=== PATIENT | female | born 1975 | race African-American/Black ===

== ENCOUNTER 2018-07-30 14:12 | Inpatient (IN) | payer MEDICAID ==
[~2018-07-30] VITALS: Ht 165.1 cm; Wt 65.3 kg
--- NOTE | 2018-07-30 14:40 | NUR ---
ED Nurse Note: Pt came into the ER w/ complaints of unable to walk x 2 weeks. Pt is denies any pain. A + O x4.
[2018-07-30 14:41] VITALS: BP 148/91
[2018-07-30] MEDS ORDERED: DiphenhydrAMINE 50mg/ml Inj IVP ONE (14:45)
[2018-07-30] MEDS ORDERED: Morphine Sulfate 4mg/ml Inj (IV USE ONLY) IVP ONE (14:45)
--- NOTE | 2018-07-30 14:46 | Emergency Room Report ---
History of Present Illness General Chief Complaint: General Complaint Source: Patient (TophermanoloNicole TANG) Present Illness HPI Patient presents with continued headache essentially debilitating sensation Patient was at [facility] last week was given a pain medication and Imitrex Family reports the patient had very minimal relief at the time with the headache over the past next week Patient was seen by her primary was given a note on the to present to the emergency room given questionable fever and headache and myalgia Patient presents 3 days after the initial note here family reports that they were not happy at [facility] and therefore presented to this facility patient herself denies any chest pain Patient has for fingers contracted complains of exacerbation of rheumatoid as well Also complains of continued headache she feels that her vision gets blurry at times (Nicole Espino DO) Allergies: Coded Allergies: No Known Allergies (Unverified , 07/30/18) Patient History Past Medical History: see triage record Pertinent Family History: none Reviewed Nursing Documentation: PMH: Agreed; PSxH: Agreed (Nicole Espino DO) Nursing Documentation-PMH Past Medical History: No Stated History (Nicole Espino DO) Review of Systems All Other Systems: negative except mentioned in HPI (Nicole Espino DO) Physical Exam Vital Signs Date Time Temp Pulse Resp B/P (MAP) Pulse Ox O2 Delivery O2 Flow Rate FiO2 07/30/18 14:28 98.4 99 23 136/102 99 Sp02 EP Interpretation: reviewed, normal General Appearance: well appearing, no apparent distress Head: normocephalic, atraumatic Eyes: left eye other; bilateral eye PERRL Neck: supple, thyroid normal Respiratory: lungs clear, no retraction, no accessory muscle use Gastrointestinal: non tender, soft Musculoskeletal: other - Contractures of her fingers difficulty bearing weight Neurologic: alert, oriented x3 Skin: normal color, no rash (Nicole Espino DO) Medical Decision Making ER Course I was called by the radiologist regarding a final read of the head CT done last night. He states that he feels that the patient has larger ventricles that would be expected. He is concerned it could be a communicating hydrocephalus. The patient was admitted to Dr. Stevens is currently an inpatient in the hospital. I called Dr. nicolas and informed him of the CT findings. He will follow-up and investigate this further. (Kimberly Nassar DO) Last Vital Signs Date Time Temp Pulse Resp B/P (MAP) Pulse Ox O2 Delivery O2 Flow Rate FiO2 07/30/18 14:28 98.4 99 23 136/102 99 (Nicole Espino DO) Nicole Espino DO Jul 30, 2018 14:46 Kimberly Nassar DO Jul 31, 2018 15:23
[2018-07-30 15:38] LABS: BASOPHILS % (AUTO) 0.7 % (0.0-2.0); EOSINOPHILS % (AUTO) 0.1 % (0.0-3.0); HEMATOCRIT 41.1 % (37.0-47.0); HEMOGLOBIN 13.1 G/DL (12.0-16.0); LYMPHOCYTES % (AUTO) 13.3 % (20.0-45.0); MEAN CORPUSCULAR VOLUME 71 FL (80-99); NEUTROPHILS % (AUTO) 75.9 % (45.0-75.0); PLATELET COUNT 293 K/UL (150-450); RED BLOOD COUNT 5.76 M/UL (4.20-5.40); RED CELL DISTRIBUTION WIDTH 17.7 % (11.6-14.8); WHITE BLOOD COUNT 10.9 K/UL (4.8-10.8)
--- NOTE | 2018-07-30 15:57 | NUR ---
ED Nurse Note: Pt back from CT.
[2018-07-30 16:31] LABS: ANION GAP 15 mmol/L (5-15); BLOOD UREA NITROGEN 12 mg/dL (7-18); CALCIUM 8.2 MG/DL (8.5-10.1); CARBON DIOXIDE 26 MMOL/L (21-32); CHLORIDE 93 MMOL/L (98-107); CREATININE 0.6 MG/DL (0.55-1.30); POTASSIUM 3.1 MMOL/L (3.5-5.1); SODIUM 133 MMOL/L (136-145)
[2018-07-30 16:40] VITALS: BP 138/91
[2018-07-30 16:44] LABS: ALANINE AMINOTRANSFERASE 9 U/L (12-78); ALBUMIN 2.9 G/DL (3.4-5.0); ALBUMIN/GLOBULIN RATIO 0.7 (1.0-2.7); ALKALINE PHOSPHATASE 60 U/L (46-116); ASPARTATE AMINO TRANSFERASE 15 U/L (15-37); BILIRUBIN,TOTAL 0.4 MG/DL (0.2-1.0); CKMB < 0.5 NG/ML (0.0-3.6); CREATINE KINASE 79 U/L (26-308)
[2018-07-30 16:49] LABS: APPEARANCE,URINE CLEAR; BILIRUBIN, URINE NEGATIVE (NEGATIVE); GLUCOSE, URINE (UA) NEGATIVE (NEGATIVE); KETONES,URINE 4+ (NEGATIVE); LEUKOCYTE ESTERASE ,URINE 1+ (NEGATIVE); NITRITE,URINE NEGATIVE (NEGATIVE); PH,URINE 6.5 (4.5-8.0); PROTEIN,URINE 3+ (NEGATIVE); UROBILINOGEN,URINE 4 MG/DL (0.0-1.0)
[2018-07-30 16:51] LABS: COLOR,URINE YELLOW
[2018-07-30] MEDS ORDERED: CLEAR EYES COMP15 ML OP (18:17)
[2018-07-30] MEDS ORDERED: HUMIRA20 MG/0.4 SUBQ (18:17)
[2018-07-30] MEDS ORDERED: VITAMIN E200 UNI4 PO (18:17)
[2018-07-30] MEDS ORDERED: IBUPROFEN600 MG ORAL (18:17)
[2018-07-30] MEDS ORDERED: Marijuana (18:17)
[2018-07-30] MEDS ORDERED: PREDNISONE2.5 MG ORAL (18:17)
[2018-07-30] MEDS ORDERED: Black Seed Oil (18:17)
[2018-07-30] MEDS ORDERED: TYLENOL EXTRA500 MG ORAL (18:17)
[2018-07-30 18:56] VITALS: BP 146/90
--- NOTE | 2018-07-30 19:06 | NUR ---
HAND-OFF: Report given to MARY Peres.
--- NOTE | 2018-07-30 20:29 | NUR ---
ED Nurse Note: ATTEMPTED TO GIVE TELEPHONE REPORT, PER CRN CALL BACK IN 10 MINUTES
[2018-07-30 20:31] VITALS: BP 158/80
--- NOTE | 2018-07-30 20:39 | NUR ---
ED Nurse Note: TELEPHONE REPORT GIVEN TO MARY MURCIA
--- NOTE | 2018-07-30 20:40 | NUR ---
NURSE NOTES: Received telephone report from MARY Peres. Awaiting patient arrival to unit.
--- NOTE | 2018-07-30 20:44 | NUR ---
ED Nurse Note: PT HAS BEEN TRASNFERRED TO [facility] WITH EZEQUIEL CABRERA. PT IS AOX4, SKIN INTACT, PT 100% ROOM AIR., PT IS IN SO SIGNS OF DISTRESS. ALL BELONGINGS SENT WITH PT.
--- NOTE | 2018-07-30 20:50 | NUR ---
NURSE NOTES: Received patient from ER via tech. Belongings checked. Patient A&Ox4, on room air. No signs of labored breathing. IV intact, patent, and saline locked. Bed in lowest position with call light in reach. Will continue to monitor.
[2018-07-30 21:00] VITALS: BP 148/94
[2018-07-30] MEDS ORDERED: Milk of Magnesia 30ml Ud ORAL PRN (21:00)
[2018-07-30] MEDS: Solu-MEDROL 40mg Inj IVP SCH (22:20)
--- NOTE | 2018-07-30 22:45 | History and Physical Report ---
DATE OF ADMISSION: 07/30/2018 HISTORY OF PRESENT ILLNESS: The patient is a 43-year-old female. She has past medical history of severe rheumatoid arthritis and mostly getting generalized weakness, came to the emergency room for intractable pain on both knee and unable to move and progressively getting worse. PAST MEDICAL HISTORY: Rheumatoid arthritis. MEDICATIONS: She is taking Humira as well as prednisone. PHYSICAL EXAMINATION: GENERAL: This is female, currently in the bed, generalized weakness. VITAL SIGNS: Blood pressure is 100/40, pulse 60, respirations 18, and temperature no fever. SKIN: Very shiny and red, dehydrated. HEENT: NAD. CHEST: Bilaterally clear. CARDIOVASCULAR: Regular rhythm. ABDOMEN: Soft. EXTREMITIES: Swelling on both ring fingers as well as ankle and knee. GENITOURINARY: Deferred. LABORATORY EXAMINATIONS: Not available. ASSESSMENT: 1. Severe arthritis. 2. Possible flare up. 3. Arthritis. PLAN: 1. We will admit on medical floor. 2. Start IV steroids. 3. Consider Rheumatology consult. 4. Continue [place] for severe pain. 5. PT and OT. Andrew Stevens M.D. DR: Dmitri JOB#: [id number] CC:
[2018-07-31] VITALS: BP 122/87
[2018-07-31] MEDS: HYDROcodone/Acetamin 5/325 tab ORAL PRN ×2 (01:08→23:18)
[2018-07-31 04:00] VITALS: BP 112/74
--- NOTE | 2018-07-31 07:14 | NUR ---
NURSE NOTES: HAND-OFF: Report given to MARY Joy.
[2018-07-31 08:00] VITALS: BP 122/80
[2018-07-31 08:04] LABS: ANION GAP 10 mmol/L (5-15); BLOOD UREA NITROGEN 9 mg/dL (7-18); CALCIUM 9.1 MG/DL (8.5-10.1); CARBON DIOXIDE 26 MMOL/L (21-32); CHLORIDE 90 MMOL/L (98-107); CREATININE 0.6 MG/DL (0.55-1.30); SODIUM 126 MMOL/L (136-145)
--- NOTE | 2018-07-31 08:13 | NUR ---
NURSE NOTES: Patient is alert and oriented X4. Patient is resting in bed. No reports of discomfort at the moment. Side rails are up X2, bed is locked, and in lowest position. Will continue to monitor.
[2018-07-31] MEDS: Solu-MEDROL 40mg Inj IVP SCH (08:40)
[2018-07-31] MEDS ORDERED: Pantoprazole Inj IVP SCH (09:00)
--- NOTE | 2018-07-31 09:18 | NUR ---
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
--- NOTE | 2018-07-31 10:22 | Diagnostic Imaging Report ---
Indication: Headache Technique: Contiguous 5 mm thick transaxial imaging of the head obtained in a Siemens Sensation [address] scanner. Soft tissue and bone windows generated. Automatic Exposure Control was utilized. Total Dose length Product (DLP): 1400.[address] Dose Index Volume (CTDIvol): 70.38 mGy Comparison: none Findings: There is some prominence of the ventricles which appear disproportionately large relative to the size of the sulci and basal cisterns, which are much smaller. Would consider the possibility of communicating hydrocephalus. Further clinical evaluation by a neurologist may be indicated. There is no mass effect or edema, midline shift. There is no evidence of acute intracranial hemorrhage or abnormal extra-axial collections. The osseous structures appear unremarkable. Paranasal sinuses are clear as visualized. IMPRESSION: Question of mild ventricular dilatation. Consider communicating hydrocephalus. Discrepancy with the preliminary reading by statrad is noted. The final results were discussed via telephone with the emergency room physician Dr. Kimberly Nassar. The CT scanner at [facility] is accredited by the [employer] and the scans are performed using dose optimization techniques as appropriate to a performed exam including Automatic Exposure control.
[2018-07-31 12:00] VITALS: BP 135/96
--- NOTE | 2018-07-31 14:32 | Consultation ---
Consult Note Consult Note asked to eval for Renal consultation regarding hypoNatremia Patient presents with continued headache essentially debilitating sensation Patient was at [facility] last week was given a pain medication and Imitrex Family reports the patient had very minimal relief at the time with the headache over the past next week Patient was seen by her primary was given a note on the to present to the emergency room given questionable fever and headache and myalgia Patient presents 3 days after the initial note here family reports that they were not happy at [facility] and therefore presented to this facility patient herself denies any chest pain Patient has for fingers contracted complains of exacerbation of rheumatoid as well Also complains of continued headache she feels that her vision gets blurry at times No Known Allergies (Unverified , 07/30/18) interviewed, responsive alert and oriented examined, VSS moves all exterimities, answers questions properly no wheez slight tachy abd soft data reviewed on prednisone and Acthie for last 2 years for RA . Assessment/Plan Renal immpression: Hyponatremia ? Depletional Other dx; Periodic Vomiting RA UTI plan: Saline IV fluid IV Protonix monitor serum Na U Na U Osm per orders, per consultants further comments regarding low Na ,when test results available Lio Ramsey MD Jul 31, 2018 14:32
[2018-07-31] MEDS: Artificial Tears 1.4% Op Soln BOTH EYES PRN (15:18)
[2018-07-31 16:00] VITALS: BP 132/84
[2018-07-31] MEDS: Docusate 100mg cap ORAL SCH (17:31)
[2018-07-31 19:03] LABS: APPEARANCE,URINE SLIGHTLY CLOUDY; BILIRUBIN, URINE NEGATIVE (NEGATIVE); COLOR,URINE ORANGE; GLUCOSE, URINE (UA) NEGATIVE (NEGATIVE); KETONES,URINE 4+ (NEGATIVE); LEUKOCYTE ESTERASE ,URINE 1+ (NEGATIVE); NITRITE,URINE NEGATIVE (NEGATIVE); PH,URINE 6.5 (4.5-8.0); PROTEIN,URINE 4+ (NEGATIVE); UROBILINOGEN,URINE 4 MG/DL (0.0-1.0)
--- NOTE | 2018-07-31 19:23 | NUR ---
HAND-OFF: Report given to MARY Salcido.
--- NOTE | 2018-07-31 19:25 | NUR ---
NURSE NOTES: Received patient awake in bed, able to verbalize needs, no c/o pain and nausea at this time. IV asymptomatic, dressing reinforced, IVF running at 75ml/hr. 2 side rails up, bed on lowest position, call light and belongings within reach,
[2018-07-31 20:00] VITALS: BP 135/85
[2018-07-31] MEDS: Pantoprazole Inj IVP SCH (20:17)
[2018-08-01 00:10] VITALS: BP 139/97
[2018-08-01 04:00] VITALS: BP 153/75
--- NOTE | 2018-08-01 07:14 | NUR ---
HAND-OFF: Report given to MARY Joy.
[2018-08-01 07:28] LABS: BASOPHILS % (AUTO) 0.8 % (0.0-2.0); EOSINOPHILS % (AUTO) 0.2 % (0.0-3.0); HEMATOCRIT 39.3 % (37.0-47.0); HEMOGLOBIN 12.4 G/DL (12.0-16.0); LYMPHOCYTES % (AUTO) 11.5 % (20.0-45.0); MEAN CORPUSCULAR VOLUME 72 FL (80-99); MONOCYTES % (AUTO) 6.9 % (1.0-10.0); NEUTROPHILS % (AUTO) 80.7 % (45.0-75.0); PLATELET COUNT 230 K/UL (150-450); RED BLOOD COUNT 5.49 M/UL (4.20-5.40); RED CELL DISTRIBUTION WIDTH 17.5 % (11.6-14.8); WHITE BLOOD COUNT 10.1 K/UL (4.8-10.8)
--- NOTE | 2018-08-01 07:43 | NUR ---
NURSE NOTES: Patient is asleep. IVF is infusing at 75 ml/hr. Side rails are up X2, bed is locked, in lowest position, and call light is within reach. Will continue to monitor.
[2018-08-01 08:00] VITALS: BP 130/98
[2018-08-01 08:05] LABS: ALANINE AMINOTRANSFERASE 6 U/L (12-78); ALBUMIN/GLOBULIN RATIO 0.6 (1.0-2.7); ALKALINE PHOSPHATASE 61 U/L (46-116); ANION GAP 10 mmol/L (5-15); ASPARTATE AMINO TRANSFERASE 19 U/L (15-37); BILIRUBIN,TOTAL 0.5 MG/DL (0.2-1.0); BLOOD UREA NITROGEN 13 mg/dL (7-18); CALCIUM 8.7 MG/DL (8.5-10.1); CARBON DIOXIDE 24 MMOL/L (21-32); CHLORIDE 92 MMOL/L (98-107); CHOLESTEROL 137 MG/DL (< 200); CREATINE KINASE 77 U/L (26-308); CREATININE 0.6 MG/DL (0.55-1.30); GAMMA GLUTAMYL TRANSPEPTIDASE 19 U/L (5-85); HDL CHOLESTEROL 33 MG/DL (40-60); PHOSPHORUS 2.8 MG/DL (2.5-4.9); POTASSIUM 4.3 MMOL/L (3.5-5.1); SODIUM 126 MMOL/L (136-145); TRIGLYCERIDES 125 MG/DL (30-150)
[2018-08-01] MEDS: Pantoprazole Inj IVP SCH (08:43)
[2018-08-01] MEDS: Docusate 100mg cap ORAL SCH ×3 (08:43→18:09)
[2018-08-01] MEDS: Solu-MEDROL 40mg Inj IVP SCH (08:43)
[2018-08-01] MEDS: HYDROcodone/Acetamin 5/325 tab ORAL PRN ×2 (08:48→20:33)
[2018-08-01] MEDS ORDERED: NaCl 3% 500ml 250 ML IV ONE (10:00)
[2018-08-01 12:00] VITALS: BP 124/82
--- NOTE | 2018-08-01 13:11 | Nephrology Progress Note ---
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 Vomiting RA UTI Plan 3% saline Protonix monitor serum Na U Na U Osm steroid change to po waiting urine culture- meanwhile Rocephin per orders Subjective ROS Limited/Unobtainable: No Constitutional: Reports: malaise HEENT: Reports: other - less HERNANDEZ Neurologic/Psychiatric: Reports: other - non focal Objective Objective Last 24 Hour Vital Signs Date Time Temp Pulse Resp B/P (MAP) Pulse Ox O2 Delivery O2 Flow Rate FiO2 08/01/18 12:00 97.2 72 18 124/82 (96) 99 08/01/18 10:43 99.3 08/01/18 08:15 Room Air 08/01/18 08:00 100.5 102 16 130/98 (109) 98 08/01/18 04:00 97.4 75 16 153/75 (101) 98 08/01/18 00:10 98.8 89 16 139/97 (111) 96 07/31/18 23:12 Room Air 07/31/18 20:00 97.5 73 16 135/85 (102) 96 07/31/18 16:00 97.5 75 18 132/84 (100) 96 Intake and Output 07/31/18 08/01/18 19:00 07:00 Intake Total 390 ml 1175 ml Balance 390 ml 1175 ml Intake Oral 240 ml 350 ml IV Total 150 ml 825 ml # Voids 2 3 Laboratory Tests 07/31/18 18:30: Urine Color [place], Urine Appearance Slightly cloudy, Urine pH 6.5, Urine Specific [place] 1.020, Urine Protein 4+H, Urine Glucose (UA) Negative, Urine Ketones 4+H, Urine Blood 5+H, Urine Nitrite Negative, Urine Bilirubin Negative, Urine Urobilinogen 4H, Urine Leukocyte Esterase 1+H, Urine RBC TntcH, Urine WBC 5-10H, Urine Squamous Epithelial Cells ModerateH, Urine Bacteria ModerateH, Urine Osmolality 754H 08/01/18 06:40: White Blood Count 10.1, Red Blood Count 5.49H, Hemoglobin 12.4, Hematocrit 39.3 , Mean Corpuscular Volume 72L, Mean Corpuscular Hemoglobin 22.7L, Mean Corpuscular Hemoglobin Concent 31.6L, Red Cell Distribution Width 17.5H, Platelet Count 230, Mean Platelet Volume 6.2L, Neutrophils (%) (Auto) 80.7H, Lymphocytes (%) (Auto) 11.5L, Monocytes (%) (Auto) 6.9, Eosinophils (%) (Auto) 0.2, Basophils (%) (Auto) 0.8, Sodium Level 126L, Potassium Level 4.3, Chloride Level 92L, Carbon Dioxide Level 24, Anion Gap 10, Blood Urea Nitrogen 13, Creatinine 0.6, Estimat Glomerular Filtration Rate > 60, Glucose Level 90, Osmolality 272L, Uric Acid 2.3L, Calcium Level 8.7, Phosphorus Level 2.8, Magnesium Level 1.8, Total Bilirubin 0.5, Gamma Glutamyl Transpeptidase 19, Aspartate Amino Transf (AST/SGOT) 19, Alanine Aminotransferase (ALT/SGPT) 6L, Alkaline Phosphatase 61, Total Creatine Kinase 77, C-Reactive Protein, Quantitative 3.4H, Pro-B-Type Natriuretic Peptide 184H, Total Protein 7.7, Albumin 3.0L, Globulin 4.7, Albumin/Globulin Ratio 0.6L, Triglycerides Level 125 , Cholesterol Level 137, LDL Cholesterol 79, HDL Cholesterol 33L, Cholesterol/ HDL Ratio 4.2, Vitamin B12 Level > 2000H, Folate 9.6, Thyroid Stimulating Hormone (TSH) < 0.010L Height (Feet): 5 Height (Inches): 5.00 Weight (Pounds): 140 General Appearance: no apparent distress Cardiovascular: normal rate Respiratory/Chest: other - no wheez Abdomen: soft Neurologic: other - no focal Lio Ramsey MD Aug 01, 2018 13:11
--- NOTE | 2018-08-01 13:51 | Progress Note ---
DATE: 07/31/2018 SUBJECTIVE: This is a young female currently with severe rheumatoid arthritis and flare-up. The patient this morning feels little better. Pain is also resolving. OBJECTIVE: VITAL SIGNS: Blood pressure 112/74, pulse 60s. No fever. CHEST: Bilaterally clear. CARDIOVASCULAR: Regular rhythm. ABDOMEN: Soft. Positive bowel sounds. Nontender. Midline surgical scar. EXTREMITIES: No CCE. NEUROLOGICAL: The patient has no focal deficit. GENITOURINARY: Deferred. LABORATORY DATA: White count 11,000; hemoglobin 13. Chemistry panel, BUN 9, creatinine 0.6, glucose 149, sodium . Albumin is 2.5. ASSESSMENT: 1. Hypokalemia, resolved. 2. Severe rheumatoid arthritis. 3. Anemia. 4. Severe malnutrition. PLAN: We will currently continue IV steroid. Continue hydrocodone for pain. Continue milk of magnesia and PPIs. Andrew Stevens M.D. DR: Lesvia JOB#: [id number] CC:
--- NOTE | 2018-08-01 14:52 | NUR ---
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 DEHYDRATION VS: BP 153/75, P 102, T 100.5, RR 16, SpO2 96 RBC 5.49, Na 126, IS:NS IV 250ml IV PROTONIX 40 mg IVP SOLU-MEDROL 40mg IVP NORCO 5/325 1TAB MED/SURG STATUS
--- NOTE | 2018-08-01 14:55 | NUR ---
NURSE NOTES: Patient found sitting on floor. Patient reports she does not remember how she got on floor. Patient says "I think I blacked out." Patient is alert to name and place, patient states that she cannot remember why she is in hospital. Patient states that she did not hit her head. Dr. Stevens called, voicemail left, awaiting call back.
[2018-08-01] MEDS ORDERED: cefTRIAXone 1 GM in D5W 55 ML IVPB SCH (15:00)
--- NOTE | 2018-08-01 15:03 | NUR ---
NURSE NOTES: S/P finding patient sitting on floor, Vital signs were taken and were stable. Patient did not report any pain. No s/s of trauma or bruising on patient noted. Pupils checked and were brisk and reactive to light. Will continue to monitor.
[2018-08-01 16:00] VITALS: BP 129/88
--- NOTE | 2018-08-01 17:15 | NUR ---
NURSE NOTES: Dr. Stevens rounded on patient. No new orders received r/t to finding patient on floor. Will continue to monitor.
--- NOTE | 2018-08-01 19:14 | Cardiology Report ---
APPROVED REPORT EKG Measurement Heart [id number] Sinus tachycardia Otherwise normal ECG
--- NOTE | 2018-08-01 19:17 | NUR ---
NURSE NOTES: Patient reports her cell phone, ID, ANNIKA card, and cold saw operator are missing from room. Per belongings list, phone is listed. Nursing supervisor mold yard notified. Will continue to monitor for belongings.
--- NOTE | 2018-08-01 19:20 | NUR ---
HAND-OFF: Report given to MARY Salcido.
--- NOTE | 2018-08-01 19:28 | NUR ---
NURSE NOTES: Received patient awake in bed, missing cellphone and outpatient psychiatrist endorsed by AM nurse, pt able to verbalize needs, c/o of neck pain 5/10. Assisted with voiding, urine sample sent down to lab. Mother and girlfriend at the bedside. Safety and fall precautions applied.
[2018-08-01 20:00] VITALS: BP 146/72
--- NOTE | 2018-08-01 22:45 | Progress Note ---
DATE: 08/01/2018 SUBJECTIVE: This is elderly female, currently was found on the floor. She looks otherwise comfortable, is not complaining any pain. PHYSICAL EXAMINATION: VITAL SIGNS: Blood pressure 124/82, pulse 72, no fever. CHEST: Bilaterally clear. CARDIOVASCULAR: Regular rhythm. ABDOMEN: Soft. EXTREMITIES: Mild tenderness, both joint synovitis. LABORATORY AND DIAGNOSTIC DATA: White counts are 10,000, hemoglobin 12. Sodium 126, potassium 4.3, BUN 13, creatinine 0.6, glucose 272. ASSESSMENT AND PLAN: 1. Severe arthritis. 2. UTI. PLAN: 1. The patient is on antibiotics. 2. Cultures were negative. 3. We will currently continue current treatment. 4. PT and OT. 5. Discharge plan tomorrow. Andrew Stevens M.D. DR: Dmitri JOB#: [id number] CC:
[2018-08-02] VITALS: BP 131/86
[2018-08-02] MEDS: HYDROcodone/Acetamin 5/325 tab ORAL PRN ×2 (00:53→10:14)
[2018-08-02 04:00] VITALS: BP 137/87
--- NOTE | 2018-08-02 07:24 | NUR ---
HAND-OFF: Report given to MARY Joy.
--- NOTE | 2018-08-02 07:36 | NUR ---
NURSE NOTES: Patient is resting in bed. Side rails are up x2, non-skid socks are on patient. Bed is locked, bed alarm is on, and in lowest position. Call light is within reach. Will continue to monitor.
[2018-08-02 08:00] VITALS: BP 153/95
[2018-08-02] MEDS: Docusate 100mg cap ORAL SCH ×3 (08:18→18:34)
[2018-08-02] MEDS: cefTRIAXone 1 GM in D5W 55 ML IVPB SCH (08:18)
[2018-08-02 11:17] LABS: ANION GAP 9 mmol/L (5-15); BLOOD UREA NITROGEN 9 mg/dL (7-18); CALCIUM 8.8 MG/DL (8.5-10.1); CARBON DIOXIDE 27 MMOL/L (21-32); CHLORIDE 90 MMOL/L (98-107); CREATININE 0.7 MG/DL (0.55-1.30); POTASSIUM 3.5 MMOL/L (3.5-5.1); SODIUM 126 MMOL/L (136-145)
[2018-08-02 11:26] LABS: ALANINE AMINOTRANSFERASE 10 U/L (12-78); ALBUMIN 3.2 G/DL (3.4-5.0); ALBUMIN/GLOBULIN RATIO 0.7 (1.0-2.7); ALKALINE PHOSPHATASE 67 U/L (46-116); ASPARTATE AMINO TRANSFERASE 12 U/L (15-37); BILIRUBIN,TOTAL 0.4 MG/DL (0.2-1.0); PHOSPHORUS 2.3 MG/DL (2.5-4.9)
[2018-08-02 12:00] VITALS: BP 132/80
--- NOTE | 2018-08-02 15:06 | NUR ---
P.T NOTE: P.T EVALUATION COMPLETED AND TREATMENT INITIATED. PLEASE REFER TO P.T EVALUATION FOR CURRENT FUNCTIONAL STATUS. PATIENT IS ALERT , ORIENTED X 4. PATIENT REPORTS C/O SEVERE MIGRAINE HEADACHE RADIATING TO NECK ENTIRE LOWER BACK AGGRAVATED BY MOVEMENT. PATIENT WOULD MOAN ANG GROAN WHEN CHANGING BODY POSITION IN BED. PAIN RATED FROM 8-10/10. PATIENT PREMEDICATED. PATIENT REQUIRED EXTENDED AMOUNT OF TIME AND MIN A X 1 FOR BED MOBILITY AND TRANSFERS. PATIENT TO ABLE STAND AMBULATE USING THE FWW X4 FEET HOWEVER NEEDED MIN A X 1 AND TO MAINTAIN AMBULATORY BALANCE. SKILLED P.T SERVICE IS WARRANTED TO IMPROVE STRENGTH AND ACTIVITY TOLERANCE TO IMPROVE HER FUNCTIONAL MOBILITY INDEPENDENCE AND SAFETY. THANK YOU FOR THIS REFERRAL.
[2018-08-02] MEDS: Artificial Tears 1.4% Op Soln BOTH EYES PRN (15:52)
[2018-08-02 16:00] VITALS: BP 112/55
--- NOTE | 2018-08-02 16:03 | Nephrology Progress Note ---
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 Vomiting RA UTI Plan 3% saline and lasix Protonix monitor serum Na U Na U Osm steroid change to po waiting urine culture- meanwhile Rocephin per orders Subjective ROS Limited/Unobtainable: No Constitutional: Reports: malaise, weakness Objective Objective Last 24 Hour Vital Signs Date Time Temp Pulse Resp B/P (MAP) Pulse Ox O2 Delivery O2 Flow Rate FiO2 08/02/18 12:38 98.2 08/02/18 12:00 100.2 82 16 132/80 (97) 97 08/02/18 08:00 98.1 97 16 153/95 (114) 99 08/02/18 08:00 Room Air 08/02/18 04:00 98.0 82 18 137/87 (104) 99 08/02/18 00:00 97.9 85 20 131/86 (101) 99 08/01/18 21:36 Room Air 08/01/18 20:00 98.1 78 20 146/72 (96) 99 Intake and Output 08/01/18 08/02/18 19:00 07:00 Intake Total 100 ml 250 ml Balance 100 ml 250 ml Intake Oral 100 ml 250 ml # Voids 2 2 Laboratory Tests 08/01/18 19:20: Urine Random Sodium 107 08/02/18 06:00: Urine Random Sodium 150H 08/02/18 10:40: Sodium Level 126L, Potassium Level 3.5, Chloride Level 90L, Carbon Dioxide Level 27, Anion Gap 9, Blood Urea Nitrogen 9, Creatinine 0.7, Estimat Glomerular Filtration Rate > 60, Glucose Level 125H, Uric Acid 1.9L, Calcium Level 8.8, Phosphorus Level 2.3L, Magnesium Level 1.9, Total Bilirubin 0.4, Aspartate Amino Transf (AST/SGOT) 12L, Alanine Aminotransferase (ALT/SGPT) 10L, Alkaline Phosphatase 67, Total Protein 8.1, Albumin 3.2L, Globulin 4.9, Albumin/ Globulin Ratio 0.7L Height (Feet): 5 Height (Inches): 5.00 Weight (Pounds): 139 General Appearance: no apparent distress Cardiovascular: normal rate Respiratory/Chest: lungs clear Abdomen: soft Neurologic: other - moves all ext Objective no change Lio Ramsey MD Aug 02, 2018 16:03
--- NOTE | 2018-08-02 16:11 | NUR ---
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 DEHYDRATION VS: BP 153/95, P 97, T 100.2, RR 16, SpO2 97 Na 126, UR RANDOM SODIUM 150 IS:LASIX 10mg IV POTASSIUM PHOS./NS 285ml IV NS IV 500ml IV PREDNISONE 20mg CEFTRIAXONE 55ml IVPB PROTONIX 40 mg IVP NORCO 5/325 1 TAB MED/SURG STATUS
[2018-08-02] MEDS ORDERED: NaCl 3% 500ml 500 ML IV ONE (17:00)
--- NOTE | 2018-08-02 17:29 | NUR ---
NURSE NOTES: Dr. Stevens made round on patient. New order received for discharge tomorrow 08/03/18.
[2018-08-02] MEDS ORDERED: Potassium Phosphate 30 MM in NS 275 ML IV SCH (18:00)
--- NOTE | 2018-08-02 19:28 | NUR ---
Received patient awake in bed, able to verbalize needs, c/o of 5/10 neck pain at this time, no s/s of acute distress. IV sites asymptomatic, dressings dry and intact, reinforced. Safety and fall precautions applied. Girlfriend at the bedside.
--- NOTE | 2018-08-02 19:30 | NUR ---
HAND-OFF: Report given to MARY Salcido.
[2018-08-02 20:00] VITALS: BP 129/86
--- NOTE | 2018-08-02 22:45 | Progress Note ---
DATE: 08/02/2018 SUBJECTIVE: This is a 43-year-old female, currently in the bed, comfortable, has received physical therapy. She is doing better. PHYSICAL EXAMINATION: VITAL SIGNS: Blood pressure is 132/80, T-max was 100.2. CHEST: Bilaterally clear. CARDIOVASCULAR: Regular rhythm. ABDOMEN: Soft. EXTREMITIES: CCE. NEUROLOGIC: Generalized weakness. ASSESSMENT: 1. Rheumatoid arthritis. 2. Fever. PLAN: 1. We will monitor laboratories. 2. Continue current treatment. 3. PT and OT. 4. Discharge plan . Andrew Stevens M.D. DR: Dmitri JOB#: [id number] CC:
[2018-08-03] VITALS (7 sets, daily range): BP systolic 127–165; BP diastolic 82–89
[2018-08-03] MEDS: HYDROcodone/Acetamin 5/325 tab ORAL PRN ×3 (00:30→21:58)
--- NOTE | 2018-08-03 07:30 | NUR ---
NURSE NOTES: Received pt from MARY THOMPSON. Pt is alert and orient x4. pt is in RA. No SOB or acute respiratory distress noted. pt has intact iv access LFA 24G is running well. pt has discharge order. all needs attended, bed is locked and is in the lowest position. call light within easy reach. will continue to monitor.
[2018-08-03] MEDS: Docusate 100mg cap ORAL SCH ×3 (08:31→17:13)
[2018-08-03] MEDS: cefTRIAXone 1 GM in D5W 55 ML IVPB SCH (08:31)
[2018-08-03 10:43] LABS: HEMATOCRIT 39.4 % (37.0-47.0); HEMOGLOBIN 12.8 G/DL (12.0-16.0); MEAN CORPUSCULAR VOLUME 71 FL (80-99); PLATELET COUNT 279 K/UL (150-450); RED BLOOD COUNT 5.59 M/UL (4.20-5.40); RED CELL DISTRIBUTION WIDTH 18.3 % (11.6-14.8); WHITE BLOOD COUNT 7.3 K/UL (4.8-10.8)
[2018-08-03 10:47] LABS: ANION GAP 12 mmol/L (5-15); BLOOD UREA NITROGEN 9 mg/dL (7-18); CALCIUM 8.5 MG/DL (8.5-10.1); CARBON DIOXIDE 27 MMOL/L (21-32); CHLORIDE 99 MMOL/L (98-107); CREATININE 0.8 MG/DL (0.55-1.30); POTASSIUM 3.3 MMOL/L (3.5-5.1); SODIUM 138 MMOL/L (136-145)
[2018-08-03 10:54] LABS: ALANINE AMINOTRANSFERASE 12 U/L (12-78); ALBUMIN 3.2 G/DL (3.4-5.0); ALBUMIN/GLOBULIN RATIO 0.7 (1.0-2.7); ALKALINE PHOSPHATASE 65 U/L (46-116); ASPARTATE AMINO TRANSFERASE 8 U/L (15-37); BILIRUBIN,TOTAL 0.4 MG/DL (0.2-1.0)
--- NOTE | 2018-08-03 11:16 | Nephrology Progress Note ---
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 DC planning on PO ABx levaquin / or Bactrim... Subjective ROS Limited/Unobtainable: No Constitutional: Reports: malaise, weakness Objective Objective Last 24 Hour Vital Signs Date Time Temp Pulse Resp B/P (MAP) Pulse Ox O2 Delivery O2 Flow Rate FiO2 08/03/18 09:00 Room Air 08/03/18 08:00 99.5 100 19 127/88 (101) 98 08/03/18 04:00 98.1 95 18 165/89 (114) 98 08/03/18 00:00 97.4 95 18 155/89 (111) 98 08/02/18 21:00 Room Air 08/02/18 20:00 98.9 83 18 129/86 (100) 98 08/02/18 16:00 97.9 72 18 112/55 (74) 97 08/02/18 12:38 98.2 08/02/18 12:00 100.2 82 16 132/80 (97) 97 Intake and Output 08/02/18 08/03/18 18:59 06:59 Intake Total 480 ml Balance 480 ml Intake Oral 150 ml IV Total 330 ml # Voids 2 3 Current Medications Medications (Trade) Dose Ordered Sig/Hilaria Route PRN Reason Start Time Stop Time Status Last Admin Dose Admin Acetaminophen (Tylenol) 650 mg Q4H PRN ORAL Mild Pain/Temp > 100.5 07/30/18 21:00 08/29/18 20:59 08/02/18 20:19 Acetaminophen/ Hydrocodone Bitart ([place] 5/325) 1 tab Q4H PRN ORAL Severe Pain (Pain Scale 7-10) 07/30/18 21:00 08/06/18 20:59 08/03/18 05:45 Artificial Tears (Akwa-Tears) 2 drop BIDPRN PRN BOTH EYES Dry Eyes 07/31/18 10:45 08/30/18 10:44 08/02/18 15:52 Ceftriaxone Sodium 1 gm/ Dextrose 55 ml @ 110 mls/hr DAILY IVPB 08/02/18 09:00 08/09/18 08:59 08/03/18 08:31 Docusate Sodium (Colace) 100 mg THREE TIMES A DAY ORAL 07/31/18 18:00 08/30/18 17:59 08/03/18 08:31 Furosemide (Lasix) 10 mg EVERY 6 HOURS IV 08/02/18 18:00 09/01/18 17:59 08/03/18 05:45 Ondansetron HCl (Zofran) 4 mg Q6H PRN IV Nausea & Vomiting 07/31/18 14:45 08/30/18 14:44 Pantoprazole (Protonix) 40 mg EVERY 12 HOURS ORAL 08/01/18 21:00 08/31/18 20:59 08/03/18 08:31 Prednisone (predniSONE) 20 mg DAILY ORAL 08/02/18 09:00 09/01/18 08:59 08/03/18 08:31 Laboratory Tests 08/03/18 10:25: White Blood Count 7.3, Red Blood Count 5.59H, Hemoglobin 12.8, Hematocrit 39.4, Mean Corpuscular Volume 71L, Mean Corpuscular Hemoglobin 22.9L, Mean Corpuscular Hemoglobin Concent 32.5, Red Cell Distribution Width 18.3H, Platelet Count 279, Mean Platelet Volume 6.1L, Neutrophils (%) (Auto) , Lymphocytes (%) (Auto) , Monocytes (%) (Auto) , Eosinophils (%) (Auto) , Basophils (%) (Auto) , Neutrophils % (Manual) [Pending], Lymphocytes % (Manual) [Pending], Platelet Estimate [Pending], Platelet Morphology [Pending], Sodium Level 138#, Potassium Level 3.3L, Chloride Level 99, Carbon Dioxide Level 27, Anion Gap 12, Blood Urea Nitrogen 9, Creatinine 0.8, Estimat Glomerular Filtration Rate > 60, Glucose Level 134H, Osmolality 289L, Uric Acid 2.3L, Calcium Level 8.5, Total Bilirubin 0.4, Aspartate Amino Transf (AST/SGOT) 8L, Alanine Aminotransferase (ALT/SGPT) 12, Alkaline Phosphatase 65, Total Protein 7.9, Albumin 3.2L, Globulin 4.7, Albumin/Globulin Ratio 0.7L Height (Feet): 5 Height (Inches): 5.00 Weight (Pounds): 139 General Appearance: no apparent distress Cardiovascular: normal rate Respiratory/Chest: decreased breath sounds Abdomen: soft Objective no change Lio Ramsey MD Aug 03, 2018 11:16
--- NOTE | 2018-08-03 12:23 | NUR ---
MINE MOTOR OPERATOR NOTES SPOKE WITH PT AND PT'S DOMESTIC PARTNER PRAMOD MADE AWARE OF DCP AT THIS TIME. PT'S MOTHER WILL PORTRAIT CONSULTANT PT AND TRANSPORT HER HOME, PT'S SON WILL BE AVAILABLE TO ASSIST PT WHEN SHE GETS HOME UNTIL PRAMOD RETURNS HOME FROM WORK. PER PRAMOD THE PT HAS A DIFFERENT INSURANCE HOWEVER SHE IS UNABLE TO REMEMBER THE NUMBER UNTIL SHE READS HER EMAIL. ENCOURAGED PT TO MAKE AN APPOINTMENT WITH HER PRIMARY DOCTOR FOR FOLLOW UP. PT VERBALIZED UNDERSTANDING.
--- NOTE | 2018-08-03 12:49 | NUR ---
NURSE NOTES: Dr benavides is aware about V/S, ordered to hold discharge, consult with Dr paz, blood culture x1. noted and carried out. will continue to monitor.
[2018-08-03] MEDS: D5NS 1,000 ML IV SCH (15:14)
--- NOTE | 2018-08-03 15:34 | NUR ---
RADIOLOGY DEPT., CHEST X-RAY DONE.-P.DYE
--- NOTE | 2018-08-03 15:52 | Diagnostic Imaging Report ---
Indication: Cough Comparison: 07/30/2018 A single view chest radiograph was obtained. Findings: Cardiomediastinal appearance is within normal limits for age. The lungs are clear. Pulmonary vascularity is appropriate. The diaphragmatic contour is smooth and costophrenic angles are sharp. No pleural effusions are identified. The bones are unremarkable. Impression: No acute findings
--- NOTE | 2018-08-03 17:18 | NUR ---
NURSE NOTES: Dr CERVANTES is aware regarding consult. will continue to monitor. Addendum: 08/03/18 at 1720 by Francisco Randle RN Dr olivia at 1300.
[2018-08-03] MEDS ORDERED: Piperacillin/Tazobactam 3.375 GM in D5W 110 ML IVPB SCH (18:30)
[2018-08-03] MEDS: Piperacillin/Tazobactam 3.375 GM in D5W 110 ML IVPB SCH (18:53)
--- NOTE | 2018-08-03 18:53 | NUR ---
NURSE NOTES: ZOYCIN is running in 4 hrs. will continue to monitor.
--- NOTE | 2018-08-03 19:54 | NUR ---
HAND-OFF: Report given to RN DODIE.
--- NOTE | 2018-08-03 20:00 | NUR ---
NURSE NOTES: Pt is in bed, awake and alert. No acute distress noted. Pt's family by bedside. Pt reports pain all over body, pain medication will be given as ordered PRN. D5NS running at 50ml/hr. Bed low in position,side rails up and call light within reach. Pt is instructed to call before getting out of bed.
--- NOTE | 2018-08-03 21:10 | Infectious Diseases Prog Note ---
Assessment/Plan Problems: (1) fever, tachy cardia Assessment & Plan: rule out sepsis or source of infection VS RA flare, will send blood culture and urine culture, repeat CXR to rule out new infiltrates, start vancomycin and zosyn empiricllay, order RF level (2) Rheumatoid arthritis flare Assessment & Plan: possible with fever, will order RF to confirm , already on small dose of steroids (3) UTI (urinary tract infection) Assessment & Plan: due to proteus mirabilis , already on zosyn now to cover for sepsis too, stop ceftriaxone, repeat urine culture (4) SIADH (syndrome of inappropriate ADH production) Assessment & Plan: continue fluids restriction , renal is following Subjective Allergies: Coded Allergies: No Known Allergies (Unverified , 07/30/18) Objective Vital Signs Last 24 Hour Vital Signs Date Time Temp Pulse Resp B/P (MAP) Pulse Ox O2 Delivery O2 Flow Rate FiO2 08/03/18 16:00 99.0 82 20 136/88 (104) 96 08/03/18 14:00 98.8 99 20 152/82 (105) 97 08/03/18 13:11 98.9 08/03/18 12:00 101.8 130 20 160/88 (112) 97 08/03/18 09:00 Room Air 08/03/18 08:00 99.5 100 19 127/88 (101) 98 08/03/18 04:00 98.1 95 18 165/89 (114) 98 08/03/18 00:00 97.4 95 18 155/89 (111) 98 Height (Feet): 5 Height (Inches): 5.00 Weight (Pounds): 139 Laboratory Tests Test 08/03/18 10:25 White Blood Count 7.3 K/UL (4.8-10.8) Red Blood Count 5.59 M/UL (4.20-5.40) H Hemoglobin 12.8 G/DL (12.0-16.0) Hematocrit 39.4 % (37.0-47.0) Mean Corpuscular Volume 71 FL (80-99) L Mean Corpuscular Hemoglobin 22.9 PG (27.0-31.0) L Mean Corpuscular Hemoglobin Concent 32.5 G/DL (32.0-36.0) Red Cell Distribution Width 18.3 % (11.6-14.8) H Platelet Count 279 K/UL (150-450) Mean Platelet Volume 6.1 FL (6.5-10.1) L Neutrophils (%) (Auto) % (45.0-75.0) Lymphocytes (%) (Auto) % (20.0-45.0) Monocytes (%) (Auto) % (1.0-10.0) Eosinophils (%) (Auto) % (0.0-3.0) Basophils (%) (Auto) % (0.0-2.0) Differential Total Cells Counted 100 Neutrophils % (Manual) 84 % (45-75) H Lymphocytes % (Manual) 9 % (20-45) L Monocytes % (Manual) 7 % (1-10) Eosinophils % (Manual) 0 % (0-3) Basophils % (Manual) 0 % (0-2) Band Neutrophils 0 % (0-8) Platelet Estimate Adequate Platelet Morphology Normal Anisocytosis 1+ Microcytosis 1+ Sodium Level 138 MMOL/L (136-145) # Potassium Level 3.3 MMOL/L (3.5-5.1) L Chloride Level 99 MMOL/L (98-107) Carbon Dioxide Level 27 MMOL/L (21-32) Anion Gap 12 mmol/L (5-15) Blood Urea Nitrogen 9 mg/dL (7-18) Creatinine 0.8 MG/DL (0.55-1.30) Estimat Glomerular Filtration Rate > 60 mL/min (>60) Glucose Level 134 MG/DL (74-106) H Osmolality 289 mOsm/kg (297-317) L Uric Acid 2.3 MG/DL (2.6-7.2) L Calcium Level 8.5 MG/DL (8.5-10.1) Total Bilirubin 0.4 MG/DL (0.2-1.0) Aspartate Amino Transf (AST/SGOT) 8 U/L (15-37) L Alanine Aminotransferase (ALT/SGPT) 12 U/L (12-78) Alkaline Phosphatase 65 U/L (46-116) C-Reactive Protein, Quantitative 6.9 mg/dL (0.00-0.90) H Total Protein 7.9 G/DL (6.4-8.2) Albumin 3.2 G/DL (3.4-5.0) L Globulin 4.7 g/dL Albumin/Globulin Ratio 0.7 (1.0-2.7) L Rheumatoid Factor Screen Pending Current Medications Medications (Trade) Dose Ordered Sig/Hilaria Route PRN Reason Start Time Stop Time Status Last Admin Dose Admin Acetaminophen (Tylenol) 650 mg Q4H PRN ORAL Mild Pain/Temp > 100.5 07/30/18 21:00 08/29/18 20:59 08/03/18 12:41 Acetaminophen/ Hydrocodone Bitart ([place] 5/325) 1 tab Q4H PRN ORAL Severe Pain (Pain Scale 7-10) 07/30/18 21:00 08/06/18 20:59 08/03/18 05:45 Artificial Tears (Akwa-Tears) 2 drop BIDPRN PRN BOTH EYES Dry Eyes 07/31/18 10:45 08/30/18 10:44 08/02/18 15:52 Dextrose/Sodium Chloride 1,000 ml @ 50 mls/hr Q20H IV 08/03/18 15:00 09/02/18 14:59 08/03/18 15:14 Docusate Sodium (Colace) 100 mg THREE TIMES A DAY ORAL 07/31/18 18:00 08/30/18 17:59 08/03/18 17:13 Lisinopril (Zestril) 5 mg Q4H PRN ORAL bp over 155 syst 08/03/18 14:57 09/02/18 14:56 Ondansetron HCl (Zofran) 4 mg Q6H PRN IV Nausea & Vomiting 07/31/18 14:45 08/30/18 14:44 Pantoprazole (Protonix) 40 mg EVERY 12 HOURS ORAL 08/01/18 21:00 08/31/18 20:59 08/03/18 08:31 Piperacillin Sod/ Tazobactam Sod 3.375 gm/Dextrose 110 ml @ 220 mls/hr Q6H IVPB 08/03/18 18:30 08/10/18 18:29 08/03/18 18:53 Prednisone (predniSONE) 20 mg DAILY ORAL 08/02/18 09:00 09/01/18 08:59 08/03/18 08:31 Vancomycin HCl (Vanco rx to dose) 1 ea DAILY PRN MISC Per rx protocol 08/03/18 17:30 09/02/18 17:29 Vancomycin HCl 750 mg/Sodium Chloride 275 ml @ 183.333 mls/hr Q12H IVPB 08/03/18 20:00 08/08/18 19:59 Kiel Aguillon M.D. Aug 03, 2018 21:10
[2018-08-03] MEDS: Vancomycin 750mg/NS 275ml IVPB SCH ×2 (21:57)
--- NOTE | 2018-08-03 22:45 | Progress Note ---
SUBJECTIVE: The patient is a 43-year-old female who came to the Emergency Room for generalized weakness, synovitis, rheumatoid arthritis. The patient was placed on IV steroids. The patient was generalized weakness and the fever this morning, 101. The patient is still in generalized weakness, also poor appetite, mostly in bed. OBJECTIVE: VITAL SIGNS: Stable. CHEST: Bilaterally clear. CARDIOVASCULAR: Regular rhythm. ABDOMEN: Soft. EXTREMITIES: Mild tenderness on both knees. ASSESSMENT: 1. Synovitis. 2. Fever. 3. Generalized weakness. PLAN: We will check her blood cultures. We will hold the discharge. We will cut back on the steroids. Continue PT and OT. Andrew Stevens M.D. DR: TIARRA JOB#: [id number] CC:
[2018-08-04] VITALS: BP 138/91
[2018-08-04] MEDS: Piperacillin/Tazobactam 3.375 GM in D5W 110 ML IVPB SCH ×4 (00:32→18:11)
[2018-08-04] MEDS: HYDROcodone/Acetamin 5/325 tab ORAL PRN ×2 (02:19→06:37)
[2018-08-04 04:00] VITALS: BP 144/86
--- NOTE | 2018-08-04 04:36 | NUR ---
NURSE NOTES: Pt is in bed, asleep. Pt is given specimen container to collect urine for lab.
--- NOTE | 2018-08-04 07:10 | NUR ---
HAND-OFF: Report given to Anel Vick RN.
[2018-08-04 07:11] LABS: ALANINE AMINOTRANSFERASE 10 U/L (12-78); ALBUMIN 2.8 G/DL (3.4-5.0); ALBUMIN/GLOBULIN RATIO 0.6 (1.0-2.7); ALKALINE PHOSPHATASE 59 U/L (46-116); ANION GAP 11 mmol/L (5-15); ASPARTATE AMINO TRANSFERASE 12 U/L (15-37); BILIRUBIN,TOTAL 0.4 MG/DL (0.2-1.0); BLOOD UREA NITROGEN 11 mg/dL (7-18); CALCIUM 8.6 MG/DL (8.5-10.1); CARBON DIOXIDE 26 MMOL/L (21-32); CHLORIDE 93 MMOL/L (98-107); CREATININE 0.6 MG/DL (0.55-1.30); POTASSIUM 3.4 MMOL/L (3.5-5.1); SODIUM 129 MMOL/L (136-145)
[2018-08-04 07:12] LABS: APPEARANCE,URINE CLOUDY; BILIRUBIN, URINE NEGATIVE (NEGATIVE); GLUCOSE, URINE (UA) NEGATIVE (NEGATIVE); KETONES,URINE 2+ (NEGATIVE); LEUKOCYTE ESTERASE ,URINE 2+ (NEGATIVE); NITRITE,URINE NEGATIVE (NEGATIVE); PH,URINE 7 (4.5-8.0); PROTEIN,URINE 3+ (NEGATIVE); UROBILINOGEN,URINE 1 MG/DL (0.0-1.0)
[2018-08-04 07:18] LABS: COLOR,URINE RED
--- NOTE | 2018-08-04 07:55 | NUR ---
NURSE NOTES: Report received from Lei RN. Patient received in stable condition, sleeping in bed. Breathing observed to be unlabored on room air. No signs of distress or pain noted. IV fluids running at 50cc/hr. Bedpan by beside. Bed locked in low position, call light and personal belongings placed within reach. Will continue to monitor.
[2018-08-04 08:00] VITALS: BP 156/85
[2018-08-04] MEDS: Docusate 100mg cap ORAL SCH ×3 (09:21→18:00)
[2018-08-04] MEDS: Vancomycin 750mg/NS 275ml IVPB SCH ×4 (09:21→21:05)
[2018-08-04] MEDS: D5NS 1,000 ML IV SCH (10:29)
[2018-08-04] MEDS ORDERED: Potassium Phosphate 30 MM in NS 275 ML IV ONE (11:00)
[2018-08-04 12:00] VITALS: BP 149/98
--- NOTE | 2018-08-04 14:57 | Infectious Diseases Prog Note ---
Assessment/Plan Problems: (1) Headache Assessment & Plan: with neck stiffness , rule out meningitis VS SAH , will order head and neck CT stat , and LP stat , continue vancomycin and zosyn empirically since responded well to them (2) fever, tachy cardia Assessment & Plan: rule out sepsis or source of infection VS RA flare, repeated blood culture and urine culture is pending , repeated CXR no new infiltrates, continue vancomycin and zosyn empirically, RF level is high , concerning for RA flare (3) Rheumatoid arthritis flare Assessment & Plan: possible with fever, and high RF , already on small dose of steroids , recommend rheumatology eval (4) UTI (urinary tract infection) Assessment & Plan: due to proteus mirabilis , already on zosyn now to cover for sepsis too, repeated urine culture is pending (5) SIADH (syndrome of inappropriate ADH production) Assessment & Plan: continue fluids restriction , renal is following Subjective Constitutional: Reports: fever, fatigue, anorexia HEENT: Reports: visual change Respiratory: Reports: dry cough Neurologic: Reports: headache, weakness Psychiatric: Reports: no symptoms Skin: Reports: no symptoms Endocrine: Reports: no symptoms Hematologic: Reports: no symptoms Musculoskeletal: Reports: pain, stiffness Allergies: Coded Allergies: No Known Allergies (Unverified , 07/30/18) Objective Vital Signs Last 24 Hour Vital Signs Date Time Temp Pulse Resp B/P (MAP) Pulse Ox O2 Delivery O2 Flow Rate FiO2 08/04/18 12:00 98.8 86 20 149/98 (115) 98 08/04/18 09:00 Room Air 08/04/18 08:00 98.8 93 20 156/85 (108) 98 08/04/18 04:00 98.6 86 18 144/86 (105) 98 08/04/18 00:00 97.8 81 18 138/91 (107) 98 08/03/18 21:00 Room Air 08/03/18 20:00 97.2 82 20 158/86 (110) 97 95 08/03/18 16:00 99.0 82 20 136/88 (104) 96 Height (Feet): 5 Height (Inches): 5.00 Weight (Pounds): 139 General Appearance: WD/WN, cachetic, other - NECK PAIN HEENT: normocephalic, atraumatic, anicteric, mucous membranes moist, PERRL, pharynx normal, no JVD, other - STIFF NECK Respiratory/Chest: chest wall non-tender, lungs clear, no respiratory distress , no accessory muscle use, decreased breath sounds Cardiovascular: normal peripheral pulses, normal rate, regular rhythm, no gallop/murmur, no JVD Abdomen: normal bowel sounds, soft, non tender, no organomegaly, non distended , no mass, no scars Genitourinary: normal external genitalia Extremities: no cyanosis, no clubbing Skin: no rash, no lesions, no ulcers Neurologic/Psychiatric: 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, no motor/sensory deficits, alert, oriented x 3, responsive Lymphatic: no neck adenopathy, no groin adenopathy Musculoskeletal: normal muscle bulk, no effusion Laboratory Tests Test 08/04/18 04:45 08/04/18 06:15 Sodium Level 129 MMOL/L (136-145) L Potassium Level 3.4 MMOL/L (3.5-5.1) L Chloride Level 93 MMOL/L (98-107) L Carbon Dioxide Level 26 MMOL/L (21-32) Anion Gap 11 mmol/L (5-15) Blood Urea Nitrogen 11 mg/dL (7-18) Creatinine 0.6 MG/DL (0.55-1.30) Estimat Glomerular Filtration Rate > 60 mL/min (>60) Glucose Level 133 MG/DL (74-106) H Uric Acid 1.0 MG/DL (2.6-7.2) L Calcium Level 8.6 MG/DL (8.5-10.1) Phosphorus Level 2.0 MG/DL (2.5-4.9) L Magnesium Level 1.9 MG/DL (1.8-2.4) Total Bilirubin 0.4 MG/DL (0.2-1.0) Aspartate Amino Transf (AST/SGOT) 12 U/L (15-37) L Alanine Aminotransferase (ALT/SGPT) 10 U/L (12-78) L Alkaline Phosphatase 59 U/L (46-116) Pro-B-Type Natriuretic Peptide 54 pg/mL (0-125) Total Protein 7.2 G/DL (6.4-8.2) Albumin 2.8 G/DL (3.4-5.0) L Globulin 4.4 g/dL Albumin/Globulin Ratio 0.6 (1.0-2.7) L Urine Color Red Urine Appearance Cloudy Urine pH 7 (4.5-8.0) Urine Specific [place] 1.005 (1.005-1.035) Urine Protein 3+ (NEGATIVE) H Urine Glucose (UA) Negative (NEGATIVE) Urine Ketones 2+ (NEGATIVE) H Urine Blood 5+ (NEGATIVE) H Urine Nitrite Negative (NEGATIVE) Urine Bilirubin Negative (NEGATIVE) Urine Urobilinogen 1 MG/DL (0.0-1.0) H Urine Leukocyte Esterase 2+ (NEGATIVE) H Urine RBC Tntc /HPF (0 - 2) H Urine WBC 2-4 /HPF (0 - 2) Urine Squamous Epithelial Cells Few /LPF (NONE/OCC) Urine Bacteria Few /HPF (NONE) Current Medications Medications (Trade) Dose Ordered Sig/Hilaria Route PRN Reason Start Time Stop Time Status Last Admin Dose Admin Acetaminophen (Tylenol) 650 mg Q4H PRN ORAL Mild Pain/Temp > 100.5 07/30/18 21:00 08/29/18 20:59 08/04/18 10:31 Acetaminophen/ Hydrocodone Bitart ([place] 5/325) 1 tab Q4H PRN ORAL Severe Pain (Pain Scale 7-10) 07/30/18 21:00 08/06/18 20:59 08/04/18 06:37 Artificial Tears (Akwa-Tears) 2 drop BIDPRN PRN BOTH EYES Dry Eyes 07/31/18 10:45 08/30/18 10:44 08/02/18 15:52 Dextrose/Sodium Chloride 1,000 ml @ 50 mls/hr Q20H IV 08/03/18 15:00 09/02/18 14:59 08/03/18 15:14 Docusate Sodium (Colace) 100 mg THREE TIMES A DAY ORAL 07/31/18 18:00 08/30/18 17:59 08/04/18 13:03 Lisinopril (Zestril) 5 mg Q4H PRN ORAL bp over 155 syst 08/03/18 14:57 09/02/18 14:56 Ondansetron HCl (Zofran) 4 mg Q6H PRN IV Nausea & Vomiting 07/31/18 14:45 08/30/18 14:44 Pantoprazole (Protonix) 40 mg EVERY 12 HOURS ORAL 08/01/18 21:00 08/31/18 20:59 08/04/18 09:21 Piperacillin Sod/ Tazobactam Sod 3.375 gm/Dextrose 110 ml @ 220 mls/hr Q6H IVPB 08/03/18 18:30 08/10/18 18:29 08/04/18 13:03 Potassium Phosphate 30 mm/ Sodium Chloride 285 ml @ 47.5 mls/hr ONCE ONCE IV 08/04/18 11:00 08/04/18 16:59 08/04/18 10:30 Prednisone (predniSONE) 20 mg DAILY ORAL 08/02/18 09:00 09/01/18 08:59 08/04/18 09:21 Vancomycin HCl (Vanco rx to dose) 1 ea DAILY PRN MISC Per rx protocol 08/03/18 17:30 09/02/18 17:29 Vancomycin HCl 750 mg/Sodium Chloride 275 ml @ 183.333 mls/hr Q12H IVPB 08/03/18 20:00 08/08/18 19:59 08/04/18 09:21 Kiel Aguillon M.D. Aug 04, 2018 14:57
--- NOTE | 2018-08-04 15:03 | NUR ---
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 DEHYDRATION VS: BP 156/85, P 81,T 97.8, RR 18, SpO2 98 Na 129, K 3.4, URIC ACID 1.0 IS:POTASSIUM PHOSPHATE 285ml IV VANCOMYCIN 275ml IVPB PIPERACILLIN 110ml IVPB PREDNISONE 20mg PROTONIX 40mg MED/SURG STATUS
[2018-08-04 16:00] VITALS: BP 159/99
--- NOTE | 2018-08-04 16:37 | Diagnostic Imaging Report ---
Indication: Neck pain. Stiffness. Technique: Continuous helical imaging of the neck was obtained transaxially from the skull base to the upper thoracic spine. 2-D coronal and sagittal reformatted images were obtained. Total Dose length Product (DLP): 1694.[address] Dose Index Volume (CTDIvol): 70.38,16.41 mGy Comparison: None Findings: The study is limited by the nonadministration of IV contrast. There is a a smooth reversal cervical lordosis present which may be due to muscle spasm. The parapharyngeal fat appears symmetric. The pharyngeal mucosa appears grossly symmetric and normal. The epiglottis and aryepiglottic folds do not appear thickened. There is no retropharyngeal or prevertebral soft tissue swelling or fluid collections. There is no adenopathy. IMPRESSION: Negative noncontrast CT of the neck. Reversal cervical lordosis which may be due to muscle spasm. The CT scanner at [facility] is accredited by the [employer] and the scans are performed using dose optimization techniques as appropriate to a performed exam including Automatic Exposure control.
--- NOTE | 2018-08-04 16:37 | Diagnostic Imaging Report ---
Indication: Headache Technique: Contiguous 5 mm thick transaxial imaging of the head obtained in a Siemens Sensation [address] scanner. Soft tissue and bone windows generated. Automatic Exposure Control was utilized. Total Dose length Product (DLP): 1694.[address] Dose Index Volume (CTDIvol): 70.38,16.41 mGy Comparison: 07/30/2018 Findings: The lateral, third and fourth ventricles are dilated disproportionate to CSF spaces elsewhere within the brain including the cerebral sulci and basal cisterns which are relatively much smaller. The findings are unchanged from the last examination and are suspicious for communicating hydrocephalus. There is no acute hemorrhage, mass effect or edema. Please correlate clinically. Paranasal sinuses are clear. The calvarium and other osseous structures are unremarkable. 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 No change from the prior exam. No acute hemorrhage, mass effect or edema. The CT scanner at [facility] is accredited by the [employer] and the scans are performed using dose optimization techniques as appropriate to a performed exam including Automatic Exposure control.
[2018-08-04] MEDS ORDERED: HYDROcodone/Acetamin 5/325 tab ORAL PRN (17:00)
--- NOTE | 2018-08-04 17:04 | Nephrology Progress Note ---
Assessment/Plan Problem List: (1) Dehydration (2) SIADH (syndrome of inappropriate ADH production) (3) UTI (urinary tract infection) Assessment: proteus (4) Rheumatoid aortitis Assessment Hyponatremia likely SiADH Vomiting RA UTI Plan 3% saline and lasix as needed lower Hydrocodone dose Protonix monitor serum Na U Na U Osm steroid change to po waiting urine culture- meanwhile Rocephin Per ID Subjective ROS Limited/Unobtainable: No Constitutional: Reports: malaise, weakness Objective Objective Last 24 Hour Vital Signs Date Time Temp Pulse Resp B/P (MAP) Pulse Ox O2 Delivery O2 Flow Rate FiO2 08/04/18 12:00 98.8 86 20 149/98 (115) 98 08/04/18 09:00 Room Air 08/04/18 08:00 98.8 93 20 156/85 (108) 98 08/04/18 04:00 98.6 86 18 144/86 (105) 98 08/04/18 00:00 97.8 81 18 138/91 (107) 98 08/03/18 21:00 Room Air 08/03/18 20:00 97.2 82 20 158/86 (110) 97 95 Intake and Output 08/03/18 08/04/18 18:59 06:59 Intake Total 295 ml 1255.000 ml Balance 295 ml 1255.000 ml IV Total 295 ml 1255.000 ml # Voids 3 1 Laboratory Tests 08/04/18 04:45: Sodium Level 129L, Potassium Level 3.4L, Chloride Level 93L, Carbon Dioxide Level 26, Anion Gap 11, Blood Urea Nitrogen 11, Creatinine 0.6, Estimat Glomerular Filtration Rate > 60, Glucose Level 133H, Uric Acid 1.0L, Calcium Level 8.6, Phosphorus Level 2.0L, Magnesium Level 1.9, Total Bilirubin 0.4, Aspartate Amino Transf (AST/SGOT) 12L, Alanine Aminotransferase (ALT/SGPT) 10L, Alkaline Phosphatase 59, Pro-B-Type Natriuretic Peptide 54, Total Protein 7.2, Albumin 2.8L, Globulin 4.4, Albumin/Globulin Ratio 0.6L 08/04/18 06:15: Urine Color Red, Urine Appearance Cloudy, Urine pH 7, Urine Specific [place] 1.005, Urine Protein 3+H, Urine Glucose (UA) Negative, Urine Ketones 2+H, Urine Blood 5+H, Urine Nitrite Negative, Urine Bilirubin Negative, Urine Urobilinogen 1H, Urine Leukocyte Esterase 2+H, Urine RBC TntcH, Urine WBC 2-4, Urine Squamous Epithelial Cells Few, Urine Bacteria Few Height (Feet): 5 Height (Inches): 5.00 Weight (Pounds): 139 General Appearance: no apparent distress, lethargic Cardiovascular: normal rate Respiratory/Chest: lungs clear Abdomen: soft Objective no change Lio Ramsey MD Aug 04, 2018 17:04
[2018-08-04] MEDS: Lisinopril 2.5mg tab ORAL PRN (18:37)
--- NOTE | 2018-08-04 19:07 | NUR ---
HAND-OFF: Report given to Larisa HERNANDEZ.
--- NOTE | 2018-08-04 19:34 | NUR ---
NURSE NOTES: Received patient sleeping in bed, arousable to name. No s/s distress noted, no complaints of pain at this time. IVs in place. Bed locked in low position, call light within reach, bed alarm on. Will continue to monitor.
[2018-08-04 20:13] VITALS: BP 145/83
[2018-08-04] MEDS ORDERED: NS 275ml ONE (20:38)
[2018-08-04] MEDS ORDERED: D5NS 1000ml IV ONE (20:38)
[2018-08-04] MEDS ORDERED: Tubing IV Secondary IV ONE (20:38)
--- NOTE | 2018-08-04 21:45 | Consultation ---
DATE OF CONSULTATION: 08/04/2018 INFECTIOUS DISEASES CONSULTATION CONSULTING PHYSICIAN: Kiel Aguillon M.D. REQUESTING PHYSICIAN: Andrew Stevens M.D. REASON FOR CONSULTATION: Sepsis, fever, tachycardia, urinary tract infection not responding to ceftriaxone. Recommendation for antibiotics treatment. HISTORY OF PRESENT ILLNESS: The patient is a 43-year-old, female with past medical history of rheumatoid arthritis, who has been followed at [facility] for her rheumatoid arthritis with Humira injections twice monthly which she has been on it for almost a year or so presented to [facility] emergency room with severe continuous headache and debilitating sensation. The patient was seen recently at [facility] last week, was given pain medicine and Imitrex which gave her minimal relief at that time but her headache continued to be worse so she was seen by her primary care physician on the 07/27/2018 and she was asked to come to the emergency room since she developed fever and headache and myalgia. The patient presented three days to the emergency room with her family to be evaluated since they were not happy at [facility]. She was complaining of exacerbation of her rheumatoid arthritis as well as continued headache that her vision was getting blurry at that time. The patient had temperature of 98.4 with a pulse of 99 and blood pressure of 136/102. The patient was found to have mild leukocytosis in the ER with low sodium level. Her images of the brain on 07/30/2018 showed mild ventricular dilatation, possible communicating hydrocephalus. The patient was admitted to the hospital and she was started on low-dose steroid by her admitting physician. Blood culture and urine culture were obtained. Later on her, blood culture remained negative but her urine culture grew Proteus mirabilis, which was drawn on the 07/31/2018. The patient was started on ceftriaxone treatment but she spiked fever on 08/03/2018 with T-max of 101.8 and she was tachycardic so Infectious Diseases consultation was requested actually for antibiotics treatment and further management. The patient complained of headache at that time but no blurry vision. She had neck pain. No nausea or vomiting. No diarrhea. No cough or phlegm. No abdominal pain. No urinary symptoms. REVIEW OF SYSTEMS: A 14-point of system reviewed were all negative apart from the one I mentioned above in my History and Physical. PAST MEDICAL HISTORY: Significant for rheumatoid arthritis, possible migraine headache. PAST SURGICAL HISTORY: Not on record. FAMILY HISTORY: Not contributory. SOCIAL HISTORY: The patient lives with family. No recent drugs, tobacco, or alcohol. ALLERGIES: No known drug allergy. MEDICATIONS: The patient was on ceftriaxone 1 g IV q.24 h. She was also on hydrocodone and prednisone. LABORATORY AND DIAGNOSTIC DATA: White count of 7.3, hemoglobin of 12.8, hematocrit of 39.4, platelet count of 279. BUN of 9 and creatinine of 0.6. Sodium of 126. Urinalysis on the 07/31/2018 showed +1 leukocyte esterase, red blood cells too numerous to count, wbc's 5 to 10, and moderate amount of urine bacteria. Microbiology, blood culture x2 on 07/30/2018 negative to date. Urine culture on 07/31/2018 grew Proteus mirabilis. Imaging, head CT scan showed a question of mild ventricular dilatation, consider communicating hydrocephalus. PHYSICAL EXAMINATION: VITAL SIGNS: Temperature 101.8, pulse 130, respirations 20, blood pressure 160/88, O2 saturation 97% on room air. GENERAL: Middle-aged female, lying in bed, lethargic, awake and alert, responsive, not in acute distress. HEENT: Normocephalic and atraumatic. Pupils are reactive to light equally and rounded. Pale sclerae. Moist oral mucosa. No exudate or thrush. NECK: Stiff with decreased range of motion. No local tenderness. No lymphadenopathy. CARDIOVASCULAR: Tachycardic. S1, S2 normal. No murmur or gallop. LUNGS: Clear bilaterally. No wheezing or rhonchi. Diminished breathing sounds at the bases. ABDOMEN: Soft, nontender, nondistended. Normal bowel sounds. No hepatosplenomegaly or ascites. EXTREMITIES: No edema or cyanosis. SKIN: No rash. No hives. GENITOURINARY: Normal genitalia. No Bianchi. ASSESSMENT AND RECOMMENDATION: 1. Fever and tachycardia, rule out sepsis or source of infection versus rheumatoid arthritis flare. We will send blood culture and urine culture. Repeat chest x-ray to rule out new infiltration. We will start vancomycin and Zosyn empiric coverage for now and order rheumatoid factor level. 2. Possible rheumatoid arthritis flare with fever. We will order a rheumatoid factor to confirm. The patient already on steroid by the primary. Recommend Rheumatology evaluation. . 3. Urinary tract infection due to Proteus mirabilis, already on Zosyn now to cover for sepsis too. We will stop ceftriaxone. Repeat urine culture. 4. SIADH with hyponatremia. Continue fluid restriction as per renal service. Thank you for the consult. ID will continue to follow. Please feel free to call with any question. Kiel Aguillon M.D. DR: Zaida JOB#: [id number] CC: KARINA
[2018-08-05] MEDS: Piperacillin/Tazobactam 3.375 GM in D5W 110 ML IVPB SCH ×4 (00:39→19:29)
[2018-08-05 00:56] VITALS: BP 128/76
--- NOTE | 2018-08-05 01:00 | Progress Note ---
DATE: 08/04/2018 SUBJECTIVE: A 43-year-old female, came to the emergency room for generalized weakness, muscle stiffness, and pain on both wrists and fingers. OBJECTIVE: VITAL SIGNS: Blood pressure 159/99, pulse 60, respirations 20, and temperature 97.5. SKIN: Good skin turgor. The patient had had fever yesterday, day before yesterday 102. HEENT: NAD. CHEST: Bilateral clear. CARDIOVASCULAR: Regular rhythm. ABDOMEN: Soft. EXTREMITIES: CCE. NEUROLOGIC: Generalized weakness. LABORATORY DATA: White count 7.3, hemoglobin 13. Chemistry panel, sodium 129, potassium 3.4, BUN 11, creatinine 0.6. Urine has 1+ urobilinogen, 2+ leukocyte esterase, TNTC bacteria. Immunology, the patient has rheumatoid factor 24. Her cultures, no growth. Urine culture is positive for Proteus on . ASSESSMENT AND PLAN: 1. UTI. 2. Rheumatoid arthritis. 3. Dehydration. 4. Generalized weakness. We will order PT and OT. Continue antibiotics. Discussed with Dr. Aguillon. PT and OT. Tai Sagastume JOB#: [id number] CC:
[2018-08-05] MEDS: D5NS 1,000 ML IV SCH (03:48)
[2018-08-05 04:14] VITALS: BP 144/88
--- NOTE | 2018-08-05 06:32 | NUR ---
NURSE NOTES: PATIENT REQUESTED NOT TO HAVE NORCO MEDICATION BECAUSE "IT MAKES HER FEEL WEIRD" AND PATIENT WANTED TO HAVE TYLENOL MEDICATION INSTEAD FOR PAIN. WILL ENDORSE TO NEXT SHIFT.
--- NOTE | 2018-08-05 07:24 | NUR ---
HAND-OFF: Report given to SHIRA PEREIRA RN. Addendum: 08/05/18 at 8624 by CANDI MUÑOZ RN RN ENDORSED TO AM NURSE TO FOLLOW UP WITH MD REGARDING PATIENT NOT WANTING NORCO.
--- NOTE | 2018-08-05 07:30 | NUR ---
NURSE NOTES: Received pt from MARY Peres, pt was sleeping comfortably, no acute distress. call light w/in reach.
[2018-08-05 07:32] LABS: HEMATOCRIT 35.2 % (37.0-47.0); HEMOGLOBIN 11.3 G/DL (12.0-16.0); MEAN CORPUSCULAR VOLUME 71 FL (80-99); PLATELET COUNT 262 K/UL (150-450); RED BLOOD COUNT 4.97 M/UL (4.20-5.40); RED CELL DISTRIBUTION WIDTH 17.9 % (11.6-14.8); WHITE BLOOD COUNT 10.7 K/UL (4.8-10.8)
[2018-08-05 07:52] LABS: ALANINE AMINOTRANSFERASE 11 U/L (12-78); ALBUMIN 2.7 G/DL (3.4-5.0); ALBUMIN/GLOBULIN RATIO 0.6 (1.0-2.7); ALKALINE PHOSPHATASE 64 U/L (46-116); ANION GAP 8 mmol/L (5-15); ASPARTATE AMINO TRANSFERASE 9 U/L (15-37); BILIRUBIN,TOTAL 0.5 MG/DL (0.2-1.0); BLOOD UREA NITROGEN 7 mg/dL (7-18); CALCIUM 8.3 MG/DL (8.5-10.1); CARBON DIOXIDE 26 MMOL/L (21-32); CHLORIDE 89 MMOL/L (98-107); CREATININE 0.6 MG/DL (0.55-1.30); PHOSPHORUS 2.4 MG/DL (2.5-4.9); POTASSIUM 3.2 MMOL/L (3.5-5.1); SODIUM 123 MMOL/L (136-145)
[2018-08-05 08:00] VITALS: BP 177/104
[2018-08-05] MEDS: Docusate 100mg cap ORAL SCH ×3 (08:24→17:16)
[2018-08-05] MEDS: Lisinopril 2.5mg tab ORAL PRN (08:26)
[2018-08-05] MEDS ORDERED: Vancomycin 1.25mg/D5W 275ml IVPB ONE ×2 (09:00)
[2018-08-05] MEDS ORDERED: Potassium Phosphate 20 MM in NS 275 ML IV ONE (09:30)
[2018-08-05] MEDS ORDERED: NaCl 3% 500ml 500 ML IV ONE (09:30)
[2018-08-05] MEDS ORDERED: traMADol 50mg tab ORAL PRN (10:15)
--- NOTE | 2018-08-05 11:58 | NUR ---
CASE MANAGEMENT: REVIEW SI: UTI . DEHYDRATION . SIADH w/ HYPONATREMIA T 97.3 HR 71 RR 19 BP 177/104 SAT 97% ROOM AIR NA 123 OSMOLALITY 258 URIC ACID 0.2 AST 9 ALT 11 SI: LASIX IV Q8HR VANCO IV Q8HR NS IVF 30ML/HR X1 K PHOS IVF X1 K-DUR 40mEq PO BID ZOSYN IV Q6HR PREDNISONE PO QD PT / OT EVAL MED/SURG STATUS DCP: PATIENT IS FROM HOME
--- NOTE | 2018-08-05 12:47 | NUR ---
HAND-OFF: Report given to MARY Vivas, endorsed to no pain med with [facility]. pt's family requested.
[2018-08-05 12:50] VITALS: BP 158/89
--- NOTE | 2018-08-05 12:52 | Nephrology Progress Note ---
Assessment/Plan Problem List: (1) Dehydration (2) SIADH (syndrome of inappropriate ADH production) (3) UTI (urinary tract infection) Assessment: proteus (4) Rheumatoid aortitis Assessment Hyponatremia likely SiADH Vomiting RA UTI Plan 3% saline and lasix as needed Protonix monitor serum Na U Na U Osm steroid change to po waiting urine culture- meanwhile Rocephin Per ID advise Subjective ROS Limited/Unobtainable: No Constitutional: Reports: malaise, weakness Objective Objective Last 24 Hour Vital Signs Date Time Temp Pulse Resp B/P (MAP) Pulse Ox O2 Delivery O2 Flow Rate FiO2 08/05/18 08:26 177/104 08/05/18 08:00 98.9 83 19 177/104 (128) 99 08/05/18 07:37 Room Air 08/05/18 05:08 97.1 08/05/18 04:14 97.1 75 19 144/88 (106) 97 08/05/18 00:56 97.3 71 19 128/76 (93) 99 08/04/18 22:46 Room Air 08/04/18 20:58 97 08/04/18 20:13 97.0 84 19 145/83 (103) 08/04/18 18:37 159/99 08/04/18 16:00 97.5 60 20 159/99 (119) 98 Intake and Output 08/04/18 08/05/18 18:59 06:59 Intake Total 240 ml 885.000 ml Balance 240 ml 885.000 ml Intake Oral 240 ml 240 ml IV Total 645.000 ml # Voids 2 2 Laboratory Tests 08/05/18 07:00: White Blood Count 10.7, Red Blood Count 4.97, Hemoglobin 11.3L, Hematocrit 35.2L , Mean Corpuscular Volume 71L, Mean Corpuscular Hemoglobin 22.7L, Mean Corpuscular Hemoglobin Concent 32.0, Red Cell Distribution Width 17.9H, Platelet Count 262, Mean Platelet Volume 5.2L, Neutrophils (%) (Auto) , Lymphocytes (%) (Auto) , Monocytes (%) (Auto) , Eosinophils (%) (Auto) , Basophils (%) (Auto) , Differential Total Cells Counted 100, Neutrophils % ( Manual) 82H, Lymphocytes % (Manual) 10L, Monocytes % (Manual) 7, Eosinophils % ( Manual) 1, Basophils % (Manual) 0, Band Neutrophils 0, Platelet Estimate Adequate, Platelet Morphology Normal, Hypochromasia 1+, Anisocytosis 1+, Microcytosis 2+, Sodium Level 123L, Potassium Level 3.2L, Chloride Level 89L, Carbon Dioxide Level 26, Anion Gap 8, Blood Urea Nitrogen 7, Creatinine 0.6, Estimat Glomerular Filtration Rate > 60, Glucose Level 171H, Osmolality 258L, Uric Acid 0.2L, Calcium Level 8.3L, Phosphorus Level 2.4L, Magnesium Level 1.7L , Total Bilirubin 0.5, Aspartate Amino Transf (AST/SGOT) 9L, Alanine Aminotransferase (ALT/SGPT) 11L, Alkaline Phosphatase 64, C-Reactive Protein, Quantitative 7.7H, Total Protein 7.2, Albumin 2.7L, Globulin 4.5, Albumin/ Globulin Ratio 0.6L, Human Chorionic Gonadotropin, Qual Negative, Vancomycin Level Trough 4.0L Height (Feet): 5 Height (Inches): 5.00 Weight (Pounds): 139 General Appearance: no apparent distress, lethargic Cardiovascular: normal rate Respiratory/Chest: lungs clear Abdomen: soft Neurologic: other - no neck stiffness or HERNANDEZ- verbal Objective no change Lio Ramsey MD Aug 05, 2018 12:52
--- NOTE | 2018-08-05 15:03 | Infectious Diseases Prog Note ---
Assessment/Plan Problems: (1) Headache Assessment & Plan: with neck stiffness , rule out meningitis VS RA flare , no evidence of SAH on head CT scan , and LP was not done even though I ordered it stat , continue vancomycin and zosyn empirically since responded well to them , pending LP. hold off Humira pending LP (2) fever, tachy cardia Assessment & Plan: rule out sepsis or source of infection VS RA flare, repeated blood culture and urine culture is negative so far , repeated CXR no new infiltrates, continue vancomycin and zosyn empirically, RF level is high , concerning for RA flare (3) Rheumatoid arthritis flare Assessment & Plan: possible with fever, and high RF , already on small dose of steroids , recommend rheumatology eval (4) UTI (urinary tract infection) Assessment & Plan: due to proteus mirabilis , already on zosyn now to cover for sepsis too, repeated urine culture is pending (5) SIADH (syndrome of inappropriate ADH production) Assessment & Plan: continue fluids restriction , renal is following Subjective Constitutional: Reports: fatigue, anorexia HEENT: Reports: no symptoms Respiratory: Reports: no symptoms Breasts: Reports: no symptoms Cardiovascular: Reports: no symptoms Gastrointestinal/Abdominal: Reports: no symptoms Genitourinary: Reports: no symptoms Neurologic: Reports: weakness Psychiatric: Reports: no symptoms Skin: Reports: no symptoms Endocrine: Reports: no symptoms Musculoskeletal: Reports: pain, stiffness Allergies: Coded Allergies: No Known Allergies (Unverified , 07/30/18) Subjective she feels better over all , mother at bedside , no headache or fever . no blurry vision Objective Vital Signs Last 24 Hour Vital Signs Date Time Temp Pulse Resp B/P (MAP) Pulse Ox O2 Delivery O2 Flow Rate FiO2 08/05/18 13:37 71 159/98 08/05/18 12:50 98.0 82 19 158/89 (112) 99 08/05/18 08:26 177/104 08/05/18 08:00 98.9 83 19 177/104 (128) 99 08/05/18 07:37 Room Air 08/05/18 05:08 97.1 08/05/18 04:14 97.1 75 19 144/88 (106) 97 08/05/18 00:56 97.3 71 19 128/76 (93) 99 08/04/18 22:46 Room Air 08/04/18 20:58 97 08/04/18 20:13 97.0 84 19 145/83 (103) 08/04/18 18:37 159/99 08/04/18 16:00 97.5 60 20 159/99 (119) 98 Height (Feet): 5 Height (Inches): 5.00 Weight (Pounds): 139 General Appearance: WD/WN, no acute distress HEENT: normocephalic, atraumatic, anicteric, mucous membranes moist, PERRL, EOMI, pharynx normal, no JVD, other - neck stiffness Respiratory/Chest: chest wall non-tender, lungs clear, normal breath sounds, no respiratory distress, no accessory muscle use Cardiovascular: normal peripheral pulses, normal rate, regular rhythm, no gallop/murmur, no JVD Abdomen: normal bowel sounds, soft, non tender, no organomegaly, non distended , no mass, no scars Extremities: no cyanosis, no clubbing Skin: no rash, no lesions, no ulcers Neurologic/Psychiatric: it recruiter II-XII grossly normal, no motor/sensory deficits, alert, oriented x 3, responsive Microbiology Date/Time Source Procedure Growth Status 08/03/18 14:30 Blood Blood Culture - Preliminary NO GROWTH AFTER 24 HOURS Resulted 08/03/18 14:15 Blood Blood Culture - Preliminary NO GROWTH AFTER 24 HOURS Resulted 08/04/18 06:15 Urine,Clean Catch Urine Culture - Preliminary NO GROWTH AFTER 24 HOURS Resulted Laboratory Tests Test 08/05/18 07:00 White Blood Count 10.7 K/UL (4.8-10.8) Red Blood Count 4.97 M/UL (4.20-5.40) Hemoglobin 11.3 G/DL (12.0-16.0) L Hematocrit 35.2 % (37.0-47.0) L Mean Corpuscular Volume 71 FL (80-99) L Mean Corpuscular Hemoglobin 22.7 PG (27.0-31.0) L Mean Corpuscular Hemoglobin Concent 32.0 G/DL (32.0-36.0) Red Cell Distribution Width 17.9 % (11.6-14.8) H Platelet Count 262 K/UL (150-450) Mean Platelet Volume 5.2 FL (6.5-10.1) L Neutrophils (%) (Auto) % (45.0-75.0) Lymphocytes (%) (Auto) % (20.0-45.0) Monocytes (%) (Auto) % (1.0-10.0) Eosinophils (%) (Auto) % (0.0-3.0) Basophils (%) (Auto) % (0.0-2.0) Differential Total Cells Counted 100 Neutrophils % (Manual) 82 % (45-75) H Lymphocytes % (Manual) 10 % (20-45) L Monocytes % (Manual) 7 % (1-10) Eosinophils % (Manual) 1 % (0-3) Basophils % (Manual) 0 % (0-2) Band Neutrophils 0 % (0-8) Platelet Estimate Adequate Platelet Morphology Normal Hypochromasia 1+ Anisocytosis 1+ Microcytosis 2+ Sodium Level 123 MMOL/L (136-145) L Potassium Level 3.2 MMOL/L (3.5-5.1) L Chloride Level 89 MMOL/L (98-107) L Carbon Dioxide Level 26 MMOL/L (21-32) Anion Gap 8 mmol/L (5-15) Blood Urea Nitrogen 7 mg/dL (7-18) Creatinine 0.6 MG/DL (0.55-1.30) Estimat Glomerular Filtration Rate > 60 mL/min (>60) Glucose Level 171 MG/DL (74-106) H Osmolality 258 mOsm/kg (297-317) L Uric Acid 0.2 MG/DL (2.6-7.2) L Calcium Level 8.3 MG/DL (8.5-10.1) L Phosphorus Level 2.4 MG/DL (2.5-4.9) L Magnesium Level 1.7 MG/DL (1.8-2.4) L Total Bilirubin 0.5 MG/DL (0.2-1.0) Aspartate Amino Transf (AST/SGOT) 9 U/L (15-37) L Alanine Aminotransferase (ALT/SGPT) 11 U/L (12-78) L Alkaline Phosphatase 64 U/L (46-116) C-Reactive Protein, Quantitative 7.7 mg/dL (0.00-0.90) H Total Protein 7.2 G/DL (6.4-8.2) Albumin 2.7 G/DL (3.4-5.0) L Globulin 4.5 g/dL Albumin/Globulin Ratio 0.6 (1.0-2.7) L Human Chorionic Gonadotropin, Qual Negative (NEGATIVE) Vancomycin Level Trough 4.0 ug/mL (5.0-12.0) L Current Medications Medications (Trade) Dose Ordered Sig/Hilaria Route PRN Reason Start Time Stop Time Status Last Admin Dose Admin Acetaminophen (Tylenol) 650 mg Q4H PRN ORAL Mild Pain/Temp > 100.5 07/30/18 21:00 08/29/18 20:59 08/05/18 04:38 Amlodipine Besylate (Norvasc) 5 mg DAILY ORAL 08/06/18 09:00 09/05/18 08:59 Amlodipine Besylate (Norvasc) 5 mg ONCE ORAL 08/05/18 14:00 08/05/18 15:00 08/05/18 13:37 Artificial Tears (Akwa-Tears) 2 drop BIDPRN PRN BOTH EYES Dry Eyes 07/31/18 10:45 08/30/18 10:44 08/02/18 15:52 Docusate Sodium (Colace) 100 mg THREE TIMES A DAY ORAL 07/31/18 18:00 08/30/18 17:59 08/05/18 13:33 Furosemide (Lasix) 20 mg EVERY 8 HOURS IV 08/05/18 14:00 09/04/18 13:59 08/05/18 13:33 Lisinopril (Zestril) 5 mg Q4H PRN ORAL bp over 155 syst 08/03/18 14:57 09/02/18 14:56 08/05/18 08:26 Ondansetron HCl (Zofran) 4 mg Q6H PRN IV Nausea & Vomiting 07/31/18 14:45 08/30/18 14:44 Pantoprazole (Protonix) 40 mg EVERY 12 HOURS ORAL 08/01/18 21:00 08/31/18 20:59 08/05/18 08:24 Piperacillin Sod/ Tazobactam Sod 3.375 gm/Dextrose 110 ml @ 220 mls/hr Q6H IVPB 08/03/18 18:30 08/10/18 18:29 08/05/18 13:16 Potassium Phosphate 20 mm/ Sodium Chloride 281.6667 ml @ 46.944 m... ONCE ONCE IV 08/05/18 09:30 08/05/18 15:29 08/05/18 10:55 Potassium Chloride (K-Dur) 40 meq TWICE A DAY ORAL 08/05/18 09:00 09/04/18 08:59 08/05/18 09:20 Prednisone (predniSONE) 20 mg DAILY ORAL 08/02/18 09:00 09/01/18 08:59 08/05/18 08:27 Sodium Chloride 500 ml @ 30 mls/hr ONCE ONCE IV 08/05/18 09:30 08/06/18 02:09 08/05/18 10:41 Tramadol HCl (Ultram) 50 mg Q4H PRN ORAL Moderate pain(4-6) 08/05/18 10:15 08/12/18 10:14 08/05/18 10:41 Vancomycin HCl (Vanco rx to dose) 1 ea DAILY PRN MISC Per rx protocol 08/03/18 17:30 09/02/18 17:29 Vancomycin HCl 1 gm/Dextrose 275 ml @ 183.708 mls/hr Q8H IVPB 08/05/18 17:00 08/10/18 16:59 Kiel Aguillon M.D. Aug 05, 2018 15:03
[2018-08-05 16:00] VITALS: BP 150/92
[2018-08-05] MEDS: Vancomycin 1gm/D5W 275ml IVPB SCH ×2 (17:15)
--- NOTE | 2018-08-05 19:38 | NUR ---
HAND-OFF: Report given to MARY Ramirez RN.
[2018-08-05 20:00] VITALS: BP 182/122
--- NOTE | 2018-08-05 20:00 | NUR ---
NURSE NOTES: Received patient awake,alert,verbal,resting in bed,girlfriend at bedside. Vital signs: T-99.3 F,HR-125,BP-182/122,RR-20. Beto Ramsey and Dr Stevens informed,awaiting orders.
[2018-08-05] MEDS: Metoprolol 25mg tab ORAL SCH (20:18)
--- NOTE | 2018-08-05 20:30 | NUR ---
NURSE NOTES: Dr Ramsey ordered Clonidine 0.1 mg po q 4 hr prn for SBP >160 and suggested to transfer patient to [facility]. Dr Stevens ordered additional. Both 25 mg metoprolol q 12 hr. Both Clonidine and metoprolol given and Dr Stevens agreed to transfer patient to [facility].Awaiting room availability.
--- NOTE | 2018-08-05 23:15 | NUR ---
HAND-OFF: Report given to MARY Aleman of SDU as ordered..
--- NOTE | 2018-08-05 23:20 | NUR ---
NURSE NOTES: Received patient from MARY SALAZAR from . BP: 160/109 and HR: 144. Will continue plan of care and monitor BP and HR. Family members are at bedside.
--- NOTE | 2018-08-05 23:54 | NUR ---
NURSE NOTES: Attempted to contact Dr. Stevens regarding patient's heart rate sustaining of 140-150. His answering service was unable to reach him at the moment, they will continue to page him and advised me that will give me a call back.
[2018-08-06] VITALS (35 sets, daily range): BP systolic 58–160; BP diastolic 40–117
[2018-08-06] MEDS: Piperacillin/Tazobactam 3.375 GM in D5W 110 ML IVPB SCH ×3 (00:06→18:35)
[2018-08-06] MEDS: Vancomycin 1gm/D5W 275ml IVPB SCH ×4 (00:35→10:26)
--- NOTE | 2018-08-06 01:30 | NUR ---
NURSE NOTES: Third attempt was made to reach Dr. Stevens regarding patient's heart rate. Charge nurse Donn and Data Processing Control Clerk Marisabel Richards was notified. An additional message line was given to contact MD. A fourth attempt was made, awaiting call back/further instructions.
--- NOTE | 2018-08-06 02:12 | NUR ---
NURSE NOTES: BP: 151/110 HR:122
--- NOTE | 2018-08-06 04:00 | NUR ---
NURSE NOTES: BP: 146/104 HR:92
[2018-08-06 06:00] LABS: BASOPHILS % (AUTO) 0.3 % (0.0-2.0); HEMATOCRIT 39.2 % (37.0-47.0); HEMOGLOBIN 12.5 G/DL (12.0-16.0); LYMPHOCYTES % (AUTO) 7.5 % (20.0-45.0); MEAN CORPUSCULAR VOLUME 71 FL (80-99); NEUTROPHILS % (AUTO) 80.1 % (45.0-75.0); PLATELET COUNT 319 K/UL (150-450); RED BLOOD COUNT 5.56 M/UL (4.20-5.40); RED CELL DISTRIBUTION WIDTH 17.8 % (11.6-14.8); WHITE BLOOD COUNT 10.9 K/UL (4.8-10.8)
--- NOTE | 2018-08-06 06:20 | NUR ---
NURSE NOTES: BP: 166/118 HR:152. Clonidine was given. Dr. Stevens advised for Dr. Bhatti to be contacted. Left message for Dr. Bhatti regarding patient's condition throughout the night. Endorsed to AM nurse.
[2018-08-06 06:49] LABS: ALANINE AMINOTRANSFERASE 8 U/L (12-78); ALBUMIN/GLOBULIN RATIO 0.6 (1.0-2.7); ALKALINE PHOSPHATASE 71 U/L (46-116); ANION GAP 12 mmol/L (5-15); ASPARTATE AMINO TRANSFERASE 15 U/L (15-37); BILIRUBIN,TOTAL 0.5 MG/DL (0.2-1.0); BLOOD UREA NITROGEN 8 mg/dL (7-18); CARBON DIOXIDE 24 MMOL/L (21-32); CHLORIDE 93 MMOL/L (98-107); CREATININE 0.9 MG/DL (0.55-1.30); PHOSPHORUS 2.6 MG/DL (2.5-4.9); SODIUM 129 MMOL/L (136-145)
--- NOTE | 2018-08-06 07:16 | NUR ---
HAND-OFF: Report given to Kristyn Rehman RN.
--- NOTE | 2018-08-06 07:17 | NUR ---
NURSE NOTES: Report received from MARY Aleman. Pt is awake and resting in bed. Oriented to name. Lethargic. Able to respond to pain verbally and physically. Unable to follow commands. Sinus tachy on cardiac care nurse with HR 100's. On RA. Voids. No skin issues. IV to right FA G24 and left hand G24 patent and asymptomatic. Bed in lowest position. Side rails x up 3. Call light within reach. Will resume plan of care.
[2018-08-06] MEDS: Docusate 100mg cap ORAL SCH ×3 (08:43→18:36)
[2018-08-06] MEDS: Metoprolol 25mg tab ORAL SCH ×2 (08:44→09:00)
--- NOTE | 2018-08-06 08:57 | NUR ---
PT Note Patient has been transferred to [facility] due to increased BP and tachycardia. Will need a new order to resume physical therapy.
--- NOTE | 2018-08-06 09:00 | NUR ---
NURSE NOTES: Medication held since pt is too lethargic and is at high risk for aspiration. Will notify doctor and continue to monitor.
[2018-08-06] MEDS ORDERED: Acetaminophen 650 MG SUPP RECTAL PRN ×2 (10:14→13:38)
--- NOTE | 2018-08-06 10:19 | NUR ---
NURSE NOTES: Pt is not responding to pain or waking up. Eyes appears to be crossed when pt looks up and front. BP 127/92, HR 94, Temp 100.3. Administered Tylenol suppository. O2 sat 100% on RA. Pt started waking up but still too lethargic. Spoke with girlfriend regarding baseline and condition change. Left a message for Dr Stevens regarding status change.
--- NOTE | 2018-08-06 10:48 | NUR ---
NURSE NOTES: Dr Ramsey here to see the patient. Updated him with pt's current condition. Order for Bianchi and NGT received, noted, and carried out.
[2018-08-06] MEDS ORDERED: NaCl 3% 500ml 500 ML IV ONE (11:00)
--- NOTE | 2018-08-06 11:07 | NUR ---
NURSE NOTES: Dr Stevens called back. Order for ABG, CT brain, and neurologist consult received, noted, and carried out. Called Dr Velarde for new consult. Will continue to monitor pt.
[2018-08-06] MEDS ORDERED: Isovue-370 150ml vial INJ PRN (11:15)
--- NOTE | 2018-08-06 12:33 | NUR ---
NURSE NOTES: Inserted Bianchi 12Fr and Right nare NGT. STAT KUB ordered to check NGT placement. Notified Dr Stevens regarding ABG result. Awaiting call back for new orders.
--- NOTE | 2018-08-06 12:35 | NUR ---
NURSE NOTES: Dr Stevens called back. New new orders for ABG result. Breathing shallow and fast 30's. Pt is still lethargic. Other VSS stable. Afebrile.
--- NOTE | 2018-08-06 12:54 | NUR ---
NURSE NOTES: HR 29 with Second degree HB noted. No Pulse. Code Blue was called at 1249. Code continued according to ACLS guide line under ER doctor. Pt was intubated at [address] Tena. BS during code 224. Code ended at 1254. Post code BP128/61, HR 168. Notified joint supervisor. Pt transferred to ICU. Report given to MARY Elliott.
--- NOTE | 2018-08-06 13:00 | NUR ---
NURSE NOTES: Responded to code blue and received report on pt from Alka HERNANDEZ, after intubation and transfer of pt to ICU via hospital bed. ETT 7.5 at 23cm lipline, FIO2 50%, with O2Sat 100%, TV500, Peep 5.0, RT at bedside. leaf binner displays ST with HR 110's-120s. NG tube in place in right nare. Bianchi catheter in place 12F, draining 5ml clear/yellow urine. Neuro assessment reveals no response to pain, pupil diameter 6mm bilaterally, nonreactive to light, tongue protruding to right side of the mouth. Lung sounds are clear. Hypoactive bowel sounds present in all four quadrants, abdomen flat and soft to touch. Skin is intact, piercing in place above right eyebrow and below lower lip, and anklet on right ankle, no edema present. Peripheral IV access present on left hand #22G and right FA #24G, both saline locks, patent/intact. Bed is locked and in lowest position with three side rails up. Will continue to monitor pt, and contact primary Dr Stevens for update/orders and follow plan of care per MD orders and protocol.
--- NOTE | 2018-08-06 13:25 | Nephrology Progress Note ---
Assessment/Plan Problem List: (1) Dehydration (2) SIADH (syndrome of inappropriate ADH production) (3) UTI (urinary tract infection) Assessment: proteus (4) Rheumatoid aortitis (5) Acute encephalopathy Assessment Hyponatremia likely SiADH Vomiting RA UTI Plan 3% saline and lasix as needed Protonix IV change steroids to IV monitor serum Na Per ID on Vanco and Zosyn NGT Bianchi Neuro consult pending Subjective ROS Limited/Unobtainable: Yes Constitutional: Reports: weakness, other - non verbal Objective Objective Last 24 Hour Vital Signs Date Time Temp Pulse Resp B/P (MAP) Pulse Ox O2 Delivery O2 Flow Rate FiO2 08/06/18 12:30 Room Air 08/06/18 12:00 98.1 90 39 106/79 (88) 99 08/06/18 10:49 98.1 08/06/18 10:15 100.3 92 20 130/94 (106) 100 08/06/18 08:00 Room Air 08/06/18 08:00 98.5 107 30 127/92 (104) 99 08/06/18 07:48 123 08/06/18 06:18 166/118 08/06/18 04:00 98.1 107 20 154/105 (121) 98 08/06/18 04:00 Room Air 08/06/18 03:34 100 08/06/18 00:49 160/109 08/06/18 00:00 Room Air 08/06/18 00:00 97.7 144 20 160/109 (126) 100 08/05/18 23:36 143 08/05/18 20:40 Room Air 08/05/18 20:18 125 182/122 08/05/18 20:17 182/122 08/05/18 20:00 99.3 125 20 182/122 (142) 98 08/05/18 16:00 98.5 105 21 150/92 (111) 99 08/05/18 13:37 71 159/98 08/05/18 13:30 Room Air Intake and Output 08/05/18 08/06/18 19:00 07:00 Intake Total 443.334 ml 725.000 ml Balance 443.334 ml 725.000 ml IV Total 443.334 ml 725.000 ml # Voids 4 Laboratory Tests 08/06/18 03:45: White Blood Count 10.9H, Red Blood Count 5.56H, Hemoglobin 12.5, Hematocrit 39.2 , Mean Corpuscular Volume 71L, Mean Corpuscular Hemoglobin 22.5L, Mean Corpuscular Hemoglobin Concent 31.9L, Red Cell Distribution Width 17.8H, Platelet Count 319, Mean Platelet Volume 5.3L, Neutrophils (%) (Auto) 80.1H, Lymphocytes (%) (Auto) 7.5L, Monocytes (%) (Auto) 12.0H, Eosinophils (%) (Auto) 0.0, Basophils (%) (Auto) 0.3, Sodium Level 129L, Potassium Level 4.0, Chloride Level 93L, Carbon Dioxide Level 24, Anion Gap 12, Blood Urea Nitrogen 8, Creatinine 0.9, Estimat Glomerular Filtration Rate > 60, Glucose Level 122H, Osmolality 266L, Uric Acid 0.7L, Calcium Level 9.0, Phosphorus Level 2.6, Magnesium Level 1.9, Total Bilirubin 0.5, Aspartate Amino Transf (AST/SGOT) 15, Alanine Aminotransferase (ALT/SGPT) 8L, Alkaline Phosphatase 71, C-Reactive Protein, Quantitative 6.4H, Pro-B-Type Natriuretic Peptide 278H, Total Protein 8.1, Albumin 3.0L, Globulin 5.1, Albumin/Globulin Ratio 0.6L 08/06/18 12:00: Arterial Blood pH 7.568*H, Arterial Blood Partial Pressure CO2 23.2*L, Arterial Blood Partial Pressure O2 106.8H, Arterial Blood HCO3 20.7L, Arterial Blood Oxygen Saturation 98.2, Arterial Blood Base Excess 0.2, Clemente Test Positive Height (Feet): 5 Height (Inches): 5.00 Weight (Pounds): 139 General Appearance: lethargic Cardiovascular: normal rate Respiratory/Chest: decreased breath sounds Abdomen: soft Neurologic: other - less responsive, non verbal , responds to pain Objective no change Lio Ramsey MD Aug 06, 2018 13:25
--- NOTE | 2018-08-06 13:30 | NUR ---
NURSE NOTES: Dr Douglas at bedside, central line placed, left subclavian TLC. STAT chest xray and KUB done at bedside, confirmed placement of central line, NG tube and ET tube.
--- NOTE | 2018-08-06 13:30 | Emergency Room Report ---
History of Present Illness General Chief Complaint: General Complaint Source: Patient Present Illness Allergies: Coded Allergies: No Known Allergies (Unverified , 07/30/18) Nursing Documentation-[facility] Past Medical History: No Stated History Hx Cardiac Problems: No Hx Cancer: No Hx Gastrointestinal Problems: No Hx Neurological Problems: No Physical Exam Vital Signs Date Time Temp Pulse Resp B/P (MAP) Pulse Ox O2 Delivery O2 Flow Rate FiO2 08/02/18 08:00 Room Air 08/02/18 08:00 98.1 97 16 153/95 (114) 99 Procedures CPR/Code Blue CPR/Code Blue Narrative I was called to the floor for a CODE BLUE Upon arrival CPR was in progress On a rapid evaluation patient appears to have palpable pulses CPR was held and patient does have palpable pulses with a blood pressure of 120 systolic Patient had been provided one dose of epinephrine prior to my arrival Nursing staff reports of the patient had gone into a bradycardic rhythm and essentially PEA with loss of any pulses and therefore CPR had been initiated Patient does not have a gag reflex and was being bag valve masked with 100% oxygenation at this time patient does require airway intubation and this was performed without any medication Please refer to the note for full specifics further review reveals appropriate pupillary reaction breath sounds equal after intubation Patient continues with heart rate in the 150s and 160s with palpable pulses and is transferred to ICU Intubation Intubation : Consent: Emergent Intubation Method: orotracheal Tube Size (cm): 7.5 Breath Sounds after Intubation: equal Post Intubation Xray: Yes Attempts: One Patient Tolerated: Well Complications: None Medical Decision Making Diagnostic Impression: Primary Impression: Weakness Additional Impressions: Dehydration Hypokalemia Chest X-Ray Diagnostic Results Chest X-Ray Diagnostic Results : Chest X-Ray Ordered: Yes # of Views/Limited/Complete: 1 View Indication: Other - intubation EP Interpretation: Yes Interpretation: no consolidation, no effusion, no pneumothorax, other - ET tube appropriately placed Impression: Other - et tube appropriate Electronically Signed by: Nicole Espino DO Last Vital Signs Date Time Temp Pulse Resp B/P (MAP) Pulse Ox O2 Delivery O2 Flow Rate FiO2 08/06/18 12:50 47 08/06/18 12:30 Room Air 08/06/18 12:00 98.1 39 106/79 (88) 99 Status: improved Disposition: ADMITTED INPATIENT Condition: Critical Referrals: NOT CHOSEN IPA/MD,REFERRING (PCP) Patient Instructions: Dehydration, Adult, [id number], Weakness, [id number] , Hypoglycemia, [id number] Nicole Espino DO Aug 06, 2018 13:30
[2018-08-06] MEDS ORDERED: Levophed 4mg/4mL Inj IV ONE (13:36)
[2018-08-06] MEDS ORDERED: NaCl 3% 500ml 500 ML IV SCH (13:37)
[2018-08-06] MEDS ORDERED: Artificial Tears 1.4% Op Soln BOTH EYES PRN (13:39)
[2018-08-06] MEDS ORDERED: traMADol 50mg tab ORAL PRN (13:40)
--- NOTE | 2018-08-06 13:40 | NUR ---
NURSE NOTES: Patient became extremely hypotensive with SBPs ranging from 30s to 50s. It became emergent to override Levophed for the patient in order to overt the Code Blue. Patient was immediately started on 30 mcgs by primary RN. Patient responded and was stabilized.
[2018-08-06] MEDS ORDERED: Hydrocortisone 100mg Inj IV SCH (14:00)
--- NOTE | 2018-08-06 14:00 | NUR ---
NURSE NOTES: Vent setting orders received and confirmed with Dr Stevens. Per Dr Stevens, okay to continue same vent settings started after intubation. Order received for Levophed, processed and started IV Drip. Spoke with Dr Bhatti over the phone, order received for STAT 2D echo and troponin, repeat troponin tomorrow morning. Order processed, and followed.
--- NOTE | 2018-08-06 14:33 | Operative Note - PDOC ---
Operative Note Operative Note Date of Operation/Procedure: Aug 06, 2018 Pre-op Diagnosis: critical care, hypotensive, tachycardic, septic shock Procedure: left subclavian central venous catheter insertion Post-op Diagnosis: same as pre-op Surgeon: patito Anesthesia: local Specimen: none Complications: none Condition: unstable Estimated Blood Loss: minimal Drains: none Implant(s) used?: No Indications for Procedure 43F who just coded requiring ACLS and resuscitation was intubated by ED physician and required central venous access for immediate pressors, fluids, meds. emergency procedure performed at bedside in ICU. Medically necessary Description of Procedure placed in Trendelenburg position. left subclavian vein site to be used after assessed all other sites. pre procedure time out taken. left chest wall prepped and draped in standard surgical fashion. local 1% lido with epi infiltrated. left subclvian vein cannulated on first attempt. good venous flow noted. guidewire passed over needle. needle removed. skin incision made and dilator used. triple lumen catheter placed over guidewire without complication. guidewire discarded. all ports flushed and aspirated without difficulty. line sutured in place and dressings applied. okay to use line. cxr reviewed and line in good place. ET tube to be withdrawn 3-4 cm. Wellington Douglas Aug 06, 2018 14:33
[2018-08-06] MEDS ORDERED: Tubing IV Secondary IV ONE (15:26)
[2018-08-06 15:27] LABS: HEMATOCRIT 37.8 % (37.0-47.0); MEAN CORPUSCULAR VOLUME 71 FL (80-99); PLATELET COUNT 319 K/UL (150-450); RED CELL DISTRIBUTION WIDTH 17.6 % (11.6-14.8); WHITE BLOOD COUNT 15.1 K/UL (4.8-10.8)
[2018-08-06 15:28] LABS: BASOPHILS % (AUTO) 0.5 % (0.0-2.0); LYMPHOCYTES % (AUTO) 4.5 % (20.0-45.0); MONOCYTES % (AUTO) 6.9 % (1.0-10.0); NEUTROPHILS % (AUTO) 88.2 % (45.0-75.0)
[2018-08-06 15:38] LABS: ANION GAP 15 mmol/L (5-15); BLOOD UREA NITROGEN 18 mg/dL (7-18); CALCIUM 8.8 MG/DL (8.5-10.1); CARBON DIOXIDE 22 MMOL/L (21-32); CHLORIDE 91 MMOL/L (98-107); CREATININE 1.6 MG/DL (0.55-1.30); POTASSIUM 3.9 MMOL/L (3.5-5.1); SODIUM 128 MMOL/L (136-145)
[2018-08-06 15:42] LABS: AMMONIA 17 umol/L (11-32)
[2018-08-06 15:53] LABS: ALANINE AMINOTRANSFERASE 182 U/L (12-78); ALBUMIN 3.1 G/DL (3.4-5.0); ALBUMIN/GLOBULIN RATIO 0.7 (1.0-2.7); ALKALINE PHOSPHATASE 78 U/L (46-116); ASPARTATE AMINO TRANSFERASE 214 U/L (15-37); BILIRUBIN,TOTAL 0.5 MG/DL (0.2-1.0)
--- NOTE | 2018-08-06 16:00 | NUR ---
NURSE NOTES: Pt is laying in bed in supine position, hypotensive, on Levophed Drip to maintain optimal blood pressure via Left subclavian TLC and Sod. Bicarb 3% infusing at 30mL/hour via left hand #22G peripheral IV line. ETT 7.5 at 23cm lipline, FIO2 40% with O2Sat 100%, TV500, Peep 5.0, RT at bedside. equipment monitor phototypesetting displays ST with HR 110's-120. NG tube in place in right nare, NPO. Bianchi catheter in place 12F, draining very minimal clear/yellow urine. Neuro assessment reveals no response to pain, pupil diameter 6-7mm bilaterally, nonreactive to light, tongue protruding to right side of the mouth. Lung sounds are clear. Hypoactive bowel sounds present in all four quadrants, abdomen flat and soft to touch. Bed is locked and in lowest position with three side rails up. Will continue to monitor pt and follow plan of care per MD orders and protocol.
--- NOTE | 2018-08-06 16:30 | Progress Note ---
DATE: 08/06/2018 SUBJECTIVE: This is a young female who initially came for severe rheumatoid arthritis and pain. The patient has been tachycardic since last night and hypertensive. Cardiology consult was obtained. The patient was transferred to . The patient has still generalized weakness, having a neck pain, but fever is subsided. She is slightly better today. I gave metoprolol. OBJECTIVE: CHEST: Bilaterally clear. CARDIOVASCULAR: Regular rhythm. ABDOMEN: Soft. Positive bowel sounds. EXTREMITIES: Mild tenderness. GENITOURINARY: Deferred. LABORATORY DATA: Not available. ASSESSMENT: 1. Hypertension. 2. Tachycardia. 3. Severe rheumatoid arthritis. The patient has ID consult, Nephrology consult. Her potassium was low, was replaced. The patient is critically sick. Andrew Stevens M.D. DR: BRIANA JOB#: [id number] CC:
--- NOTE | 2018-08-06 16:42 | NUR ---
CASE MANAGEMENT: REVIEW 08/06/2018 SI: HYPOKALEMIA. WEAKNESS. DEHYDRATION. T 97.3 HR 118 RR 14 B/P 125/64 SATS 96% ON MECH VENT WBC 15.1 NA 128 CL 91 CR 1.6 GLU 278 LACTIC ACI 7.7 AST 214 ALT 182 TROPONIN 0.013 SI: SOLU CORTEF IV Q8H LASIX IV Q8H PROTONIX IV Q12H K DUR PO BID NORVASC PO BID PREDNISONE PO QD LOPRESSOR PO Q12H NOREPINEPHRINE PER PARAMETERS ZOSYN IV Q6H ICU STATUS DCP: PATIENT IS FROM HOME PLAN OF CARE: CODE REY 08/06 @ 2447 TRANSFERRED TO ICU
[2018-08-06] MEDS ORDERED: Vancomycin 1 GM in D5W 275 ML IVPB SCH (17:00)
--- NOTE | 2018-08-06 17:41 | NUR ---
NURSE NOTES: Spoke with Dr Roxy MD made aware of Total urine output since 1300 to be 100mL. Pt was given Lasix 20mg IV at 1420. Bladder scan displays 25mL. No new orders at this time.
--- NOTE | 2018-08-06 18:00 | NUR ---
NURSE NOTES: Dr Ramsey saw pt at bedside. MD aware of CT scan result, and IV Decadron ordered. MD contacted Dr Velarde over the phone, and order for EEG was placed.
[2018-08-06] MEDS ORDERED: Dexamethasone 4mg/ml vial IVP SCH ×2 (18:30→18:35)
--- NOTE | 2018-08-06 18:38 | NUR ---
NURSE NOTES: Called and left msg for Ron, pharmacy technician per diem regarding STAT EEG for tonight. Awaiting call back. Orders placed by Dr Ramsey.
--- NOTE | 2018-08-06 19:30 | NUR ---
HAND-OFF: Report given to Nicole HERNANDEZ. Endorsed plan of care.
--- NOTE | 2018-08-06 19:30 | NUR ---
NURSE NOTES:Received pt unresponsive , not even to a deep pain stimuli, pupils dilated 5mm non reactive , no gag reflex, orally intubated on ac mode ST on the monitor, BP labile , on Levophed drip at 10 mcg/min, NS 3% at 30ml/hr. ALL Ivf been infusing through pts Left SVC central line. Site with drsg dry and intact. significant other at bedside- updated with pts condition- as well as hospital protocol and set up- verbalized understanding. All mds are aware with pts condition per RN Byron Tomas. Holey to gravity with minimal amt of yellowish urine output. Will continue to monitor.
--- NOTE | 2018-08-06 19:32 | NUR ---
RESPIRATORY NOTE: RECEIVED PT ON CURRENT VENT SETTINGS: AC 16 600 +5 40%. PT EDWINA CURRENT VENT SETTINGS WELL. ETT 7.5 AT 23LL SECURE W/ ANCHOR FAST. VENT PLUGGED INTO RED OUTLET. ALARMS ARE ON, AUDIBLE AND FUNCTIONING. WILL CONTINUE MONITORING PT. Addendum: 08/06/18 at 2228 by JAZ HARRISON RT RECEIVED PT ON CURRENT VENT SETTINGS: AC 14 500 +5 40%. PT EDWINA CURRENT VENT SETTINGS WELL. ETT 7.5 AT 23LL SECURE W/ ANCHOR FAST. VENT PLUGGED INTO RED OUTLET. ALARMS ARE ON, AUDIBLE AND FUNCTIONING. NO RESP DISTRESS NOTED. WILL CONTINUE MONITORING PT.
--- NOTE | 2018-08-06 19:51 | Infectious Diseases Prog Note ---
Assessment/Plan Problems: (1) Headache Assessment & Plan: with neck stiffness , rule out meningitis VS RA flare , no evidence of SAH on head CT scan , await LP , continue zosyn empirically since responded well , stop vancomycin since supra therapeutic and monitor level . hold off Humira pending LP (2) fever, tachy cardia Assessment & Plan: rule out sepsis or source of infection VS RA flare, repeated blood culture and urine culture is negative so far , repeated CXR no new infiltrates, continue zosyn empirically, RF level is high , concerning for RA flare . will repeat blood culture today again (3) Rheumatoid arthritis flare Assessment & Plan: possible with fever, and high RF , already on small dose of steroids , recommend rheumatology eval (4) UTI (urinary tract infection) Assessment & Plan: due to proteus mirabilis , already on zosyn now to cover for sepsis too, repeated urine culture is pending (5) SIADH (syndrome of inappropriate ADH production) Assessment & Plan: continue fluids restriction , renal is following (6) Heart block AV second degree Assessment & Plan: rule out conduction blocking agents side effects VS ACS, recommend to avoid blocking agents , and cardiology consult (7) Cardiac arrest Assessment & Plan: was intubated and started on mechanical ventilation and pressors and transferred to ICU Subjective ROS Limited/Unobtainable: Yes Allergies: Coded Allergies: No Known Allergies (Unverified , 07/30/18) Subjective she was bradycardic and hypotensive, with heart block, S/P CODE BLUE and intubated and transferred to ICU for close monitoring . Objective Vital Signs Last 24 Hour Vital Signs Date Time Temp Pulse Resp B/P (MAP) Pulse Ox O2 Delivery O2 Flow Rate FiO2 08/06/18 19:32 111 14 40 08/06/18 17:18 144 14 40 08/06/18 17:00 117 14 132/100 (111) 100 08/06/18 16:45 117 14 127/97 (107) 100 08/06/18 16:30 97.3 118 14 125/94 (104) 96 08/06/18 16:00 126 08/06/18 16:00 137/99 08/06/18 16:00 Mechanical Ventilator 08/06/18 14:52 144 14 50 08/06/18 14:13 50 08/06/18 14:00 50 08/06/18 13:00 123 14 100 08/06/18 13:00 107 08/06/18 12:50 47 08/06/18 12:30 Room Air 08/06/18 12:00 98.1 90 39 106/79 (88) 99 08/06/18 11:46 117 08/06/18 10:49 98.1 08/06/18 10:15 100.3 92 20 130/94 (106) 100 08/06/18 08:00 Room Air 08/06/18 08:00 98.5 107 30 127/92 (104) 99 08/06/18 07:48 123 08/06/18 06:18 166/118 08/06/18 04:00 98.1 107 20 154/105 (121) 98 08/06/18 04:00 Room Air 08/06/18 03:34 100 08/06/18 00:49 160/109 08/06/18 00:00 Room Air 08/06/18 00:00 97.7 144 20 160/109 (126) 100 08/05/18 23:36 143 08/05/18 20:40 Room Air 08/05/18 20:18 125 182/122 08/05/18 20:17 182/122 08/05/18 20:00 99.3 125 20 182/122 (142) 98 Height (Feet): 5 Height (Inches): 5.00 Weight (Pounds): 139 General Appearance: WD/WN, no acute distress HEENT: normocephalic, atraumatic, anicteric, mucous membranes moist, pharynx normal, no JVD Respiratory/Chest: chest wall non-tender, no respiratory distress, no accessory muscle use, decreased breath sounds Cardiovascular: normal peripheral pulses, regular rhythm, no gallop/murmur, no JVD, tachycardia Abdomen: no organomegaly, no mass, no scars, hypoactive bowel sounds, distended Genitourinary: normal external genitalia Extremities: no cyanosis, no clubbing Skin: no rash, no lesions, no ulcers Neurologic/Psychiatric: unresponsiveness, other - intubated on mechanical ventilation Lymphatic: no neck adenopathy, no groin adenopathy Musculoskeletal: normal muscle bulk, no effusion Microbiology Date/Time Source Procedure Growth Status 08/04/18 06:15 Urine,Clean Catch Urine Culture - Final NO GROWTH AFTER 48 HOURS Complete Laboratory Tests Test 08/06/18 03:45 08/06/18 12:00 08/06/18 13:50 08/06/18 14:30 White Blood Count 10.9 K/UL (4.8-10.8) H 15.1 K/UL (4.8-10.8) H Red Blood Count 5.56 M/UL (4.20-5.40) H 5.30 M/UL (4.20-5.40) Hemoglobin 12.5 G/DL (12.0-16.0) 12.0 G/DL (12.0-16.0) Hematocrit 39.2 % (37.0-47.0) 37.8 % (37.0-47.0) Mean Corpuscular Volume 71 FL (80-99) L 71 FL (80-99) L Mean Corpuscular Hemoglobin 22.5 PG (27.0-31.0) L 22.6 PG (27.0-31.0) L Mean Corpuscular Hemoglobin Concent 31.9 G/DL (32.0-36.0) L 31.6 G/DL (32.0-36.0) L Red Cell Distribution Width 17.8 % (11.6-14.8) H 17.6 % (11.6-14.8) H Platelet Count 319 K/UL (150-450) 319 K/UL (150-450) Mean Platelet Volume 5.3 FL (6.5-10.1) L 5.2 FL (6.5-10.1) L Neutrophils (%) (Auto) 80.1 % (45.0-75.0) H 88.2 % (45.0-75.0) H Lymphocytes (%) (Auto) 7.5 % (20.0-45.0) L 4.5 % (20.0-45.0) L Monocytes (%) (Auto) 12.0 % (1.0-10.0) H 6.9 % (1.0-10.0) Eosinophils (%) (Auto) 0.0 % (0.0-3.0) 0.0 % (0.0-3.0) Basophils (%) (Auto) 0.3 % (0.0-2.0) 0.5 % (0.0-2.0) Sodium Level 129 MMOL/L (136-145) L 128 MMOL/L (136-145) L Potassium Level 4.0 MMOL/L (3.5-5.1) 3.9 MMOL/L (3.5-5.1) Chloride Level 93 MMOL/L (98-107) L 91 MMOL/L (98-107) L Carbon Dioxide Level 24 MMOL/L (21-32) 22 MMOL/L (21-32) Anion Gap 12 mmol/L (5-15) 15 mmol/L (5-15) Blood Urea Nitrogen 8 mg/dL (7-18) 18 mg/dL (7-18) Creatinine 0.9 MG/DL (0.55-1.30) 1.6 MG/DL (0.55-1.30) #H Estimat Glomerular Filtration Rate > 60 mL/min (>60) 42.7 mL/min (>60) Glucose Level 122 MG/DL (74-106) H 278 MG/DL (74-106) #H Osmolality 266 mOsm/kg (297-317) L Uric Acid 0.7 MG/DL (2.6-7.2) L Calcium Level 9.0 MG/DL (8.5-10.1) 8.8 MG/DL (8.5-10.1) Phosphorus Level 2.6 MG/DL (2.5-4.9) Magnesium Level 1.9 MG/DL (1.8-2.4) Total Bilirubin 0.5 MG/DL (0.2-1.0) 0.5 MG/DL (0.2-1.0) Aspartate Amino Transf (AST/SGOT) 15 U/L (15-37) 214 U/L (15-37) H Alanine Aminotransferase (ALT/SGPT) 8 U/L (12-78) L 182 U/L (12-78) H Alkaline Phosphatase 71 U/L (46-116) 78 U/L (46-116) C-Reactive Protein, Quantitative 6.4 mg/dL (0.00-0.90) H Pro-B-Type Natriuretic Peptide 278 pg/mL (0-125) H Total Protein 8.1 G/DL (6.4-8.2) 7.4 G/DL (6.4-8.2) Albumin 3.0 G/DL (3.4-5.0) L 3.1 G/DL (3.4-5.0) L Globulin 5.1 g/dL 4.3 g/dL Albumin/Globulin Ratio 0.6 (1.0-2.7) L 0.7 (1.0-2.7) L Arterial Blood pH 7.568 (7.350-7.450) 7.386 (7.350-7.450) Arterial Blood Partial Pressure CO2 23.2 mmHg (35.0-45.0) *L 30.9 mmHg (35.0-45.0) L Arterial Blood Partial Pressure O2 106.8 mmHg (75.0-100.0) H 494.5 mmHg (75.0-100.0) H Arterial Blood HCO3 20.7 mmol/L (22.0-26.0) L 18.1 mmol/L (22.0-26.0) L Arterial Blood Oxygen Saturation 98.2 % (95-100) 99.6 % (95-100) Arterial Blood Base Excess 0.2 (-2-2) -5.8 (-2-2) L Clemente Test Positive Positive Erythrocyte Sedimentation Rate 67 MM/HR (0-20) H Lactic Acid Level 7.70 mmol/L (0.4-2.0) H Ammonia 17 umol/L (11-32) Troponin I 0.013 ng/mL (0.000-0.056) Vancomycin Level Trough 41.6 ug/mL (5.0-12.0) H Test 08/06/18 18:45 Arterial Blood pH 7.586 (7.350-7.450) Arterial Blood Partial Pressure CO2 22.4 mmHg (35.0-45.0) *L Arterial Blood Partial Pressure O2 176.2 mmHg (75.0-100.0) H Arterial Blood HCO3 20.8 mmol/L (22.0-26.0) L Arterial Blood Oxygen Saturation 99.2 % (95-100) Arterial Blood Base Excess 0.7 (-2-2) Clemente Test Positive Current Medications Medications (Trade) Dose Ordered Sig/Hilaria Route PRN Reason Start Time Stop Time Status Last Admin Dose Admin Acetaminophen (Tylenol) 650 mg Q6H PRN RECTAL Mild Pain/Temp > 100.5 08/06/18 13:38 09/05/18 13:37 Artificial Tears (Akwa-Tears) 2 drop BIDPRN PRN BOTH EYES Dry Eyes 08/06/18 13:39 09/05/18 13:38 Dexamethasone Sodium Phosphate (Decadron 4mg/ml vial) 10 mg ONCE IVP 08/06/18 18:35 08/06/18 20:00 08/06/18 18:38 Docusate Sodium (Colace) 100 mg THREE TIMES A DAY ORAL 08/06/18 18:00 08/30/18 17:59 08/06/18 18:36 Iopamidol (Isovue-370 150ml) 150 ml NOW PRN INJ Radiology Procedure 08/07/18 11:15 08/08/18 23:59 Norepinephrine Bitartrate 4 mg/ Dextrose 250 ml @ 0 mls/hr Q24H IV 08/06/18 16:00 09/05/18 15:59 08/06/18 16:00 Ondansetron HCl (Zofran) 4 mg Q6H PRN IV Nausea & Vomiting 08/06/18 14:45 08/30/18 14:44 Pantoprazole (Protonix) 40 mg EVERY 12 HOURS IVP 08/06/18 21:00 09/05/18 20:59 Piperacillin Sod/ Tazobactam Sod 3.375 gm/Dextrose 110 ml @ 220 mls/hr Q6H IVPB 08/06/18 18:30 08/10/18 18:29 08/06/18 18:35 Kiel Aguillon M.D. Aug 06, 2018 19:51
[2018-08-06] MEDS ORDERED: Pantoprazole Inj IVP SCH (20:30)
--- NOTE | 2018-08-06 20:30 | NUR ---
NURSE NOTES:Dr Stevens was here and spoke to the family with pts critical condition.
[2018-08-06] MEDS ORDERED: Metoprolol 25mg tab ORAL SCH (21:00)
--- NOTE | 2018-08-06 21:00 | NUR ---
NURSE NOTES:DR Stevens was aware with pts no gag reflex , unresponsiveness to pain stimuli, and dilated non reactive pupil. Also md was aware with CT scan of the brain result. post cardiac arrest. meds order was given.
[2018-08-06] MEDS: Pantoprazole Inj IVP SCH (21:20)
[2018-08-06] MEDS: Solu-MEDROL 125mg Inj IVP SCH (22:27)
[2018-08-06] MEDS: Norepinephrine Bitartrate 8 MG in D5W 500ml 492 ML IV SCH (22:28)
--- NOTE | 2018-08-06 23:00 | NUR ---
NURSE NOTES:traffic technician came and did pts EEG.
[2018-08-07] VITALS (44 sets, daily range): BP systolic 88–155; BP diastolic 66–114
[2018-08-07] MEDS ORDERED: Dexamethasone 4mg/ml vial IVP SCH
[2018-08-07] MEDS: Piperacillin/Tazobactam 3.375 GM in D5W 110 ML IVPB SCH ×3 (00:38→18:35)
--- NOTE | 2018-08-07 01:00 | NUR ---
NURSE NOTES:suctioned tk beige secretions minimal in amt. Turned to sides for comfort.
--- NOTE | 2018-08-07 03:00 | NUR ---
NURSE NOTES:Bp 143/110, slowly taper Levophed drip to 9mcg/min.
--- NOTE | 2018-08-07 05:00 | NUR ---
NURSE NOTES:Levophed drip at 3 mcg/min at this time. sbp>100
[2018-08-07] MEDS: Solu-MEDROL 125mg Inj IVP SCH (05:50)
[2018-08-07] MEDS ORDERED: Dextrose 10% 1,000 ML IV ONE (06:13)
--- NOTE | 2018-08-07 06:15 | Progress Note ---
DATE: 08/06/2018 ADDENDUM This is a young female who has had cardiac arrest about 1 p.m. this evening. The patient was resuscitated and was transferred to intensive care unit. The patient is currently on maximum Levophed drip and she is intubated. The patient has no reflexes. Her CT scan of brain is showing hydrocephalus. Discussed with the family in the room, with the mother, as well as the friend. The patient's prognosis looks very guarded. The patient is also discussed with Dr. Ramsey as well as Dr. Kelly for Pulmonary consult and Neurology consult was called. Dr. Velarde also added Solu-Medrol for 80 mg IV every 8 hours, Protonix 40 mg IV daily, IV fluid, and continue ventilator and continue bronchodilator treatments. The patient's family understood that the patient has a terminal prognosis. Andrew Stevens M.D. DR: ESTIVEN JOB#: [id number] CC:
--- NOTE | 2018-08-07 06:15 | Progress Note ---
DATE OF ADMISSION: 07/30/2018 I am here in intensive care unit visiting the patient since 1825 hours. The patient who was seen by me earlier on renal consult followup, stopped breathing, was coded, became hypotensive and asystole. After 8 minutes of code, the patient is now in room G ICU here at [facility]. She is intubated and on ventilator, also on pressors. Blood pressure currently is 118/56. On 10 mcg of Levophed, the patient is fully assisted by ventilator. The pupils are dilated and fixed, and not responsive to pain. The patient is in comatose state. Heart is regular rate of 112 and pulse oximetry is 100%. LABORATORY DATA: The laboratory results, which were done after the code, white blood cells of 15.1, hemoglobin is 12, sodium 128, creatinine 1.6, AST 214, ALT 182, and lactic acid 7.7. The vancomycin level was done, which is 41.6. IMPRESSION: Post Code Blue. The patient is in comatose state with dilated pupils. A CT scan, which was done, shows no acute intracranial hemorrhage or mass effect, however, diffuse cerebral edema with effacement of CSF containing spaces and decreased lomeli-white differentiation raises concern of hypoxic brain injury. PLAN: At this point, the patient will continue on IV fluid, IV Protonix, 1 dose of Decadron 10 mg IV will be given. Also, neuro consult again was called and re-emphasized. We will also order an EEG in 72 hours and I have put a call to the primary physician to call an supervisor whipped topping from board. From renal standpoint of view, the patient appears to have been stable and since this morning, had normal renal parameters and sodium of 129. At this point, we will hold vancomycin since the level is 41, and while we observe the patient in next 72 hours from neuro standpoint of view, we would also monitor the renal parameters and also we will get the input from consultants. Lio Ramsey M.D. DR: NIKOLAI JOB#: [id number] CC: KARINA
[2018-08-07 06:47] LABS: HEMATOCRIT 36.1 % (37.0-47.0); HEMOGLOBIN 11.9 G/DL (12.0-16.0); MEAN CORPUSCULAR VOLUME 69 FL (80-99); PLATELET COUNT 252 K/UL (150-450); RED CELL DISTRIBUTION WIDTH 17.8 % (11.6-14.8); WHITE BLOOD COUNT 11.3 K/UL (4.8-10.8)
--- NOTE | 2018-08-07 07:00 | NUR ---
NURSE NOTES:neuro unchanged. levophed drip down to 2 mcg/min
--- NOTE | 2018-08-07 07:20 | NUR ---
NURSE NOTES: Received pt from MARY Rivera. Patient is in a comatose, unresponsive to deep pain, voice, pupils are dilated 5mm and non-reactive, no gag reflex. Orally intubated with ETT 7.5/23cm at lip line. AC 14/TV 500/Fio2 40%/PEEP+5, SPo2 100%, RR 14. Left subclavian TLC running Levophed@2mcg/kg/hr. Right NGT clamped, NPO. NSR, HR 86 on playground monitor. BP 106/85. T 95.4, bear hugger applied. FC draining minimal clear yellow urine. Notified Dr. Ramsey regarding potassium=3.3, see order history. Bed locked, alarmed and in lowest position. Will continue plan of care.
[2018-08-07 07:31] LABS: ALANINE AMINOTRANSFERASE 110 U/L (12-78); ALBUMIN 2.5 G/DL (3.4-5.0); ALBUMIN/GLOBULIN RATIO 0.5 (1.0-2.7); ALKALINE PHOSPHATASE 70 U/L (46-116); ANION GAP 16 mmol/L (5-15); ASPARTATE AMINO TRANSFERASE 72 U/L (15-37); BILIRUBIN,TOTAL 0.6 MG/DL (0.2-1.0); BLOOD UREA NITROGEN 30 mg/dL (7-18); CALCIUM 8.5 MG/DL (8.5-10.1); CARBON DIOXIDE 18 MMOL/L (21-32); CHLORIDE 99 MMOL/L (98-107); CREATINE KINASE 65 U/L (26-308); CREATININE 2.9 MG/DL (0.55-1.30); GAMMA GLUTAMYL TRANSPEPTIDASE 43 U/L (5-85); PHOSPHORUS 2.2 MG/DL (2.5-4.9); POTASSIUM 3.3 MMOL/L (3.5-5.1); SODIUM 133 MMOL/L (136-145)
--- NOTE | 2018-08-07 07:35 | NUR ---
HAND-OFF: Report given to Claire HERNANDEZ.
[2018-08-07] MEDS: Nitroglycerin Patch 0.4mg TDERMAL SCH (08:00)
[2018-08-07] MEDS: Pantoprazole Inj IVP SCH ×2 (08:26→21:25)
[2018-08-07] MEDS: Docusate 100mg cap ORAL SCH ×3 (08:26→18:34)
--- NOTE | 2018-08-07 08:30 | NUR ---
NURSE NOTES: Dr benavides, Dr. Ramsey, Dr. Velarde making rounds at bedside.
--- NOTE | 2018-08-07 08:53 | NUR ---
NURSE NOTES: Received orders to d/c Solumedrol, d/c CT head w/contrast and Spinal tap per Dr. Stevens. Held Nitro patch due to low BP.
[2018-08-07] MEDS ORDERED: Potassium Phosphate 20 MM in NS 275 ML IV ONE (09:00)
--- NOTE | 2018-08-07 09:17 | Consultation ---
Consult Note Consult Note NEUROLOGY CONSULTATION: Full note dictated #[id number] 43 y/o, BF of ?H who does have a PH of RA. Was hospitalized at [facility] on 07/30/18 for 1 week H/o headache and stiff neck. She was hyponatremic and had a UTI when she came in. On 08/06/18 at around noon she had a 5 minute PEA cardiac arrest. CPR was started immediately and then she was intubated and moved to the ICU. ON EXAM: Unresponsive. Only responds to DP in LE with withdrawal. IMPRESSION: Cardiac arrest with severe anoxic/ischemic encephalopathy. REC: Support cardio-respiratory function for 72 hours. Repeat EEG in 72 hours. Agree with LP. Ag Velarde M.D., M.S.P.H. Ag Velarde MD Aug 07, 2018 09:16
--- NOTE | 2018-08-07 09:26 | Nephrology Progress Note ---
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) Assessment comatose Plan monitor renal parameters hold Vanco - monitor level adjust Zosyn dose per consultants poor prognosis Subjective ROS Limited/Unobtainable: Yes Objective Objective Last 24 Hour Vital Signs Date Time Temp Pulse Resp B/P (MAP) Pulse Ox O2 Delivery O2 Flow Rate FiO2 08/07/18 08:00 Mechanical Ventilator 08/07/18 08:00 106/91 08/07/18 08:00 95.3 86 14 106/91 (96) 100 08/07/18 06:41 87 14 40 08/07/18 06:00 120/90 08/07/18 06:00 96 18 108/90 (96) 100 08/07/18 05:30 96 18 136/101 (113) 100 08/07/18 05:02 104 18 40 08/07/18 05:00 97 18 131/105 (114) 100 08/07/18 05:00 150/112 08/07/18 04:30 105 18 145/88 (107) 100 08/07/18 04:00 Mechanical Ventilator 08/07/18 04:00 98.0 105 18 149/110 (123) 100 08/07/18 04:00 149/110 08/07/18 03:30 106 18 143/110 (121) 100 08/07/18 03:08 108 18 40 08/07/18 03:00 108 18 151/112 (125) 100 08/07/18 03:00 141/38 08/07/18 03:00 140/88 08/07/18 02:30 108 18 150/114 (126) 100 08/07/18 02:00 108 18 154/114 (127) 100 08/07/18 02:00 154/114 08/07/18 01:30 108 18 144/111 (122) 100 08/07/18 01:00 116 19 40 08/07/18 01:00 108 08/07/18 01:00 116 19 154/85 (108) 100 08/07/18 01:00 163/85 08/07/18 00:38 79/64 08/07/18 00:30 115 19 155/114 (128) 100 08/07/18 00:00 98.4 115 19 151/112 (125) 100 08/07/18 00:00 114 08/07/18 00:00 Mechanical Ventilator 08/06/18 23:30 115 19 159/117 (131) 100 08/06/18 23:05 114 17 40 08/06/18 23:00 157/115 08/06/18 23:00 116 19 154/106 (122) 100 08/06/18 22:30 116 19 154/106 (122) 100 08/06/18 22:28 90/50 08/06/18 22:00 115 18 150/110 (123) 100 08/06/18 22:00 150/110 08/06/18 21:30 Mechanical Ventilator 08/06/18 21:30 115 14 139/106 (117) 100 08/06/18 21:00 58/40 08/06/18 21:00 Mechanical Ventilator 08/06/18 21:00 116 14 58/40 (46) 100 08/06/18 20:43 115 15 40 08/06/18 20:30 115 14 156/108 (124) 100 08/06/18 20:00 98.6 112 14 79/64 (69) 100 08/06/18 20:00 Mechanical Ventilator 08/06/18 20:00 72/64 08/06/18 20:00 112 14 130/96 (107) 100 08/06/18 19:32 111 14 40 08/06/18 19:30 112 14 130/96 (107) 100 08/06/18 18:45 112 14 118/91 (100) 100 08/06/18 18:30 112 14 118/92 (101) 100 08/06/18 18:15 113 14 140/100 (113) 100 08/06/18 18:00 141/103 08/06/18 18:00 116 14 141/103 (116) 100 08/06/18 17:45 116 14 134/102 (113) 100 08/06/18 17:30 116 14 134/101 (112) 100 08/06/18 17:18 144 14 40 08/06/18 17:15 116 14 130/100 (110) 100 08/06/18 17:00 132/100 08/06/18 17:00 117 14 132/100 (111) 100 08/06/18 16:45 117 14 127/97 (107) 100 08/06/18 16:30 97.3 118 14 125/94 (104) 96 08/06/18 16:00 123 14 137/99 (112) 99 08/06/18 16:00 126 08/06/18 16:00 137/99 08/06/18 16:00 Mechanical Ventilator 08/06/18 15:45 129 14 132/102 (112) 99 08/06/18 15:45 137/99 08/06/18 15:30 130/98 08/06/18 15:30 127 14 130/98 (109) 99 08/06/18 15:15 130 14 128/97 (107) 99 08/06/18 15:15 128/97 08/06/18 15:00 130 14 134/99 (111) 99 08/06/18 15:00 134/99 08/06/18 14:52 144 14 50 08/06/18 14:45 139 14 130/96 (107) 99 08/06/18 14:45 130/96 08/06/18 14:30 144 14 127/96 (106) 99 08/06/18 14:30 127/96 08/06/18 14:15 144 14 117/87 (97) 99 08/06/18 14:15 117/87 08/06/18 14:13 50 08/06/18 14:00 141 14 139/112 (121) 99 08/06/18 14:00 139/112 08/06/18 14:00 50 08/06/18 14:00 Mechanical Ventilator 08/06/18 13:45 114 14 64/41 (49) 99 08/06/18 13:30 114 14 64/41 (49) 99 08/06/18 13:00 123 14 100 08/06/18 13:00 107 08/06/18 12:50 47 08/06/18 12:30 Room Air 08/06/18 12:00 98.1 90 39 106/79 (88) 99 08/06/18 11:46 117 08/06/18 10:49 98.1 08/06/18 10:15 100.3 92 20 130/94 (106) 100 Intake and Output 08/06/18 08/07/18 19:00 07:00 Intake Total 744.015 ml 698.75 ml Output Total 550 ml 390 ml Balance 194.015 ml 308.75 ml IV Total 744.015 ml 698.75 ml Output Urine Total 550 ml 390 ml Laboratory Tests 08/06/18 12:00: Arterial Blood pH 7.568*H, Arterial Blood Partial Pressure CO2 23.2*L, Arterial Blood Partial Pressure O2 106.8H, Arterial Blood HCO3 20.7L, Arterial Blood Oxygen Saturation 98.2, Arterial Blood Base Excess 0.2, Clemente Test Positive 08/06/18 13:50: Arterial Blood pH 7.386, Arterial Blood Partial Pressure CO2 30.9L, Arterial Blood Partial Pressure O2 494.5H, Arterial Blood HCO3 18.1L, Arterial Blood Oxygen Saturation 99.6, Arterial Blood Base Excess -5.8L, Clemente Test Positive 08/06/18 14:30: White Blood Count 15.1H, Red Blood Count 5.30, Hemoglobin 12.0, Hematocrit 37.8 , Mean Corpuscular Volume 71L, Mean Corpuscular Hemoglobin 22.6L, Mean Corpuscular Hemoglobin Concent 31.6L, Red Cell Distribution Width 17.6H, Platelet Count 319, Mean Platelet Volume 5.2L, Neutrophils (%) (Auto) 88.2H, Lymphocytes (%) (Auto) 4.5L, Monocytes (%) (Auto) 6.9, Eosinophils (%) (Auto) 0.0, Basophils (%) (Auto) 0.5, Erythrocyte Sedimentation Rate 67H, Sodium Level 128L, Potassium Level 3.9, Chloride Level 91L, Carbon Dioxide Level 22, Anion Gap 15, Blood Urea Nitrogen 18, Creatinine 1.6#H, Estimat Glomerular Filtration Rate 42.7, Glucose Level 278#H, Lactic Acid Level 7.70H, Calcium Level 8.8, Total Bilirubin 0.5, Aspartate Amino Transf (AST/SGOT) 214H, Alanine Aminotransferase (ALT/SGPT) 182H, Alkaline Phosphatase 78, Ammonia 17, Troponin I 0.013, C-Reactive Protein, Quantitative 5.7H, Total Protein 7.4, Albumin 3.1L , Globulin 4.3, Albumin/Globulin Ratio 0.7L, Vancomycin Level Trough 41.6H 08/06/18 18:45: Arterial Blood pH 7.586*H, Arterial Blood Partial Pressure CO2 22.4*L, Arterial Blood Partial Pressure O2 176.2H, Arterial Blood HCO3 20.8L, Arterial Blood Oxygen Saturation 99.2, Arterial Blood Base Excess 0.7, Clemente Test Positive 08/07/18 00:20: Lactic Acid Level 1.30 08/07/18 06:00: Lactic Acid Level 1.80, White Blood Count 11.3H, Red Blood Count 5.20, Hemoglobin 11.9L, Hematocrit 36.1L, Mean Corpuscular Volume 69L, Mean Corpuscular Hemoglobin 22.8L, Mean Corpuscular Hemoglobin Concent 32.9, Red Cell Distribution Width 17.8H, Platelet Count 252, Mean Platelet Volume 5.3L, Neutrophils (%) (Auto) , Lymphocytes (%) (Auto) , Monocytes (%) (Auto) , Eosinophils (%) (Auto) , Basophils (%) (Auto) , Sodium Level 133L, Potassium Level 3.3L, Chloride Level 99, Carbon Dioxide Level 18L, Anion Gap 16H, Blood Urea Nitrogen 30H, Creatinine 2.9#H, Estimat Glomerular Filtration Rate 21.5, Glucose Level 271H, Osmolality 290L, Uric Acid 4.3, Calcium Level 8.5, Phosphorus Level 2.2L, Magnesium Level 1.9, Total Bilirubin 0.6, Gamma Glutamyl Transpeptidase 43, Aspartate Amino Transf (AST/SGOT) 72H, Alanine Aminotransferase (ALT/SGPT) 110H, Alkaline Phosphatase 70, Total Creatine Kinase 65, Troponin I 0.083H, C-Reactive Protein, Quantitative 7.1H, Pro-B-Type Natriuretic Peptide 1053H, Total Protein 7.1, Albumin 2.5L, Globulin 4.6, Albumin/Globulin Ratio 0.5L, Random Vancomycin Level 25.3 Height (Feet): 5 Height (Inches): 5.00 Weight (Pounds): 139 General Appearance: no apparent distress EENT: other - vented - fully assisted Cardiovascular: tachycardia Respiratory/Chest: decreased breath sounds Abdomen: distended - mild Neurologic: other - comatose- pupils fixed dilated Objective no change Lio Ramsey MD Aug 07, 2018 09:26
--- NOTE | 2018-08-07 10:12 | NUR ---
NURSE NOTES: Turned and repositioned. Kept dry and clean. continue levophed @ 2mcg/kg/hr to keep SBP >100
--- NOTE | 2018-08-07 10:37 | Diagnostic Imaging Report ---
Indications: Altered level of consciousness Technique: Spiral acquisitions obtained through the brain. Angled axial and coronal 5 x 5 mm slices were reconstructed. Total dose length product 1284.6 mGycm. CTDI vol(s) 70.38 mGy. Dose reduction achieved using automated exposure control Comparison: 08/04/2018 Findings: There is loss of the lomeli-white differentiation. There is complete obliteration of the cerebral sulci and interim marked attenuation of the ventricles. There is obliteration of the basilar cisterns. Apparent high attenuation in the region of the basilar cisterns is noted. This could represent subarachnoid blood but more likely represents accentuation of the normal structures compared to the low-attenuation cerebral parenchyma on the previous bladder. No evidence of parenchymal or intraventricular hemorrhage. Impression: Evidence of severe and diffuse cerebral edema, possible impending for actual uncal herniation Increased extra-axial attenuation at the level of basilar cisterns. Most likely accentuation of the adjacent structures due to the low-attenuation cerebral parenchyma, although the possibility of a small amount of subarachnoid blood not completely excludable This agrees with the preliminary interpretation provided overnight by [facility] teleradiology service. The CT scanner at [facility] is accredited by the [employer] and the scans are performed using protocols designed to limit radiation exposure to as low as reasonably achievable to attain images of sufficient resolution adequate for diagnostic evaluation.
--- NOTE | 2018-08-07 10:40 | Diagnostic Imaging Report ---
Indication: Post central line placement, post intubation Technique: One view of the chest Comparison: 08/03/2018 Findings: Interim placement of left subclavian central venous catheter, tip projected at the level of the mid superior vena cava. No gross pneumothorax. Interim endotracheal intubation, endotracheal tube tip approximately 3 cm above the mayur. Interim nasogastric intubation, nasogastric tube tip projected at the level of the gastric fundus, proximal sidehole at or just beyond the gastroesophageal junction. Lungs and pleural spaces remain clear Impression: Satisfactory left-sided central venous catheter placement, no radiographically evident complication Satisfactory endotracheal and nasogastric intubation No acute pulmonary process This agrees with the preliminary interpretation provided overnight by [facility] service.
[2018-08-07] MEDS ORDERED: Isovue-370 150ml vial INJ PRN (11:15)
--- NOTE | 2018-08-07 11:24 | NUR ---
Social Service Note BETITO spoke with patient's girlfriend Susie Vogel [phone] to obtain history. Patient and Susie have been together for 3 years. Susie doesn't have POA. Susie provided patient's mother's contact information Orquidea [phone]. Patient is s/p code blue. 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 Patient would go to MD appointments for Rheumatoid Arthritis but had no other known medical conditions. BETITO explained that the medical team will conduct a series of test over the next few days to determine plan of care. Patient will remain full code at this time. MD to discuss findings with family. SW will monitor and continue to provide support.
--- NOTE | 2018-08-07 12:03 | NUR ---
NURSE NOTES: No change in condition. continue levophed at 2mcg/kg/hr to keep SBP>100. TLC dressing change done.
--- NOTE | 2018-08-07 12:14 | NUR ---
RD ASSESSMENT & RECOMMENDATIONS SEE CARE ACTIVITY FOR COMPLETE ASSESSMENT DAILY ESTIMATED NEEDS: Needs based on Critical Care, 63kg 22-28 kcals/kg 4468-6338 total kcals 1.2-2 g protein/kg 76-126 g total protein 25-30 mL/kg 1531-6341 total fluid mLs NUTRITION DIAGNOSIS: * Swallowing difficulty R/T respiratory status as evidenced by s/p code blue, orally intubated, NPO at this time. * Altered nutrition related lab values R/T SIADH, clinical condition as evidenced by low Na (133), low osmolality (290) elev creat (2.9 trend up), low K (3.3), low phos (2.2), elev BGs (271 278). CURRENT DIET:REGULAR ENTERAL NUTRITION RECOMMENDATIONS: Glucerna 1.5 @ 40ml/hr x 24 hrs to provide 960ml, 1440kcal, 79g prot , 729ml free water * WITHOUT HEMODYNAMIC STABILITY : rec trophic feeds of Glucerna 1.5 @ 10ml/hr x 24 hrs * WITH HEMODYNAMIC STABILITY : Initiate Glucerna 1.5 @ 10ml/hr x 6 hrs : Advance 10ml q 4-6 hrs as tolerated to goal rate * HOB over 30 degrees/ water flush per MD ADDITIONAL RECOMMENDATIONS: * CALIBRATED bedscale wt for accurate CBW * Monitor hemodynamic stability * W/ TF initiation, monitor lytes daily, replete as needed -> at high risk for refeeding syndrome -> refused meals (LOS #8 today) prior to code blue, now NPO * Rec accucheck w/ SSI w/ TF initiation- BGs in the 200's
--- NOTE | 2018-08-07 12:41 | Cardiology Report ---
APPROVED REPORT EKG Measurement Heart [id number] Sinus tachycardia Right atrial enlargement Borderline ECG
--- NOTE | 2018-08-07 13:11 | Consultation ---
Consult Note Assessment/Plan dict s/p arrest resp failure anoxic encephalopathy RA possible sepsis Je Kelly MD Aug 07, 2018 13:11
--- NOTE | 2018-08-07 14:30 | NUR ---
NURSE NOTES: Minimal urine output noted, notified Dr. Stevens. no new orders.
--- NOTE | 2018-08-07 14:34 | Cardiology Report ---
APPROVED REPORT EXAM: Two-dimensional and M-mode echocardiogram with Doppler and color Doppler. INDICATION Ejection fraction/ Post code M-Mode DIMENSIONS IVSd1.4 (0.7-1.1cm)Left Atrium (MM)2.5 (1.6-4.0cm) LVDd3.0 (3.5-5.6cm)Aortic Root3.5 (2.0-3.7cm) PWd1.1 (0.7-1.1cm)Aortic Cusp Exc.2.0 (1.5-2.0cm) LVDs2.0 (2.5-4.0cm) PWs1.6 cm Technically difficult study due to pateint on ventilator. Study quality precludes accurate assessment of regional wall motion. Normal left ventricular chamber size, systolic function and wall motion. Left ventricular ejection fraction estimated to be 50-55 %. Mild left ventricular hypertrophy. Anterior Echo-free space, may be due to pericardial fat or effusion. All other cardiac chamber sizes are within normal limits. Normal appearing aortic, mitral, pulmonic and tricuspid valves. Mild mitral annulus and aortic root calcification. IVC is normal in size with physiological collapse. A color flow and spectral Doppler study was performed and revealed: No aortic insufficiency. No mitral regurgitation. Mitral diastolic velocities suggest mild left ventricular diastolic dysfunction (Grade I). Mild tricuspid regurgitation. Tricuspid systolic velocities suggests peak right ventricular systolic pressure of 23 mmHg. Trace pulmonic regurgitation present.
--- NOTE | 2018-08-07 14:46 | Cardiology Report ---
APPROVED REPORT EXAM: Two-dimensional and M-mode echocardiogram with Doppler and color Doppler. INDICATION Hypertension M-Mode DIMENSIONS IVSd1.4 (0.7-1.1cm)Left Atrium (MM)2.5 (1.6-4.0cm) LVDd3.5 (3.5-5.6cm)Aortic Root3.6 (2.0-3.7cm) PWd1.5 (0.7-1.1cm)Aortic Cusp Exc.2.0 (1.5-2.0cm) LVDs2.1 (2.5-4.0cm) PWs1.8 cm Normal left ventricular chamber size, systolic function and wall motion. Left ventricular ejection fraction estimated to be 55 %. Mild left ventricular hypertrophy. Anterior Echo-free space, may be due to pericardial fat or effusion. All other cardiac chamber sizes are within normal limits. Normal appearing aortic, mitral, pulmonic and tricuspid valves. Mild mitral annulus and aortic root calcification. IVC is normal in size with physiological collapse. A color flow and spectral Doppler study was performed and revealed: No aortic insufficiency. No mitral regurgitation. Mitral diastolic velocities suggest mild left ventricular diastolic dysfunction (Grade I). Mild tricuspid regurgitation. Tricuspid systolic velocities suggests peak right ventricular systolic pressure of 19 mmHg. Trace pulmonic regurgitation present.
--- NOTE | 2018-08-07 15:43 | NUR ---
Social Service Note SW met with patient's mother and various family members to address treatment plan of care. Family aware of on going tests over 72 hours to determine level of acute injury. Family supports Full Code at this time. SW addressed code status, criteria for brain , coma and aggressive treatment. Mother is Orquidea Morin [phone]. Will monitor and available to arrange a family meeting as required.
--- NOTE | 2018-08-07 15:45 | Electroencephalogram ---
ELECTROENCEPHALOGRAM REPORT READING PHYSICIAN: Ag Velarde M.D. DATE OF TRACIN08/06/2018 HISTORY: This EEG was performed on a 43-year-old lady with a history of rheumatoid arthritis, who was hospitalized for headaches, stiff neck, and a feeling of being ill. While in the hospital, she had a cardiopulmonary arrest and following that has been comatose. The purpose of this EEG was to evaluate the patient for the degree and type of cerebral dysfunction. TECHNICAL NOTE: This EEG was performed on a [employer] with electrodes placed on the scalp according to the International 10-20 system. A special double distance electrocerebral inactivity montage was used. The EEG was technically satisfactory and was performed while the patient was unresponsive. OBSERVATIONS: In the reportedly unresponsive state, no signs of electrical cerebral activity were seen at gains as high as 2 microvolts/mm using double distance electrodes. No reaction to external stimulation was noted. IMPRESSION: This is a severely abnormal EEG characterized by the lack of electrical cerebral activity throughout the tracing. COMMENT: The study is consistent with a severe encephalopathy with lack of electrical cerebral activity seen during this EEG. Ag Velarde M.D., M.S.P.H. DR: HARRISON JOB#: [id number] MTDD
--- NOTE | 2018-08-07 15:57 | Cardiac Electrophysiology PN ---
Subjective Subjective [id number] Objective Last 24 Hour Vital Signs Date Time Temp Pulse Resp B/P (MAP) Pulse Ox O2 Delivery O2 Flow Rate FiO2 08/07/18 14:32 94 14 40 08/07/18 12:44 92 16 40 08/07/18 12:00 90 14 107/79 (88) 100 08/07/18 12:00 90 08/07/18 12:00 Mechanical Ventilator 08/07/18 11:00 89 14 99/80 (86) 100 08/07/18 10:36 88 16 40 08/07/18 10:00 86 14 108/90 (96) 100 08/07/18 09:30 86 14 110/90 (97) 100 08/07/18 09:04 94 16 40 08/07/18 09:00 86 14 117/86 (96) 100 08/07/18 08:30 86 14 112/88 (96) 100 08/07/18 08:00 Mechanical Ventilator 08/07/18 08:00 106/91 08/07/18 08:00 86 08/07/18 08:00 95.3 86 14 106/91 (96) 100 08/07/18 07:30 86 14 111/90 (97) 100 08/07/18 07:00 86 14 101/88 (92) 100 08/07/18 06:41 87 14 40 08/07/18 06:00 120/90 08/07/18 06:00 96 18 108/90 (96) 100 08/07/18 05:30 96 18 136/101 (113) 100 08/07/18 05:02 104 18 40 08/07/18 05:00 97 18 131/105 (114) 100 08/07/18 05:00 150/112 08/07/18 04:30 105 18 145/88 (107) 100 08/07/18 04:00 Mechanical Ventilator 08/07/18 04:00 98.0 105 18 149/110 (123) 100 08/07/18 04:00 149/110 08/07/18 03:30 106 18 143/110 (121) 100 08/07/18 03:08 108 18 40 08/07/18 03:00 108 18 151/112 (125) 100 08/07/18 03:00 141/38 08/07/18 03:00 140/88 08/07/18 02:30 108 18 150/114 (126) 100 08/07/18 02:00 108 18 154/114 (127) 100 08/07/18 02:00 154/114 08/07/18 01:30 108 18 144/111 (122) 100 08/07/18 01:00 116 19 40 08/07/18 01:00 108 08/07/18 01:00 116 19 154/85 (108) 100 08/07/18 01:00 163/85 08/07/18 00:38 79/64 08/07/18 00:30 115 19 155/114 (128) 100 08/07/18 00:00 98.4 115 19 151/112 (125) 100 08/07/18 00:00 114 08/07/18 00:00 Mechanical Ventilator 08/06/18 23:30 115 19 159/117 (131) 100 08/06/18 23:05 114 17 40 08/06/18 23:00 157/115 08/06/18 23:00 116 19 154/106 (122) 100 08/06/18 22:30 116 19 154/106 (122) 100 08/06/18 22:28 90/50 08/06/18 22:00 115 18 150/110 (123) 100 08/06/18 22:00 150/110 08/06/18 21:30 Mechanical Ventilator 08/06/18 21:30 115 14 139/106 (117) 100 08/06/18 21:00 58/40 08/06/18 21:00 Mechanical Ventilator 08/06/18 21:00 116 14 58/40 (46) 100 08/06/18 20:43 115 15 40 08/06/18 20:30 115 14 156/108 (124) 100 08/06/18 20:00 98.6 112 14 79/64 (69) 100 08/06/18 20:00 Mechanical Ventilator 08/06/18 20:00 72/64 08/06/18 20:00 112 14 130/96 (107) 100 08/06/18 19:32 111 14 40 08/06/18 19:30 112 14 130/96 (107) 100 08/06/18 18:45 112 14 118/91 (100) 100 08/06/18 18:30 112 14 118/92 (101) 100 08/06/18 18:15 113 14 140/100 (113) 100 08/06/18 18:00 141/103 08/06/18 18:00 116 14 141/103 (116) 100 08/06/18 17:45 116 14 134/102 (113) 100 08/06/18 17:30 116 14 134/101 (112) 100 08/06/18 17:18 144 14 40 08/06/18 17:15 116 14 130/100 (110) 100 08/06/18 17:00 132/100 08/06/18 17:00 117 14 132/100 (111) 100 08/06/18 16:45 117 14 127/97 (107) 100 08/06/18 16:30 97.3 118 14 125/94 (104) 96 08/06/18 16:00 123 14 137/99 (112) 99 08/06/18 16:00 126 08/06/18 16:00 137/99 08/06/18 16:00 Mechanical Ventilator Intake and Output 08/06/18 08/07/18 19:00 07:00 Intake Total 744.015 ml 698.75 ml Output Total 550 ml 390 ml Balance 194.015 ml 308.75 ml IV Total 744.015 ml 698.75 ml Output Urine Total 550 ml 390 ml Laboratory Tests Test 08/06/18 18:45 08/07/18 00:20 08/07/18 06:00 Arterial Blood pH 7.586 (7.350-7.450) Arterial Blood Partial Pressure CO2 22.4 mmHg (35.0-45.0) *L Arterial Blood Partial Pressure O2 176.2 mmHg (75.0-100.0) H Arterial Blood HCO3 20.8 mmol/L (22.0-26.0) L Arterial Blood Oxygen Saturation 99.2 % (95-100) Arterial Blood Base Excess 0.7 (-2-2) Clemente Test Positive Lactic Acid Level 1.30 mmol/L (0.4-2.0) 1.80 mmol/L (0.4-2.0) White Blood Count 11.3 K/UL (4.8-10.8) H Red Blood Count 5.20 M/UL (4.20-5.40) Hemoglobin 11.9 G/DL (12.0-16.0) L Hematocrit 36.1 % (37.0-47.0) L Mean Corpuscular Volume 69 FL (80-99) L Mean Corpuscular Hemoglobin 22.8 PG (27.0-31.0) L Mean Corpuscular Hemoglobin Concent 32.9 G/DL (32.0-36.0) Red Cell Distribution Width 17.8 % (11.6-14.8) H Platelet Count 252 K/UL (150-450) Mean Platelet Volume 5.3 FL (6.5-10.1) L Neutrophils (%) (Auto) % (45.0-75.0) Lymphocytes (%) (Auto) % (20.0-45.0) Monocytes (%) (Auto) % (1.0-10.0) Eosinophils (%) (Auto) % (0.0-3.0) Basophils (%) (Auto) % (0.0-2.0) Sodium Level 133 MMOL/L (136-145) L Potassium Level 3.3 MMOL/L (3.5-5.1) L Chloride Level 99 MMOL/L (98-107) Carbon Dioxide Level 18 MMOL/L (21-32) L Anion Gap 16 mmol/L (5-15) H Blood Urea Nitrogen 30 mg/dL (7-18) H Creatinine 2.9 MG/DL (0.55-1.30) #H Estimat Glomerular Filtration Rate 21.5 mL/min (>60) Glucose Level 271 MG/DL (74-106) H Osmolality 290 mOsm/kg (297-317) L Uric Acid 4.3 MG/DL (2.6-7.2) Calcium Level 8.5 MG/DL (8.5-10.1) Phosphorus Level 2.2 MG/DL (2.5-4.9) L Magnesium Level 1.9 MG/DL (1.8-2.4) Total Bilirubin 0.6 MG/DL (0.2-1.0) Gamma Glutamyl Transpeptidase 43 U/L (5-85) Aspartate Amino Transf (AST/SGOT) 72 U/L (15-37) H Alanine Aminotransferase (ALT/SGPT) 110 U/L (12-78) H Alkaline Phosphatase 70 U/L (46-116) Total Creatine Kinase 65 U/L (26-308) Troponin I 0.083 ng/mL (0.000-0.056) C-Reactive Protein, Quantitative 7.1 mg/dL (0.00-0.90) H Pro-B-Type Natriuretic Peptide 1053 pg/mL (0-125) H Total Protein 7.1 G/DL (6.4-8.2) Albumin 2.5 G/DL (3.4-5.0) L Globulin 4.6 g/dL Albumin/Globulin Ratio 0.5 (1.0-2.7) L Random Vancomycin Level 25.3 ug/mL Shaji Bhatti MD Aug 07, 2018 15:57
--- NOTE | 2018-08-07 16:30 | Consultation ---
DATE OF CONSULTATION: 08/07/2018 NEUROLOGY CONSULTATION CONSULTING PHYSICIAN: Ag Velarde M.D. REFERRING PHYSICIANS: Lio Ramsey M.D. & Emilio Stevens M.D. HISTORY: Ms. Shruti Del Valle is a 43-year-old, black lady, of unknown handedness, who does have a past history of rheumatoid arthritis. She was hospitalized at [facility] on 07/30/2018 for a one-week history of headache and stiff neck. When she came into the emergency room, she was significantly hyponatremic, had a urinary tract infection and was started on fluids, electrolytes, and antibiotics. On 08/06/2018, at around noon time, she had a 5-minute pulseless electrical activity cardiac arrest. CPR was started immediately and a pulse and blood pressure was obtained within five minutes. She was intubated, artificially ventilated and moved to the ICU. She has been unresponsive ever since. This consultation was requested to evaluate the patient from a neurological point of view. At this point in time, the patient is unresponsive and no further history could be obtained. PAST MEDICAL HISTORY: Significant for rheumatoid arthritis and a one-week history of headache and stiff neck prior to hospitalization. FAMILY HISTORY: Unavailable. PERSONAL HISTORY: Unavailable in the chart. MEDICATIONS: Present medications include Zosyn, potassium phosphate, nitroglycerin, Protonix, norepinephrine, DSS, Zofran p.r.n., Artificial Tears p.r.n., and Tylenol p.r.n. PHYSICAL EXAMINATION: GENERAL: She is a well-developed, well-nourished, black lady, lying in an ICU bed connected to a ventilator via an orotracheal tube. VITAL SIGNS: Pulse 86/minute, blood pressure 106/91 mmHg, respirations 14/minute all controlled, and temperature 95.3 degrees Fahrenheit. HEAD: Normocephalic and atraumatic. EENT: Examination benign. NECK: No neck rigidity was observed. NEUROLOGIC EXAMINATION: MENTAL STATUS EXAMINATION: She was unresponsive even to deep painful stimuli. Further mental status testing was impossible. SPEECH: Could not be tested. LANGUAGE: Could not be tested. CRANIAL NERVES EXAMINATION: II: She did not blink to threat. III, IV & : The external ocular movements were absent on oculocephalic maneuvers. The pupils were 6 mm in diameter and nonreactive to light. V & VII: The corneal reflexes were absent bilaterally. VIII: She did not respond to sounds and had no nystagmus. IX & X: The gag reflex was absent on manipulating the endotracheal tube. XI: The sternocleidomastoids and trapezii did not function. XII: Could not be tested. MOTOR SYSTEM: The tone was minimally decreased in all four extremities. Examination of muscle mass revealed no focal wasting. Examination of power was impossible to perform because even on applying deep painful stimuli no movements were seen in the upper extremities and reflex minimal withdrawal was seen in both lower extremities. SENSORY EXAMINATION: She responded to deep pain only in both lower extremities with reflex withdrawal. REFLEXES: 1+ and bilaterally symmetrical at the biceps, triceps, and brachioradialis, 0 at both knees, and ankles. The plantar responses were mute bilaterally. COORDINATION, STANCE & GAIT: Could not be tested. DIAGNOSTIC IMPRESSION: 1. Ms. Shruti Del Valle is a 43-year-old, black lady, of unknown handedness, who does have a past history of rheumatoid arthritis, who was hospitalized for a one-week history of headache and stiff neck associated with hyponatremia and a urinary tract infection. She was treated with antibiotics and on 08/06/2018, she had a pulseless electrical activity, cardiopulmonary arrest. She was started on CPR immediately and within five minutes a pulse and blood pressure could be obtained. She was then intubated, artificially ventilated, and moved to the ICU. She has been unresponsive ever since. 2. On neurological examination, at this time, she has significant global cerebral dysfunction with a lack of cortical and brainstem function. 3. An EEG performed on 08/06/2018 revealed the lack of electrical cerebral activity at gains as high as 2 microvolts per mm. 4. A CT scan of the brain performed on 08/06/2018 revealed nonspecific diffuse cerebral edema with effacement of CSF containing spaces and decreased lomeli-white differentiation. 5. Her latest laboratory data revealed a WBC count elevated at 11,300, an anemia with a hemoglobin of 11.9 G. an arterial blood gas with a pH of 7.58, pCO2 of 22, and pO2 of 176. A chemistry panel with a sodium of 133, BUN at 30, and creatinine at 2.9. A troponin elevated to 0.083, BNP elevated at 1053, and a low albumin at 2.5. Her last urinalysis performed on 08/04/2018 revealed 2+ leukocyte esterase, too numerous to count red blood cells, and 2-4 white blood cells per high-power field. 6. The patient's history, neurological examination, CT scan findings and EEG are most compatible with cardiopulmonary arrest associated with pulseless electrical activity that lasted for approximately five minutes followed by the patient being in a severe unresponsive state. These findings are consistent with a significant and severe anoxic/ ischemic encephalopathy. RECOMMENDATIONS: 1. Agree with management thus far. 2. Agree with supporting the patient's cardiorespiratory function for the next 72 hours. 3. A repeat EEG should be performed in 72 hours. 4. Agree with performing a lumbar puncture to rule out an infectious process. 5. The patient will be observed closely and depending on how she fares over the next two days, further recommendations will be given. Thank you for entrusting me with the care of Ms. Del Valle. I shall follow her with you. Ag Velarde M.D., M.S.P.H. DR: HARRISON JOB#: [id number] KARINA
--- NOTE | 2018-08-07 16:49 | NUR ---
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 WEAKNESS. DEHYDRATION VS: BP 99/80, P 94, T 95.3, RR 14, SpO2 100 on VENT AC 14, TV 500, PEEP 5.0, FiO2 40 WBC 11.3, Hgb 11.9, Hct 36.1, 133, K 3.3, BUN 30, CR 2.9, TROPONIN I 0.[address] Impression: Evidence of severe and diffuse cerebral edema, possible impending for actual uncal herniation Increased extra-axial attenuation at the level of basilar cisterns. Most likely accentuation of the adjacent structures due to the low-attenuation cerebral parenchyma, although the possibility of a small amount of subarachnoid blood not completely excludable. IS:POTASSIUM PHOSPHATE IV SOLU-MEDROL 80mg IVP PROTONIX 40mg IVP PIPERACILLIN 110ml IVPB ICU STATUS
--- NOTE | 2018-08-07 16:53 | NUR ---
NURSE NOTES: Patient kept dry and clean. Turned and repositioned.
--- NOTE | 2018-08-07 16:54 | Infectious Diseases Prog Note ---
Assessment/Plan Problems: (1) Headache Assessment & Plan: with neck stiffness , possible meningitis VS RA flare , continue zosyn empirically since responded well , off vancomycin since supra therapeutic, monitor level . (2) fever, tachy cardia Assessment & Plan: rule out sepsis or source of infection VS RA flare, repeated blood culture and urine culture is negative so far , repeated CXR no new infiltrates, continue zosyn empirically, RF level is high , concerning for RA flare . await repeated blood culture on 08/06 (3) Rheumatoid arthritis flare Assessment & Plan: possible with fever, and high RF , already on small dose of steroids , recommend rheumatology eval (4) UTI (urinary tract infection) Assessment & Plan: due to proteus mirabilis , already on zosyn now to cover for sepsis too, repeated urine culture is pending (5) SIADH (syndrome of inappropriate ADH production) Assessment & Plan: continue fluids restriction , renal is following (6) Cardiac arrest Assessment & Plan: due to PEA , was intubated and started on mechanical ventilation and pressors and transferred to ICU. cardiology is following (7) Anoxic encephalopathy Assessment & Plan: with diffuse brain edema and poor activities on EEG , poor prognosis overall , neurology is following . D/W family at bedside Subjective ROS Limited/Unobtainable: Yes Allergies: Coded Allergies: No Known Allergies (Unverified , 07/30/18) Subjective she was still intubated on mechanical ventilation , in ICU, with dilated and fixed pupils , unresponsive , S/P CODE BLUE due to PEA. no fever or chills, no secretions from ET tube Objective Vital Signs Last 24 Hour Vital Signs Date Time Temp Pulse Resp B/P (MAP) Pulse Ox O2 Delivery O2 Flow Rate FiO2 08/07/18 14:32 94 14 40 08/07/18 12:44 92 16 40 08/07/18 12:00 90 14 107/79 (88) 100 08/07/18 12:00 90 08/07/18 12:00 Mechanical Ventilator 08/07/18 11:00 89 14 99/80 (86) 100 08/07/18 10:36 88 16 40 08/07/18 10:00 86 14 108/90 (96) 100 08/07/18 09:30 86 14 110/90 (97) 100 08/07/18 09:04 94 16 40 08/07/18 09:00 86 14 117/86 (96) 100 08/07/18 08:30 86 14 112/88 (96) 100 08/07/18 08:00 Mechanical Ventilator 08/07/18 08:00 106/91 08/07/18 08:00 86 08/07/18 08:00 95.3 86 14 106/91 (96) 100 08/07/18 07:30 86 14 111/90 (97) 100 08/07/18 07:00 86 14 101/88 (92) 100 08/07/18 06:41 87 14 40 08/07/18 06:00 120/90 08/07/18 06:00 96 18 108/90 (96) 100 08/07/18 05:30 96 18 136/101 (113) 100 08/07/18 05:02 104 18 40 08/07/18 05:00 97 18 131/105 (114) 100 08/07/18 05:00 150/112 08/07/18 04:30 105 18 145/88 (107) 100 08/07/18 04:00 Mechanical Ventilator 08/07/18 04:00 98.0 105 18 149/110 (123) 100 08/07/18 04:00 149/110 08/07/18 03:30 106 18 143/110 (121) 100 08/07/18 03:08 108 18 40 08/07/18 03:00 108 18 151/112 (125) 100 08/07/18 03:00 141/38 08/07/18 03:00 140/88 08/07/18 02:30 108 18 150/114 (126) 100 08/07/18 02:00 108 18 154/114 (127) 100 08/07/18 02:00 154/114 08/07/18 01:30 108 18 144/111 (122) 100 08/07/18 01:00 116 19 40 08/07/18 01:00 108 08/07/18 01:00 116 19 154/85 (108) 100 08/07/18 01:00 163/85 08/07/18 00:38 79/64 08/07/18 00:30 115 19 155/114 (128) 100 08/07/18 00:00 98.4 115 19 151/112 (125) 100 08/07/18 00:00 114 08/07/18 00:00 Mechanical Ventilator 08/06/18 23:30 115 19 159/117 (131) 100 08/06/18 23:05 114 17 40 08/06/18 23:00 157/115 08/06/18 23:00 116 19 154/106 (122) 100 08/06/18 22:30 116 19 154/106 (122) 100 08/06/18 22:28 90/50 08/06/18 22:00 115 18 150/110 (123) 100 08/06/18 22:00 150/110 08/06/18 21:30 Mechanical Ventilator 08/06/18 21:30 115 14 139/106 (117) 100 08/06/18 21:00 58/40 08/06/18 21:00 Mechanical Ventilator 08/06/18 21:00 116 14 58/40 (46) 100 08/06/18 20:43 115 15 40 08/06/18 20:30 115 14 156/108 (124) 100 08/06/18 20:00 98.6 112 14 79/64 (69) 100 08/06/18 20:00 Mechanical Ventilator 08/06/18 20:00 72/64 08/06/18 20:00 112 14 130/96 (107) 100 08/06/18 19:32 111 14 40 08/06/18 19:30 112 14 130/96 (107) 100 08/06/18 18:45 112 14 118/91 (100) 100 08/06/18 18:30 112 14 118/92 (101) 100 08/06/18 18:15 113 14 140/100 (113) 100 08/06/18 18:00 141/103 08/06/18 18:00 116 14 141/103 (116) 100 08/06/18 17:45 116 14 134/102 (113) 100 08/06/18 17:30 116 14 134/101 (112) 100 08/06/18 17:18 144 14 40 08/06/18 17:15 116 14 130/100 (110) 100 08/06/18 17:00 132/100 08/06/18 17:00 117 14 132/100 (111) 100 Height (Feet): 5 Height (Inches): 5.00 Weight (Pounds): 139 General Appearance: WD/WN, no acute distress, other - intubated on mechanical ventilation HEENT: normocephalic, atraumatic, anicteric, mucous membranes moist, no JVD, other - pupils dilated and fixed Respiratory/Chest: chest wall non-tender, lungs clear, no respiratory distress , no accessory muscle use, decreased breath sounds Cardiovascular: normal peripheral pulses, normal rate, regular rhythm, no gallop/murmur, no JVD Abdomen: normal bowel sounds, soft, non tender, no organomegaly, non distended , no mass, no scars Extremities: no cyanosis, no clubbing Skin: no rash, no lesions, no ulcers Neurologic/Psychiatric: motor weakness, unresponsiveness Lymphatic: no neck adenopathy, no groin adenopathy Musculoskeletal: normal muscle bulk, no effusion Laboratory Tests Test 08/06/18 18:45 08/07/18 00:20 08/07/18 06:00 Arterial Blood pH 7.586 (7.350-7.450) Arterial Blood Partial Pressure CO2 22.4 mmHg (35.0-45.0) *L Arterial Blood Partial Pressure O2 176.2 mmHg (75.0-100.0) H Arterial Blood HCO3 20.8 mmol/L (22.0-26.0) L Arterial Blood Oxygen Saturation 99.2 % (95-100) Arterial Blood Base Excess 0.7 (-2-2) Clemente Test Positive Lactic Acid Level 1.30 mmol/L (0.4-2.0) 1.80 mmol/L (0.4-2.0) White Blood Count 11.3 K/UL (4.8-10.8) H Red Blood Count 5.20 M/UL (4.20-5.40) Hemoglobin 11.9 G/DL (12.0-16.0) L Hematocrit 36.1 % (37.0-47.0) L Mean Corpuscular Volume 69 FL (80-99) L Mean Corpuscular Hemoglobin 22.8 PG (27.0-31.0) L Mean Corpuscular Hemoglobin Concent 32.9 G/DL (32.0-36.0) Red Cell Distribution Width 17.8 % (11.6-14.8) H Platelet Count 252 K/UL (150-450) Mean Platelet Volume 5.3 FL (6.5-10.1) L Neutrophils (%) (Auto) % (45.0-75.0) Lymphocytes (%) (Auto) % (20.0-45.0) Monocytes (%) (Auto) % (1.0-10.0) Eosinophils (%) (Auto) % (0.0-3.0) Basophils (%) (Auto) % (0.0-2.0) Sodium Level 133 MMOL/L (136-145) L Potassium Level 3.3 MMOL/L (3.5-5.1) L Chloride Level 99 MMOL/L (98-107) Carbon Dioxide Level 18 MMOL/L (21-32) L Anion Gap 16 mmol/L (5-15) H Blood Urea Nitrogen 30 mg/dL (7-18) H Creatinine 2.9 MG/DL (0.55-1.30) #H Estimat Glomerular Filtration Rate 21.5 mL/min (>60) Glucose Level 271 MG/DL (74-106) H Osmolality 290 mOsm/kg (297-317) L Uric Acid 4.3 MG/DL (2.6-7.2) Calcium Level 8.5 MG/DL (8.5-10.1) Phosphorus Level 2.2 MG/DL (2.5-4.9) L Magnesium Level 1.9 MG/DL (1.8-2.4) Total Bilirubin 0.6 MG/DL (0.2-1.0) Gamma Glutamyl Transpeptidase 43 U/L (5-85) Aspartate Amino Transf (AST/SGOT) 72 U/L (15-37) H Alanine Aminotransferase (ALT/SGPT) 110 U/L (12-78) H Alkaline Phosphatase 70 U/L (46-116) Total Creatine Kinase 65 U/L (26-308) Troponin I 0.083 ng/mL (0.000-0.056) C-Reactive Protein, Quantitative 7.1 mg/dL (0.00-0.90) H Pro-B-Type Natriuretic Peptide 1053 pg/mL (0-125) H Total Protein 7.1 G/DL (6.4-8.2) Albumin 2.5 G/DL (3.4-5.0) L Globulin 4.6 g/dL Albumin/Globulin Ratio 0.5 (1.0-2.7) L Random Vancomycin Level 25.3 ug/mL Current Medications Medications (Trade) Dose Ordered Sig/Hilaria Route PRN Reason Start Time Stop Time Status Last Admin Dose Admin Acetaminophen (Tylenol) 650 mg Q6H PRN RECTAL Mild Pain/Temp > 100.5 08/06/18 13:38 09/05/18 13:37 Artificial Tears (Akwa-Tears) 2 drop BIDPRN PRN BOTH EYES Dry Eyes 08/06/18 13:39 09/05/18 13:38 Docusate Sodium (Colace) 100 mg THREE TIMES A DAY ORAL 08/06/18 18:00 08/30/18 17:59 08/07/18 13:00 Iopamidol (Isovue-370 150ml) 150 ml NOW PRN INJ Radiology Procedure 08/07/18 11:15 08/08/18 23:59 Nitroglycerin (Ntg) 1 patch Q24H TDERMAL 08/07/18 08:00 09/06/18 07:59 Norepinephrine Bitartrate 8 mg/ Dextrose 500 ml @ 0 mls/hr Q24H IV 08/06/18 21:00 09/05/18 20:59 08/06/18 22:28 Ondansetron HCl (Zofran) 4 mg Q6H PRN IV Nausea & Vomiting 08/06/18 14:45 08/30/18 14:44 Pantoprazole (Protonix) 40 mg EVERY 12 HOURS IVP 08/06/18 21:00 09/05/18 20:59 08/07/18 08:26 Piperacillin Sod/ Tazobactam Sod 3.375 gm/Dextrose 110 ml @ 220 mls/hr Q12H IVPB 08/07/18 18:30 08/10/18 18:29 Kile Aguillon M.D. Aug 07, 2018 16:54
--- NOTE | 2018-08-07 16:55 | NUR ---
@1000 [facility] REP, IN TO ASSESSED, WILL FOLLOW DNN#[id number]
--- NOTE | 2018-08-07 19:00 | Progress Note ---
DATE: 08/07/2018 SUBJECTIVE: This is young 43-year-old female, currently in the ICU, on ventilator, Levophed drip about 2 mcg. Her blood pressure is stable, but the patient looks like in deep coma and no signs of anything. Pupils looks like they are fixed. The patient is also hypothermic this morning, warm blankets are placed. Discussed with charge nurse and pressure is holding and she is on ventilator. She looks critically sick. OBJECTIVE: CURRENT VITAL SIGNS: Blood pressure 106/91, pulse 86, respirations 14, and temperature 95.3. HEENT: Pupil is fixed. CHEST: Bilateral decreased breath sounds. CARDIOVASCULAR: Regular rhythm, tachycardia. ABDOMEN: Soft. Positive bowel sounds. EXTREMITIES: CCE. NEUROLOGICAL: Nonverbal, bedbound, and probably looks in deep coma. LABORATORY DATA: White counts are 11,000, hemoglobin 12, hematocrit 36, platelets are 252,000. Chemistry panel, sodium 133, potassium 3.3, BUN 30, creatinine 2.9, glucose is 271, and magnesium is 1.9. Troponin 0.083. C-reactive protein . ASSESSMENT: 1. Possible septic shock. 2. Rheumatoid arthritis. 3. Acute cardiopulmonary arrest. 4. Hypokalemia. 5. Acute renal failure. The patient is currently on IV fluid, IV Levophed drip, intravenous antibiotics. ID and Nephrology is on case. The patient has terminal prognosis. Neurology consult was also obtained and Rheumatology has been called, but has been not seen. PLAN: We will currently discuss with the family. The patient is still Full Code. We will continue Zosyn and we will discontinue prednisone and Solu-Medrol. Cardiology, Pulmonary, Nephrology, and Neurology are on case and also called personal banking advisor. We will call them again second time. The patient's prognosis is guarded. Andrew Stevens M.D. DR: TIARRA JOB#: [id number] CC:
--- NOTE | 2018-08-07 19:17 | NUR ---
RESPIRATORY NOTE: Received pt on AC 14, 500VT, 40%, PEEP +5. Pt intubated w/ ETT 7.5 @ 23cm lipline, secured by anchorfast. Pt obtunded/comatose. B/S calista. clear/diminished, sxn minimal amounts of thin, clear-white secretions. Family present at bedside. Vent plugged into red outlet, ambubag at bedside. Pt in no apparent distress at this time. Will continue to monitor pt.
--- NOTE | 2018-08-07 19:29 | NUR ---
HAND-OFF: Report given to MARY Rivera.
--- NOTE | 2018-08-07 19:30 | NUR ---
NURSE NOTES:Received pt non responsive to any pain stimuli, pupils 5mm fix and dilated no gag reflex all mds were aware,orally intubated on Ac mode , NSR on the monitor,afebrile bp labile, on Levophed drip at 2mcg/min when received, infusing through pts left SVC, site with drsg dry and intact. Bianchi to gravity with very scant amt of yellowish urine. Dr Ramsey was aware. lg family at bedside- updated with pts condition. Explained ICU protocols and set up- Verbalized understanding- Will continue to monitor.
--- NOTE | 2018-08-07 20:15 | Consultation ---
DATE OF CONSULTATION: 08/07/2018 PULMONARY CONSULTATION HISTORY OF PRESENT ILLNESS: The patient was initially admitted because of severe headache, which was unremitting. She had been treated recently in another hospital. She developed a fever in the hospital and was seen by Infectious Disease. Antibiotics were started. She was thought to have a urinary tract infection, although the urine showed only 2 to 4 white cells. There were few red cells. The patient developed a cardiac arrest last night and was intubated and placed in intensive care. I was called to see her in consultation for ventilator management. PAST MEDICAL HISTORY: The patient has a history of rheumatoid arthritis and has been on immunosuppressive medications. She had a cardiac arrest on 08/06/2018 around noon and was resuscitated. Little additional history is available. There was concern about possible communicating hydrocephalus based on the results of CT scanning. Migraine is also considered. She is hyponatremic since admission. MEDICATIONS: Reviewed. ALLERGIES: None. PHYSICAL EXAMINATION: GENERAL: The patient is unresponsive on the ventilator in intensive care. HEENT: The pupils are fixed. The head is normocephalic with no signs of trauma. CHEST: Clear. CARDIAC: Rhythm is regular. ABDOMEN: Soft and nontender. Liver and spleen are not enlarged. EXTREMITIES: No clubbing, cyanosis, or edema. LABORATORY AND DIAGNOSTIC DATA: Laboratory studies and imaging are reviewed. IMPRESSION: 1. Status post cardiac arrest on 08/06/2018. 2. Severe anoxic encephalopathy, unresponsive. 3. Respiratory failure, on ventilator support. 4. Severe rheumatoid arthritis. 5. Possible sepsis. PLAN: The patient has been seen by multiple consultants and I agree with the current course of treatment. The prognosis is poor. Thank you for asking me to see her in consultation. I will follow her with you in hospital. Je Kelly M.D. DR: MYRON JOB#: [id number] CC:
--- NOTE | 2018-08-07 20:57 | NUR ---
NURSE NOTES:Pt was NPO - Called Dr Stevens for feeding orders per family request.
[2018-08-07] MEDS: Norepinephrine Bitartrate 8 MG in D5W 500ml 492 ML IV SCH (21:26)
--- NOTE | 2018-08-07 22:30 | Consultation ---
DATE OF CONSULTATION: 08/07/2018 CARDIOLOGY CONSULTATION CONSULTING PHYSICIAN: hSaji Bhatti M.D. REASON FOR CONSULTATION: Bradycardia as well as atrial fibrillation and electromechanical dissociation. HISTORY OF PRESENT ILLNESS: The patient is a 43-year-old lady who was hospitalized at [facility] on July 30, 2018 for one week of headache and stiff neck. The patient was hyponatremic and had a urinary tract infection. On August 06, 2018 at around noon, the patient initially had sinus tachycardia and then developed bradycardia due to Mobitz type 1 AV block and subsequently 2:1 AV block at 12:49. The patient subsequently had a PA arrest. CPR was initiated immediately and was intubated and was moved to the intensive care unit. At the time of my evaluation, the patient is unresponsive on the ventilator and is on Levophed. The patient was evaluated by Neurology and was found to have severe anoxic encephalopathy. REVIEW OF SYSTEMS: Cannot be obtained. PAST MEDICAL HISTORY: Rheumatoid arthritis on prednisone and Humira over the last two years. PHYSICAL EXAMINATION: VITAL SIGNS: Blood pressure of 107/79 on Levophed, pulse is 94, respirations 14. HEENT: Head and neck shows, orally intubated with no JVD. LUNGS: Coarse rhonchi. She has a central line to the left subclavian. ABDOMEN: Soft. EXTREMITIES: No pitting edema. LABORATORY AND DIAGNOSTIC DATA: Her telemetry strips showed sinus tachycardia at around 11:47 and then 2:1 AV block as well as Mobitz type 1 AV block at 12:48 and then also episodes of atrial fibrillation with rapid ventricular response at 12:54 on August 06, 2018. White count 11.2, hemoglobin 11.9, hematocrit 36.1, and platelet count is 252. Sodium 132, potassium is 3.3, BUN of 30, creatinine 2.9, and glucose of 271. Troponin is 0.083 and 0.103. ASSESSMENT AND PLAN: 1. Status post pulseless electrical activity and cardiopulmonary arrest. The patient had episodes of Wenckebach and then 2:1 block prior to the event makes me think that the patient probably had respiratory arrest first prior to her cardiac event. Her troponin is only marginally elevated, likely due to CPR. We will completely rule out myocardial infarction protocol. Her echocardiogram showed ejection fraction of 50% to 55% on August 06, 2018. . 2. Atrial fibrillation with rapid ventricular response. This was transient after her CPR. Currently in sinus rhythm. The patient off any beta-kyle at this point. 3. Hypotension. The patient is still on Levophed as well as broad-spectrum IV antibiotics. Etiology remains unclear. 4. Altered mental status. Her initial head CT on July 31, 2018 shows hydrocephalus and repeat head CT today showed evidence of severe and diffuse cerebral edema, possibly impending for acute alcohol . Further evaluation by Dr. Velarde. 5. Respiratory failure, on ventilator per Dr. Kelly. 6. Renal failure. Further evaluation by Dr. Ramsey. 7. Likely aspiration pneumonia, on IV antibiotics. Thank you very much, Dr. Stevens, for allowing me to participate in the care of this critical ill lady. Please do not hesitate to contact me for any questions regarding my evaluation. Sincerely, Shaji Bhatti M.D. DR: Marcial JOB#: [id number] CC:
--- NOTE | 2018-08-07 23:00 | NUR ---
NURSE NOTES:Levophed drip up to 5mcg/min at this time due to low bp on the 80s. Neuro unchanged.
[2018-08-08] VITALS (35 sets, daily range): BP systolic 91–145; BP diastolic 63–91
--- NOTE | 2018-08-08 01:00 | NUR ---
NURSE NOTES:Bp still labile 02 sat 100% tolerated 30% fi02
--- NOTE | 2018-08-08 03:00 | NUR ---
NURSE NOTES: bp 94/68 ST 113/min. on Levophed drip at 5mcg/min. Neuro unchanged.
--- NOTE | 2018-08-08 05:00 | NUR ---
NURSE NOTES:Complete bath with bed changed done.
--- NOTE | 2018-08-08 06:00 | NUR ---
NURSE NOTES:Bp still labile `86/69 ST 112/min. Still on levophed drip at 5mcg/min. Neuro unchanged.
[2018-08-08] MEDS: Piperacillin/Tazobactam 3.375 GM in D5W 110 ML IVPB SCH ×2 (06:19→17:58)
--- NOTE | 2018-08-08 07:23 | NUR ---
HAND-OFF: Report given to Jesusita HERNANDEZ. bedside rounds done..
--- NOTE | 2018-08-08 07:33 | NUR ---
NURSE NOTES: Received report from Nicole. pt non responsive to stimuli, pupils 5mm, nonreactive, dilated. dry cornea. ETT 7.5cm. vent settings AC 14, TV 500, PEEP 5, [id number]%. bilateral lungs diminished. NSR on the monitor, afebrile. abdomen large, soft. hypoactive bowel sounds. no bm, NGT RT nares, running Nepro @30ml/hr. no residual. Bianchi draining pale urine to gravity. Levophed drip at 5mcg/min via LT SVC. s dressing dry and intact. family at bedside- updated with pts condition. Will continue to monitor.
--- NOTE | 2018-08-08 07:54 | NUR ---
RESPIRATORY NOTE:Received pt on AC 14, 500VT, 40%, PEEP +5. Pt intubated w/ ETT 7.5 @ 23cm lipline, secured by anchorfast. Vent plugged into red outlet, ambubag at bedside. Pt in no apparent distress at this time. Will continue to monitor p
[2018-08-08] MEDS: Nitroglycerin Patch 0.4mg TDERMAL SCH (07:58)
[2018-08-08 08:30] LABS: ALANINE AMINOTRANSFERASE 81 U/L (12-78); ALBUMIN 2.4 G/DL (3.4-5.0); ALBUMIN/GLOBULIN RATIO 0.5 (1.0-2.7); ALKALINE PHOSPHATASE 71 U/L (46-116); ANION GAP 22 mmol/L (5-15); ASPARTATE AMINO TRANSFERASE 42 U/L (15-37); BILIRUBIN,TOTAL 0.4 MG/DL (0.2-1.0); BLOOD UREA NITROGEN 41 mg/dL (7-18); CALCIUM 8.7 MG/DL (8.5-10.1); CARBON DIOXIDE 15 MMOL/L (21-32); CHLORIDE 101 MMOL/L (98-107); CREATININE 4.7 MG/DL (0.55-1.30); PHOSPHORUS 6.5 MG/DL (2.5-4.9); POTASSIUM 3.7 MMOL/L (3.5-5.1); SODIUM 138 MMOL/L (136-145)
--- NOTE | 2018-08-08 08:37 | Cardiac Electrophysiology PN ---
Assessment/Plan Assessment/Plan 1. Status post pulseless electrical activity and cardiopulmonary arrest. The patient had episodes of Wenckebach and then 2:1 block prior to the event makes me think that the patient probably had respiratory arrest first prior to her cardiac event. Her troponin is only marginally elevated, likely due to CPR. FU troponins were negative. Her echocardiogram showed ejection fraction of 50% to 55% on August 06, 2018. 2. Atrial fibrillation with rapid ventricular response. This was transient after her CPR. Currently in sinus rhythm. The patient off any beta-kyle at this point. 3. Hypotension. The patient is still on Levophed as well as broad-spectrum IV antibiotics. Etiology remains unclear. 4. Altered mental status. Her initial head CT on July 31, 2018 shows hydrocephalus and repeat head CT showed evidence of severe and diffuse cerebral edema. Further evaluation by Dr. Velarde. 5. Respiratory failure, on ventilator per Dr. Kelly. 6. Renal failure. Further evaluation by Dr. Ramsey. 7. Likely aspiration pneumonia, on IV antibiotics. EULALIO RN Subjective Subjective In ICU on Levophed 5mc/min.Unresponsive on the Vent.In SR Objective Last 24 Hour Vital Signs Date Time Temp Pulse Resp B/P (MAP) Pulse Ox O2 Delivery O2 Flow Rate FiO2 08/08/18 07:58 91/69 08/08/18 07:00 95/58 08/08/18 07:00 105 14 102/74 (83) 100 08/08/18 06:55 105 16 30 08/08/18 06:30 106 14 97/74 (82) 100 08/08/18 06:00 107 14 91/70 (77) 100 08/08/18 06:00 86/69 08/08/18 05:30 112 14 91/70 (77) 100 08/08/18 05:00 113 14 94/68 (77) 100 08/08/18 05:00 94/68 08/08/18 04:59 113 14 30 08/08/18 04:30 114 14 100/73 (82) 100 08/08/18 04:00 98 08/08/18 04:00 99.1 113 14 96/68 (77) 100 08/08/18 04:00 Mechanical Ventilator 08/08/18 04:00 102/70 08/08/18 04:00 30 08/08/18 03:30 112 14 100/63 (75) 100 08/08/18 03:12 113 14 30 08/08/18 03:00 98/63 08/08/18 03:00 113 14 98/63 (75) 100 08/08/18 02:30 112 14 100/78 (85) 100 08/08/18 02:00 112 14 110/84 (93) 100 08/08/18 01:30 111 14 106/73 (84) 100 08/08/18 01:08 106 14 30 08/08/18 01:00 110 14 108/82 (91) 100 08/08/18 01:00 108/82 08/08/18 00:30 107 14 109/75 (86) 100 08/08/18 00:00 Mechanical Ventilator 08/08/18 00:00 115/89 08/08/18 00:00 30 08/08/18 00:00 98.0 100 14 100/66 (77) 100 08/07/18 23:30 100 14 100/66 (77) 100 08/07/18 23:08 101 14 30 08/07/18 23:00 101 14 88/66 (73) 100 08/07/18 23:00 88/66 08/07/18 22:30 101 14 101/73 (82) 100 08/07/18 22:00 100 14 91/76 (81) 100 08/07/18 22:00 91/76 08/07/18 21:30 100 14 104/77 (86) 100 08/07/18 21:26 111/79 08/07/18 21:16 99 14 40 08/07/18 21:00 99 14 111/79 (90) 100 08/07/18 20:30 99 14 111/89 (96) 100 08/07/18 20:00 99 08/07/18 20:00 30 08/07/18 20:00 Mechanical Ventilator 08/07/18 20:00 97.9 99 14 88/74 (79) 100 08/07/18 19:15 96 16 40 08/07/18 18:30 97 14 99/74 (82) 100 08/07/18 18:00 96 14 97/75 (82) 100 08/07/18 17:30 96 14 102/85 (91) 100 08/07/18 17:00 97.4 95 14 112/98 (103) 100 08/07/18 16:31 90 16 40 08/07/18 16:30 94 14 106/83 (91) 100 08/07/18 16:00 40 08/07/18 16:00 95 08/07/18 16:00 Mechanical Ventilator 08/07/18 16:00 94 14 96/81 (86) 100 08/07/18 15:30 94 14 88/71 (77) 100 08/07/18 15:00 95 14 110/85 (93) 100 08/07/18 14:32 94 14 40 08/07/18 14:30 95 14 105/88 (94) 100 08/07/18 14:00 94 14 111/88 (96) 100 08/07/18 13:30 94 14 101/70 (80) 100 08/07/18 13:00 93 14 101/84 (90) 100 08/07/18 12:44 92 16 40 08/07/18 12:30 97.1 90 14 100/80 (87) 100 08/07/18 12:00 90 14 107/79 (88) 100 08/07/18 12:00 90 08/07/18 12:00 Mechanical Ventilator 08/07/18 12:00 40 08/07/18 11:30 89 14 102/76 (85) 100 08/07/18 11:00 89 14 99/80 (86) 100 08/07/18 10:36 88 16 40 08/07/18 10:00 86 14 108/90 (96) 100 08/07/18 09:30 86 14 110/90 (97) 100 08/07/18 09:04 94 16 40 08/07/18 09:00 86 14 117/86 (96) 100 Intake and Output 08/07/18 08/08/18 19:00 07:00 Intake Total 82.5 ml 605.00 ml Output Total 60 ml 114 ml Balance 22.5 ml 491.00 ml Free Water 20 ml IV Total 82.5 ml 400.00 ml Tube Feeding 185 ml Output Urine Total 60 ml 114 ml Laboratory Tests Test 08/07/18 18:55 08/08/18 03:00 Troponin I 0.050 ng/mL (0.000-0.056) 0.037 ng/mL (0.000-0.056) Sodium Level Pending Potassium Level Pending Chloride Level Pending Carbon Dioxide Level Pending Blood Urea Nitrogen Pending Creatinine Pending Estimat Glomerular Filtration Rate Pending Glucose Level Pending Uric Acid Pending Calcium Level Pending Phosphorus Level Pending Magnesium Level Pending Total Bilirubin Pending Aspartate Amino Transf (AST/SGOT) Pending Alanine Aminotransferase (ALT/SGPT) Pending Alkaline Phosphatase Pending Total Protein Pending Albumin Pending Globulin Pending Microbiology Date/Time Source Procedure Growth Status 08/07/18 00:25 Blood Blood Culture - Preliminary NO GROWTH AFTER 24 HOURS Resulted 08/07/18 00:20 Blood Blood Culture - Preliminary NO GROWTH AFTER 24 HOURS Resulted Objective HEENT: Orally intubated with no JVD. LUNGS: Coarse rhonchi. She has a central line to the left subclavian. ABDOMEN: Soft. EXTREMITIES: No pitting edema. Shaji Bhatti MD Aug 08, 2018 08:37
--- NOTE | 2018-08-08 08:40 | NUR ---
NURSE NOTES: MD ORTEGA HERE TO SEE PT. RECEIVED ORDER TO INPUT EKG STAT, TROPONIN, LEVOPHED PRN FOR HYPOTENSION. PT RESTING IN BED. NONVERBAL. VSS Addendum: 08/08/18 at 1227 by Jesusita Carrion RN wrong pt.
--- NOTE | 2018-08-08 08:42 | NUR ---
NURSE NOTES: MD ORTEGA HERE TO SEE PT. NO NEW ORDERS AT THIS TIME
--- NOTE | 2018-08-08 09:24 | Nephrology Progress Note ---
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 comatose Plan fluid challenge Protonix Per ID and Neuro advise repeat EEG in am Subjective ROS Limited/Unobtainable: Yes Objective Objective Last 24 Hour Vital Signs Date Time Temp Pulse Resp B/P (MAP) Pulse Ox O2 Delivery O2 Flow Rate FiO2 08/08/18 07:58 91/69 08/08/18 07:00 95/58 08/08/18 07:00 105 14 102/74 (83) 100 08/08/18 06:55 105 16 30 08/08/18 06:30 106 14 97/74 (82) 100 08/08/18 06:00 107 14 91/70 (77) 100 08/08/18 06:00 86/69 08/08/18 05:30 112 14 91/70 (77) 100 08/08/18 05:00 113 14 94/68 (77) 100 08/08/18 05:00 94/68 08/08/18 04:59 113 14 30 08/08/18 04:30 114 14 100/73 (82) 100 08/08/18 04:00 98 08/08/18 04:00 99.1 113 14 96/68 (77) 100 08/08/18 04:00 Mechanical Ventilator 08/08/18 04:00 102/70 08/08/18 04:00 30 08/08/18 03:30 112 14 100/63 (75) 100 08/08/18 03:12 113 14 30 08/08/18 03:00 98/63 08/08/18 03:00 113 14 98/63 (75) 100 08/08/18 02:30 112 14 100/78 (85) 100 08/08/18 02:00 112 14 110/84 (93) 100 08/08/18 01:30 111 14 106/73 (84) 100 08/08/18 01:08 106 14 30 08/08/18 01:00 110 14 108/82 (91) 100 08/08/18 01:00 108/82 08/08/18 00:30 107 14 109/75 (86) 100 08/08/18 00:00 Mechanical Ventilator 08/08/18 00:00 115/89 08/08/18 00:00 30 08/08/18 00:00 98.0 100 14 100/66 (77) 100 08/07/18 23:30 100 14 100/66 (77) 100 08/07/18 23:08 101 14 30 08/07/18 23:00 101 14 88/66 (73) 100 08/07/18 23:00 88/66 08/07/18 22:30 101 14 101/73 (82) 100 08/07/18 22:00 100 14 91/76 (81) 100 08/07/18 22:00 91/76 08/07/18 21:30 100 14 104/77 (86) 100 08/07/18 21:26 111/79 08/07/18 21:16 99 14 40 08/07/18 21:00 99 14 111/79 (90) 100 08/07/18 20:30 99 14 111/89 (96) 100 08/07/18 20:00 99 08/07/18 20:00 30 08/07/18 20:00 Mechanical Ventilator 08/07/18 20:00 97.9 99 14 88/74 (79) 100 08/07/18 19:15 96 16 40 08/07/18 18:30 97 14 99/74 (82) 100 08/07/18 18:00 96 14 97/75 (82) 100 08/07/18 17:30 96 14 102/85 (91) 100 08/07/18 17:00 97.4 95 14 112/98 (103) 100 08/07/18 16:31 90 16 40 08/07/18 16:30 94 14 106/83 (91) 100 08/07/18 16:00 40 08/07/18 16:00 95 08/07/18 16:00 Mechanical Ventilator 08/07/18 16:00 94 14 96/81 (86) 100 08/07/18 15:30 94 14 88/71 (77) 100 08/07/18 15:00 95 14 110/85 (93) 100 08/07/18 14:32 94 14 40 08/07/18 14:30 95 14 105/88 (94) 100 08/07/18 14:00 94 14 111/88 (96) 100 08/07/18 13:30 94 14 101/70 (80) 100 08/07/18 13:00 93 14 101/84 (90) 100 08/07/18 12:44 92 16 40 08/07/18 12:30 97.1 90 14 100/80 (87) 100 08/07/18 12:00 90 14 107/79 (88) 100 08/07/18 12:00 90 08/07/18 12:00 Mechanical Ventilator 08/07/18 12:00 40 08/07/18 11:30 89 14 102/76 (85) 100 08/07/18 11:00 89 14 99/80 (86) 100 08/07/18 10:36 88 16 40 08/07/18 10:00 86 14 108/90 (96) 100 08/07/18 09:30 86 14 110/90 (97) 100 Intake and Output 08/07/18 08/08/18 19:00 07:00 Intake Total 82.5 ml 605.00 ml Output Total 60 ml 114 ml Balance 22.5 ml 491.00 ml Free Water 20 ml IV Total 82.5 ml 400.00 ml Tube Feeding 185 ml Output Urine Total 60 ml 114 ml Laboratory Tests 08/07/18 18:55: Troponin I 0.050 08/08/18 03:00: Troponin I 0.037, Sodium Level 138, Potassium Level 3.7, Chloride Level 101, Carbon Dioxide Level 15L, Anion Gap 22H, Blood Urea Nitrogen 41H, Creatinine 4.7 #H, Estimat Glomerular Filtration Rate 12.4, Glucose Level 187H, Uric Acid 5.5, Calcium Level 8.7, Phosphorus Level 6.5H, Magnesium Level 1.9, Total Bilirubin 0.4, Aspartate Amino Transf (AST/SGOT) 42H, Alanine Aminotransferase (ALT/SGPT) 81H, Alkaline Phosphatase 71, Total Protein 6.9, Albumin 2.4L, Globulin 4.5, Albumin/Globulin Ratio 0.5L Height (Feet): 5 Height (Inches): 5.00 Weight (Pounds): 139 General Appearance: no apparent distress Cardiovascular: tachycardia Respiratory/Chest: decreased breath sounds Abdomen: soft Neurologic: other - comatose Objective no change Lio Ramsey MD Aug 08, 2018 09:24
[2018-08-08] MEDS: Pantoprazole Inj IVP SCH ×2 (09:40→21:16)
[2018-08-08] MEDS: Docusate 100mg cap ORAL SCH ×3 (09:40→17:58)
--- NOTE | 2018-08-08 10:20 | NUR ---
NURSE NOTES: son Ki here to see mother,. requesting to be updated on all medical history. C.N aware, was informed that grandmother is decision maker, will need to discuss concerns with her for some legal agreement.
--- NOTE | 2018-08-08 11:04 | NUR ---
[employer] SI:CARDIORESPIRATORY ARREST . ANOXIC ENCEPHALOPATHY . ACUTE RENAL FAILURE VS: BP 95/58, P 105, T 99.1, RR 14 on VENT AC 14, TV 500, PEEP 5.0, FiO2 30 IS:SODIUM BICARBONATE 1050ml IV ALBUMIN HUMAN 500ml IV NS 500ml IV PIPERACILLIN 110ml IVPB PROTONIX 40mg IVP ICU STATUS
--- NOTE | 2018-08-08 11:15 | NUR ---
NURSE NOTES: MD DAY, HERE TO SEE PT. NO CHANGE FROM YESTERDAY. WILL PLACE OWN ORDERS.
--- NOTE | 2018-08-08 11:21 | Pulmonology Progress Note ---
Assessment/Plan Assessment/Plan 1. Status post cardiac arrest, shock 2. Severe anoxic encephalopathy, unresponsive. 3. Respiratory failure, on ventilator support. 4. Severe rheumatoid arthritis. 5. Possible sepsis. 6. Acute renal failure continue vent support abx per ID renal adjusting fluids remains unresponsive but does assist vent repeat EEG per neuro Subjective ROS Limited/Unobtainable: Yes Allergies: Coded Allergies: No Known Allergies (Unverified , 07/30/18) Objective Last 24 Hour Vital Signs Date Time Temp Pulse Resp B/P (MAP) Pulse Ox O2 Delivery O2 Flow Rate FiO2 08/08/18 10:44 105 16 30 08/08/18 09:35 101 16 30 08/08/18 08:00 Mechanical Ventilator 08/08/18 08:00 105 08/08/18 07:58 91/69 08/08/18 07:00 95/58 08/08/18 07:00 105 14 102/74 (83) 100 08/08/18 06:55 105 16 30 08/08/18 06:30 106 14 97/74 (82) 100 08/08/18 06:00 107 14 91/70 (77) 100 08/08/18 06:00 86/69 08/08/18 05:30 112 14 91/70 (77) 100 08/08/18 05:00 113 14 94/68 (77) 100 08/08/18 05:00 94/68 08/08/18 04:59 113 14 30 08/08/18 04:30 114 14 100/73 (82) 100 08/08/18 04:00 98 08/08/18 04:00 99.1 113 14 96/68 (77) 100 08/08/18 04:00 Mechanical Ventilator 08/08/18 04:00 102/70 08/08/18 04:00 30 08/08/18 03:30 112 14 100/63 (75) 100 08/08/18 03:12 113 14 30 08/08/18 03:00 98/63 08/08/18 03:00 113 14 98/63 (75) 100 08/08/18 02:30 112 14 100/78 (85) 100 08/08/18 02:00 112 14 110/84 (93) 100 08/08/18 01:30 111 14 106/73 (84) 100 08/08/18 01:08 106 14 30 08/08/18 01:00 110 14 108/82 (91) 100 08/08/18 01:00 108/82 08/08/18 00:30 107 14 109/75 (86) 100 08/08/18 00:00 Mechanical Ventilator 08/08/18 00:00 115/89 08/08/18 00:00 30 08/08/18 00:00 98.0 100 14 100/66 (77) 100 08/07/18 23:30 100 14 100/66 (77) 100 08/07/18 23:08 101 14 30 08/07/18 23:00 101 14 88/66 (73) 100 08/07/18 23:00 88/66 08/07/18 22:30 101 14 101/73 (82) 100 08/07/18 22:00 100 14 91/76 (81) 100 08/07/18 22:00 91/76 08/07/18 21:30 100 14 104/77 (86) 100 08/07/18 21:26 111/79 08/07/18 21:16 99 14 40 08/07/18 21:00 99 14 111/79 (90) 100 08/07/18 20:30 99 14 111/89 (96) 100 08/07/18 20:00 99 08/07/18 20:00 30 08/07/18 20:00 Mechanical Ventilator 08/07/18 20:00 97.9 99 14 88/74 (79) 100 08/07/18 19:15 96 16 40 08/07/18 18:30 97 14 99/74 (82) 100 08/07/18 18:00 96 14 97/75 (82) 100 08/07/18 17:30 96 14 102/85 (91) 100 08/07/18 17:00 97.4 95 14 112/98 (103) 100 08/07/18 16:31 90 16 40 08/07/18 16:30 94 14 106/83 (91) 100 08/07/18 16:00 40 08/07/18 16:00 95 08/07/18 16:00 Mechanical Ventilator 08/07/18 16:00 94 14 96/81 (86) 100 08/07/18 15:30 94 14 88/71 (77) 100 08/07/18 15:00 95 14 110/85 (93) 100 08/07/18 14:32 94 14 40 08/07/18 14:30 95 14 105/88 (94) 100 08/07/18 14:00 94 14 111/88 (96) 100 08/07/18 13:30 94 14 101/70 (80) 100 08/07/18 13:00 93 14 101/84 (90) 100 08/07/18 12:44 92 16 40 08/07/18 12:30 97.1 90 14 100/80 (87) 100 08/07/18 12:00 90 14 107/79 (88) 100 08/07/18 12:00 90 08/07/18 12:00 Mechanical Ventilator 08/07/18 12:00 40 08/07/18 11:30 89 14 102/76 (85) 100 Intake and Output 08/07/18 08/08/18 19:00 07:00 Intake Total 82.5 ml 605.00 ml Output Total 60 ml 114 ml Balance 22.5 ml 491.00 ml Free Water 20 ml IV Total 82.5 ml 400.00 ml Tube Feeding 185 ml Output Urine Total 60 ml 114 ml Objective unresponsive General Appearance: WD/WN HEENT: atraumatic Respiratory/Chest: lungs clear Cardiovascular: normal rate Abdomen: soft, non tender Microbiology Date/Time Source Procedure Growth Status 08/07/18 00:25 Blood Blood Culture - Preliminary NO GROWTH AFTER 24 HOURS Resulted 08/07/18 00:20 Blood Blood Culture - Preliminary NO GROWTH AFTER 24 HOURS Resulted Laboratory Tests 08/07/18 18:55: Troponin I 0.050 08/08/18 03:00: Troponin I 0.037, Sodium Level 138, Potassium Level 3.7, Chloride Level 101, Carbon Dioxide Level 15L, Anion Gap 22H, Blood Urea Nitrogen 41H, Creatinine 4.7 #H, Estimat Glomerular Filtration Rate 12.4, Glucose Level 187H, Uric Acid 5.5, Calcium Level 8.7, Phosphorus Level 6.5H, Magnesium Level 1.9, Total Bilirubin 0.4, Aspartate Amino Transf (AST/SGOT) 42H, Alanine Aminotransferase (ALT/SGPT) 81H, Alkaline Phosphatase 71, Total Protein 6.9, Albumin 2.4L, Globulin 4.5, Albumin/Globulin Ratio 0.5L 08/08/18 09:55: Arterial Blood pH 7.473H, Arterial Blood Partial Pressure CO2 22.0*L, Arterial Blood Partial Pressure O2 141.9H, Arterial Blood HCO3 15.8*L, Arterial Blood Oxygen Saturation 98.6, Arterial Blood Base Excess -6.1L, Clemente Test Positive Current Medications Medications (Trade) Dose Ordered Sig/Hilaria Route PRN Reason Start Time Stop Time Status Last Admin Dose Admin Acetaminophen (Tylenol) 650 mg Q6H PRN RECTAL Mild Pain/Temp > 100.5 08/06/18 13:38 09/05/18 13:37 Artificial Tears (Akwa-Tears) 2 drop BIDPRN PRN BOTH EYES Dry Eyes 08/06/18 13:39 09/05/18 13:38 Docusate Sodium (Colace) 100 mg THREE TIMES A DAY ORAL 08/06/18 18:00 08/30/18 17:59 08/08/18 09:40 Iopamidol (Isovue-370 150ml) 150 ml NOW PRN INJ Radiology Procedure 08/07/18 11:15 08/08/18 23:59 Nitroglycerin (Ntg) 1 patch Q24H TDERMAL 08/07/18 08:00 09/06/18 07:59 Norepinephrine Bitartrate 8 mg/ Dextrose 500 ml @ 0 mls/hr Q24H IV 08/06/18 21:00 09/05/18 20:59 08/07/18 21:26 Ondansetron HCl (Zofran) 4 mg Q6H PRN IV Nausea & Vomiting 08/06/18 14:45 08/30/18 14:44 Pantoprazole (Protonix) 40 mg EVERY 12 HOURS IVP 08/06/18 21:00 09/05/18 20:59 08/08/18 09:40 Piperacillin Sod/ Tazobactam Sod 3.375 gm/Dextrose 110 ml @ 220 mls/hr Q12H IVPB 08/07/18 18:30 08/10/18 18:29 08/08/18 06:19 Sodium Bicarbonate 50 ml/ Sodium Chloride 1,050 ml @ 75 mls/hr Q14H IV 08/08/18 11:00 09/07/18 10:59 Je Kelly MD Aug 08, 2018 11:21
--- NOTE | 2018-08-08 11:50 | NUR ---
NURSE NOTES: one legacy here to evaluate pt. rep beth, updated on pt status.
[2018-08-08] MEDS: Sodium Bicarbonate 50 ML in 1/2 NS 1000ml 1,000 ML IV SCH (11:57)
--- NOTE | 2018-08-08 12:30 | Consultation ---
DATE OF CONSULTATION: 08/07/2018 NOTE: POOR AUDIO HISTORY OF PRESENT ILLNESS: I was asked to assess this 43-year-old patient because of connective tissue disease. The patient was in apparent good health and in stable condition until 2 weeks prior to the present admission. She developed sudden onset of severe headache associated with nausea and vomiting for which she has been seen at [facility] emergency room. Workup include laboratory tests and CT scan of the brain did not identify any specific pathology and the patient was discharged on mg b.i.d. Her response to the medication was relatively good. However, the patient did not resolve. She continued to have daily headache with intermittent nausea and vomiting for which she went for the second time to the ER at [facility], and again, she was referred to . She has been seen by the primary care physician who suspected that the patient and septicemia. She is ordered to change the ER and came to [facility] and was admitted. Since her admission, she was treated with antibiotics. She was on piperacillin and tazobactam 3.375 g IV piggyback q.12 h. without any clinical exam. During her stay she had a CT scan of the brain in the emergency room. Several days after her admission, she developed acute respiratory distress and had to be intubated and placed in the ICU and CT scan done following her respiratory arrest. The patient has diffuse cerebral edema, associated with communicating hydrocephalus. She has been unresponsive with dilated pupils at . PAST MEDICAL HISTORY: She has developed rheumatoid arthritis approximately 10 years ago. Information regarding the patient's condition She has been treated for rheumatoid arthritis for many years Humira 40 mg subcutaneous every 14 days. about the management of rheumatoid arthritis in the previous years. In any event, the patient nonresponsive. FAMILY HISTORY: Both parents are alive. Her father lives in is in good health. She has 2 brothers and 3 sisters, all in good health and none have connective tissue disease. She has 4 children. None of them have connective tissue disease. SOCIAL HISTORY: She is single. She was born in [place]. 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 HABITS: The patient does not smoke. Discontinued smoking the use of alcohol. REVIEW OF SYSTEMS: The patient did not reveal any information regarding her state of health. PHYSICAL EXAMINATION: VITAL SIGNS: Blood pressure is 111/79, pulse is 99, respirations of 14, and temperature 97.9. HEENT: Eyes were normal. Pupils were round, equal, and reactive to light. Sclerae were white. Conjunctivae were pink. Extraocular movements are normal. Temporal arteries were palpable bilaterally. There was no bilateral temporal wasting. Visual vera to confrontation were normal. A neglect sign could not be visualized. ENT, mucous membranes were not dehydrated. Auditory canals were clear and tympanic membranes could not be visualized. Nasal cavity was not congested. Nasal septum was intact. Soft palate, pharynx, and uvula could not be visualized. Tongue was moist, midline, and normally papillated. NECK: Supple. There was no goiter. No mass. No lymphadenopathy. There was no JVD. No bruits. Carotid upstroke was 2+. LUNGS: Clear. HEART: PMI was in the fourth left intercostal space in midclavicular line. There was normal S1 and normal S2. There was no murmur. No arrhythmia. No S3. No S4. No pericardial rub. ABDOMEN: Soft, flat, and nontender without organomegaly. There were no masses palpable. Normal bowel sounds without bruits. There was no guarding. No rebound tenderness. No ascites. No hernia. No CVA tenderness. Liver span was 8 cm, mostly nontender. EXTREMITIES: No cyanosis, no clubbing, and no edema. Extremities were warm. NEUROLOGICAL: Reflexes in biceps, triceps, and brachioradialis were difficult to elicit were difficult to elicit. Plantar were in flexion. Cranial nerves II through XII were symmetric and equal. Cerebellar function, there was no tremor. No nystagmus. No extrapyramidal rigidity. Sensory exam to pinprick, cotton touch, and position were grossly normal. Motor strength was 5/5 against resistance in upper extremity and lower extremity in proximal and distal muscles. LABORATORY AND DIAGNOSTIC DATA: Hemoglobin 11.9, hematocrit 36.1 with MCV of 69, WBC of 11.3, and platelets 252. Antibody was not detected. Lactic acid was 1.8. BUN and creatinine today 30 and 2.9 respectively. Her sodium is 133, potassium 3.3 . has been palpated shoulder, elbow PIP and DIP, hips, knees, ankles, and foot . It has been difficult and it does not appear that there was will be done temporal arteries bilaterally . Thank you, Dr. Stevens, for asking me to participate in the care of this patient. Rajendra Ayers M.D. DR: HUMBLE JOB#: [id number] CC:
--- NOTE | 2018-08-08 15:51 | NUR ---
NURSE NOTES: FAMILY VISITING AT BEDSIDE. PT IN NO ACUTE DISTRESS. WILL CONTINUE TO MONITOR PT.
--- NOTE | 2018-08-08 16:49 | NUR ---
NURSE NOTES: duplex of lower extremities negative for DVT, complete.
--- NOTE | 2018-08-08 17:35 | Neurology Progress Note ---
Interim History Interim History Interim History Ms Del Valle continues to be comatose. She cannot be aroused even on deep pain. She however is triggering the ventilator and breathing at a rate of upto 20/minute with the machine set at 14. As per her nurse there has been no improvement in her mental state. Review of Systems Neuro Review of Systems Unable to obtain. Objective Physical Exam Last Vital Signs Date Time Temp Pulse Resp B/P (MAP) Pulse Ox O2 Delivery O2 Flow Rate FiO2 08/08/18 17:04 89 16 30 08/08/18 16:00 Mechanical Ventilator 08/08/18 15:00 145/91 (109) 100 08/08/18 12:00 99.0 Laboratory Tests Test 08/07/18 18:55 08/08/18 03:00 08/08/18 09:55 Troponin I 0.050 ng/mL (0.000-0.056) 0.037 ng/mL (0.000-0.056) Sodium Level 138 MMOL/L (136-145) Potassium Level 3.7 MMOL/L (3.5-5.1) Chloride Level 101 MMOL/L (98-107) Carbon Dioxide Level 15 MMOL/L (21-32) L Anion Gap 22 mmol/L (5-15) H Blood Urea Nitrogen 41 mg/dL (7-18) H Creatinine 4.7 MG/DL (0.55-1.30) #H Estimat Glomerular Filtration Rate 12.4 mL/min (>60) Glucose Level 187 MG/DL (74-106) H Uric Acid 5.5 MG/DL (2.6-7.2) Calcium Level 8.7 MG/DL (8.5-10.1) Phosphorus Level 6.5 MG/DL (2.5-4.9) H Magnesium Level 1.9 MG/DL (1.8-2.4) Total Bilirubin 0.4 MG/DL (0.2-1.0) Aspartate Amino Transf (AST/SGOT) 42 U/L (15-37) H Alanine Aminotransferase (ALT/SGPT) 81 U/L (12-78) H Alkaline Phosphatase 71 U/L (46-116) Total Protein 6.9 G/DL (6.4-8.2) Albumin 2.4 G/DL (3.4-5.0) L Globulin 4.5 g/dL Albumin/Globulin Ratio 0.5 (1.0-2.7) L Arterial Blood pH 7.473 (7.350-7.450) Arterial Blood Partial Pressure CO2 22.0 mmHg (35.0-45.0) *L Arterial Blood Partial Pressure O2 141.9 mmHg (75.0-100.0) H Arterial Blood HCO3 15.8 mmol/L (22.0-26.0) *L Arterial Blood Oxygen Saturation 98.6 % (95-100) Arterial Blood Base Excess -6.1 (-2-2) L Clemente Test Positive Neurologic Exam Objective PHYSICAL EXAMINATION: GENERAL: She is a well-developed, well-nourished, black lady, lying in an ICU bed connected to a ventilator via an orotracheal tube. HEAD: Normocephalic and atraumatic. EENT: Examination benign. NECK: No neck rigidity was observed. NEUROLOGIC EXAMINATION: MENTAL STATUS EXAMINATION: She was unresponsive even to deep painful stimuli. Further mental status testing was impossible. SPEECH: Could not be tested. LANGUAGE: Could not be tested. CRANIAL NERVES EXAMINATION: II: She did not blink to threat. III, IV & : The external ocular movements were absent on oculocephalic maneuvers. The pupils were 6 mm in diameter and nonreactive to light. V & VII: The corneal reflexes were absent bilaterally. VIII: She did not respond to sounds and had no nystagmus. IX & X: The gag reflex was absent on manipulating the endotracheal tube. XI: The sternocleidomastoids and trapezii did not function. XII: Could not be tested. MOTOR SYSTEM: The tone was flaccid in all four extremities. Examination of muscle mass revealed no focal wasting. Examination of power was impossible to perform because even on applying deep painful stimuli no movements were seen in the upper extremities and reflex minimal withdrawal was seen in both lower extremities. SENSORY EXAMINATION: She responded to deep pain only in both lower extremities with reflex withdrawal. REFLEXES: 1+ and bilaterally symmetrical at the biceps, triceps, and brachioradialis, 0 at both knees, and ankles. The plantar responses were mute bilaterally. COORDINATION, STANCE & GAIT: Could not be tested. Impression/Recommendations Diagnostic Impression 1. Ms. Shruti Del Valle is a 43-year-old, black lady, of unknown handedness, who does have a past history of rheumatoid arthritis, who was hospitalized for a one -week history of headache and stiff neck associated with hyponatremia and a urinary tract infection. She was treated with antibiotics and on 08/06/2018, she had a pulseless electrical activity, cardiopulmonary arrest. She was started on CPR immediately and within five minutes a pulse and blood pressure could be obtained. She was then intubated, artificially ventilated, and moved to the ICU. She has been unresponsive ever since. 2. She continues to be comatose. She cannot be aroused even on deep pain. She however is triggering the ventilator and breathing at a rate of upto 20/minute with the machine set at 14. As per her nurse there has been no improvement in her mental state. 3. On neurological examination, at this time, she has significant global cerebral dysfunction with a lack of cortical and the only brainstem function being triggering the ventilator. 4. An EEG performed on 08/06/2018 revealed the lack of electrical cerebral activity at gains as high as 2 microvolts per mm. 5. A CT scan of the brain performed on 08/06/2018 revealed nonspecific diffuse cerebral edema with effacement of CSF containing spaces and decreased lomeli- white differentiation. 6. Her laboratory data on my initial evaluation revealed a WBC count elevated at 11,300, an anemia with a hemoglobin of 11.9 G. an arterial blood gas with a pH of 7.58, pCO2 of 22, and pO2 of 176. A chemistry panel with a sodium of 133 , BUN at 30, and creatinine at 2.9. A troponin elevated to 0.083, BNP elevated at 1053, and a low albumin at 2.5. Her last urinalysis performed on 08/04/2018 revealed 2+ leukocyte esterase, too numerous to count red blood cells, and 2-4 white blood cells per high-power field. 8. The patient's history, neurological examination, CT scan findings and EEG are most compatible with cardiopulmonary arrest associated with pulseless electrical activity that lasted for approximately five minutes followed by the patient being in an unresponsive state. These findings are consistent with a significant and severe anoxic/ischemic encephalopathy. Recommendations 1. Continue present management. 2. Continue to support the patient's cardiorespiratory function. 3. A repeat EEG should be performed tomorrow after 12 noon. 4. Await lumbar puncture to rule out an infectious process. 5. Observe closely. Ag Velarde M.D., M.S.P.H. Ag Velarde MD Aug 08, 2018 17:35
--- NOTE | 2018-08-08 18:00 | NUR ---
NURSE NOTES: Complete bath with bed changed done.
--- NOTE | 2018-08-08 18:26 | Cardiology Report ---
APPROVED REPORT EKG Measurement Heart [id number] Sinus tachycardia with premature atrial complexes with aberrant conduction Left anterior fascicular block Abnormal ECG
--- NOTE | 2018-08-08 19:14 | NUR ---
HAND-OFF: Report given to Nicole. pt in no acute distress.
--- NOTE | 2018-08-08 19:21 | NUR ---
RESPIRATORY NOTE: Received pt on AC 14, 500VT, 30%, PEEP +5. Pt intubated w/ ETT 7.5 @ 23cm lipline, secured by anchorfast. Pt comatose/obtunded, no response to stimuli. B/S calista. clear/diminished, nonproductive cough, sxn none or scant, thin, celar-white secretions. Vent plugged into red outlet, ambubag at bedside. Pt in no apparent distress at this time. Will continue to monitor pt.
--- NOTE | 2018-08-08 19:30 | NUR ---
NURSE NOTES:Received pt in comatose condition, ,non responsive to pain stimuli, pupils 5mm fix and dilated, Mds been aware, one legacy came on the day time and evaluated pt. Pt, on SR -St low 100s on the monitor, bp labile, on Levophed drip at 1mcg/min, and 1/2 ns + 1 amp Nahco3 at 75ml/hr infusing to Left SVC. site with current drsg dry and intact. Ngt on hold at this time due to high residuals, dc to gravity with moderate amt. of yellowish urine, monitor I and O, monitor lytes- will continue to monitor.
[2018-08-08] MEDS: Norepinephrine Bitartrate 8 MG in D5W 500ml 492 ML IV SCH (21:17)
--- NOTE | 2018-08-08 22:33 | Infectious Diseases Prog Note ---
Assessment/Plan Problems: (1) Headache Assessment & Plan: with neck stiffness , meningitis VS RA flare , continue zosyn empirically since responded well and no longer febrile , off vancomycin since supra therapeutic, monitor level . (2) fever, tachy cardia Assessment & Plan: rule out sepsis or source of infection VS RA flare, repeated blood culture and urine culture is negative so far , repeated CXR no new infiltrates, continue zosyn empirically, RF level is high , concerning for RA flare . await repeated blood culture on 08/06 (3) Rheumatoid arthritis flare Assessment & Plan: possible with fever, and high RF , received steroids , recommend rheumatology eval (4) UTI (urinary tract infection) Assessment & Plan: due to proteus mirabilis , already on zosyn now to cover for sepsis too, repeated urine culture is pending (5) SIADH (syndrome of inappropriate ADH production) Assessment & Plan: continue fluids restriction , renal is following (6) Cardiac arrest Assessment & Plan: due to PEA , was intubated and started on mechanical ventilation and pressors and transferred to ICU. cardiology is following (7) Anoxic encephalopathy Assessment & Plan: with diffuse brain edema and poor activities on EEG , poor prognosis overall , neurology is following . D/W family at bedside Subjective ROS Limited/Unobtainable: Yes Allergies: Coded Allergies: No Known Allergies (Unverified , 07/30/18) Subjective she was still intubated on mechanical ventilation , in ICU, with dilated and fixed pupils , unresponsive , S/P CODE BLUE due to PEA. no fever or chills, no secretions from ET tube , hypotensive on pressors Objective Vital Signs Last 24 Hour Vital Signs Date Time Temp Pulse Resp B/P (MAP) Pulse Ox O2 Delivery O2 Flow Rate FiO2 08/08/18 21:17 97/69 08/08/18 21:05 80 16 30 08/08/18 19:19 84 14 30 08/08/18 18:00 87 15 102/73 (83) 100 08/08/18 18:00 102/73 08/08/18 17:58 97/69 08/08/18 17:04 89 16 30 08/08/18 17:00 127/85 08/08/18 17:00 88 17 127/85 (99) 100 08/08/18 16:30 154/100 08/08/18 16:00 30 08/08/18 16:00 94 08/08/18 16:00 98/68 08/08/18 16:00 90 18 98/68 (78) 100 08/08/18 16:00 Mechanical Ventilator 08/08/18 15:30 104/79 08/08/18 15:00 97 19 145/91 (109) 100 08/08/18 15:00 134/97 08/08/18 14:55 93 18 30 08/08/18 14:00 120/87 08/08/18 14:00 97 19 120/87 (98) 100 08/08/18 13:30 125/78 08/08/18 13:00 125/89 08/08/18 13:00 98 19 125/89 (101) 100 08/08/18 12:33 99 18 30 08/08/18 12:30 122/91 08/08/18 12:00 Mechanical Ventilator 08/08/18 12:00 30 08/08/18 12:00 118/83 08/08/18 12:00 99.0 100 118/83 (95) 08/08/18 12:00 100 08/08/18 11:57 124/74 08/08/18 11:00 103 141/84 (103) 08/08/18 11:00 141/84 08/08/18 10:44 105 16 30 08/08/18 10:30 128/91 08/08/18 10:00 102 106/79 (88) 08/08/18 10:00 106/79 08/08/18 09:47 101/83 08/08/18 09:35 101 16 30 08/08/18 09:00 106/79 08/08/18 09:00 105 106/79 (88) 08/08/18 08:30 104/78 08/08/18 08:00 Mechanical Ventilator 08/08/18 08:00 30 08/08/18 08:00 105/78 08/08/18 08:00 105 08/08/18 08:00 98.8 105 105/78 (87) 08/08/18 07:58 91/69 08/08/18 07:00 95/58 08/08/18 07:00 105 14 102/74 (83) 100 08/08/18 06:55 105 16 30 08/08/18 06:30 106 14 97/74 (82) 100 08/08/18 06:00 107 14 91/70 (77) 100 08/08/18 06:00 86/69 08/08/18 05:30 112 14 91/70 (77) 100 08/08/18 05:00 113 14 94/68 (77) 100 08/08/18 05:00 94/68 08/08/18 04:59 113 14 30 08/08/18 04:30 114 14 100/73 (82) 100 08/08/18 04:00 98 08/08/18 04:00 99.1 113 14 96/68 (77) 100 08/08/18 04:00 Mechanical Ventilator 08/08/18 04:00 102/70 08/08/18 04:00 30 08/08/18 03:30 112 14 100/63 (75) 100 08/08/18 03:12 113 14 30 08/08/18 03:00 98/63 08/08/18 03:00 113 14 98/63 (75) 100 08/08/18 02:30 112 14 100/78 (85) 100 08/08/18 02:00 112 14 110/84 (93) 100 08/08/18 01:30 111 14 106/73 (84) 100 08/08/18 01:08 106 14 30 08/08/18 01:00 110 14 108/82 (91) 100 08/08/18 01:00 108/82 08/08/18 00:30 107 14 109/75 (86) 100 08/08/18 00:00 Mechanical Ventilator 08/08/18 00:00 115/89 08/08/18 00:00 30 08/08/18 00:00 98.0 100 14 100/66 (77) 100 08/07/18 23:30 100 14 100/66 (77) 100 08/07/18 23:08 101 14 30 08/07/18 23:00 101 14 88/66 (73) 100 08/07/18 23:00 88/66 Height (Feet): 5 Height (Inches): 5.00 Weight (Pounds): 139 General Appearance: WD/WN, no acute distress, other - intubated on mechanical ventilation HEENT: normocephalic, atraumatic, anicteric, mucous membranes moist, PERRL, EOMI, pharynx normal, supple, no JVD Respiratory/Chest: chest wall non-tender, no respiratory distress, no accessory muscle use, decreased breath sounds, crackles/rales Cardiovascular: normal peripheral pulses, normal rate, regular rhythm, no gallop/murmur, no JVD Abdomen: normal bowel sounds, soft, non tender, no organomegaly, non distended , no mass, no scars Genitourinary: normal external genitalia Extremities: no cyanosis, no clubbing Skin: no rash, no lesions, no ulcers Neurologic/Psychiatric: unresponsiveness Microbiology Date/Time Source Procedure Growth Status 08/07/18 00:25 Blood Blood Culture - Preliminary NO GROWTH AFTER 24 HOURS Resulted 08/07/18 00:20 Blood Blood Culture - Preliminary NO GROWTH AFTER 24 HOURS Resulted 08/07/18 06:00 Sputum Gram Stain - Final Resulted 08/07/18 06:00 Sputum Sputum Culture Pending Resulted Laboratory Tests Test 08/08/18 03:00 08/08/18 09:55 Sodium Level 138 MMOL/L (136-145) Potassium Level 3.7 MMOL/L (3.5-5.1) Chloride Level 101 MMOL/L (98-107) Carbon Dioxide Level 15 MMOL/L (21-32) L Anion Gap 22 mmol/L (5-15) H Blood Urea Nitrogen 41 mg/dL (7-18) H Creatinine 4.7 MG/DL (0.55-1.30) #H Estimat Glomerular Filtration Rate 12.4 mL/min (>60) Glucose Level 187 MG/DL (74-106) H Uric Acid 5.5 MG/DL (2.6-7.2) Calcium Level 8.7 MG/DL (8.5-10.1) Phosphorus Level 6.5 MG/DL (2.5-4.9) H Magnesium Level 1.9 MG/DL (1.8-2.4) Total Bilirubin 0.4 MG/DL (0.2-1.0) Aspartate Amino Transf (AST/SGOT) 42 U/L (15-37) H Alanine Aminotransferase (ALT/SGPT) 81 U/L (12-78) H Alkaline Phosphatase 71 U/L (46-116) Troponin I 0.037 ng/mL (0.000-0.056) Total Protein 6.9 G/DL (6.4-8.2) Albumin 2.4 G/DL (3.4-5.0) L Globulin 4.5 g/dL Albumin/Globulin Ratio 0.5 (1.0-2.7) L Arterial Blood pH 7.473 (7.350-7.450) Arterial Blood Partial Pressure CO2 22.0 mmHg (35.0-45.0) *L Arterial Blood Partial Pressure O2 141.9 mmHg (75.0-100.0) H Arterial Blood HCO3 15.8 mmol/L (22.0-26.0) *L Arterial Blood Oxygen Saturation 98.6 % (95-100) Arterial Blood Base Excess -6.1 (-2-2) L Clemente Test Positive Current Medications Medications (Trade) Dose Ordered Sig/Hilaria Route PRN Reason Start Time Stop Time Status Last Admin Dose Admin Acetaminophen (Tylenol) 650 mg Q6H PRN RECTAL Mild Pain/Temp > 100.5 08/06/18 13:38 09/05/18 13:37 Artificial Tears (Akwa-Tears) 2 drop BIDPRN PRN BOTH EYES Dry Eyes 08/06/18 13:39 09/05/18 13:38 Chlorhexidine Gluconate (Jeanie-Hex 2%) 1 applic DAILY@2000 TOPIC 08/09/18 20:00 09/08/18 19:59 Docusate Sodium (Colace) 100 mg THREE TIMES A DAY ORAL 08/06/18 18:00 08/30/18 17:59 08/08/18 17:58 Iopamidol (Isovue-370 150ml) 150 ml NOW PRN INJ Radiology Procedure 08/07/18 11:15 08/08/18 23:59 Nitroglycerin (Ntg) 1 patch Q24H TDERMAL 08/07/18 08:00 09/06/18 07:59 Norepinephrine Bitartrate 8 mg/ Dextrose 500 ml @ 0 mls/hr Q24H IV 08/06/18 21:00 09/05/18 20:59 08/08/18 21:17 Ondansetron HCl (Zofran) 4 mg Q6H PRN IV Nausea & Vomiting 08/06/18 14:45 08/30/18 14:44 Pantoprazole (Protonix) 40 mg EVERY 12 HOURS IVP 08/06/18 21:00 09/05/18 20:59 08/08/18 21:16 Piperacillin Sod/ Tazobactam Sod 3.375 gm/Dextrose 110 ml @ 220 mls/hr Q12H IVPB 08/07/18 18:30 08/10/18 18:29 08/08/18 17:58 Sodium Bicarbonate 50 ml/ Sodium Chloride 1,050 ml @ 75 mls/hr Q14H IV 08/08/18 11:00 09/07/18 10:59 08/08/18 11:57 Kiel Aguillon M.D. Aug 08, 2018 22:33
[2018-08-08] MEDS ORDERED: Dexamethasone 4mg/ml vial IVP SCH ×2 (22:45→23:30)
[2018-08-09] VITALS (34 sets, daily range): BP systolic 94–168; BP diastolic 60–106
--- NOTE | 2018-08-09 00:30 | Progress Note ---
DATE: 08/08/2018 SUBJECTIVE: This is a young 43-year-old female who had cardiac arrest and resuscitated on ventilator in intensive care unit. The patient is triggering the ventilator, nonverbal, but pressure is good. She is tolerating weaning protocol, Levophed. Currently nonverbal. PHYSICAL EXAMINATION: VITAL SIGNS: Blood pressure is 134/97, pulse 94, respiration is 16 on 30% oxygen. SKIN: Good skin turgor. HEENT: Eyes are closed. NECK: Supple. CHEST: Bilateral few crackles. CARDIOVASCULAR: Regular rhythm. ABDOMEN: Soft. EXTREMITIES: CCE. NEUROLOGICAL: Generalized weakness. LABORATORY AND DIAGNOSTIC DATA: White count 11, hemoglobin 12, hematocrit 36, platelets are 252. Chemistry panel, sodium 138, potassium 3.1, BUN 41, creatinine 4.7, glucose 187. ABG, pH 7.47, bicarb 22, pCO2 22, pO2 141. ASSESSMENT AND PLAN: 1. Acute cardiopulmonary arrest. 2. Acute renal failure. 3. Severe rheumatoid arthritis. 4. Generalized weakness. PLAN: 1. We will currently continue current medical treatment. 2. Titrate Levophed. 3. Continue Zosyn. 4. Continue to monitor BUN and creatinine. 5. Continue Colace, Zofran, artificial Tears. 6. Discussed with mother and son who was on bedside, gave them update. Also discussed with Dr. Velarde neurologist, probably may need to repeat EEG in couple days. Andrew Stevens M.D. DR: Dmitri JOB#: [id number] CC:
--- NOTE | 2018-08-09 01:00 | NUR ---
NURSE NOTES:Attempted to turned off levophed drip but bp dropped to 70s, resumed levophed drip at 1mcg/min.
[2018-08-09] MEDS: Sodium Bicarbonate 50 ML in 1/2 NS 1000ml 1,000 ML IV SCH ×2 (01:38→15:31)
--- NOTE | 2018-08-09 03:00 | NUR ---
NURSE NOTES:Neuro unchanged. unable to turned off Levophed drip bp dropped to 70s.
--- NOTE | 2018-08-09 05:00 | NUR ---
NURSE NOTES:Pts had lg soft to watery stools. Cleaned up pt.
[2018-08-09] MEDS: Piperacillin/Tazobactam 3.375 GM in D5W 110 ML IVPB SCH ×2 (06:03→17:41)
--- NOTE | 2018-08-09 06:15 | Progress Note ---
DATE: 08/08/2018 SUBJECTIVE: The patient remained in coma. She spontaneous . PHYSICAL EXAMINATION: VITAL SIGNS: Blood pressure 102/76, pulse is 87, respirations of 14, and temperature is 99. HEENT: Eyes were normal. Pupils are dilated and poorly reacting to light. Extraocular movement could not be assessed. ENT, mucous membranes were moist. NECK: Supple with no JVD without lymph nodes. Tracheostomy site is clean. LUNGS: Clear without rhonchi, rales, or wheezing. Secretions are small, thin, and lawson. HEART: Normal sounds with regular beats. There is near tachycardia at rest. ABDOMEN: Soft and nontender with normal bowel sounds. Gastrostomy site is clean. EXTREMITIES: Warm without cyanosis, clubbing, or edema. LABORATORY AND DIAGNOSTIC DATA: Hemoglobin is 11.9, hematocrit 36.1 with MCV of 69, WBC of 11.3, and platelets is 252,000. Her BUN and creatinine is 41 and 4.7 respectively. Sodium is 138, potassium 3.7, chloride 101, and CO2 is 15. Uric acid 5.5. Calcium is 8.7. Phosphorus is 6.5. Magnesium is 1.9. SGOT and SGPT are moderately elevated. Albumin is 2.4 and total protein is 6.9. Sputum gram stain was many-gram negative diplococci and many gram-positive cocci. CT scan of the brain . The patient will be placed on Decadron 10 mg intravenous push every 8 hours. Blood sugars should be controlled every four hours with sliding scale regular insulin with moderate intensity. ESR, CRP, DHARMESH will be requested in the a.m. Rajendra Ayers M.D. DR: HUMBLE JOB#: [id number] CC:
--- NOTE | 2018-08-09 06:30 | NUR ---
NURSE NOTES:Neuro remained unchanged.
--- NOTE | 2018-08-09 07:00 | NUR ---
NURSE NOTES:Endorsed to maría that family requested for Drug and tox. screen and to let Dr Stevens know.
--- NOTE | 2018-08-09 07:15 | NUR ---
RESPIRATORY NOTE: Patient received mechanically ventilated on PB 840 with current ordered vent settings. Patient is orally intubated with 7.5 ETT and 23cm at the lip line. ETT tube is secured with an anchor fast. There were bilateral clear/diminished breath sounds noted upon auscultation and scant amount of thin clear/white secretions suctioned without incident. There is an ambu bag available at the bedside and the vent is connected to a red outlet. Vent alarms are functional and audible. Will continue to monitor.
--- NOTE | 2018-08-09 07:33 | NUR ---
HAND-OFF: Report given to Jose HERNANDEZ.
[2018-08-09] MEDS: Nitroglycerin Patch 0.4mg TDERMAL SCH (08:00)
--- NOTE | 2018-08-09 08:00 | NUR ---
NURSE NOTES: Received pt from MARY Rivera. Pt is in comatose condition, ,non responsive to pain stimuli, pupils 5mm fix and dilated, Mds been aware, one legacy came on the day time and evaluated pt. Pt, on SR on the monitor, bp labile, on Levophed drip at 1mcg/min, and 1/2 ns + 1 amp Nahco3 at 75ml/hr infusing to Left SVC. site with current drsg dry and intact. Ngt feeding nepro @ 30, dc to gravity with moderate amt. of yellowish urine, monitor I and O, monitor lytes- will continue to monitor.
[2018-08-09] MEDS: Dexamethasone 4mg/ml vial IVP SCH ×2 (08:51→17:08)
[2018-08-09] MEDS: Docusate 100mg cap ORAL SCH ×3 (08:51→17:41)
[2018-08-09] MEDS: Pantoprazole Inj IVP SCH ×2 (08:51→21:20)
[2018-08-09 09:11] LABS: HEMATOCRIT 30.6 % (37.0-47.0); HEMOGLOBIN 9.7 G/DL (12.0-16.0); MEAN CORPUSCULAR VOLUME 71 FL (80-99); PLATELET COUNT 144 K/UL (150-450); RED CELL DISTRIBUTION WIDTH 19.1 % (11.6-14.8); WHITE BLOOD COUNT 12.3 K/UL (4.8-10.8)
[2018-08-09 09:19] LABS: ANION GAP 17 mmol/L (5-15); BLOOD UREA NITROGEN 45 mg/dL (7-18); CALCIUM 8.2 MG/DL (8.5-10.1); CARBON DIOXIDE 19 MMOL/L (21-32); CHLORIDE 104 MMOL/L (98-107); CREATININE 6.2 MG/DL (0.55-1.30); POTASSIUM 3.4 MMOL/L (3.5-5.1); SODIUM 140 MMOL/L (136-145)
[2018-08-09 09:23] LABS: ALANINE AMINOTRANSFERASE 54 U/L (12-78); ALBUMIN 2.3 G/DL (3.4-5.0); ALBUMIN/GLOBULIN RATIO 0.6 (1.0-2.7); ALKALINE PHOSPHATASE 91 U/L (46-116); ASPARTATE AMINO TRANSFERASE 62 U/L (15-37); BILIRUBIN,TOTAL 0.3 MG/DL (0.2-1.0); PHOSPHORUS 5.2 MG/DL (2.5-4.9)
--- NOTE | 2018-08-09 09:53 | NUR ---
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 ACUTE RENAL FAILURE VS: BP 94/55, P 83, T 99.0, RR 14 SpO2 100 on VENT AC 14, TV 500, PEEP 5.0 FiO2 30 WBC 12.3, Hgb 9.7, Hct 30.6, K 3.4, BUN 45, CR 6.2, GLUCOSE 367 IS:DEXAMETHASONE 10mg IVP SODIUM BICARBONATE 1,050ml IV PIPERACILLIN 110ml IVPB PROTONIX 40mg IVP NOREPINEPHRINE BITARTRATE /D5 500ml IV ICU STATUS
--- NOTE | 2018-08-09 10:00 | NUR ---
NURSE NOTES: Turned and repositioned patient, family at beside. will continue plan of care.
--- NOTE | 2018-08-09 12:00 | NUR ---
NURSE NOTES: Dr. Stevens rounded on patient, no new orders. will continue to monitor.
--- NOTE | 2018-08-09 15:00 | NUR ---
HAND-OFF: Report given to Kristyn Rehman RN.
--- NOTE | 2018-08-09 15:03 | Nephrology Progress Note ---
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 comatose Plan fluid challenge Protonix Per ID and Neuro advise repeat EEG waiting Subjective ROS Limited/Unobtainable: Yes Objective Objective Last 24 Hour Vital Signs Date Time Temp Pulse Resp B/P (MAP) Pulse Ox O2 Delivery O2 Flow Rate FiO2 08/09/18 12:55 77 14 30 08/09/18 11:00 76 14 30 08/09/18 10:00 83 15 115/89 (98) 100 08/09/18 09:00 79 15 94/60 (71) 100 08/09/18 08:34 80 14 30 08/09/18 08:00 30 08/09/18 08:00 Mechanical Ventilator 08/09/18 08:00 94/55 08/09/18 08:00 80 08/09/18 08:00 99.0 82 16 111/85 (94) 100 08/09/18 07:11 78 14 30 08/09/18 07:01 110/70 08/09/18 07:00 80 15 101/75 (84) 100 08/09/18 06:03 100/75 08/09/18 06:00 83 15 100/75 (83) 100 08/09/18 05:30 83 15 153/82 (105) 100 08/09/18 05:20 83 17 30 08/09/18 05:00 80 17 128/82 (97) 100 08/09/18 05:00 128/96 08/09/18 04:30 82 16 103/76 (85) 100 08/09/18 04:00 Mechanical Ventilator 08/09/18 04:00 132/91 08/09/18 04:00 99.0 82 16 132/85 (101) 100 08/09/18 04:00 30 08/09/18 04:00 82 08/09/18 03:30 83 16 130/82 (98) 100 08/09/18 03:14 81 17 30 08/09/18 03:00 82 16 126/84 (98) 100 08/09/18 03:00 126/84 08/09/18 02:30 82 17 128/82 (97) 100 08/09/18 02:00 85 18 120/65 (83) 100 08/09/18 02:00 142/89 08/09/18 01:30 86 17 112/65 (81) 100 08/09/18 01:14 78 14 30 08/09/18 01:00 82 16 122/78 (93) 100 08/09/18 01:00 122/78 08/09/18 00:30 75 16 113/79 (90) 100 08/09/18 00:00 Mechanical Ventilator 08/09/18 00:00 112/77 08/09/18 00:00 30 08/09/18 00:00 78 08/09/18 00:00 99.4 75 15 112/77 (89) 100 08/08/18 23:30 77 15 113/76 (88) 100 08/08/18 23:00 114/78 08/08/18 23:00 77 15 114/78 (90) 100 08/08/18 22:55 77 16 30 08/08/18 22:30 77 14 104/71 (82) 100 08/08/18 22:00 77 15 95/70 (78) 100 08/08/18 22:00 95/70 08/08/18 21:30 78 15 94/65 (75) 100 08/08/18 21:17 97/69 08/08/18 21:05 80 16 30 08/08/18 21:00 79 15 97/66 (76) 100 08/08/18 21:00 95/70 08/08/18 20:30 82 16 93/64 (74) 100 08/08/18 20:00 99.2 82 15 111/82 (92) 100 08/08/18 20:00 Mechanical Ventilator 08/08/18 20:00 111/82 08/08/18 20:00 111/82 08/08/18 20:00 82 08/08/18 19:30 85 15 110/77 (88) 100 08/08/18 19:19 84 14 30 08/08/18 18:00 87 15 102/73 (83) 100 08/08/18 18:00 102/73 08/08/18 17:58 97/69 08/08/18 17:04 89 16 30 08/08/18 17:00 127/85 08/08/18 17:00 88 17 127/85 (99) 100 08/08/18 16:30 154/100 08/08/18 16:00 30 08/08/18 16:00 94 08/08/18 16:00 98/68 08/08/18 16:00 90 18 98/68 (78) 100 08/08/18 16:00 Mechanical Ventilator 08/08/18 15:30 104/79 Intake and Output 08/08/18 08/09/18 19:00 07:00 Intake Total 3341.75 ml 1316.25 ml Output Total 455 ml 601 ml Balance 2886.75 ml 715.25 ml Free Water 70 ml 90 ml IV Total 2911.75 ml 866.25 ml Tube Feeding 360 ml 360 ml Output Urine Total 455 ml 600 ml Stool Total 1 ml # Bowel Movements 2 Laboratory Tests 08/09/18 04:05: Erythrocyte Sedimentation Rate 55H, C-Reactive Protein, Quantitative 8.2H, Random Vancomycin Level 20.1, Anti-Nuclear Antibody Screen [Pending] 08/09/18 08:45: White Blood Count 12.3H, Red Blood Count 4.30, Hemoglobin 9.7L, Hematocrit 30.6L , Mean Corpuscular Volume 71L, Mean Corpuscular Hemoglobin 22.4L, Mean Corpuscular Hemoglobin Concent 31.6L, Red Cell Distribution Width 19.1H, Platelet Count 144L, Mean Platelet Volume 5.5L, Neutrophils (%) (Auto) , Lymphocytes (%) (Auto) , Monocytes (%) (Auto) , Eosinophils (%) (Auto) , Basophils (%) (Auto) , Differential Total Cells Counted 100, Neutrophils % ( Manual) 95H, Lymphocytes % (Manual) 4L, Monocytes % (Manual) 1, Eosinophils % ( Manual) 0, Basophils % (Manual) 0, Band Neutrophils 0, Platelet Estimate DecreasedL, Platelet Morphology Normal, Anisocytosis 1+, Sodium Level 140, Potassium Level 3.4L, Chloride Level 104, Carbon Dioxide Level 19L, Anion Gap 17H, Blood Urea Nitrogen 45H, Creatinine 6.2H, Estimat Glomerular Filtration Rate 8.8, Glucose Level 367#H, Calcium Level 8.2L, Phosphorus Level 5.2H, Magnesium Level 1.6L, Total Bilirubin 0.3, Aspartate Amino Transf (AST/SGOT) 62H , Alanine Aminotransferase (ALT/SGPT) 54, Alkaline Phosphatase 91, Total Protein 6.1L, Albumin 2.3L, Globulin 3.8, Albumin/Globulin Ratio 0.6L Height (Feet): 5 Height (Inches): 5.00 Weight (Pounds): 144 General Appearance: no apparent distress Cardiovascular: normal rate Respiratory/Chest: decreased breath sounds Abdomen: distended Neurologic: other - comatose Objective no change Lio Ramsey MD Aug 09, 2018 15:03
--- NOTE | 2018-08-09 15:10 | NUR ---
NURSE NOTES: Report received from MARY Campos. Pt is comatose. No response to pain noted. Pupils dilated and fixed. Father at bedside. 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 Orally intubated. ETT 7.5/23cm at lip line. AC 14, TV 500, FiO2 30%, P 5. O2 sat 100%. Non respiratory distress noted. Right NGT in place receiving Nepro at 30cc/hr. Bianchi in place draining to gravity. Left subclavian TLC patent and asymptomatic. 1/2 NS with Sodium Bicarb is running at 75cc/hr. On Levophed at 1mcg/min. Left hand G22 patent and asymptotic, open for TKO. Bed in lowest position. Side rails up x3. Will resume plan of care.
--- NOTE | 2018-08-09 15:11 | NUR ---
NURSE NOTES: Dr Bhatti here to see the patient. Updated him with pt's current condition. BP 131/103. Levophed decreased to 0.5mcg/min. Will continue to monitor.
--- NOTE | 2018-08-09 15:43 | Cardiac Electrophysiology PN ---
Assessment/Plan Assessment/Plan 1. Status post PEA and cardiopulmonary arrest. The patient had episodes of Wenckebach and then 2:1 block prior to the event makes me think that the patient probably had respiratory arrest first prior to her cardiac event. Her troponin is only marginally elevated, likely due to CPR. FU troponins were negative. Echo EF 50% to 55% on August 06, 2018. 2. Atrial fibrillation with rapid ventricular response. This was transient after her CPR. Currently in sinus rhythm. The patient off any beta-kyle at this point. 3. Hypotension. The patient is still on Levophed as well as broad-spectrum IV antibiotics. Etiology remains unclear. 4. Altered mental status. Her initial head CT on July 31, 2018 shows hydrocephalus and repeat head CT showed evidence of severe and diffuse cerebral edema. Further evaluation by Dr. Velarde. 5. Respiratory failure, on ventilator per Dr. Kelly. 6. Renal failure. Further evaluation by Dr. Ramsey. 7. Likely aspiration pneumonia, on IV antibiotics. EULALIO RN Subjective Subjective In ICU on Levophed 1 mc/min on the vent. Unresponsive on the Vent.In SR Objective Last 24 Hour Vital Signs Date Time Temp Pulse Resp B/P (MAP) Pulse Ox O2 Delivery O2 Flow Rate FiO2 08/09/18 15:00 81 15 111/80 (90) 100 08/09/18 14:00 83 15 122/88 (99) 100 08/09/18 13:00 79 15 115/89 (98) 100 08/09/18 12:55 77 14 30 08/09/18 12:00 30 08/09/18 12:00 Mechanical Ventilator 08/09/18 12:00 79 08/09/18 12:00 98.7 82 16 131/79 (96) 100 08/09/18 11:00 76 14 30 08/09/18 11:00 80 15 110/89 (96) 100 08/09/18 10:00 83 15 115/89 (98) 100 08/09/18 09:00 79 15 94/60 (71) 100 08/09/18 08:34 80 14 30 08/09/18 08:00 30 08/09/18 08:00 Mechanical Ventilator 08/09/18 08:00 94/55 08/09/18 08:00 80 08/09/18 08:00 99.0 82 16 111/85 (94) 100 08/09/18 07:11 78 14 30 08/09/18 07:01 110/70 08/09/18 07:00 80 15 101/75 (84) 100 08/09/18 06:03 100/75 08/09/18 06:00 83 15 100/75 (83) 100 08/09/18 05:30 83 15 153/82 (105) 100 08/09/18 05:20 83 17 30 08/09/18 05:00 80 17 128/82 (97) 100 08/09/18 05:00 128/96 08/09/18 04:30 82 16 103/76 (85) 100 08/09/18 04:00 Mechanical Ventilator 08/09/18 04:00 132/91 08/09/18 04:00 99.0 82 16 132/85 (101) 100 08/09/18 04:00 30 08/09/18 04:00 82 08/09/18 03:30 83 16 130/82 (98) 100 08/09/18 03:14 81 17 30 08/09/18 03:00 82 16 126/84 (98) 100 08/09/18 03:00 126/84 08/09/18 02:30 82 17 128/82 (97) 100 08/09/18 02:00 85 18 120/65 (83) 100 08/09/18 02:00 142/89 08/09/18 01:30 86 17 112/65 (81) 100 08/09/18 01:14 78 14 30 08/09/18 01:00 82 16 122/78 (93) 100 08/09/18 01:00 122/78 08/09/18 00:30 75 16 113/79 (90) 100 08/09/18 00:00 Mechanical Ventilator 08/09/18 00:00 112/77 08/09/18 00:00 30 08/09/18 00:00 78 08/09/18 00:00 99.4 75 15 112/77 (89) 100 08/08/18 23:30 77 15 113/76 (88) 100 08/08/18 23:00 114/78 08/08/18 23:00 77 15 114/78 (90) 100 08/08/18 22:55 77 16 30 08/08/18 22:30 77 14 104/71 (82) 100 08/08/18 22:00 77 15 95/70 (78) 100 08/08/18 22:00 95/70 08/08/18 21:30 78 15 94/65 (75) 100 08/08/18 21:17 97/69 08/08/18 21:05 80 16 30 08/08/18 21:00 79 15 97/66 (76) 100 08/08/18 21:00 95/70 08/08/18 20:30 82 16 93/64 (74) 100 08/08/18 20:00 99.2 82 15 111/82 (92) 100 08/08/18 20:00 Mechanical Ventilator 08/08/18 20:00 111/82 08/08/18 20:00 111/82 08/08/18 20:00 82 08/08/18 19:30 85 15 110/77 (88) 100 08/08/18 19:19 84 14 30 08/08/18 18:00 87 15 102/73 (83) 100 08/08/18 18:00 102/73 08/08/18 17:58 97/69 08/08/18 17:04 89 16 30 08/08/18 17:00 127/85 08/08/18 17:00 88 17 127/85 (99) 100 08/08/18 16:30 154/100 08/08/18 16:00 30 08/08/18 16:00 94 08/08/18 16:00 98/68 08/08/18 16:00 90 18 98/68 (78) 100 08/08/18 16:00 Mechanical Ventilator Intake and Output 08/08/18 08/09/18 19:00 07:00 Intake Total 3341.75 ml 1316.25 ml Output Total 455 ml 601 ml Balance 2886.75 ml 715.25 ml Free Water 70 ml 90 ml IV Total 2911.75 ml 866.25 ml Tube Feeding 360 ml 360 ml Output Urine Total 455 ml 600 ml Stool Total 1 ml # Bowel Movements 2 Laboratory Tests Test 08/09/18 04:05 08/09/18 08:45 Erythrocyte Sedimentation Rate 55 MM/HR (0-20) H C-Reactive Protein, Quantitative 8.2 mg/dL (0.00-0.90) H Random Vancomycin Level 20.1 ug/mL Anti-Nuclear Antibody Screen Pending White Blood Count 12.3 K/UL (4.8-10.8) H Red Blood Count 4.30 M/UL (4.20-5.40) Hemoglobin 9.7 G/DL (12.0-16.0) L Hematocrit 30.6 % (37.0-47.0) L Mean Corpuscular Volume 71 FL (80-99) L Mean Corpuscular Hemoglobin 22.4 PG (27.0-31.0) L Mean Corpuscular Hemoglobin Concent 31.6 G/DL (32.0-36.0) L Red Cell Distribution Width 19.1 % (11.6-14.8) H Platelet Count 144 K/UL (150-450) L Mean Platelet Volume 5.5 FL (6.5-10.1) L Neutrophils (%) (Auto) % (45.0-75.0) Lymphocytes (%) (Auto) % (20.0-45.0) Monocytes (%) (Auto) % (1.0-10.0) Eosinophils (%) (Auto) % (0.0-3.0) Basophils (%) (Auto) % (0.0-2.0) Differential Total Cells Counted 100 Neutrophils % (Manual) 95 % (45-75) H Lymphocytes % (Manual) 4 % (20-45) L Monocytes % (Manual) 1 % (1-10) Eosinophils % (Manual) 0 % (0-3) Basophils % (Manual) 0 % (0-2) Band Neutrophils 0 % (0-8) Platelet Estimate Decreased L Platelet Morphology Normal Anisocytosis 1+ Sodium Level 140 MMOL/L (136-145) Potassium Level 3.4 MMOL/L (3.5-5.1) L Chloride Level 104 MMOL/L (98-107) Carbon Dioxide Level 19 MMOL/L (21-32) L Anion Gap 17 mmol/L (5-15) H Blood Urea Nitrogen 45 mg/dL (7-18) H Creatinine 6.2 MG/DL (0.55-1.30) H Estimat Glomerular Filtration Rate 8.8 mL/min (>60) Glucose Level 367 MG/DL (74-106) #H Calcium Level 8.2 MG/DL (8.5-10.1) L Phosphorus Level 5.2 MG/DL (2.5-4.9) H Magnesium Level 1.6 MG/DL (1.8-2.4) L Total Bilirubin 0.3 MG/DL (0.2-1.0) Aspartate Amino Transf (AST/SGOT) 62 U/L (15-37) H Alanine Aminotransferase (ALT/SGPT) 54 U/L (12-78) Alkaline Phosphatase 91 U/L (46-116) Total Protein 6.1 G/DL (6.4-8.2) L Albumin 2.3 G/DL (3.4-5.0) L Globulin 3.8 g/dL Albumin/Globulin Ratio 0.6 (1.0-2.7) L Microbiology Date/Time Source Procedure Growth Status 08/07/18 00:25 Blood Blood Culture - Preliminary NO GROWTH AFTER 48 HOURS Resulted 08/07/18 00:20 Blood Blood Culture - Preliminary NO GROWTH AFTER 48 HOURS Resulted 08/07/18 06:00 Sputum Gram Stain - Final Resulted 08/07/18 06:00 Sputum Culture - Preliminary Anupama Albicans Usual Respiratory Edyta Resulted Objective HEENT: Orally intubated with no JVD. LUNGS: Coarse rhonchi. She has a central line to the left subclavian. ABDOMEN: Soft. EXTREMITIES: No pitting edema. Shaji Bhatti MD Aug 09, 2018 15:43
--- NOTE | 2018-08-09 17:00 | NUR ---
NURSE NOTES: Cleaned and repositioned pt. Pt is still comatose. Dr Velarde at bedside, assessing the patient. Updated him with pt's current condition. Notified him with EEG order tomorrow morning. Will continue to monitor.
--- NOTE | 2018-08-09 18:06 | Neurology Progress Note ---
Interim History Interim History Interim History Ms Del Valle continues to be comatose. She cannot be aroused even on deep pain. She however is still triggering the ventilator rarely. As per her nurse there has been no improvement in her mental state. It has been >72 hours following the event and she has demonstrated no improvement in her neurologic function. Review of Systems Neuro Review of Systems Unable to obtain. Objective Physical Exam Last Vital Signs Date Time Temp Pulse Resp B/P (MAP) Pulse Ox O2 Delivery O2 Flow Rate FiO2 08/09/18 17:00 88 14 138/96 (110) 100 08/09/18 16:37 30 08/09/18 16:30 92.8 08/09/18 16:00 Mechanical Ventilator Laboratory Tests Test 08/09/18 04:05 08/09/18 08:45 Erythrocyte Sedimentation Rate 55 MM/HR (0-20) H C-Reactive Protein, Quantitative 8.2 mg/dL (0.00-0.90) H Random Vancomycin Level 20.1 ug/mL Anti-Nuclear Antibody Screen Pending White Blood Count 12.3 K/UL (4.8-10.8) H Red Blood Count 4.30 M/UL (4.20-5.40) Hemoglobin 9.7 G/DL (12.0-16.0) L Hematocrit 30.6 % (37.0-47.0) L Mean Corpuscular Volume 71 FL (80-99) L Mean Corpuscular Hemoglobin 22.4 PG (27.0-31.0) L Mean Corpuscular Hemoglobin Concent 31.6 G/DL (32.0-36.0) L Red Cell Distribution Width 19.1 % (11.6-14.8) H Platelet Count 144 K/UL (150-450) L Mean Platelet Volume 5.5 FL (6.5-10.1) L Neutrophils (%) (Auto) % (45.0-75.0) Lymphocytes (%) (Auto) % (20.0-45.0) Monocytes (%) (Auto) % (1.0-10.0) Eosinophils (%) (Auto) % (0.0-3.0) Basophils (%) (Auto) % (0.0-2.0) Differential Total Cells Counted 100 Neutrophils % (Manual) 95 % (45-75) H Lymphocytes % (Manual) 4 % (20-45) L Monocytes % (Manual) 1 % (1-10) Eosinophils % (Manual) 0 % (0-3) Basophils % (Manual) 0 % (0-2) Band Neutrophils 0 % (0-8) Platelet Estimate Decreased L Platelet Morphology Normal Anisocytosis 1+ Sodium Level 140 MMOL/L (136-145) Potassium Level 3.4 MMOL/L (3.5-5.1) L Chloride Level 104 MMOL/L (98-107) Carbon Dioxide Level 19 MMOL/L (21-32) L Anion Gap 17 mmol/L (5-15) H Blood Urea Nitrogen 45 mg/dL (7-18) H Creatinine 6.2 MG/DL (0.55-1.30) H Estimat Glomerular Filtration Rate 8.8 mL/min (>60) Glucose Level 367 MG/DL (74-106) #H Calcium Level 8.2 MG/DL (8.5-10.1) L Phosphorus Level 5.2 MG/DL (2.5-4.9) H Magnesium Level 1.6 MG/DL (1.8-2.4) L Total Bilirubin 0.3 MG/DL (0.2-1.0) Aspartate Amino Transf (AST/SGOT) 62 U/L (15-37) H Alanine Aminotransferase (ALT/SGPT) 54 U/L (12-78) Alkaline Phosphatase 91 U/L (46-116) Total Protein 6.1 G/DL (6.4-8.2) L Albumin 2.3 G/DL (3.4-5.0) L Globulin 3.8 g/dL Albumin/Globulin Ratio 0.6 (1.0-2.7) L Neurologic Exam Objective PHYSICAL EXAMINATION: GENERAL: She is a well-developed, well-nourished, black lady, lying in an ICU bed connected to a ventilator via an orotracheal tube. HEAD: Normocephalic and atraumatic. EENT: Examination benign. NECK: No neck rigidity was observed. NEUROLOGIC EXAMINATION: MENTAL STATUS EXAMINATION: She was unresponsive even to deep painful stimuli. Further mental status testing was impossible. SPEECH: Could not be tested. LANGUAGE: Could not be tested. CRANIAL NERVES EXAMINATION: II: She did not blink to threat. III, IV & : The external ocular movements were absent on oculocephalic maneuvers. The pupils were 6 mm in diameter and nonreactive to light. V & VII: The corneal reflexes were absent bilaterally. VIII: She did not respond to sounds and had no nystagmus. IX & X: The gag reflex was absent on manipulating the endotracheal tube. XI: The sternocleidomastoids and trapezii did not function. XII: Could not be tested. MOTOR SYSTEM: The tone was flaccid in all four extremities. Examination of muscle mass revealed no focal wasting. Examination of power was impossible to perform because even on applying deep painful stimuli no movements were seen. SENSORY EXAMINATION: She did not respond to deep pain. REFLEXES: 1+ and bilaterally symmetrical at the biceps, triceps, and brachioradialis, 0 at both knees, and ankles. The plantar responses were mute bilaterally. COORDINATION, STANCE & GAIT: Could not be tested. Impression/Recommendations Diagnostic Impression 1. Ms. Shruti Del Valle is a 43-year-old, black lady, of unknown handedness, who does have a past history of rheumatoid arthritis, who was hospitalized for a one -week history of headache and stiff neck associated with hyponatremia and a urinary tract infection. She was treated with antibiotics and on 08/06/2018, she had a pulseless electrical activity, cardiopulmonary arrest. She was started on CPR immediately and within five minutes a pulse and blood pressure could be obtained. She was then intubated, artificially ventilated, and moved to the ICU. She has been unresponsive ever since. 2. She continues to be comatose. She cannot be aroused even on deep pain. She however is still triggering the ventilator rarely. As per her nurse there has been no improvement in her mental state. It has been >72 hours following the event and she has demonstrated no improvement in her neurologic function. 3. On neurological examination, at this time, she has significant global cerebral dysfunction with a lack of cortical function and the only brainstem function being rare triggering the ventilator. 4. An EEG performed on 08/06/2018 revealed the lack of electrical cerebral activity at gains as high as 2 microvolts per mm. 5. A CT scan of the brain performed on 08/06/2018 revealed nonspecific diffuse cerebral edema with effacement of CSF containing spaces and decreased lomeli- white differentiation. 6. Her laboratory data on my initial evaluation revealed a WBC count elevated at 11,300, an anemia with a hemoglobin of 11.9 G. an arterial blood gas with a pH of 7.58, pCO2 of 22, and pO2 of 176. A chemistry panel with a sodium of 133 , BUN at 30, and creatinine at 2.9. A troponin elevated to 0.083, BNP elevated at 1053, and a low albumin at 2.5. Her last urinalysis performed on 08/04/2018 revealed 2+ leukocyte esterase, too numerous to count red blood cells, and 2-4 white blood cells per high-power field. 8. The patient's history, neurological examination, CT scan findings and EEG are most compatible with cardiopulmonary arrest associated with pulseless electrical activity that lasted for approximately five minutes followed by the patient being in an unresponsive state. These findings are consistent with a significant and severe anoxic/ischemic encephalopathy. 9. The prognosis for recovery of neurologic function is dismal, as there has been no improvement in her neurologic function >72 hours following the cardio- pulmonary arrest. Recommendations 1. Continue present management. 2. Continue to support the patient's cardiorespiratory function. 3. Repeat EEG to evaluate degree of cerebral function. 4. Observe. Ag Velarde M.D., M.S.P.H. Ag Velarde MD Aug 09, 2018 18:05
--- NOTE | 2018-08-09 18:24 | Infectious Diseases Prog Note ---
Assessment/Plan Problems: (1) Headache Assessment & Plan: with neck stiffness , meningitis VS RA flare , continue zosyn empirically since responded well , off vancomycin since supra therapeutic , monitor level . on steroids for RA flare by rheumatology (2) fever, tachy cardia Assessment & Plan: no evidence of sepsis or source of infection so far , could be RA flare, repeated blood culture and urine culture is negative so far , repeated CXR no new infiltrates, continue zosyn empirically. await repeated blood culture on 08/06 (3) Rheumatoid arthritis flare Assessment & Plan: possible with fever, and high RF , received steroids , recommend rheumatology eval (4) UTI (urinary tract infection) Assessment & Plan: due to proteus mirabilis , already on zosyn now to cover for sepsis too, repeated urine culture is pending (5) SIADH (syndrome of inappropriate ADH production) Assessment & Plan: continue fluids restriction , renal is following (6) Cardiac arrest Assessment & Plan: due to PEA , was intubated and started on mechanical ventilation and pressors and transferred to ICU. cardiology is following (7) Anoxic encephalopathy Assessment & Plan: with diffuse brain edema and poor activities on EEG , poor prognosis overall , neurology is following . D/W family at bedside Subjective ROS Limited/Unobtainable: Yes Allergies: Coded Allergies: No Known Allergies (Unverified , 07/30/18) Subjective she was still intubated on mechanical ventilation , in ICU, with dilated and fixed pupils , unresponsive , S/P CODE BLUE due to PEA. no fever or chills, no secretions from ET tube , hypotensive on pressors Objective Vital Signs Last 24 Hour Vital Signs Date Time Temp Pulse Resp B/P (MAP) Pulse Ox O2 Delivery O2 Flow Rate FiO2 08/09/18 17:00 88 14 138/96 (110) 100 08/09/18 16:37 85 14 30 08/09/18 16:30 92.8 86 14 106/80 (89) 100 08/09/18 16:28 88 08/09/18 16:15 81 14 150/104 (119) 100 08/09/18 16:00 79 14 136/92 (107) 100 08/09/18 16:00 30 08/09/18 16:00 Mechanical Ventilator 08/09/18 16:00 132/94 08/09/18 15:45 77 14 158/102 (120) 100 08/09/18 15:30 77 15 121/94 (103) 100 08/09/18 15:15 77 14 131/106 (114) 100 08/09/18 15:06 79 14 30 08/09/18 15:00 131/103 08/09/18 15:00 81 15 111/80 (90) 100 08/09/18 14:00 83 15 122/88 (99) 100 08/09/18 13:00 79 15 115/89 (98) 100 08/09/18 12:55 77 14 30 08/09/18 12:00 30 08/09/18 12:00 Mechanical Ventilator 08/09/18 12:00 79 08/09/18 12:00 98.7 82 16 131/79 (96) 100 08/09/18 11:00 76 14 30 08/09/18 11:00 80 15 110/89 (96) 100 08/09/18 10:00 83 15 115/89 (98) 100 08/09/18 09:00 79 15 94/60 (71) 100 08/09/18 08:34 80 14 30 08/09/18 08:00 30 08/09/18 08:00 Mechanical Ventilator 08/09/18 08:00 94/55 08/09/18 08:00 80 08/09/18 08:00 99.0 82 16 111/85 (94) 100 08/09/18 07:11 78 14 30 08/09/18 07:01 110/70 08/09/18 07:00 80 15 101/75 (84) 100 08/09/18 06:03 100/75 08/09/18 06:00 83 15 100/75 (83) 100 08/09/18 05:30 83 15 153/82 (105) 100 08/09/18 05:20 83 17 30 08/09/18 05:00 80 17 128/82 (97) 100 08/09/18 05:00 128/96 08/09/18 04:30 82 16 103/76 (85) 100 08/09/18 04:00 Mechanical Ventilator 08/09/18 04:00 132/91 08/09/18 04:00 99.0 82 16 132/85 (101) 100 08/09/18 04:00 30 08/09/18 04:00 82 08/09/18 03:30 83 16 130/82 (98) 100 08/09/18 03:14 81 17 30 08/09/18 03:00 82 16 126/84 (98) 100 08/09/18 03:00 126/84 08/09/18 02:30 82 17 128/82 (97) 100 08/09/18 02:00 85 18 120/65 (83) 100 08/09/18 02:00 142/89 08/09/18 01:30 86 17 112/65 (81) 100 08/09/18 01:14 78 14 30 08/09/18 01:00 82 16 122/78 (93) 100 08/09/18 01:00 122/78 08/09/18 00:30 75 16 113/79 (90) 100 08/09/18 00:00 Mechanical Ventilator 08/09/18 00:00 112/77 08/09/18 00:00 30 08/09/18 00:00 78 08/09/18 00:00 99.4 75 15 112/77 (89) 100 08/08/18 23:30 77 15 113/76 (88) 100 08/08/18 23:00 114/78 08/08/18 23:00 77 15 114/78 (90) 100 08/08/18 22:55 77 16 30 08/08/18 22:30 77 14 104/71 (82) 100 08/08/18 22:00 77 15 95/70 (78) 100 08/08/18 22:00 95/70 08/08/18 21:30 78 15 94/65 (75) 100 08/08/18 21:17 97/69 08/08/18 21:05 80 16 30 08/08/18 21:00 79 15 97/66 (76) 100 08/08/18 21:00 95/70 08/08/18 20:30 82 16 93/64 (74) 100 08/08/18 20:00 99.2 82 15 111/82 (92) 100 08/08/18 20:00 Mechanical Ventilator 08/08/18 20:00 111/82 08/08/18 20:00 111/82 08/08/18 20:00 82 08/08/18 19:30 85 15 110/77 (88) 100 08/08/18 19:19 84 14 30 Height (Feet): 5 Height (Inches): 5.00 Weight (Pounds): 144 General Appearance: WD/WN, no acute distress HEENT: normocephalic, atraumatic, anicteric, mucous membranes moist, PERRL, supple, no JVD Respiratory/Chest: chest wall non-tender, lungs clear, normal breath sounds, no respiratory distress, no accessory muscle use Cardiovascular: normal peripheral pulses, normal rate, regular rhythm, no gallop/murmur, no JVD Abdomen: no organomegaly, non distended, no mass, no scars, hypoactive bowel sounds, distended Extremities: no cyanosis, no clubbing Skin: no rash, no lesions, no ulcers Neurologic/Psychiatric: unresponsiveness Lymphatic: no neck adenopathy, no groin adenopathy Musculoskeletal: normal muscle bulk, no effusion Microbiology Date/Time Source Procedure Growth Status 08/07/18 00:25 Blood Blood Culture - Preliminary NO GROWTH AFTER 48 HOURS Resulted 08/07/18 00:20 Blood Blood Culture - Preliminary NO GROWTH AFTER 48 HOURS Resulted 08/07/18 06:00 Sputum Gram Stain - Final Resulted 08/07/18 06:00 Sputum Culture - Preliminary Anupama Albicans Usual Respiratory Edyta Resulted Laboratory Tests Test 08/09/18 04:05 08/09/18 08:45 Erythrocyte Sedimentation Rate 55 MM/HR (0-20) H C-Reactive Protein, Quantitative 8.2 mg/dL (0.00-0.90) H Random Vancomycin Level 20.1 ug/mL Anti-Nuclear Antibody Screen Pending White Blood Count 12.3 K/UL (4.8-10.8) H Red Blood Count 4.30 M/UL (4.20-5.40) Hemoglobin 9.7 G/DL (12.0-16.0) L Hematocrit 30.6 % (37.0-47.0) L Mean Corpuscular Volume 71 FL (80-99) L Mean Corpuscular Hemoglobin 22.4 PG (27.0-31.0) L Mean Corpuscular Hemoglobin Concent 31.6 G/DL (32.0-36.0) L Red Cell Distribution Width 19.1 % (11.6-14.8) H Platelet Count 144 K/UL (150-450) L Mean Platelet Volume 5.5 FL (6.5-10.1) L Neutrophils (%) (Auto) % (45.0-75.0) Lymphocytes (%) (Auto) % (20.0-45.0) Monocytes (%) (Auto) % (1.0-10.0) Eosinophils (%) (Auto) % (0.0-3.0) Basophils (%) (Auto) % (0.0-2.0) Differential Total Cells Counted 100 Neutrophils % (Manual) 95 % (45-75) H Lymphocytes % (Manual) 4 % (20-45) L Monocytes % (Manual) 1 % (1-10) Eosinophils % (Manual) 0 % (0-3) Basophils % (Manual) 0 % (0-2) Band Neutrophils 0 % (0-8) Platelet Estimate Decreased L Platelet Morphology Normal Anisocytosis 1+ Sodium Level 140 MMOL/L (136-145) Potassium Level 3.4 MMOL/L (3.5-5.1) L Chloride Level 104 MMOL/L (98-107) Carbon Dioxide Level 19 MMOL/L (21-32) L Anion Gap 17 mmol/L (5-15) H Blood Urea Nitrogen 45 mg/dL (7-18) H Creatinine 6.2 MG/DL (0.55-1.30) H Estimat Glomerular Filtration Rate 8.8 mL/min (>60) Glucose Level 367 MG/DL (74-106) #H Calcium Level 8.2 MG/DL (8.5-10.1) L Phosphorus Level 5.2 MG/DL (2.5-4.9) H Magnesium Level 1.6 MG/DL (1.8-2.4) L Total Bilirubin 0.3 MG/DL (0.2-1.0) Aspartate Amino Transf (AST/SGOT) 62 U/L (15-37) H Alanine Aminotransferase (ALT/SGPT) 54 U/L (12-78) Alkaline Phosphatase 91 U/L (46-116) Total Protein 6.1 G/DL (6.4-8.2) L Albumin 2.3 G/DL (3.4-5.0) L Globulin 3.8 g/dL Albumin/Globulin Ratio 0.6 (1.0-2.7) L Current Medications Medications (Trade) Dose Ordered Sig/Hilaria Route PRN Reason Start Time Stop Time Status Last Admin Dose Admin Acetaminophen (Tylenol) 650 mg Q6H PRN RECTAL Mild Pain/Temp > 100.5 08/06/18 13:38 09/05/18 13:37 Artificial Tears (Akwa-Tears) 2 drop BIDPRN PRN BOTH EYES Dry Eyes 08/06/18 13:39 09/05/18 13:38 Chlorhexidine Gluconate (Jeanie-Hex 2%) 1 applic DAILY@2000 TOPIC 08/09/18 20:00 09/08/18 19:59 Dexamethasone Sodium Phosphate (Decadron 4mg/ml vial) 10 mg Q8H IVP 08/09/18 08:00 09/08/18 07:59 08/09/18 17:08 Docusate Sodium (Colace) 100 mg THREE TIMES A DAY ORAL 08/06/18 18:00 08/30/18 17:59 08/09/18 17:41 Nitroglycerin (Ntg) 1 patch Q24H TDERMAL 08/07/18 08:00 09/06/18 07:59 Norepinephrine Bitartrate 8 mg/ Dextrose 500 ml @ 0 mls/hr Q24H IV 08/06/18 21:00 09/05/18 20:59 08/08/18 21:17 Ondansetron HCl (Zofran) 4 mg Q6H PRN IV Nausea & Vomiting 08/06/18 14:45 08/30/18 14:44 Pantoprazole (Protonix) 40 mg EVERY 12 HOURS IVP 08/06/18 21:00 09/05/18 20:59 08/09/18 08:51 Piperacillin Sod/ Tazobactam Sod 3.375 gm/Dextrose 110 ml @ 220 mls/hr Q12H IVPB 08/07/18 18:30 08/14/18 18:29 08/09/18 17:41 Sodium Bicarbonate 50 ml/ Sodium Chloride 1,050 ml @ 75 mls/hr Q14H IV 08/09/18 15:30 09/08/18 15:29 08/09/18 15:31 Kiel Aguillon M.D. Aug 09, 2018 18:24
--- NOTE | 2018-08-09 19:20 | NUR ---
HAND-OFF: Report given to MARY Rivera.
--- NOTE | 2018-08-09 19:30 | NUR ---
NURSE NOTES:Received pt in comatose condition , non responsive to pain stimuli, no gag reflex, pupils fix and dilated.5mm, all mds are aware, [facility] constantly calling , ST on the monitor bp stable afebrile , IVF 1/2NS + amp [id number] at 75 ml/hr infusing well through pts Left SVC. Site with drsg dry and intact, Bianchi to gravity with light yellowish colored urine 30-50 ml/hr. Tolerated Ngt fdg at this time at 30ml/hr. HOB kept elevated, on aspiration precaution. Skin is intact.- Will continue to monitor.
[2018-08-09] MEDS: Dyna-Hex 2% Top Sol 2oz TOPIC SCH (20:18)
[2018-08-09] MEDS: Norepinephrine Bitartrate 8 MG in D5W 500ml 492 ML IV SCH (21:00)
--- NOTE | 2018-08-09 21:00 | Progress Note ---
DATE: 08/09/2018 SUBJECTIVE: This is a 43-year-old female currently in the bed, nonverbal, in deep coma. Her father is at bedside. OBJECTIVE: VITAL SIGNS: The patient's blood pressure is 115/89, pulse 83, respirations 15, no fever, temperature 99. CHEST: Bilateral decreased breath sounds. CARDIOVASCULAR: Regular rhythm. ABDOMEN: Soft. EXTREMITIES: No CCE. LABORATORY DATA: White counts are 12,000; hemoglobin 9.7, hematocrit 33. Chemistry panel, BUN 45, creatinine 6.2, sodium 140, potassium 3.4. ASSESSMENT: 1. Acute renal failure, worsening. 2. Acute cardiopulmonary arrest. 3. Encephalopathy. 4. Generalized weakness. PLAN: We will currently continue current treatment. We will discuss with Nephrology for elevated BUN and creatinine. Continue ventilator. EEG. Andrew Stevens M.D. DR: Lesvia JOB#: [id number] CC:
--- NOTE | 2018-08-09 21:30 | NUR ---
NURSE NOTES: Turned to sides and suction minimal amt of whitish secretions- Lg family at bedside.- updated with pts condition.
--- NOTE | 2018-08-09 23:30 | NUR ---
NURSE NOTES:Collected urine for tox screen , also blood for drug screen drawn by tech.
[2018-08-10] VITALS (27 sets, daily range): BP systolic 94–173; BP diastolic 60–109
[2018-08-10] MEDS: Dexamethasone 4mg/ml vial IVP SCH ×3 (00:04→16:46)
--- NOTE | 2018-08-10 00:45 | NUR ---
NURSE NOTES:Pts HR ST 126/min Bp 173/109, Notify DR Bellamy.
[2018-08-10] MEDS: Nitroglycerin Patch 0.4mg TDERMAL SCH (01:09)
--- NOTE | 2018-08-10 01:12 | NUR ---
NURSE NOTES:NTG 0.4mg 1 patch was applied.
--- NOTE | 2018-08-10 02:00 | NUR ---
NURSE NOTES:Awaiting for Dr Bhatti for a call back.
--- NOTE | 2018-08-10 02:30 | NUR ---
NURSE NOTES:Called Dr samayoa with pts high bp and Tachycardia with orders of Cardizem drip at a constant rate of 10mg/hr
--- NOTE | 2018-08-10 02:45 | NUR ---
NURSE NOTES:Cardizem drip of 10mg/hr was started for pts bp- will continue to monitor.
[2018-08-10] MEDS ORDERED: dilTIAZem HCl 125mg/25ml Inj IVPB ONE (03:01)
--- NOTE | 2018-08-10 04:47 | NUR ---
NURSE NOTES:Pt on ST 140 , bp 132/81. Neuro unchanged. - On cardizem drip at 10mg/hr.
--- NOTE | 2018-08-10 07:19 | NUR ---
RESPIRATORY NOTE: received pt intubated on current vent orders with ETT size 7.5, placed 23cm at the lip. ETT is secured via anchor fast with no redness or skin tears visible around facial and neck area. bilateral clear/diminished b/s upon auscultation with scant amount of secretions when sxn. no resp distress noted at this time. alarms are set and audible with ambu bag at bedside. vent is plugged into the redoutlet as well. will cont to monitor throughout the day.
[2018-08-10] MEDS: Piperacillin/Tazobactam 3.375 GM in D5W 110 ML IVPB SCH ×2 (07:33→18:30)
[2018-08-10] MEDS: Sodium Bicarbonate 50 ML in 1/2 NS 1000ml 1,000 ML IV SCH ×2 (07:34→20:05)
--- NOTE | 2018-08-10 07:39 | NUR ---
HAND-OFF: Report given to Jose HERNANDEZ.
--- NOTE | 2018-08-10 08:00 | NUR ---
NURSE NOTES: Received pt from MARY Gibson. Pt is in comatose condition , non responsive to pain stimuli, no gag reflex, pupils fix and dilated.5mm, all mds are aware, [facility] constantly calling , ST on the monitor bp stable afebrile , IVF 1/2NS + amp nahc03 at 75 ml/hr infusing well through pts Left SVC. Site with drsg dry and intact, Bianchi to gravity with light yellowish colored urine 30-50 ml/hr. Tolerated Ngt fdg at this time at 30ml/hr. HOB kept elevated, on aspiration precaution. Skin is intact.- Will continue to monitor.
[2018-08-10 08:50] LABS: HEMATOCRIT 29.2 % (37.0-47.0); HEMOGLOBIN 9.3 G/DL (12.0-16.0); MEAN CORPUSCULAR VOLUME 71 FL (80-99); PLATELET COUNT 122 K/UL (150-450); RED BLOOD COUNT 4.14 M/UL (4.20-5.40); RED CELL DISTRIBUTION WIDTH 19.1 % (11.6-14.8)
[2018-08-10] MEDS: Pantoprazole Inj IVP SCH ×2 (09:01→20:48)
[2018-08-10] MEDS: Docusate 100mg cap ORAL SCH ×3 (09:01→18:00)
[2018-08-10] MEDS: Metoprolol 25mg tab NG SCH ×2 (09:02→18:00)
--- NOTE | 2018-08-10 09:14 | NUR ---
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 ACUTE CARDIO PULMONARY ARREST . ENCEPHALOPATHY VS: BP 110/70, P 135, T 97.8, RR 19, SpO2 99 on VENT AC 14, TV 500, PEEP 5.0, FiO2 30 WBC 17.0, RBC 4.14, Hgb 9.3, Hct 29.2, K 3.4, BUN 45, CR 6.2 Glucose 367, AST 62 IS:LOPRESSOR 25mg NG DILTIAZEM HCI 125ml IV SODIUM BICARBONATE/NS 1050 ml IV DEXAMETHASONE SODIUM PHOSPHATE 10mg IVP PIPERACILLIN SOD/TAZOBACTAM /D5 110ml IVPB NTG 1PATCH PROTONIX 40mg IVP ICU STATUS
[2018-08-10 09:18] LABS: ALANINE AMINOTRANSFERASE 51 U/L (12-78); ALBUMIN 2.4 G/DL (3.4-5.0); ALBUMIN/GLOBULIN RATIO 0.6 (1.0-2.7); ALKALINE PHOSPHATASE 130 U/L (46-116); ANION GAP 16 mmol/L (5-15); ASPARTATE AMINO TRANSFERASE 101 U/L (15-37); BILIRUBIN,TOTAL 0.5 MG/DL (0.2-1.0); BLOOD UREA NITROGEN 54 mg/dL (7-18); CALCIUM 8.9 MG/DL (8.5-10.1); CARBON DIOXIDE 22 MMOL/L (21-32); CHLORIDE 105 MMOL/L (98-107); CREATININE 6.6 MG/DL (0.55-1.30); PHOSPHORUS 5.3 MG/DL (2.5-4.9); SODIUM 143 MMOL/L (136-145)
[2018-08-10 09:28] LABS: POTASSIUM 4.2 MMOL/L (3.5-5.1)
--- NOTE | 2018-08-10 10:00 | NUR ---
NURSE NOTES: Turned to sides and suction minimal amt of whitish secretions- Lg family at bedside.- updated with pts condition.
--- NOTE | 2018-08-10 10:37 | Nephrology Progress Note ---
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 comatose repeat EEG flat Plan per Neuro advise since repeat EEG is flat ? brain Subjective ROS Limited/Unobtainable: Yes Objective Objective Last 24 Hour Vital Signs Date Time Temp Pulse Resp B/P (MAP) Pulse Ox O2 Delivery O2 Flow Rate FiO2 08/10/18 09:02 112 110/70 08/10/18 08:50 112 18 30 08/10/18 07:17 123 18 30 08/10/18 06:00 129 19 110/70 (83) 99 08/10/18 05:30 133 19 122/77 (92) 99 08/10/18 05:20 135 19 30 08/10/18 05:00 136 19 113/76 (88) 99 08/10/18 04:30 140 19 131/82 (98) 100 08/10/18 04:00 141 08/10/18 04:00 97.8 141 20 138/89 (105) 100 08/10/18 04:00 30 08/10/18 04:00 Mechanical Ventilator 08/10/18 03:30 140 20 139/91 (107) 100 08/10/18 03:10 139 20 30 08/10/18 03:09 141 145/100 08/10/18 03:00 140 20 145/93 (110) 100 08/10/18 02:00 138 20 140/98 (112) 100 08/10/18 01:37 134 19 30 08/10/18 01:09 179/106 08/10/18 01:00 132 20 160/103 (122) 100 08/10/18 00:00 121 08/10/18 00:00 30 08/10/18 00:00 97.0 126 21 173/109 (130) 100 08/10/18 00:00 Mechanical Ventilator 08/09/18 23:00 127 20 152/83 (106) 100 08/09/18 22:53 126 21 30 08/09/18 22:00 126 20 168/85 (112) 100 08/09/18 21:15 92 15 30 08/09/18 21:00 170/99 08/09/18 21:00 102 20 156/82 (106) 100 08/09/18 20:00 Mechanical Ventilator 08/09/18 20:00 30 08/09/18 20:00 97.8 107 18 164/82 (109) 100 08/09/18 19:13 113 18 30 08/09/18 18:00 93.7 107 18 145/97 (113) 100 08/09/18 17:00 88 14 138/96 (110) 100 08/09/18 16:37 85 14 30 08/09/18 16:30 92.8 86 14 106/80 (89) 100 08/09/18 16:28 88 08/09/18 16:15 81 14 150/104 (119) 100 08/09/18 16:00 79 14 136/92 (107) 100 08/09/18 16:00 30 08/09/18 16:00 Mechanical Ventilator 08/09/18 16:00 132/94 08/09/18 15:45 77 14 158/102 (120) 100 08/09/18 15:30 77 15 121/94 (103) 100 08/09/18 15:15 77 14 131/106 (114) 100 08/09/18 15:06 79 14 30 08/09/18 15:00 131/103 08/09/18 15:00 81 15 111/80 (90) 100 08/09/18 14:00 83 15 122/88 (99) 100 08/09/18 13:00 79 15 115/89 (98) 100 08/09/18 12:55 77 14 30 08/09/18 12:00 30 08/09/18 12:00 Mechanical Ventilator 08/09/18 12:00 79 08/09/18 12:00 98.7 82 16 131/79 (96) 100 08/09/18 11:00 76 14 30 08/09/18 11:00 80 15 110/89 (96) 100 Intake and Output 08/09/18 08/10/18 19:00 07:00 Intake Total 1426.87 ml 760 ml Output Total 580 ml 460 ml Balance 846.87 ml 300 ml Free Water 60 ml IV Total 1096.87 ml 340 ml Tube Feeding 330 ml 360 ml Output Urine Total 580 ml 460 ml Current Medications Medications (Trade) Dose Ordered Sig/Hilaria Route PRN Reason Start Time Stop Time Status Last Admin Dose Admin Acetaminophen (Tylenol) 650 mg Q6H PRN RECTAL Mild Pain/Temp > 100.5 08/06/18 13:38 09/05/18 13:37 Artificial Tears (Akwa-Tears) 2 drop BIDPRN PRN BOTH EYES Dry Eyes 08/06/18 13:39 09/05/18 13:38 Chlorhexidine Gluconate (Jeanie-Hex 2%) 1 applic DAILY@2000 TOPIC 08/09/18 20:00 09/08/18 19:59 08/09/18 20:18 Clonazepam (KlonoPIN) 1 mg Q2H PRN NG For High Blood Pressure 08/10/18 07:00 08/17/18 06:59 Dexamethasone Sodium Phosphate (Decadron 4mg/ml vial) 10 mg Q8H IVP 08/09/18 08:00 09/08/18 07:59 08/10/18 09:01 Diltiazem HCl 125 mg/Dextrose 125 ml @ 0 mls/hr Q24H IV 08/10/18 02:45 08/11/18 02:44 08/10/18 03:09 Docusate Sodium (Colace) 100 mg THREE TIMES A DAY ORAL 08/06/18 18:00 08/30/18 17:59 08/10/18 09:01 Metoprolol Tartrate (Lopressor) 25 mg BID NG 08/10/18 09:00 09/09/18 08:59 08/10/18 09:02 Nitroglycerin (Ntg) 1 patch Q24H TDERMAL 08/07/18 08:00 09/06/18 07:59 08/10/18 01:09 Norepinephrine Bitartrate 8 mg/ Dextrose 500 ml @ 0 mls/hr Q24H IV 08/06/18 21:00 09/05/18 20:59 08/08/18 21:17 Ondansetron HCl (Zofran) 4 mg Q6H PRN IV Nausea & Vomiting 08/06/18 14:45 08/30/18 14:44 Pantoprazole (Protonix) 40 mg EVERY 12 HOURS IVP 08/06/18 21:00 09/05/18 20:59 08/10/18 09:01 Piperacillin Sod/ Tazobactam Sod 3.375 gm/Dextrose 110 ml @ 220 mls/hr Q12H IVPB 08/07/18 18:30 08/14/18 18:29 08/10/18 07:33 Sodium Bicarbonate 50 ml/ Sodium Chloride 1,050 ml @ 75 mls/hr Q14H IV 08/09/18 15:30 09/08/18 15:29 08/10/18 07:34 Laboratory Tests 08/09/18 23:05: Opiates Screen [Pending], Oxycodone Level [Pending], Blood Methadone Screen [ Pending], Blood Propoxyphene Screen [Pending], Blood Barbiturates Screen [ Pending], Phencyclidine (PCP) Screen [Pending], Amphetamines Screen [Pending], Benzodiazepines Screen [Pending], Blood Cocaine/Metabolite Screen [Pending], Marijuana (THC) Screen [Pending], Blood Drug Screen Comment [Pending] 08/09/18 23:15: Phencyclidine (PCP) Screen Negative, Urine Opiates Screen Negative, Urine Barbiturates Screen Negative, Urine Amphetamines Screen Negative, Urine Benzodiazepines Screen Negative, Urine Cocaine Screen Negative, Urine Marijuana (THC) Screen Negative 08/10/18 08:20: White Blood Count 17.0H, Red Blood Count 4.14L, Hemoglobin 9.3L, Hematocrit 29.2L, Mean Corpuscular Volume 71L, Mean Corpuscular Hemoglobin 22.6L, Mean Corpuscular Hemoglobin Concent 31.9L, Red Cell Distribution Width 19.1H, Platelet Count 122L, Mean Platelet Volume 6.6, Neutrophils (%) (Auto) , Lymphocytes (%) (Auto) , Monocytes (%) (Auto) , Eosinophils (%) (Auto) , Basophils (%) (Auto) , Differential Total Cells Counted 100, Neutrophils % ( Manual) 93H, Lymphocytes % (Manual) 5L, Monocytes % (Manual) 2, Eosinophils % ( Manual) 0, Basophils % (Manual) 0, Band Neutrophils 0, Platelet Estimate DecreasedL, Platelet Morphology Normal, Anisocytosis 1+, Microcytosis 1+, Sodium Level 143, Potassium Level 4.2, Chloride Level 105, Carbon Dioxide Level 22, Anion Gap 16H, Blood Urea Nitrogen 54H, Creatinine 6.6H, Estimat Glomerular Filtration Rate 8.2, Glucose Level 270H, Calcium Level 8.9, Phosphorus Level 5.3H, Magnesium Level 1.8, Total Bilirubin 0.5, Aspartate Amino Transf (AST/SGOT ) 101H, Alanine Aminotransferase (ALT/SGPT) 51, Alkaline Phosphatase 130H, C- Reactive Protein, Quantitative 12.5H, Pro-B-Type Natriuretic Peptide 1154H, Total Protein 6.4, Albumin 2.4L, Globulin 4.0, Albumin/Globulin Ratio 0.6L Height (Feet): 5 Height (Inches): 5.00 Weight (Pounds): 144 General Appearance: no apparent distress EENT: other - vent assist Cardiovascular: tachycardia Respiratory/Chest: decreased breath sounds Abdomen: soft Neurologic: other - comatose Objective no change Lio Ramsey MD Aug 10, 2018 10:37
--- NOTE | 2018-08-10 12:00 | NUR ---
NURSE NOTES: Currently increasing vent settings to meet criteria for apnea test so it can be performed. will continue plan of care.
--- NOTE | 2018-08-10 12:15 | Progress Note ---
DATE: 08/09/2018 SUBJECTIVE: The patient remained in coma, afebrile, hemodynamically stable, persistently tachycardic. PHYSICAL EXAMINATION: VITAL SIGNS: Blood pressure , pulse is 107, respirations are 18, temperature is . HEENT: Eyes were normal. ENT, mucous membranes were moist and intact. dilated. HEART: Normal sounds with regular beats. ABDOMEN: Soft and nontender with normal bowel sounds. EXTREMITIES: Warm without cyanosis, clubbing, or edema. LABORATORY AND DIAGNOSTIC DATA: Hemoglobin is 9.7, hematocrit 30.3 with MCV 71, WBC of 12.3, and platelets 144. BUN and creatinine 45 and 6.2 respectively. Sodium is 140, potassium , chloride 104, CO2 is 19. Creatinine increased from 4.7 to 6.2. . Total bilirubin . Albumin is 2.3 and total protein is 6.1. IMPRESSION AND PLAN: The patient . Repeat laboratory tests will be done in the a.m. Rajendra Ayers M.D. DR: JOHNNY JOB#: [id number] CC:
--- NOTE | 2018-08-10 13:53 | NUR ---
RESPIRATORY NOTE: per MD, apnea test has been ordered. ABG taken to see baseline for apnea test criteria. RN notified to have vent settings change to get better baseline on ABG before beginning test. vent settings were changed at 1305 to AC 10 400 30% +5 and post ABG to follow.
--- NOTE | 2018-08-10 14:00 | NUR ---
NURSE NOTES: Family at bedside. turned, repositioned, oral care provided. will continue plan of care.
--- NOTE | 2018-08-10 15:45 | NUR ---
RD ASSESSMENT & RECOMMENDATIONS SEE CARE ACTIVITY FOR COMPLETE ASSESSMENT DAILY ESTIMATED NEEDS: Needs based on Critical Care, renal failure/ 63kg 22-28 kcals/kg 6701-4125 total kcals 0.6-1.0 g protein/kg 38-63 g total protein 25-30 mL/kg 6748-8453 total fluid mLs NUTRITION DIAGNOSIS: * Swallowing difficulty R/T respiratory status as evidenced by s/p code blue, orally intubated, on NGT feeding. * Altered nutrition related lab values R/T SIADH, clinical condition as evidenced by low Na (133-> wnl), low osmolality (290) elev creat (wnl -> 6.6 trend up), low K (3.3 -> wnl), low phos (2.2-> 5.3 now elev), elev BGs (270 367). CURRENT TF:Nepro @ 30ml/hr x 24 hrs ENTERAL NUTRITION RECOMMENDATIONS: Nepro @ 30ml/hr x 24 hrs to provide 720ml, 1296kcal, 58g prot, 521ml free water * WITHOUT HEMODYNAMIC STABILITY : rec trophic feeds of Nepro @ 10ml/hr x 24 hrs * WITH HEMODYNAMIC STABILITY :maintain current TF order-> meets 94% est kcal and 100% est prot needs -> increasing TF rate not recommended at this time due to worsening kidney fxn ADDITIONAL RECOMMENDATIONS: * CALIBRATED bedscale wt for accurate CBW * Monitor hemodynamic stabilty * Consider SSI: elev BGs, on TF * Monitor renal labs and lytes: worsening w/ creat 6.6, elev phos * Monitor POC: ? brain per .
--- NOTE | 2018-08-10 15:53 | Pulmonology Progress Note ---
Assessment/Plan Assessment/Plan 1. Status post cardiac arrest, shock 2. Severe anoxic encephalopathy, unresponsive. 3. Respiratory failure, on ventilator support. 4. Severe rheumatoid arthritis. 5. Possible sepsis. 6. Acute renal failure continue vent support, no longer assisting adjusted vent to correct PCO2 abx per ID renal adjusting fluids for oliguric acute renal failure repeat EEG reported to show no activity will do apnea test Subjective ROS Limited/Unobtainable: Yes Allergies: Coded Allergies: No Known Allergies (Unverified , 07/30/18) Objective Last 24 Hour Vital Signs Date Time Temp Pulse Resp B/P (MAP) Pulse Ox O2 Delivery O2 Flow Rate FiO2 08/10/18 15:05 103 14 30 08/10/18 13:38 103 14 30 08/10/18 11:00 105 19 127/89 (102) 99 08/10/18 10:52 108 18 30 08/10/18 10:00 109 19 99/62 (74) 99 08/10/18 09:02 112 110/70 08/10/18 09:00 111 19 115/70 (85) 99 08/10/18 08:50 112 18 30 08/10/18 08:00 30 08/10/18 08:00 97.7 106 20 122/89 (100) 100 08/10/18 08:00 113 08/10/18 08:00 Mechanical Ventilator 08/10/18 07:17 123 18 30 08/10/18 07:00 110 19 131/70 (90) 99 08/10/18 06:00 129 19 110/70 (83) 99 08/10/18 05:30 133 19 122/77 (92) 99 08/10/18 05:20 135 19 30 08/10/18 05:00 136 19 113/76 (88) 99 08/10/18 04:30 140 19 131/82 (98) 100 08/10/18 04:00 141 08/10/18 04:00 97.8 141 20 138/89 (105) 100 08/10/18 04:00 30 08/10/18 04:00 Mechanical Ventilator 08/10/18 03:30 140 20 139/91 (107) 100 08/10/18 03:10 139 20 30 08/10/18 03:09 141 145/100 08/10/18 03:00 140 20 145/93 (110) 100 08/10/18 02:00 138 20 140/98 (112) 100 08/10/18 01:37 134 19 30 08/10/18 01:09 179/106 08/10/18 01:00 132 20 160/103 (122) 100 08/10/18 00:00 121 08/10/18 00:00 30 08/10/18 00:00 97.0 126 21 173/109 (130) 100 08/10/18 00:00 Mechanical Ventilator 08/09/18 23:00 127 20 152/83 (106) 100 08/09/18 22:53 126 21 30 08/09/18 22:00 126 20 168/85 (112) 100 08/09/18 21:15 92 15 30 08/09/18 21:00 170/99 08/09/18 21:00 102 20 156/82 (106) 100 08/09/18 20:00 Mechanical Ventilator 08/09/18 20:00 30 08/09/18 20:00 97.8 107 18 164/82 (109) 100 08/09/18 19:13 113 18 30 08/09/18 18:00 93.7 107 18 145/97 (113) 100 08/09/18 17:00 88 14 138/96 (110) 100 08/09/18 16:37 85 14 30 08/09/18 16:30 92.8 86 14 106/80 (89) 100 08/09/18 16:28 88 08/09/18 16:15 81 14 150/104 (119) 100 08/09/18 16:00 79 14 136/92 (107) 100 08/09/18 16:00 30 08/09/18 16:00 Mechanical Ventilator 08/09/18 16:00 132/94 Intake and Output 08/09/18 08/10/18 19:00 07:00 Intake Total 1426.87 ml 760 ml Output Total 580 ml 460 ml Balance 846.87 ml 300 ml Free Water 60 ml IV Total 1096.87 ml 340 ml Tube Feeding 330 ml 360 ml Output Urine Total 580 ml 460 ml Objective unresponsive General Appearance: no acute distress HEENT: normocephalic Respiratory/Chest: lungs clear Cardiovascular: normal rate Abdomen: soft, non tender Laboratory Tests 08/09/18 23:05: Opiates Screen [Pending], Oxycodone Level [Pending], Blood Methadone Screen [ Pending], Blood Propoxyphene Screen [Pending], Blood Barbiturates Screen [ Pending], Phencyclidine (PCP) Screen [Pending], Amphetamines Screen [Pending], Benzodiazepines Screen [Pending], Blood Cocaine/Metabolite Screen [Pending], Marijuana (THC) Screen [Pending], Blood Drug Screen Comment [Pending] 08/09/18 23:15: Phencyclidine (PCP) Screen Negative, Urine Opiates Screen Negative, Urine Barbiturates Screen Negative, Urine Amphetamines Screen Negative, Urine Benzodiazepines Screen Negative, Urine Cocaine Screen Negative, Urine Marijuana (THC) Screen Negative 08/10/18 08:20: White Blood Count 17.0H, Red Blood Count 4.14L, Hemoglobin 9.3L, Hematocrit 29.2L, Mean Corpuscular Volume 71L, Mean Corpuscular Hemoglobin 22.6L, Mean Corpuscular Hemoglobin Concent 31.9L, Red Cell Distribution Width 19.1H, Platelet Count 122L, Mean Platelet Volume 6.6, Neutrophils (%) (Auto) , Lymphocytes (%) (Auto) , Monocytes (%) (Auto) , Eosinophils (%) (Auto) , Basophils (%) (Auto) , Differential Total Cells Counted 100, Neutrophils % ( Manual) 93H, Lymphocytes % (Manual) 5L, Monocytes % (Manual) 2, Eosinophils % ( Manual) 0, Basophils % (Manual) 0, Band Neutrophils 0, Platelet Estimate DecreasedL, Platelet Morphology Normal, Anisocytosis 1+, Microcytosis 1+, Sodium Level 143, Potassium Level 4.2, Chloride Level 105, Carbon Dioxide Level 22, Anion Gap 16H, Blood Urea Nitrogen 54H, Creatinine 6.6H, Estimat Glomerular Filtration Rate 8.2, Glucose Level 270H, Calcium Level 8.9, Phosphorus Level 5.3H, Magnesium Level 1.8, Total Bilirubin 0.5, Aspartate Amino Transf (AST/SGOT ) 101H, Alanine Aminotransferase (ALT/SGPT) 51, Alkaline Phosphatase 130H, C- Reactive Protein, Quantitative 12.5H, Pro-B-Type Natriuretic Peptide 1154H, Total Protein 6.4, Albumin 2.4L, Globulin 4.0, Albumin/Globulin Ratio 0.6L Current Medications Medications (Trade) Dose Ordered Sig/Hilaria Route PRN Reason Start Time Stop Time Status Last Admin Dose Admin Acetaminophen (Tylenol) 650 mg Q6H PRN RECTAL Mild Pain/Temp > 100.5 08/06/18 13:38 09/05/18 13:37 Artificial Tears (Akwa-Tears) 2 drop BIDPRN PRN BOTH EYES Dry Eyes 08/06/18 13:39 09/05/18 13:38 Chlorhexidine Gluconate (Jeanie-Hex 2%) 1 applic DAILY@2000 TOPIC 08/09/18 20:00 09/08/18 19:59 08/09/18 20:18 Clonazepam (KlonoPIN) 1 mg Q2H PRN NG For High Blood Pressure 08/10/18 07:00 08/17/18 06:59 Dexamethasone Sodium Phosphate (Decadron 4mg/ml vial) 10 mg Q8H IVP 08/09/18 08:00 09/08/18 07:59 08/10/18 09:01 Diltiazem HCl 125 mg/Dextrose 125 ml @ 0 mls/hr Q24H IV 08/10/18 02:45 08/11/18 02:44 08/10/18 03:09 Docusate Sodium (Colace) 100 mg THREE TIMES A DAY ORAL 08/06/18 18:00 08/30/18 17:59 08/10/18 09:01 Metoprolol Tartrate (Lopressor) 25 mg BID NG 08/10/18 09:00 09/09/18 08:59 08/10/18 09:02 Nitroglycerin (Ntg) 1 patch Q24H TDERMAL 08/07/18 08:00 09/06/18 07:59 08/10/18 01:09 Norepinephrine Bitartrate 8 mg/ Dextrose 500 ml @ 0 mls/hr Q24H IV 08/06/18 21:00 09/05/18 20:59 08/08/18 21:17 Ondansetron HCl (Zofran) 4 mg Q6H PRN IV Nausea & Vomiting 08/06/18 14:45 08/30/18 14:44 Pantoprazole (Protonix) 40 mg EVERY 12 HOURS IVP 08/06/18 21:00 09/05/18 20:59 08/10/18 09:01 Piperacillin Sod/ Tazobactam Sod 3.375 gm/Dextrose 110 ml @ 220 mls/hr Q12H IVPB 08/07/18 18:30 08/14/18 18:29 08/10/18 07:33 Sodium Bicarbonate 50 ml/ Sodium Chloride 1,050 ml @ 75 mls/hr Q14H IV 08/09/18 15:30 09/08/18 15:29 08/10/18 07:34 Je Kelly MD Aug 10, 2018 15:53
--- NOTE | 2018-08-10 16:15 | Cardiac Electrophysiology PN ---
Assessment/Plan Assessment/Plan 1. Status post PEA and cardiopulmonary arrest. The patient had episodes of Wenckebach and then 2:1 block prior to the event makes me think that the patient probably had respiratory arrest first prior to her cardiac event. Her troponin is only marginally elevated, likely due to CPR. FU troponins were negative. Echo EF 50% to 55% on August 06, 2018. 2. Atrial fibrillation with rapid ventricular response. This was transient after her CPR. Currently in sinus rhythm. The patient off any beta-kyle at this point. 3. Hypotension. Off Levophed. On broad-spectrum IV antibiotics. Etiology remains unclear. Actually was hypertensive and tachycardic and started on Cardizem drip that now changed to Lopressor 25 bid 4. Altered mental status. Her initial head CT on July 31, 2018 shows hydrocephalus and repeat head CT showed evidence of severe and diffuse cerebral edema. EEG Flat line. Further evaluation by Dr. Velarde. 5. Respiratory failure, on ventilator per Dr. Kelly. 6. Renal failure. Further evaluation by Dr. Ramsey. 7. Likely aspiration pneumonia, on IV antibiotics. EULALIO RN and Dr Kelly Subjective Subjective In ICU unresponsive on the Vent.In SR. Was started on Cardizem drip for accelerated HTN that resolved. Now off Cardizem drip. Objective Last 24 Hour Vital Signs Date Time Temp Pulse Resp B/P (MAP) Pulse Ox O2 Delivery O2 Flow Rate FiO2 08/10/18 15:05 103 14 30 08/10/18 13:38 103 14 30 08/10/18 11:00 105 19 127/89 (102) 99 08/10/18 10:52 108 18 30 08/10/18 10:00 109 19 99/62 (74) 99 08/10/18 09:02 112 110/70 08/10/18 09:00 111 19 115/70 (85) 99 08/10/18 08:50 112 18 30 08/10/18 08:00 30 08/10/18 08:00 97.7 106 20 122/89 (100) 100 08/10/18 08:00 113 08/10/18 08:00 Mechanical Ventilator 08/10/18 07:17 123 18 30 08/10/18 07:00 110 19 131/70 (90) 99 08/10/18 06:00 129 19 110/70 (83) 99 08/10/18 05:30 133 19 122/77 (92) 99 08/10/18 05:20 135 19 30 08/10/18 05:00 136 19 113/76 (88) 99 08/10/18 04:30 140 19 131/82 (98) 100 08/10/18 04:00 141 08/10/18 04:00 97.8 141 20 138/89 (105) 100 08/10/18 04:00 30 08/10/18 04:00 Mechanical Ventilator 08/10/18 03:30 140 20 139/91 (107) 100 08/10/18 03:10 139 20 30 08/10/18 03:09 141 145/100 08/10/18 03:00 140 20 145/93 (110) 100 08/10/18 02:00 138 20 140/98 (112) 100 08/10/18 01:37 134 19 30 08/10/18 01:09 179/106 08/10/18 01:00 132 20 160/103 (122) 100 08/10/18 00:00 121 08/10/18 00:00 30 08/10/18 00:00 97.0 126 21 173/109 (130) 100 08/10/18 00:00 Mechanical Ventilator 08/09/18 23:00 127 20 152/83 (106) 100 08/09/18 22:53 126 21 30 08/09/18 22:00 126 20 168/85 (112) 100 08/09/18 21:15 92 15 30 08/09/18 21:00 170/99 08/09/18 21:00 102 20 156/82 (106) 100 08/09/18 20:00 Mechanical Ventilator 08/09/18 20:00 30 08/09/18 20:00 97.8 107 18 164/82 (109) 100 08/09/18 19:13 113 18 30 08/09/18 18:00 93.7 107 18 145/97 (113) 100 08/09/18 17:00 88 14 138/96 (110) 100 08/09/18 16:37 85 14 30 08/09/18 16:30 92.8 86 14 106/80 (89) 100 08/09/18 16:28 88 08/09/18 16:15 81 14 150/104 (119) 100 Intake and Output 08/09/18 08/10/18 19:00 07:00 Intake Total 1426.87 ml 760 ml Output Total 580 ml 460 ml Balance 846.87 ml 300 ml Free Water 60 ml IV Total 1096.87 ml 340 ml Tube Feeding 330 ml 360 ml Output Urine Total 580 ml 460 ml Laboratory Tests Test 08/09/18 23:05 08/09/18 23:15 08/10/18 08:20 Opiates Screen Pending Oxycodone Level Pending Blood Methadone Screen Pending Blood Propoxyphene Screen Pending Blood Barbiturates Screen Pending Phencyclidine (PCP) Screen Pending Negative (NEGATIVE) Amphetamines Screen Pending Benzodiazepines Screen Pending Blood Cocaine/Metabolite Screen Pending Marijuana (THC) Screen Pending Blood Drug Screen Comment Pending Urine Opiates Screen Negative (NEGATIVE) Urine Barbiturates Screen Negative (NEGATIVE) Urine Amphetamines Screen Negative (NEGATIVE) Urine Benzodiazepines Screen Negative (NEGATIVE) Urine Cocaine Screen Negative (NEGATIVE) Urine Marijuana (THC) Screen Negative (NEGATIVE) White Blood Count 17.0 K/UL (4.8-10.8) H Red Blood Count 4.14 M/UL (4.20-5.40) L Hemoglobin 9.3 G/DL (12.0-16.0) L Hematocrit 29.2 % (37.0-47.0) L Mean Corpuscular Volume 71 FL (80-99) L Mean Corpuscular Hemoglobin 22.6 PG (27.0-31.0) L Mean Corpuscular Hemoglobin Concent 31.9 G/DL (32.0-36.0) L Red Cell Distribution Width 19.1 % (11.6-14.8) H Platelet Count 122 K/UL (150-450) L Mean Platelet Volume 6.6 FL (6.5-10.1) Neutrophils (%) (Auto) % (45.0-75.0) Lymphocytes (%) (Auto) % (20.0-45.0) Monocytes (%) (Auto) % (1.0-10.0) Eosinophils (%) (Auto) % (0.0-3.0) Basophils (%) (Auto) % (0.0-2.0) Differential Total Cells Counted 100 Neutrophils % (Manual) 93 % (45-75) H Lymphocytes % (Manual) 5 % (20-45) L Monocytes % (Manual) 2 % (1-10) Eosinophils % (Manual) 0 % (0-3) Basophils % (Manual) 0 % (0-2) Band Neutrophils 0 % (0-8) Platelet Estimate Decreased L Platelet Morphology Normal Anisocytosis 1+ Microcytosis 1+ Sodium Level 143 MMOL/L (136-145) Potassium Level 4.2 MMOL/L (3.5-5.1) Chloride Level 105 MMOL/L (98-107) Carbon Dioxide Level 22 MMOL/L (21-32) Anion Gap 16 mmol/L (5-15) H Blood Urea Nitrogen 54 mg/dL (7-18) H Creatinine 6.6 MG/DL (0.55-1.30) H Estimat Glomerular Filtration Rate 8.2 mL/min (>60) Glucose Level 270 MG/DL (74-106) H Calcium Level 8.9 MG/DL (8.5-10.1) Phosphorus Level 5.3 MG/DL (2.5-4.9) H Magnesium Level 1.8 MG/DL (1.8-2.4) Total Bilirubin 0.5 MG/DL (0.2-1.0) Aspartate Amino Transf (AST/SGOT) 101 U/L (15-37) H Alanine Aminotransferase (ALT/SGPT) 51 U/L (12-78) Alkaline Phosphatase 130 U/L (46-116) H C-Reactive Protein, Quantitative 12.5 mg/dL (0.00-0.90) H Pro-B-Type Natriuretic Peptide 1154 pg/mL (0-125) H Total Protein 6.4 G/DL (6.4-8.2) Albumin 2.4 G/DL (3.4-5.0) L Globulin 4.0 g/dL Albumin/Globulin Ratio 0.6 (1.0-2.7) L Objective HEENT: Orally intubated with no JVD. LUNGS: Coarse rhonchi. She has a central line to the left subclavian. ABDOMEN: Soft. EXTREMITIES: No pitting edema. Shaji Bhatti MD Aug 10, 2018 16:15
--- NOTE | 2018-08-10 17:50 | NUR ---
NURSE NOTES: Apnea test performed- result is positive. Will inform Dr. Ramsey.
--- NOTE | 2018-08-10 17:57 | NUR ---
RESPIRATORY NOTE: performed apnea test on pt for 7 minutes around [address] Ramsey with another RT at bedside. Pt looked as though to have no chest rise. Spo2 showed 98-100%. ABG drawn while on CA-100% with pCO2 63.7 (see [facility] Apnea Test policy). Beth HERNANDEZ aware of findings and will notify
--- NOTE | 2018-08-10 18:15 | Neurology Progress Note ---
Interim History Interim History Interim History Ms Del Valle continues to be comatose. She cannot be aroused even on deep pain. She however is still triggering the ventilator rarely. As per her nurse there has been no improvement in her mental state. An apnea test was done earlier and no spontaneous respirations were noted for 5 minutes. She has demonstrated no improvement in her neurologic function > 4 days post- event. Review of Systems Neuro Review of Systems Unable to obtain. Objective Physical Exam Last Vital Signs Date Time Temp Pulse Resp B/P (MAP) Pulse Ox O2 Delivery O2 Flow Rate FiO2 08/10/18 17:16 95 12 30 08/10/18 17:00 99/80 (86) 99 08/10/18 16:00 98.2 08/10/18 16:00 Mechanical Ventilator Laboratory Tests Test 08/09/18 23:05 08/09/18 23:15 08/10/18 08:20 08/10/18 17:44 Opiates Screen Pending Oxycodone Level Pending Blood Methadone Screen Pending Blood Propoxyphene Screen Pending Blood Barbiturates Screen Pending Phencyclidine (PCP) Screen Pending Negative (NEGATIVE) Amphetamines Screen Pending Benzodiazepines Screen Pending Blood Cocaine/Metabolite Screen Pending Marijuana (THC) Screen Pending Blood Drug Screen Comment Pending Urine Opiates Screen Negative (NEGATIVE) Urine Barbiturates Screen Negative (NEGATIVE) Urine Amphetamines Screen Negative (NEGATIVE) Urine Benzodiazepines Screen Negative (NEGATIVE) Urine Cocaine Screen Negative (NEGATIVE) Urine Marijuana (THC) Screen Negative (NEGATIVE) White Blood Count 17.0 K/UL (4.8-10.8) H Red Blood Count 4.14 M/UL (4.20-5.40) L Hemoglobin 9.3 G/DL (12.0-16.0) L Hematocrit 29.2 % (37.0-47.0) L Mean Corpuscular Volume 71 FL (80-99) L Mean Corpuscular Hemoglobin 22.6 PG (27.0-31.0) L Mean Corpuscular Hemoglobin Concent 31.9 G/DL (32.0-36.0) L Red Cell Distribution Width 19.1 % (11.6-14.8) H Platelet Count 122 K/UL (150-450) L Mean Platelet Volume 6.6 FL (6.5-10.1) Neutrophils (%) (Auto) % (45.0-75.0) Lymphocytes (%) (Auto) % (20.0-45.0) Monocytes (%) (Auto) % (1.0-10.0) Eosinophils (%) (Auto) % (0.0-3.0) Basophils (%) (Auto) % (0.0-2.0) Differential Total Cells Counted 100 Neutrophils % (Manual) 93 % (45-75) H Lymphocytes % (Manual) 5 % (20-45) L Monocytes % (Manual) 2 % (1-10) Eosinophils % (Manual) 0 % (0-3) Basophils % (Manual) 0 % (0-2) Band Neutrophils 0 % (0-8) Platelet Estimate Decreased L Platelet Morphology Normal Anisocytosis 1+ Microcytosis 1+ Sodium Level 143 MMOL/L (136-145) Potassium Level 4.2 MMOL/L (3.5-5.1) Chloride Level 105 MMOL/L (98-107) Carbon Dioxide Level 22 MMOL/L (21-32) Anion Gap 16 mmol/L (5-15) H Blood Urea Nitrogen 54 mg/dL (7-18) H Creatinine 6.6 MG/DL (0.55-1.30) H Estimat Glomerular Filtration Rate 8.2 mL/min (>60) Glucose Level 270 MG/DL (74-106) H Calcium Level 8.9 MG/DL (8.5-10.1) Phosphorus Level 5.3 MG/DL (2.5-4.9) H Magnesium Level 1.8 MG/DL (1.8-2.4) Total Bilirubin 0.5 MG/DL (0.2-1.0) Aspartate Amino Transf (AST/SGOT) 101 U/L (15-37) H Alanine Aminotransferase (ALT/SGPT) 51 U/L (12-78) Alkaline Phosphatase 130 U/L (46-116) H C-Reactive Protein, Quantitative 12.5 mg/dL (0.00-0.90) H Pro-B-Type Natriuretic Peptide 1154 pg/mL (0-125) H Total Protein 6.4 G/DL (6.4-8.2) Albumin 2.4 G/DL (3.4-5.0) L Globulin 4.0 g/dL Albumin/Globulin Ratio 0.6 (1.0-2.7) L Arterial Blood pH 7.185 (7.350-7.450) Arterial Blood Partial Pressure CO2 63.7 mmHg (35.0-45.0) *H Arterial Blood Partial Pressure O2 148.9 mmHg (75.0-100.0) H Arterial Blood HCO3 23.5 mmol/L (22.0-26.0) Arterial Blood Oxygen Saturation 97.6 % (95-100) Arterial Blood Base Excess -5.2 (-2-2) L Clemente Test Positive Neurologic Exam Objective PHYSICAL EXAMINATION: GENERAL: She is a well-developed, well-nourished, black lady, lying in an ICU bed connected to a ventilator via an orotracheal tube. HEAD: Normocephalic and atraumatic. EENT: Examination benign. NECK: No neck rigidity was observed. NEUROLOGIC EXAMINATION: MENTAL STATUS EXAMINATION: She was unresponsive even to deep painful stimuli. Further mental status testing was impossible. SPEECH: Could not be tested. LANGUAGE: Could not be tested. CRANIAL NERVES EXAMINATION: II: She did not blink to threat. III, IV & : The external ocular movements were absent on oculocephalic maneuvers. The pupils were 6 mm in diameter and nonreactive to light. V & VII: The corneal reflexes were absent bilaterally. VIII: She did not respond to sounds and had no nystagmus. IX & X: The gag reflex was absent on manipulating the endotracheal tube. XI: The sternocleidomastoids and trapezii did not function. XII: Could not be tested. MOTOR SYSTEM: The tone was flaccid in all four extremities. Examination of muscle mass revealed no focal wasting. Examination of power was impossible to perform because even on applying deep painful stimuli no movements were seen. SENSORY EXAMINATION: She did not respond to deep pain. REFLEXES: 1+ and bilaterally symmetrical at the biceps, triceps, and brachioradialis, 0 at both knees, and ankles. The plantar responses were mute bilaterally. COORDINATION, STANCE & GAIT: Could not be tested. Impression/Recommendations Diagnostic Impression 1. Ms. Shruti Del Valle is a 43-year-old, black lady, of unknown handedness, who does have a past history of rheumatoid arthritis, who was hospitalized for a one -week history of headache and stiff neck associated with hyponatremia and a urinary tract infection. She was treated with antibiotics and on 08/06/2018, she had a pulseless electrical activity, cardiopulmonary arrest. She was started on CPR immediately and within five minutes a pulse and blood pressure could be obtained. She was then intubated, artificially ventilated, and moved to the ICU. She has been unresponsive ever since. 2. She continues to be comatose. She cannot be aroused even on deep pain. She however is still triggering the ventilator rarely. As per her nurse there has been no improvement in her mental state. An apnea test was done earlier and no spontaneous respirations were noted for 5 minutes. She has demonstrated no improvement in her neurologic function > 4 days post-event. 3. On neurological examination, at this time, she has significant global cerebral dysfunction with a lack of cortical function and the only brainstem function being rare triggering the ventilator. 4. An EEG performed on 08/06/2018 revealed the lack of electrical cerebral activity at gains as high as 2 microvolts per mm. 5. A CT scan of the brain performed on 08/06/2018 revealed nonspecific diffuse cerebral edema with effacement of CSF containing spaces and decreased lomeli- white differentiation. 6. Her laboratory data on my initial evaluation revealed a WBC count elevated at 11,300, an anemia with a hemoglobin of 11.9 G. an arterial blood gas with a pH of 7.58, pCO2 of 22, and pO2 of 176. A chemistry panel with a sodium of 133 , BUN at 30, and creatinine at 2.9. A troponin elevated to 0.083, BNP elevated at 1053, and a low albumin at 2.5. Her last urinalysis performed on 08/04/2018 revealed 2+ leukocyte esterase, too numerous to count red blood cells, and 2-4 white blood cells per high-power field. 8. The repeat EEG performed on 08/10/2018 revealed the lack of electrical cerebral activity at gains as high as 2 microvolts per mm. 9. The patient's history, neurological examination, CT scan findings and EEG are most compatible with cardiopulmonary arrest associated with pulseless electrical activity that lasted for approximately five minutes followed by the patient being in an unresponsive state. These findings are consistent with a significant and severe anoxic/ischemic encephalopathy. 10. She meets criteria for lack of cortical function but still has minimal brainstem function. 11. The prognosis for recovery of neurologic function is dismal, as there has been no improvement in her neurologic function >72 hours following the cardio- pulmonary arrest, she has no cortical brain dysfunction and the CT reveal severe brain injury. Recommendations 1. Continue present management. 2. Will discuss dismal prognosis with family. Ag Velarde M.D., M.S.P.H. Ag Velarde MD Aug 10, 2018 18:15
--- NOTE | 2018-08-10 18:29 | Infectious Diseases Prog Note ---
Assessment/Plan Problems: (1) Headache Assessment & Plan: with neck stiffness , meningitis VS RA flare , continue zosyn empirically since responded well , off vancomycin since supra therapeutic , monitor level . on steroids for RA flare by rheumatology (2) fever, tachy cardia Assessment & Plan: no evidence of sepsis or source of infection so far , could be RA flare, repeated blood culture and urine culture is negative so far , repeated CXR no new infiltrates, continue zosyn empirically. monitor cultures . (3) Rheumatoid arthritis flare Assessment & Plan: possible with fever, and high RF , received steroids , recommend rheumatology eval (4) UTI (urinary tract infection) Assessment & Plan: due to proteus mirabilis , already on zosyn now to cover for sepsis too, repeated urine culture is pending (5) SIADH (syndrome of inappropriate ADH production) Assessment & Plan: continue fluids restriction , renal is following (6) Cardiac arrest Assessment & Plan: due to PEA , was intubated and started on mechanical ventilation and pressors and transferred to ICU. cardiology is following (7) Anoxic encephalopathy Assessment & Plan: with diffuse brain edema and poor activities on EEG , poor prognosis overall , neurology is following . D/W family at bedside (8) Acute renal failure Assessment & Plan: suspect ATN due to code and hypotensive, continue hydration and blood pressure support, renal is following (9) Leukocytosis Assessment & Plan: suspect steroids driven , with negative blood culture so far , sputum culture grew gram positive cocci , will add zyvox to cover and order CXR , yeast is most likely contaminants. Subjective ROS Limited/Unobtainable: Yes Allergies: Coded Allergies: No Known Allergies (Unverified , 07/30/18) Subjective she was still intubated on mechanical ventilation , in ICU, with dilated and fixed pupils , unresponsive , S/P CODE BLUE due to PEA. failed another apnea test today. no fever or chills, no secretions from ET tube , hypotensive on pressors Objective Vital Signs Last 24 Hour Vital Signs Date Time Temp Pulse Resp B/P (MAP) Pulse Ox O2 Delivery O2 Flow Rate FiO2 08/10/18 18:00 95 93/80 08/10/18 17:16 95 12 30 08/10/18 17:00 105 19 99/80 (86) 99 08/10/18 16:00 101 08/10/18 16:00 98.2 101 20 98/79 (85) 100 08/10/18 16:00 30 08/10/18 16:00 Mechanical Ventilator 08/10/18 15:05 103 14 30 08/10/18 15:00 100 19 111/60 (77) 99 08/10/18 14:00 101 19 120/89 (99) 99 08/10/18 13:38 103 14 30 08/10/18 13:00 105 19 106/78 (87) 99 08/10/18 12:00 30 08/10/18 12:00 106 08/10/18 12:00 Mechanical Ventilator 08/10/18 12:00 98.0 103 20 100/60 (73) 100 08/10/18 11:00 105 19 127/89 (102) 99 08/10/18 10:52 108 18 30 08/10/18 10:00 109 19 99/62 (74) 99 08/10/18 09:02 112 110/70 08/10/18 09:00 111 19 115/70 (85) 99 08/10/18 08:50 112 18 30 08/10/18 08:00 30 08/10/18 08:00 97.7 106 20 122/89 (100) 100 08/10/18 08:00 113 08/10/18 08:00 Mechanical Ventilator 08/10/18 07:17 123 18 30 08/10/18 07:00 110 19 131/70 (90) 99 08/10/18 06:00 129 19 110/70 (83) 99 08/10/18 05:30 133 19 122/77 (92) 99 08/10/18 05:20 135 19 30 08/10/18 05:00 136 19 113/76 (88) 99 08/10/18 04:30 140 19 131/82 (98) 100 08/10/18 04:00 141 08/10/18 04:00 97.8 141 20 138/89 (105) 100 08/10/18 04:00 30 08/10/18 04:00 Mechanical Ventilator 08/10/18 03:30 140 20 139/91 (107) 100 08/10/18 03:10 139 20 30 08/10/18 03:09 141 145/100 08/10/18 03:00 140 20 145/93 (110) 100 08/10/18 02:00 138 20 140/98 (112) 100 08/10/18 01:37 134 19 30 08/10/18 01:09 179/106 08/10/18 01:00 132 20 160/103 (122) 100 08/10/18 00:00 121 08/10/18 00:00 30 08/10/18 00:00 97.0 126 21 173/109 (130) 100 08/10/18 00:00 Mechanical Ventilator 08/09/18 23:00 127 20 152/83 (106) 100 08/09/18 22:53 126 21 30 08/09/18 22:00 126 20 168/85 (112) 100 08/09/18 21:15 92 15 30 08/09/18 21:00 170/99 08/09/18 21:00 102 20 156/82 (106) 100 08/09/18 20:00 Mechanical Ventilator 08/09/18 20:00 30 08/09/18 20:00 97.8 107 18 164/82 (109) 100 08/09/18 19:13 113 18 30 Height (Feet): 5 Height (Inches): 5.00 Weight (Pounds): 144 General Appearance: WD/WN, no acute distress HEENT: normocephalic, atraumatic, no JVD Respiratory/Chest: chest wall non-tender, no respiratory distress, no accessory muscle use, decreased breath sounds Cardiovascular: normal peripheral pulses, normal rate, regular rhythm, no gallop/murmur, no JVD Abdomen: normal bowel sounds, no organomegaly, non distended, no mass, no scars Genitourinary: normal external genitalia Extremities: no cyanosis, no clubbing Skin: no rash, no lesions, no ulcers Neurologic/Psychiatric: unresponsiveness Lymphatic: no neck adenopathy, no groin adenopathy Musculoskeletal: normal muscle bulk, no effusion Laboratory Tests Test 08/09/18 23:05 08/09/18 23:15 08/10/18 08:20 08/10/18 17:44 Opiates Screen Pending Oxycodone Level Pending Blood Methadone Screen Pending Blood Propoxyphene Screen Pending Blood Barbiturates Screen Pending Phencyclidine (PCP) Screen Pending Negative (NEGATIVE) Amphetamines Screen Pending Benzodiazepines Screen Pending Blood Cocaine/Metabolite Screen Pending Marijuana (THC) Screen Pending Blood Drug Screen Comment Pending Urine Opiates Screen Negative (NEGATIVE) Urine Barbiturates Screen Negative (NEGATIVE) Urine Amphetamines Screen Negative (NEGATIVE) Urine Benzodiazepines Screen Negative (NEGATIVE) Urine Cocaine Screen Negative (NEGATIVE) Urine Marijuana (THC) Screen Negative (NEGATIVE) White Blood Count 17.0 K/UL (4.8-10.8) H Red Blood Count 4.14 M/UL (4.20-5.40) L Hemoglobin 9.3 G/DL (12.0-16.0) L Hematocrit 29.2 % (37.0-47.0) L Mean Corpuscular Volume 71 FL (80-99) L Mean Corpuscular Hemoglobin 22.6 PG (27.0-31.0) L Mean Corpuscular Hemoglobin Concent 31.9 G/DL (32.0-36.0) L Red Cell Distribution Width 19.1 % (11.6-14.8) H Platelet Count 122 K/UL (150-450) L Mean Platelet Volume 6.6 FL (6.5-10.1) Neutrophils (%) (Auto) % (45.0-75.0) Lymphocytes (%) (Auto) % (20.0-45.0) Monocytes (%) (Auto) % (1.0-10.0) Eosinophils (%) (Auto) % (0.0-3.0) Basophils (%) (Auto) % (0.0-2.0) Differential Total Cells Counted 100 Neutrophils % (Manual) 93 % (45-75) H Lymphocytes % (Manual) 5 % (20-45) L Monocytes % (Manual) 2 % (1-10) Eosinophils % (Manual) 0 % (0-3) Basophils % (Manual) 0 % (0-2) Band Neutrophils 0 % (0-8) Platelet Estimate Decreased L Platelet Morphology Normal Anisocytosis 1+ Microcytosis 1+ Sodium Level 143 MMOL/L (136-145) Potassium Level 4.2 MMOL/L (3.5-5.1) Chloride Level 105 MMOL/L (98-107) Carbon Dioxide Level 22 MMOL/L (21-32) Anion Gap 16 mmol/L (5-15) H Blood Urea Nitrogen 54 mg/dL (7-18) H Creatinine 6.6 MG/DL (0.55-1.30) H Estimat Glomerular Filtration Rate 8.2 mL/min (>60) Glucose Level 270 MG/DL (74-106) H Calcium Level 8.9 MG/DL (8.5-10.1) Phosphorus Level 5.3 MG/DL (2.5-4.9) H Magnesium Level 1.8 MG/DL (1.8-2.4) Total Bilirubin 0.5 MG/DL (0.2-1.0) Aspartate Amino Transf (AST/SGOT) 101 U/L (15-37) H Alanine Aminotransferase (ALT/SGPT) 51 U/L (12-78) Alkaline Phosphatase 130 U/L (46-116) H C-Reactive Protein, Quantitative 12.5 mg/dL (0.00-0.90) H Pro-B-Type Natriuretic Peptide 1154 pg/mL (0-125) H Total Protein 6.4 G/DL (6.4-8.2) Albumin 2.4 G/DL (3.4-5.0) L Globulin 4.0 g/dL Albumin/Globulin Ratio 0.6 (1.0-2.7) L Arterial Blood pH 7.185 (7.350-7.450) Arterial Blood Partial Pressure CO2 63.7 mmHg (35.0-45.0) *H Arterial Blood Partial Pressure O2 148.9 mmHg (75.0-100.0) H Arterial Blood HCO3 23.5 mmol/L (22.0-26.0) Arterial Blood Oxygen Saturation 97.6 % (95-100) Arterial Blood Base Excess -5.2 (-2-2) L Clemente Test Positive Current Medications Medications (Trade) Dose Ordered Sig/Hilaria Route PRN Reason Start Time Stop Time Status Last Admin Dose Admin Acetaminophen (Tylenol) 650 mg Q6H PRN RECTAL Mild Pain/Temp > 100.5 08/06/18 13:38 09/05/18 13:37 Artificial Tears (Akwa-Tears) 2 drop BIDPRN PRN BOTH EYES Dry Eyes 08/06/18 13:39 09/05/18 13:38 Chlorhexidine Gluconate (Jeanie-Hex 2%) 1 applic DAILY@2000 TOPIC 08/09/18 20:00 09/08/18 19:59 08/09/18 20:18 Clonazepam (KlonoPIN) 1 mg Q2H PRN NG For High Blood Pressure 08/10/18 07:00 08/17/18 06:59 Dexamethasone Sodium Phosphate (Decadron 4mg/ml vial) 10 mg Q8H IVP 08/09/18 08:00 09/08/18 07:59 08/10/18 16:46 Diltiazem HCl 125 mg/Dextrose 125 ml @ 0 mls/hr Q24H IV 08/10/18 02:45 08/11/18 02:44 08/10/18 03:09 Docusate Sodium (Colace) 100 mg THREE TIMES A DAY ORAL 08/06/18 18:00 08/30/18 17:59 08/10/18 09:01 Metoprolol Tartrate (Lopressor) 25 mg BID NG 08/10/18 09:00 09/09/18 08:59 08/10/18 09:02 Nitroglycerin (Ntg) 1 patch Q24H TDERMAL 08/07/18 08:00 09/06/18 07:59 08/10/18 01:09 Norepinephrine Bitartrate 8 mg/ Dextrose 500 ml @ 0 mls/hr Q24H IV 08/06/18 21:00 09/05/18 20:59 08/08/18 21:17 Ondansetron HCl (Zofran) 4 mg Q6H PRN IV Nausea & Vomiting 08/06/18 14:45 08/30/18 14:44 Pantoprazole (Protonix) 40 mg EVERY 12 HOURS IVP 08/06/18 21:00 09/05/18 20:59 08/10/18 09:01 Piperacillin Sod/ Tazobactam Sod 3.375 gm/Dextrose 110 ml @ 220 mls/hr Q12H IVPB 08/07/18 18:30 08/14/18 18:29 08/10/18 07:33 Sodium Bicarbonate 50 ml/ Sodium Chloride 1,050 ml @ 75 mls/hr Q14H IV 08/09/18 15:30 09/08/18 15:29 08/10/18 07:34 Kiel Aguillon M.D. Aug 10, 2018 18:29
--- NOTE | 2018-08-10 19:18 | NUR ---
HAND-OFF: Report given to MARY Caicedo.
--- NOTE | 2018-08-10 19:30 | NUR ---
NURSE NOTES: Received patient in bed with eyes closed, comatose at this time. Sinus rhythm on the monitor with HR 99. Orally intubated on Ac 12, Vt 500, peep 5 fio2 30%. Right nare NGT feeding Nepro @ 30 with no residual at this time. Left Subclavian TLC running 1/2 NS with 1 amp of HCO3 @ 75 cc/hr. Bianchi cath draining by gravity. Bed in lowest position, personal vehicle advisor rails upx3. No signs of distress noted. Will continue to monitor.
[2018-08-10] MEDS: Dyna-Hex 2% Top Sol 2oz TOPIC SCH (20:05)
[2018-08-10] MEDS: Norepinephrine Bitartrate 8 MG in D5W 500ml 492 ML IV SCH (20:50)
--- NOTE | 2018-08-10 21:30 | NUR ---
NURSE NOTES: Family at the bedside at this time. Patient turned and repositioned for comfort. No signs of distress noted. No neuro changed. Will continue with plan of care.
--- NOTE | 2018-08-10 22:44 | NUR ---
NURSE NOTES: MD Sweet at the bedside at this time. Showed him the latest EEG at this time. No new orders
--- NOTE | 2018-08-10 23:45 | Electroencephalogram ---
DATE OF PROCEDURE: 08/10/2018 REQUESTING PHYSICIANS: Andrew Stevens M.D. & Lio Ramsey M.D. READING PHYSICIAN: Ag Velarde M.D. PROCEDURE PERFORMED: EEG. HISTORY: This EEG was performed on a 43-year-old lady with a history of rheumatoid arthritis who had a cardiopulmonary arrest > 4 days ago and since then has been comatose with no clinical signs of cortical function. A prior EEG performed 4 days ago revealed the absence of electrical cerebral activity. The purpose of this EEG was to evaluate the patient for electrical cerebral activity greater than 72 hours following the event. TECHNICAL NOTE: This EEG was performed on a [employer] with electrodes placed on the scalp according to the International 10-20 system. A special montage with double distance electrodes was utilized. The EEG was technically satisfactory and was performed while the patient was in an unresponsive state. OBSERVATIONS: In an unresponsive state, no sign of electrical cerebral activity was seen at gains as high as 2 microvolts per millimeter using double distance electrodes. IMPRESSION: This is a severely abnormal EEG with absence of electrical cerebral activity. COMMENT: This EEG meets electroencephalographic criteria for electrical cerebral inactivity (ECI). Ag Velarde M.D., M.S.P.H. DR: KUSH JOB#: [id number]
[2018-08-11] VITALS (24 sets, daily range): BP systolic 136–173; BP diastolic 87–115
[2018-08-11] MEDS: Dexamethasone 4mg/ml vial IVP SCH ×3 (00:03→15:37)
--- NOTE | 2018-08-11 00:15 | Progress Note ---
DATE: 08/10/2018 SUBJECTIVE: This is young 43-year-old female who was on ventilator, on pressure support, is on ventilator, and has been deteriorated and the patient had a EEG, which is showing no activity. The patient's family, still they want her to continue on the ventilator. Discussed with mother, told her the prognosis is pretty minimal and the patient has no brain activity and her prognosis so far is deteriorating and poor prognosis. Neurology consult was obtained and waiting for final results for EEG and sleep apnea test. Discussed with Dr. Ramsey who will be the in charge for primary as a patient whole care at this time. Discussed with mother and father who was on bedside. Andrew Stevens M.D. DR: TIARRA JOB#: [id number] CC:
--- NOTE | 2018-08-11 00:59 | NUR ---
NURSE NOTES: [facility] called at this time. Informed them that patient is a DNR at this time. Spoke with Jostin. Wants to be called if family decides to withdraw care.
--- NOTE | 2018-08-11 03:00 | NUR ---
NURSE NOTES: CHG bath given at this time. Afebrile at this time. Turned and repositioned at this time. No neuro changes. Will continue to monitor
--- NOTE | 2018-08-11 04:41 | NUR ---
NURSE NOTES: Gave Clonazepam 1 mg tab for SBP >160. Will continue to monitor
--- NOTE | 2018-08-11 04:46 | NUR ---
Pt. remains intubated with a size 7.5 ett secured at 23cm john on mechanical ventilation AC 12/vt450/peep5/fio2.30 SpO2 been 100%. B/S clear suctioned scant clear thin secretions. No vent weaning due to patients' neurological status. Will continue to monitor. Addendum: 08/11/18 at 0517 by ESTEPHANIE PHIPPS RT VT400
--- NOTE | 2018-08-11 05:42 | NUR ---
NURSE NOTES: Patient tolerating feeding at this time. Bianchi cath draining by gravity. afebrile at this time. No neuro changes. Will continue with plan of care.
[2018-08-11] MEDS: Piperacillin/Tazobactam 3.375 GM in D5W 110 ML IVPB SCH ×2 (05:57→17:45)
--- NOTE | 2018-08-11 06:26 | NUR ---
Called MD Bhatti on regards to patient diastolic pressure being > 100. Current BP 160/109. awaiting call back
--- NOTE | 2018-08-11 06:35 | NUR ---
NURSE NOTES: MD Bhatti called back and he will be here to see the patient later on.
--- NOTE | 2018-08-11 07:01 | NUR ---
RESPIRATORY NOTE: Received patient on ordered vent settings. Patient endotracheal tube is patent and secured. No resp distress noted. Suctioned patient PRN. Vent alarms are on and audible. Vent is plugged into red outlet. Will monitor patient progress.
--- NOTE | 2018-08-11 07:20 | NUR ---
HAND-OFF: Report given to Sudarshan RN using SBAR. Notified her about PRN at this time.
--- NOTE | 2018-08-11 07:25 | NUR ---
NURSE NOTES: Received patient from Yvrose Caicedo. Pt is in comatose stage. Pt continued to be vent dependent @ setting A/C rate 12, tidal volume 400, PEEP 5, O2 30%. L subclavian TLC patent, running Zosyn 3.375 @ 27.5ml/hr, 0.45NS with 1 amp of Sodium Bicarb @ 75ml/hr, NS @ 5ml/hr. R nare NG tube patent, running Nepro @ 30ml/hr. Bianchi catheter patent, draining with gravity, output 50ml sana. will cont to monitor.
--- NOTE | 2018-08-11 07:40 | NUR ---
NURSE NOTES: Called and spoke with Ana Maria social security assessor about the edge sawyer and fathers concern in regards to patients condition.
--- NOTE | 2018-08-11 08:54 | Pulmonology Progress Note ---
Assessment/Plan Assessment/Plan 1. Status post cardiac arrest, shock 2. Severe anoxic encephalopathy, unresponsive. 3. Respiratory failure, on ventilator support. 4. Severe rheumatoid arthritis. 5. Possible sepsis. 6. Acute renal failure continue vent support has minimal spontaneous respirations observed by me spont RR 52, TV 15cc this indicates minimal brainstem activity DNR; prognosis nil family deciding on terminal extubation, I agree with this disc w RN, Dr Ramsey Subjective ROS Limited/Unobtainable: Yes Allergies: Coded Allergies: No Known Allergies (Unverified , 07/30/18) Objective Last 24 Hour Vital Signs Date Time Temp Pulse Resp B/P (MAP) Pulse Ox O2 Delivery O2 Flow Rate FiO2 08/11/18 08:00 Mechanical Ventilator 08/11/18 08:00 98.1 106 21 159/106 (123) 100 08/11/18 08:00 30 08/11/18 07:00 100 20 164/113 (130) 100 08/11/18 06:00 100 20 160/109 (126) 100 08/11/18 05:16 100 18 30 30 08/11/18 05:00 101 20 167/112 (130) 100 08/11/18 04:00 98.0 102 20 150/107 (121) 100 08/11/18 04:00 Mechanical Ventilator 08/11/18 04:00 101 08/11/18 04:00 30 08/11/18 03:22 102 19 30 30 08/11/18 03:00 103 20 173/113 (133) 100 08/11/18 02:00 102 20 150/102 (118) 100 08/11/18 01:27 102 19 30 30 08/11/18 01:00 102 19 141/99 (113) 100 08/11/18 00:00 Mechanical Ventilator 08/11/18 00:00 98.1 104 18 136/95 (109) 100 08/11/18 00:00 30 08/11/18 00:00 103 08/10/18 23:01 103 15 30 30 08/10/18 23:00 103 16 137/94 (108) 100 08/10/18 22:00 104 15 133/95 (108) 100 08/10/18 21:00 100 16 123/86 (98) 100 08/10/18 20:50 94/71 4/4/19 20:49 92 12 30 30 08/10/18 20:00 30 08/10/18 20:00 99 08/10/18 20:00 97.5 101 15 94/71 (79) 100 08/10/18 20:00 Mechanical Ventilator 08/10/18 19:29 96 12 30 30 08/10/18 19:00 101 19 105/69 (81) 99 08/10/18 18:00 103 19 101/80 (87) 99 08/10/18 18:00 95 93/80 08/10/18 17:16 95 12 30 08/10/18 17:00 105 19 99/80 (86) 99 08/10/18 16:00 101 08/10/18 16:00 98.2 101 20 98/79 (85) 100 08/10/18 16:00 30 08/10/18 16:00 Mechanical Ventilator 08/10/18 15:05 103 14 30 08/10/18 15:00 100 19 111/60 (77) 99 08/10/18 14:00 101 19 120/89 (99) 99 08/10/18 13:38 103 14 30 08/10/18 13:00 105 19 106/78 (87) 99 08/10/18 12:00 30 08/10/18 12:00 106 08/10/18 12:00 Mechanical Ventilator 08/10/18 12:00 98.0 103 20 100/60 (73) 100 08/10/18 11:00 105 19 127/89 (102) 99 08/10/18 10:52 108 18 30 08/10/18 10:00 109 19 99/62 (74) 99 08/10/18 09:02 112 110/70 08/10/18 09:00 111 19 115/70 (85) 99 Intake and Output 08/10/18 08/11/18 18:59 06:59 Intake Total 1200 ml 1290 ml Output Total 500 ml 765 ml Balance 700 ml 525 ml IV Total 840 ml 900 ml Tube Feeding 360 ml 360 ml Other 30 ml Output Urine Total 500 ml 765 ml # Bowel Movements 2 Objective unresponsive General Appearance: no acute distress HEENT: anicteric Respiratory/Chest: lungs clear Cardiovascular: normal rate Laboratory Tests 08/10/18 17:44: Arterial Blood pH 7.185*L, Arterial Blood Partial Pressure CO2 63.7*H, Arterial Blood Partial Pressure O2 148.9H, Arterial Blood HCO3 23.5, Arterial Blood Oxygen Saturation 97.6, Arterial Blood Base Excess -5.2L, Clemente Test Positive Current Medications Medications (Trade) Dose Ordered Sig/Hilaria Route PRN Reason Start Time Stop Time Status Last Admin Dose Admin Acetaminophen (Tylenol) 650 mg Q6H PRN RECTAL Mild Pain/Temp > 100.5 08/06/18 13:38 09/05/18 13:37 Artificial Tears (Akwa-Tears) 2 drop BIDPRN PRN BOTH EYES Dry Eyes 08/06/18 13:39 09/05/18 13:38 Chlorhexidine Gluconate (Jeanie-Hex 2%) 1 applic DAILY@2000 TOPIC 08/09/18 20:00 09/08/18 19:59 08/10/18 20:05 Clonazepam (KlonoPIN) 1 mg Q2H PRN NG For High Blood Pressure 08/10/18 07:00 08/17/18 06:59 08/11/18 04:53 Dexamethasone Sodium Phosphate (Decadron 4mg/ml vial) 10 mg Q8H IVP 08/09/18 08:00 09/08/18 07:59 08/11/18 00:03 Docusate Sodium (Colace) 100 mg THREE TIMES A DAY ORAL 08/06/18 18:00 08/30/18 17:59 08/10/18 09:01 Linezolid 300 ml @ 300 mls/hr Q12HR IVPB 08/10/18 21:00 08/17/18 20:59 08/10/18 20:48 Metoprolol Tartrate (Lopressor) 25 mg BID NG 08/10/18 09:00 09/09/18 08:59 08/10/18 09:02 Nitroglycerin (Ntg) 1 patch Q24H TDERMAL 08/07/18 08:00 09/06/18 07:59 08/10/18 01:09 Norepinephrine Bitartrate 8 mg/ Dextrose 500 ml @ 0 mls/hr Q24H IV 08/06/18 21:00 09/05/18 20:59 08/08/18 21:17 Ondansetron HCl (Zofran) 4 mg Q6H PRN IV Nausea & Vomiting 08/06/18 14:45 08/30/18 14:44 Pantoprazole (Protonix) 40 mg EVERY 12 HOURS IVP 08/06/18 21:00 09/05/18 20:59 08/10/18 20:48 Piperacillin Sod/ Tazobactam Sod 3.375 gm/Dextrose 110 ml @ 220 mls/hr Q12H IVPB 08/07/18 18:30 08/14/18 18:29 08/11/18 05:57 Sodium Bicarbonate 50 ml/ Sodium Chloride 1,050 ml @ 75 mls/hr Q14H IV 08/09/18 15:30 09/08/18 15:29 08/10/18 20:05 Je Kelly MD Aug 11, 2018 08:54
--- NOTE | 2018-08-11 09:00 | NUR ---
NURSE NOTES: Dr. Aguillon notified about positive MRSA in sputum result, instructed to continue order of Zyvox. Will carry out order.
--- NOTE | 2018-08-11 09:30 | NUR ---
NURSE NOTES: Dr. Kelly and Dr Ramsey at bedside assessing pt, no further order at this time.
--- NOTE | 2018-08-11 09:35 | Nephrology Progress Note ---
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 members; father , 2 sons, female partner Based on EEG findings , yet minimal spontaneous brain stem activities it was explained that the prognosis is dismal they agreed with DNR . They also were going to decide regarding discontinuation of life support Subjective ROS Limited/Unobtainable: Yes Objective Objective Last 24 Hour Vital Signs Date Time Temp Pulse Resp B/P (MAP) Pulse Ox O2 Delivery O2 Flow Rate FiO2 08/11/18 08:00 Mechanical Ventilator 08/11/18 08:00 98.1 106 21 159/106 (123) 100 08/11/18 08:00 30 08/11/18 07:00 100 20 164/113 (130) 100 08/11/18 06:00 100 20 160/109 (126) 100 08/11/18 05:16 100 18 30 30 08/11/18 05:00 101 20 167/112 (130) 100 08/11/18 04:00 98.0 102 20 150/107 (121) 100 08/11/18 04:00 Mechanical Ventilator 08/11/18 04:00 101 08/11/18 04:00 30 08/11/18 03:22 102 19 30 30 08/11/18 03:00 103 20 173/113 (133) 100 08/11/18 02:00 102 20 150/102 (118) 100 08/11/18 01:27 102 19 30 30 08/11/18 01:00 102 19 141/99 (113) 100 08/11/18 00:00 Mechanical Ventilator 08/11/18 00:00 98.1 104 18 136/95 (109) 100 08/11/18 00:00 30 08/11/18 00:00 103 08/10/18 23:01 103 15 30 30 08/10/18 23:00 103 16 137/94 (108) 100 08/10/18 22:00 104 15 133/95 (108) 100 08/10/18 21:00 100 16 123/86 (98) 100 08/10/18 20:50 94/71 08/10/18 20:49 92 12 30 30 08/10/18 20:00 30 08/10/18 20:00 99 08/10/18 20:00 97.5 101 15 94/71 (79) 100 08/10/18 20:00 Mechanical Ventilator 08/10/18 19:29 96 12 30 30 08/10/18 19:00 101 19 105/69 (81) 99 08/10/18 18:00 103 19 101/80 (87) 99 08/10/18 18:00 95 93/80 08/10/18 17:16 95 12 30 08/10/18 17:00 105 19 99/80 (86) 99 08/10/18 16:00 101 08/10/18 16:00 98.2 101 20 98/79 (85) 100 08/10/18 16:00 30 08/10/18 16:00 Mechanical Ventilator 08/10/18 15:05 103 14 30 08/10/18 15:00 100 19 111/60 (77) 99 08/10/18 14:00 101 19 120/89 (99) 99 08/10/18 13:38 103 14 30 08/10/18 13:00 105 19 106/78 (87) 99 08/10/18 12:00 30 08/10/18 12:00 106 08/10/18 12:00 Mechanical Ventilator 08/10/18 12:00 98.0 103 20 100/60 (73) 100 08/10/18 11:00 105 19 127/89 (102) 99 08/10/18 10:52 108 18 30 08/10/18 10:00 109 19 99/62 (74) 99 Intake and Output 08/10/18 08/11/18 18:59 06:59 Intake Total 1200 ml 1290 ml Output Total 500 ml 765 ml Balance 700 ml 525 ml IV Total 840 ml 900 ml Tube Feeding 360 ml 360 ml Other 30 ml Output Urine Total 500 ml 765 ml # Bowel Movements 2 Laboratory Tests 08/10/18 17:44: Arterial Blood pH 7.185*L, Arterial Blood Partial Pressure CO2 63.7*H, Arterial Blood Partial Pressure O2 148.9H, Arterial Blood HCO3 23.5, Arterial Blood Oxygen Saturation 97.6, Arterial Blood Base Excess -5.2L, Clemente Test Positive Height (Feet): 5 Height (Inches): 5.00 Weight (Pounds): 144 General Appearance: no apparent distress EENT: other Cardiovascular: tachycardia Respiratory/Chest: decreased breath sounds Abdomen: soft Objective no change Lio Ramsey MD Aug 11, 2018 09:35
[2018-08-11] MEDS: Pantoprazole Inj IVP SCH ×2 (09:36→20:52)
[2018-08-11] MEDS: Docusate 100mg cap ORAL SCH ×3 (09:36→17:43)
[2018-08-11] MEDS: Metoprolol 25mg tab NG SCH ×2 (09:51→17:43)
[2018-08-11] MEDS: Nitroglycerin Patch 0.4mg TDERMAL SCH (09:51)
[2018-08-11] MEDS: Sodium Bicarbonate 50 ML in 1/2 NS 1000ml 1,000 ML IV SCH (10:10)
--- NOTE | 2018-08-11 10:10 | NUR ---
Social Service Note No family at bedside during morning rounds. SW discussed with Dr. Salinas. Per Dr. Salinas after evaluation from [facility], patient doesn't meet the criteria for brain . Family notified of grave prognosis. SW asked charge nurse to inform SW once family is at bedside. SW to provide support and to follow with treatment plan of care.
--- NOTE | 2018-08-11 10:11 | NUR ---
PUBLIC ADMINISTRATION TEACHERORDER PACKER SI:ACUTE RENAL FAILURE . ACUTE CARDIO PULMONARY ARREST . ENCEPHALOPATHY VS: BP 164/113, P 106, T 98.1, RR 21, SpO2 100 on VENT AC 12, TV 500, PEEP 5.0, FiO2 30 IS:LINEZOLID 300ml IVPB LOPRESSOR 25mg NG SODIUM BICARBONATE 1.50ml IV ZOSYN 110ml IVPB PROTONIX 40mg IVP ICU STATUS
--- NOTE | 2018-08-11 11:22 | NUR ---
NURSE NOTES: BP 168/115, HR 102 at this time, 0.1mg Clonidine given via NG tube.
--- NOTE | 2018-08-11 12:33 | Diagnostic Imaging Report ---
Indication: Cough Technique: One view of the chest Comparison: 08/06/2018 Findings: There is an endotracheal tube in good position. There is a nasogastric tube in good position. There is a left subclavian central venous catheter again demonstrated. There is slight obscuration left hemidiaphragm, could indicate some consolidation or atelectasis at the left lung base. The lungs and pleural spaces are otherwise clear Impression: Equivocal atelectasis or consolidation at the left lung base, new since prior exam of 08/06/2018. Otherwise unchanged
--- NOTE | 2018-08-11 12:38 | NUR ---
RADIOLOGY DEPT., CHEST X-RAY DONE.-P.DYE
--- NOTE | 2018-08-11 14:10 | NUR ---
NURSE NOTES: Pt changed position, tolerated well. Pt had a bowel movement, brown soft stool noted. Linen changed and pt cleaned.
--- NOTE | 2018-08-11 15:03 | Cardiac Electrophysiology PN ---
Assessment/Plan Assessment/Plan 1. Status post PEA and cardiopulmonary arrest. The patient had episodes of Wenckebach and then 2:1 block prior to the event makes me think that the patient probably had respiratory arrest first prior to her cardiac event. Her troponin is only marginally elevated, likely due to CPR. FU troponins were negative. Echo EF 50% to 55% on August 06, 2018. 2. Atrial fibrillation with rapid ventricular response. This was transient after her CPR. Currently in sinus rhythm. The patient off any beta-kyle at this point. 3. Hypotension. Off Levophed. On broad-spectrum IV antibiotics. Etiology remains unclear. 4. HTN. Cardizem drip changed to Lopressor 25 bid. Add Norvasc 5 bid and prn Clonidine 4. Altered mental status. Her initial head CT on July 31, 2018 shows hydrocephalus and repeat head CT showed evidence of severe and diffuse cerebral edema. EEG Flat line. Further evaluation by Dr. Velarde. 5. Respiratory failure, on ventilator per Dr. Kelly. 6. Renal failure. Further evaluation by Dr. Ramsey. 7. Likely aspiration pneumonia, on IV antibiotics. EULALIO RN Subjective Subjective In ICU unresponsive on the Vent.In SR. Objective Last 24 Hour Vital Signs Date Time Temp Pulse Resp B/P (MAP) Pulse Ox O2 Delivery O2 Flow Rate FiO2 08/11/18 14:01 101 20 144/106 (119) 100 08/11/18 13:23 158/104 08/11/18 13:01 100 20 30 30 08/11/18 13:00 98.1 102 20 158/104 (122) 100 08/11/18 12:00 30 08/11/18 12:00 Mechanical Ventilator 08/11/18 12:00 98.1 98 20 164/115 (131) 100 08/11/18 11:18 168/115 08/11/18 11:06 104 20 30 30 08/11/18 11:00 98.1 102 21 168/115 (132) 100 08/11/18 10:00 98.1 100 20 151/94 (113) 100 08/11/18 09:51 100 161/111 08/11/18 09:51 161/111 08/11/18 09:05 101 18 30 30 08/11/18 09:00 98.1 102 20 158/103 (121) 100 08/11/18 08:00 102 08/11/18 08:00 Mechanical Ventilator 08/11/18 08:00 98.1 106 21 159/106 (123) 100 08/11/18 08:00 30 08/11/18 07:01 99 18 30 30 08/11/18 07:00 100 20 164/113 (130) 100 08/11/18 06:00 100 20 160/109 (126) 100 08/11/18 05:16 100 18 30 30 08/11/18 05:00 101 20 167/112 (130) 100 08/11/18 04:00 98.0 102 20 150/107 (121) 100 08/11/18 04:00 Mechanical Ventilator 08/11/18 04:00 101 08/11/18 04:00 30 08/11/18 03:22 102 19 30 30 08/11/18 03:00 103 20 173/113 (133) 100 08/11/18 02:00 102 20 150/102 (118) 100 08/11/18 01:27 102 19 30 30 08/11/18 01:00 102 19 141/99 (113) 100 08/11/18 00:00 Mechanical Ventilator 08/11/18 00:00 98.1 104 18 136/95 (109) 100 08/11/18 00:00 30 08/11/18 00:00 103 08/10/18 23:01 103 15 30 30 08/10/18 23:00 103 16 137/94 (108) 100 08/10/18 22:00 104 15 133/95 (108) 100 08/10/18 21:00 100 16 123/86 (98) 100 08/10/18 20:50 94/71 08/10/18 20:49 92 12 30 30 08/10/18 20:00 30 08/10/18 20:00 99 08/10/18 20:00 97.5 101 15 94/71 (79) 100 08/10/18 20:00 Mechanical Ventilator 08/10/18 19:29 96 12 30 30 08/10/18 19:00 101 19 105/69 (81) 99 08/10/18 18:00 103 19 101/80 (87) 99 08/10/18 18:00 95 93/80 08/10/18 17:16 95 12 30 08/10/18 17:00 105 19 99/80 (86) 99 08/10/18 16:00 101 08/10/18 16:00 98.2 101 20 98/79 (85) 100 08/10/18 16:00 30 08/10/18 16:00 Mechanical Ventilator 08/10/18 15:05 103 14 30 Intake and Output 08/10/18 08/11/18 19:00 07:00 Intake Total 1265 ml 1290 ml Output Total 520 ml 760 ml Balance 745 ml 530 ml IV Total 905 ml 900 ml Tube Feeding 360 ml 360 ml Other 30 ml Output Urine Total 520 ml 760 ml # Bowel Movements 2 Laboratory Tests Test 08/10/18 17:44 Arterial Blood pH 7.185 (7.350-7.450) Arterial Blood Partial Pressure CO2 63.7 mmHg (35.0-45.0) *H Arterial Blood Partial Pressure O2 148.9 mmHg (75.0-100.0) H Arterial Blood HCO3 23.5 mmol/L (22.0-26.0) Arterial Blood Oxygen Saturation 97.6 % (95-100) Arterial Blood Base Excess -5.2 (-2-2) L Clemente Test Positive Objective HEENT: Orally intubated with no JVD. LUNGS: Coarse rhonchi. She has a central line to the left subclavian. ABDOMEN: Soft. EXTREMITIES: No pitting edema. Shaji Bhatti MD Aug 11, 2018 15:03
--- NOTE | 2018-08-11 15:44 | Neurology Progress Note ---
Interim History Interim History Interim History Ms Del Valle continues to be unresponsive. She cannot be aroused even on deep pain. She however is still triggering the ventilator rarely. There has been no improvement in her mental state. She has demonstrated no improvement in her neurologic function > 5 days post- event. Review of Systems Neuro Review of Systems Unable to obtain. Objective Physical Exam Last Vital Signs Date Time Temp Pulse Resp B/P (MAP) Pulse Ox O2 Delivery O2 Flow Rate FiO2 08/11/18 15:24 100 12 30 30 08/11/18 14:01 144/106 (119) 100 08/11/18 13:00 98.1 08/11/18 12:00 Mechanical Ventilator Laboratory Tests Test 08/10/18 17:44 Arterial Blood pH 7.185 (7.350-7.450) Arterial Blood Partial Pressure CO2 63.7 mmHg (35.0-45.0) *H Arterial Blood Partial Pressure O2 148.9 mmHg (75.0-100.0) H Arterial Blood HCO3 23.5 mmol/L (22.0-26.0) Arterial Blood Oxygen Saturation 97.6 % (95-100) Arterial Blood Base Excess -5.2 (-2-2) L Clemente Test Positive Neurologic Exam Objective PHYSICAL EXAMINATION: GENERAL: She is a well-developed, well-nourished, black lady, lying in an ICU bed connected to a ventilator via an orotracheal tube. HEAD: Normocephalic and atraumatic. EENT: Examination benign. NECK: No neck rigidity was observed. NEUROLOGIC EXAMINATION: MENTAL STATUS EXAMINATION: She was unresponsive even to deep painful stimuli. Further mental status testing was impossible. SPEECH: Could not be tested. LANGUAGE: Could not be tested. CRANIAL NERVES EXAMINATION: II: She did not blink to threat. III, IV & : The external ocular movements were absent on oculocephalic maneuvers. The pupils were 6 mm in diameter and nonreactive to light. V & VII: The corneal reflexes were absent bilaterally. VIII: She did not respond to sounds and had no nystagmus. IX & X: The gag reflex was absent on manipulating the endotracheal tube. XI: The sternocleidomastoids and trapezii did not function. XII: Could not be tested. MOTOR SYSTEM: The tone was flaccid in all four extremities. Examination of muscle mass revealed no focal wasting. Examination of power was impossible to perform because even on applying deep painful stimuli no movements were seen. SENSORY EXAMINATION: She did not respond to deep pain. REFLEXES: 1+ and bilaterally symmetrical at the biceps, triceps, and brachioradialis, 0 at both knees, and ankles. The plantar responses were mute bilaterally. COORDINATION, STANCE & GAIT: Could not be tested. Impression/Recommendations Diagnostic Impression 1. Ms. Shruti Del Valle is a 43-year-old, black lady, of unknown handedness, who does have a past history of rheumatoid arthritis, who was hospitalized for a one -week history of headache and stiff neck associated with hyponatremia and a urinary tract infection. She was treated with antibiotics and on 08/06/2018, she had a pulseless electrical activity, cardiopulmonary arrest. She was started on CPR immediately and within five minutes a pulse and blood pressure could be obtained. She was then intubated, artificially ventilated, and moved to the ICU. She has been unresponsive ever since. 2. She continues to be unresponsive. She cannot be aroused even on deep pain. She however is still triggering the ventilator rarely. There has been no improvement in her mental state. She has demonstrated no improvement in her neurologic function > 5 days post-event. 3. On neurological examination, at this time, she has significant global cerebral dysfunction with a lack of cortical function and the only brainstem function being rare triggering of the ventilator. 4. An EEG performed on 08/06/2018 revealed the lack of electrical cerebral activity at gains as high as 2 microvolts per mm. 5. A CT scan of the brain performed on 08/06/2018 revealed nonspecific diffuse cerebral edema with effacement of CSF containing spaces and decreased lomeli- white differentiation. 6. Her laboratory data on my initial evaluation revealed a WBC count elevated at 11,300, an anemia with a hemoglobin of 11.9 G. an arterial blood gas with a pH of 7.58, pCO2 of 22, and pO2 of 176. A chemistry panel with a sodium of 133 , BUN at 30, and creatinine at 2.9. A troponin elevated to 0.083, BNP elevated at 1053, and a low albumin at 2.5. Her last urinalysis performed on 08/04/2018 revealed 2+ leukocyte esterase, too numerous to count red blood cells, and 2-4 white blood cells per high-power field. 8. The repeat EEG performed on 08/10/2018 revealed electrical cerebral inactivity (ECI) at gains as high as 2 microvolts per mm. 9. The patient's history, neurological examination, CT scan findings and EEG are most compatible with cardiopulmonary arrest associated with pulseless electrical activity that lasted for approximately five minutes followed by the patient being in an unresponsive state. These findings are consistent with a significant and severe anoxic/ischemic encephalopathy. 10. She meets criteria for lack of cortical function but still has minimal brainstem function. 11. The prognosis for recovery of neurologic function is dismal, as there has been no improvement in her neurologic function >72 hours following the cardio- pulmonary arrest, she has no cortical brain dysfunction and the CT reveal severe brain injury. Recommendations 1. Continue present management. 2. Family made aware of dismal prognosis. 3. Steroids are not indicated from neurologic point of view. Ag Velarde M.D., M.S.P.H. Ag Velarde MD Aug 11, 2018 15:44
--- NOTE | 2018-08-11 16:20 | NUR ---
NURSE NOTES: Pt changed position, tolerated well. No sign of acute distress.
--- NOTE | 2018-08-11 18:26 | Consultation ---
History of Present Illness General Chief Complaint: General Complaint Present Illness Allergies: Coded Allergies: No Known Allergies (Unverified , 07/30/18) Medication History Scheduled Adalimumab (Humira), 10 MG SUBQ Q14D, (Reported) Ibuprofen* (Motrin*), Unknown Dose ORAL PRN, (Reported) Scheduled PRN Acetaminophen* (Tylenol Extra Strength*), 500 MG ORAL Q6H PRN for Mild Pain/ Temp > 100.5, (Reported) Prednisone* (Prednisone*), 5 MG ORAL DAILY PRN for Pain Scale (6-10), (Reported) Miscellaneous Medications Naphazo HCl/Hpm/Ps 80/Zn Sulf (Clear Eyes Complete Eye Drops), Unknown Dose OP, (Reported) Vitamin E Mixed (Vitamin E), Unknown Dose PO, (Reported) [Black Seed Oil], (Reported) [Marijuana], (Reported) Patient History Healthcare decision maker Resuscitation status Full Code Advanced Directive on File Physical Exam Last 24 Hour Vital Signs Date Time Temp Pulse Resp B/P (MAP) Pulse Ox O2 Delivery O2 Flow Rate FiO2 08/11/18 18:00 93 20 154/106 (122) 100 08/11/18 17:45 95 151/113 08/11/18 17:43 95 151/113 08/11/18 17:00 95 20 151/113 (126) 100 08/11/18 16:48 91 12 30 30 08/11/18 16:00 Mechanical Ventilator 08/11/18 16:00 100 08/11/18 16:00 30 08/11/18 16:00 93 20 157/103 (121) 100 08/11/18 15:24 100 12 30 30 08/11/18 15:00 98 20 147/97 (114) 100 08/11/18 14:01 101 20 144/106 (119) 100 08/11/18 13:23 158/104 08/11/18 13:01 100 20 30 30 08/11/18 13:00 98.1 102 20 158/104 (122) 100 08/11/18 12:00 30 08/11/18 12:00 98 08/11/18 12:00 Mechanical Ventilator 08/11/18 12:00 98.1 98 20 164/115 (131) 100 08/11/18 11:18 168/115 08/11/18 11:06 104 20 30 30 08/11/18 11:00 98.1 102 21 168/115 (132) 100 08/11/18 10:00 98.1 100 20 151/94 (113) 100 08/11/18 09:51 100 161/111 08/11/18 09:51 161/111 08/11/18 09:05 101 18 30 30 08/11/18 09:00 98.1 102 20 158/103 (121) 100 08/11/18 08:00 102 08/11/18 08:00 Mechanical Ventilator 08/11/18 08:00 98.1 106 21 159/106 (123) 100 08/11/18 08:00 30 08/11/18 07:01 99 18 30 30 08/11/18 07:00 100 20 164/113 (130) 100 08/11/18 06:00 100 20 160/109 (126) 100 08/11/18 05:16 100 18 30 30 08/11/18 05:00 101 20 167/112 (130) 100 08/11/18 04:00 98.0 102 20 150/107 (121) 100 08/11/18 04:00 Mechanical Ventilator 08/11/18 04:00 101 08/11/18 04:00 30 08/11/18 03:22 102 19 30 30 08/11/18 03:00 103 20 173/113 (133) 100 08/11/18 02:00 102 20 150/102 (118) 100 08/11/18 01:27 102 19 30 30 08/11/18 01:00 102 19 141/99 (113) 100 08/11/18 00:00 Mechanical Ventilator 08/11/18 00:00 98.1 104 18 136/95 (109) 100 08/11/18 00:00 30 08/11/18 00:00 103 08/10/18 23:01 103 15 30 30 08/10/18 23:00 103 16 137/94 (108) 100 08/10/18 22:00 104 15 133/95 (108) 100 08/10/18 21:00 100 16 123/86 (98) 100 08/10/18 20:50 94/71 08/10/18 20:49 92 12 30 30 08/10/18 20:00 30 08/10/18 20:00 99 08/10/18 20:00 97.5 101 15 94/71 (79) 100 08/10/18 20:00 Mechanical Ventilator 08/10/18 19:29 96 12 30 30 08/10/18 19:00 101 19 105/69 (81) 99 Intake and Output 08/10/18 08/11/18 19:00 07:00 Intake Total 1265 ml 1290 ml Output Total 520 ml 760 ml Balance 745 ml 530 ml IV Total 905 ml 900 ml Tube Feeding 360 ml 360 ml Other 30 ml Output Urine Total 520 ml 760 ml # Bowel Movements 2 Height (Feet): 5 Height (Inches): 5.00 Weight (Pounds): 144 Medications Current Medications Medications (Trade) Dose Ordered Sig/Hilaria Route PRN Reason Start Time Stop Time Status Last Admin Dose Admin Acetaminophen (Tylenol) 650 mg Q6H PRN RECTAL Mild Pain/Temp > 100.5 08/06/18 13:38 09/05/18 13:37 Amlodipine Besylate (Norvasc) 5 mg BID NG 08/11/18 18:00 09/10/18 17:59 Artificial Tears (Akwa-Tears) 2 drop BIDPRN PRN BOTH EYES Dry Eyes 08/06/18 13:39 09/05/18 13:38 Chlorhexidine Gluconate (Jeanie-Hex 2%) 1 applic DAILY@2000 TOPIC 08/09/18 20:00 09/08/18 19:59 08/10/18 20:05 Clonidine HCl (Catapres Tab) 0.1 mg Q2H PRN NG bp over 160 syst 100 diastolic 08/11/18 09:45 09/10/18 09:44 08/11/18 13:23 Dexamethasone Sodium Phosphate (Decadron 4mg/ml vial) 10 mg Q8H IVP 08/09/18 08:00 09/08/18 07:59 08/11/18 00:03 Docusate Sodium (Colace) 100 mg THREE TIMES A DAY ORAL 08/06/18 18:00 08/30/18 17:59 08/11/18 17:43 Linezolid 300 ml @ 300 mls/hr Q12HR IVPB 08/10/18 21:00 08/17/18 20:59 08/11/18 09:40 Metoprolol Tartrate (Lopressor) 25 mg BID NG 08/10/18 09:00 09/09/18 08:59 08/11/18 17:43 Nitroglycerin (Ntg) 1 patch Q24H TDERMAL 08/07/18 08:00 09/06/18 07:59 08/11/18 09:51 Norepinephrine Bitartrate 8 mg/ Dextrose 500 ml @ 0 mls/hr Q24H IV 08/06/18 21:00 09/05/18 20:59 08/08/18 21:17 Ondansetron HCl (Zofran) 4 mg Q6H PRN IV Nausea & Vomiting 08/06/18 14:45 08/30/18 14:44 Pantoprazole (Protonix) 40 mg EVERY 12 HOURS IVP 08/06/18 21:00 09/05/18 20:59 08/11/18 09:36 Piperacillin Sod/ Tazobactam Sod 3.375 gm/Dextrose 110 ml @ 220 mls/hr Q12H IVPB 08/07/18 18:30 08/14/18 18:29 08/11/18 17:45 Sodium Bicarbonate 50 ml/ Sodium Chloride 1,050 ml @ 75 mls/hr Q14H IV 08/09/18 15:30 09/08/18 15:29 08/11/18 10:10 Assessment/Plan Assessment/Plan Hematology Consultation DOS: 08/11/18 KATELYN MD: Chay StevensC: Anemia, Leukocytosis HISTORY OF PRESENT ILLNESS: The patient is a 43-year-old lady who was hospitalized at [facility] on July 30, 2018 for one week of headache and stiff neck. The patient was hyponatremic and had a urinary tract infection. On August 06, 2018 at around noon, the patient initially had sinus tachycardia and then developed bradycardia due to Mobitz type 1 AV block and subsequently 2:1 AV block at 12:49. The patient subsequently had a PA arrest. CPR was initiated immediately and was intubated and was moved to the intensive care unit. At the time of my evaluation, the patient is unresponsive on the ventilator and is on pressors, prn, with severe anoxic encephalopathy. REVIEW OF SYSTEMS: Cannot be obtained. PAST MEDICAL HISTORY: Rheumatoid arthritis on prednisone and Humira over the last two years. PHYSICAL EXAMINATION: VITAL SIGNS: Blood pressure of 107/79 on Levophed, pulse is 94, respirations 14. HEENT: Head and neck shows, orally intubated with no JVD. LUNGS: Coarse rhonchi. She has a central line to the left subclavian. ABDOMEN: Soft. EXTREMITIES: No pitting edema. Labs: reviewed ASSESSMENT AND PLAN: # Anemia of chronic disease (or of iron deficiency) due to underlying chronic medical issues, multifactorial --> Anemia workup has been ordered, rule out gi bleed --> No evidence of hemolysis is noted, peripheral smear has been reviewed. --> Hgb goal >7. Transfuse prn. --> Epogen or iron at this time is not particularly indicated --> Medications have been reviewed --> evaluate with Gi team prn --> transfuse if hgb is < 7 (will trend CBC daily) # Leukocytosis could be due to steriods given, or RA flare, repeated blood culture and urine culture is negative so far , repeated CXR no new infiltrates , continue zosyn empirically. monitor cultures . --> monitor for resolution --> culture and imaging review prn with id # Thrombocytopenia potentially due to consumption, v meds, v acute even --> trend as needed 252-->144-->122k --> transfuse if any bleeding evidence # Altered mental status. Her initial head CT on July 31, 2018 shows hydrocephalus and repeat head CT today showed evidence of severe and diffuse cerebral edema, possibly impending for acute alcohol intoxication --> as per neuro # Status post pulseless electrical activity and cardiopulmonary arrest. --> as per cards recs, minimally responsive now # Atrial fibrillation with rapid ventricular response. # Hypotension. # Respiratory failure, on ventilator per Dr. Kelly. # Renal failure. Further evaluation by Dr. Ramsey. The timing of this note does not necessarily reflect the time of the patient was seen. Greatly appreciate consultation! Willie Martin MD Aug 11, 2018 18:26
--- NOTE | 2018-08-11 18:50 | NUR ---
NURSE NOTES: Pt is still in comatose. BP managed systolic <160. No signs of acute distress.
--- NOTE | 2018-08-11 19:30 | NUR ---
NURSE NOTES: Received Pt is sleeping on the bed and comatose statue. Pupil size 5mm with no reaction noted. On ETT #7.0 and placed middle of lip 23cm. Vent setting with Ac; 12, T: 500, P: 5, FiO2; 30% and SaO2 100% noted. Given oral care and suction. On Tele monitor with SR and HR; 95's. On NG tube feeding with Nepro 30cc/hr and tolerated well. No residual noted. NGT in placed. On Bianchi cath and patent and yellowish urine urinated well. Pt has Lt. clavicle TLC patent and no sign of infiltration noted. Dressing is clean and dry. BT checked 94.5F by axillary. Applied Dean Hugger. Provided warming measure. Changed position. Placed fall precaution. Will continue to care plan.
[2018-08-11] MEDS: Dyna-Hex 2% Top Sol 2oz TOPIC SCH (19:59)
[2018-08-11 20:00] LABS: FERRITIN 396 NG/ML (8-388); LACTATE DEHYDROGENASE 920 U/L (81-234)
[2018-08-11 20:05] LABS: % IRON SATURATION 38 % (15-50); IRON 49 ug/dL (50-175); TOTAL IRON BINDING CAPACITY 130 ug/dL (250-450)
[2018-08-11] MEDS: Norepinephrine Bitartrate 8 MG in D5W 500ml 492 ML IV SCH (21:00)
--- NOTE | 2018-08-11 21:58 | Infectious Diseases Prog Note ---
Assessment/Plan Problems: (1) Headache Assessment & Plan: with neck stiffness , meningitis VS RA flare , continue zosyn and zyvox empirically since responded well , off vancomycin since supra therapeutic, monitor level . on steroids for RA flare by rheumatology (2) fever, tachy cardia Assessment & Plan: resolved , on wide spectrum antibiotics , could be RA flare , repeated blood culture and urine culture is negative so far , repeated CXR no new infiltrates, continue zosyn and zyvox empirically. monitor cultures . (3) Rheumatoid arthritis flare Assessment & Plan: possible with fever, and high RF , received steroids , recommend rheumatology eval (4) UTI (urinary tract infection) Assessment & Plan: due to proteus mirabilis , already on zosyn now to cover for sepsis too, repeated urine culture is pending (5) SIADH (syndrome of inappropriate ADH production) Assessment & Plan: continue fluids restriction , renal is following (6) Cardiac arrest Assessment & Plan: due to PEA , was intubated and started on mechanical ventilation and pressors and transferred to ICU. cardiology is following (7) Anoxic encephalopathy Assessment & Plan: with diffuse brain edema and poor activities on EEG , poor prognosis overall , neurology is following . D/W family at bedside (8) Acute renal failure Assessment & Plan: suspect ATN due to code and hypotensive, continue hydration and blood pressure support, renal is following (9) Leukocytosis Assessment & Plan: suspect steroids driven , with negative blood culture so far , sputum culture grew MRSA ALREADY covered with zyvox , yeast is most likely contaminants. Subjective ROS Limited/Unobtainable: Yes Allergies: Coded Allergies: No Known Allergies (Unverified , 07/30/18) Subjective she was still intubated on mechanical ventilation , in ICU, with dilated and fixed pupils , unresponsive , S/P CODE BLUE due to PEA. failed another apnea test today. no fever or chills, no secretions from ET tube , hypotensive on pressors Objective Vital Signs Last 24 Hour Vital Signs Date Time Temp Pulse Resp B/P (MAP) Pulse Ox O2 Delivery O2 Flow Rate FiO2 08/11/18 21:25 97 12 30 30 08/11/18 21:00 141/109 08/11/18 20:16 91 15 30 30 08/11/18 20:00 30 08/11/18 20:00 93 08/11/18 19:00 94 20 154/109 (124) 100 4/5/19 18:00 93 20 154/106 (122) 100 08/11/18 17:45 95 151/113 08/11/18 17:43 95 151/113 08/11/18 17:00 95 20 151/113 (126) 100 08/11/18 16:48 91 12 30 30 08/11/18 16:00 Mechanical Ventilator 08/11/18 16:00 100 08/11/18 16:00 30 08/11/18 16:00 93 20 157/103 (121) 100 08/11/18 15:24 100 12 30 30 08/11/18 15:00 98 20 147/97 (114) 100 08/11/18 14:01 101 20 144/106 (119) 100 08/11/18 13:23 158/104 08/11/18 13:01 100 20 30 30 08/11/18 13:00 98.1 102 20 158/104 (122) 100 08/11/18 12:00 30 08/11/18 12:00 98 08/11/18 12:00 Mechanical Ventilator 08/11/18 12:00 98.1 98 20 164/115 (131) 100 08/11/18 11:18 168/115 08/11/18 11:06 104 20 30 30 08/11/18 11:00 98.1 102 21 168/115 (132) 100 08/11/18 10:00 98.1 100 20 151/94 (113) 100 08/11/18 09:51 100 161/111 08/11/18 09:51 161/111 08/11/18 09:05 101 18 30 30 08/11/18 09:00 98.1 102 20 158/103 (121) 100 08/11/18 08:00 102 08/11/18 08:00 Mechanical Ventilator 08/11/18 08:00 98.1 106 21 159/106 (123) 100 08/11/18 08:00 30 08/11/18 07:01 99 18 30 30 08/11/18 07:00 100 20 164/113 (130) 100 08/11/18 06:00 100 20 160/109 (126) 100 08/11/18 05:16 100 18 30 30 08/11/18 05:00 101 20 167/112 (130) 100 08/11/18 04:00 98.0 102 20 150/107 (121) 100 08/11/18 04:00 Mechanical Ventilator 08/11/18 04:00 101 08/11/18 04:00 30 08/11/18 03:22 102 19 30 30 08/11/18 03:00 103 20 173/113 (133) 100 08/11/18 02:00 102 20 150/102 (118) 100 08/11/18 01:27 102 19 30 30 08/11/18 01:00 102 19 141/99 (113) 100 08/11/18 00:00 Mechanical Ventilator 08/11/18 00:00 98.1 104 18 136/95 (109) 100 08/11/18 00:00 30 08/11/18 00:00 103 08/10/18 23:01 103 15 30 30 08/10/18 23:00 103 16 137/94 (108) 100 08/10/18 22:00 104 15 133/95 (108) 100 Height (Feet): 5 Height (Inches): 5.00 Weight (Pounds): 144 General Appearance: WD/WN, no acute distress HEENT: normocephalic, atraumatic, mucous membranes moist, supple, no JVD, other - pupils dilated and fixed Respiratory/Chest: chest wall non-tender, no respiratory distress, no accessory muscle use, decreased breath sounds Cardiovascular: normal peripheral pulses, normal rate, regular rhythm, no gallop/murmur, no JVD Abdomen: no organomegaly, non distended, no mass, no scars, hypoactive bowel sounds Extremities: no cyanosis, no clubbing Skin: no lesions, no ulcers Neurologic/Psychiatric: unresponsiveness Lymphatic: no neck adenopathy, no groin adenopathy Musculoskeletal: normal muscle bulk, no effusion Laboratory Tests Test 08/11/18 18:30 Reticulocyte Count 0.9 % (0.0-2.0) Sickle Cell Screen Pending Prothrombin Time 10.3 SEC (9.30-11.50) Prothromb Time International Ratio 1.0 (0.9-1.1) Fibrinogen 666 mg/dL (200-400) H Iron Level 49 ug/dL (50-175) L Total Iron Binding Capacity 130 ug/dL (250-450) L Percent Iron Saturation 38 % (15-50) Unsaturated Iron Binding 81 ug/dL (112-346) L Ferritin 396 NG/ML (8-388) H Lactate Dehydrogenase 920 U/L (81-234) H Total Protein (PEP) Pending Albumin (PEP) Pending Globulin (PEP) Pending Albumin/Globulin Ratio Pending [id number] Pending [id number]-[id number] Pending Beta Globulins Pending Beta Gamma Globulin Pending PEP Abnormal Protein Bands Pending Protein Electrophoresis Interpret Pending Folate 7.6 NG/ML (8.6-58.9) L HIV (1&2) Antibody Rapid Negative (NEGATIVE) Current Medications Medications (Trade) Dose Ordered Sig/Hilaria Route PRN Reason Start Time Stop Time Status Last Admin Dose Admin Acetaminophen (Tylenol) 650 mg Q6H PRN RECTAL Mild Pain/Temp > 100.5 08/06/18 13:38 09/05/18 13:37 Amlodipine Besylate (Norvasc) 5 mg BID NG 08/11/18 18:00 09/10/18 17:59 Artificial Tears (Akwa-Tears) 2 drop BIDPRN PRN BOTH EYES Dry Eyes 08/06/18 13:39 09/05/18 13:38 Chlorhexidine Gluconate (Jeanie-Hex 2%) 1 applic DAILY@2000 TOPIC 08/09/18 20:00 09/08/18 19:59 08/11/18 19:59 Clonidine HCl (Catapres Tab) 0.1 mg Q2H PRN NG bp over 160 syst 100 diastolic 08/11/18 09:45 09/10/18 09:44 08/11/18 13:23 Dexamethasone Sodium Phosphate (Decadron 4mg/ml vial) 10 mg Q8H IVP 08/09/18 08:00 09/08/18 07:59 08/11/18 00:03 Docusate Sodium (Colace) 100 mg THREE TIMES A DAY ORAL 08/06/18 18:00 08/30/18 17:59 08/11/18 17:43 Linezolid 300 ml @ 300 mls/hr Q12HR IVPB 08/10/18 21:00 08/17/18 20:59 08/11/18 20:52 Metoprolol Tartrate (Lopressor) 25 mg BID NG 08/10/18 09:00 09/09/18 08:59 08/11/18 17:43 Nitroglycerin (Ntg) 1 patch Q24H TDERMAL 08/07/18 08:00 09/06/18 07:59 08/11/18 09:51 Norepinephrine Bitartrate 8 mg/ Dextrose 500 ml @ 0 mls/hr Q24H IV 08/06/18 21:00 09/05/18 20:59 08/08/18 21:17 Ondansetron HCl (Zofran) 4 mg Q6H PRN IV Nausea & Vomiting 08/06/18 14:45 08/30/18 14:44 Pantoprazole (Protonix) 40 mg EVERY 12 HOURS IVP 08/06/18 21:00 09/05/18 20:59 08/11/18 20:52 Piperacillin Sod/ Tazobactam Sod 3.375 gm/Dextrose 110 ml @ 220 mls/hr Q12H IVPB 08/07/18 18:30 08/14/18 18:29 08/11/18 17:45 Sodium Bicarbonate 50 ml/ Sodium Chloride 1,050 ml @ 75 mls/hr Q14H IV 08/09/18 15:30 09/08/18 15:29 08/11/18 10:10 Kiel Aguillon M.D. Aug 11, 2018 21:58
--- NOTE | 2018-08-11 22:00 | NUR ---
NURSE NOTES: Pt is sleeping on the bed and comatose. Noted 1 times BM. Cleaned Pt and applied lotion and cream. Changed position. Rechecked BT : 95.6F. Keep warming measure. Will continue to monitor any change of condition.
[2018-08-12] VITALS (23 sets, daily range): BP systolic 117–152; BP diastolic 79–101
--- NOTE | 2018-08-12 | NUR ---
NURSE NOTES: Pt is sleeping on the bed and comatose state. Dr. Ayers visited and assessed Pt. Rechecked BT : 98.5F by axillary. Stopper Dean De La Garza. Changed position. Tolerated well with current Vent setting. Will continue to monitor any change of condition.
[2018-08-12] MEDS: Dexamethasone 4mg/ml vial IVP SCH ×2 (00:05→08:36)
[2018-08-12] MEDS: Sodium Bicarbonate 50 ML in 1/2 NS 1000ml 1,000 ML IV SCH ×2 (00:05→14:06)
--- NOTE | 2018-08-12 01:13 | NUR ---
NURSE NOTES: Called from Mary who is legacy staff and report to him her current condition. Will continue to monitor any change of condition.
--- NOTE | 2018-08-12 02:00 | NUR ---
NURSE NOTES: Tolerated well with current Vent setting and SaO2 100% noted. Changed position. BP is stable checked 140/89mmHg. Will continue to monitor any change of condition.
--- NOTE | 2018-08-12 03:30 | Progress Note ---
DATE: 08/11/2018 SUBJECTIVE: The patient remained in better condition than previously. Her cardiovascular condition is improved. She is off any pressure support by drip. PHYSICAL EXAMINATION: VITAL SIGNS: Blood pressure 146/86, pulse is 101, respirations 12, temperature is 94.5. The patient developed hypothermia. She is now undergoing external heating . HEENT: Eyes were closed. Pupils are not dilated and not responding to light. Mucous membranes were moist. NECK: Supple with no JVD without lymph nodes. LUNGS: Clear. HEART: Normal sounds with regular beats. There is some tachycardia, sinus tachycardia on monitor. ABDOMEN: Soft and nontender with normal bowel sounds. EXTREMITIES: Warm without cyanosis, clubbing, or edema. LABORATORY AND DIAGNOSTIC DATA: Hemoglobin is 9.3, hematocrit 29.2, MCV 71, WBC of 17,000, and platelets is 122. Her BUN and creatinine is 64 and 6.6 respectively. Her sodium is 143, potassium 4.2, chloride 105, CO2 is 22, calcium is 8.9, phosphorus is 5.3, magnesium is 1.8. Urinalysis was clear. Her LDH is 920. CRP is 12.5, ProBNP is 1154. Amylase is 2.4, globulin 4. . Sputum culture with Staphylococcus Aureus and usual respiratory brigette. A chest x-ray today showed atelectasis and consolidation in the left lower lobe, which is new and did not exist . Repeat laboratory tests will be done in the a.m. Rajendra Ayers M.D. DR: ANA JOB#: [id number] CC:
--- NOTE | 2018-08-12 04:00 | NUR ---
NURSE NOTES: Given morning care. Noted moderated amount BM. Cleaned Pt applied lotion and creams. Given oral care. On NG tube feeding tolerated well. Noted 10cc residual. Rechecked BT; 98.9F noted. Changed position. Will continue to monitor.
--- NOTE | 2018-08-12 06:00 | NUR ---
NURSE NOTES: Pt is comatose. No neurology change noted. Tolerated well with current Vent setting and SaO2 99-100% noted. Changed position. Noted good urine output via Bianchi cath. No open wound noted at this time. Will continue to monitor any change of condition.
[2018-08-12] MEDS: Piperacillin/Tazobactam 3.375 GM in D5W 110 ML IVPB SCH ×2 (06:02→17:27)
[2018-08-12 06:05] LABS: HEMATOCRIT 26.7 % (37.0-47.0); HEMOGLOBIN 8.5 G/DL (12.0-16.0); MEAN CORPUSCULAR VOLUME 71 FL (80-99); PLATELET COUNT 144 K/UL (150-450); RED BLOOD COUNT 3.74 M/UL (4.20-5.40); RED CELL DISTRIBUTION WIDTH 19.9 % (11.6-14.8); WHITE BLOOD COUNT 14.6 K/UL (4.8-10.8)
[2018-08-12 06:23] LABS: ANION GAP 14 mmol/L (5-15); BLOOD UREA NITROGEN 81 mg/dL (7-18); CALCIUM 8.9 MG/DL (8.5-10.1); CARBON DIOXIDE 26 MMOL/L (21-32); CHLORIDE 107 MMOL/L (98-107); CREATININE 6.7 MG/DL (0.55-1.30); POTASSIUM 3.6 MMOL/L (3.5-5.1); SODIUM 147 MMOL/L (136-145)
--- NOTE | 2018-08-12 06:48 | NUR ---
RESPIRATORY NOTE: Received pt on ordered vent settings. Pt endotracheal tube is patent and secured. Suctioned pt prn. Vent alarms are on and audible. Vent is plugged into red outlet. Will monitor pt progress.
--- NOTE | 2018-08-12 07:22 | Pulmonolgy Critical Care Note ---
Critical Care - Asmt/Plan Assessment/Plan: 1. Status post cardiac arrest, shock 2. Severe anoxic encephalopathy, unresponsive. 3. Respiratory failure, on ventilator support. 4. Severe rheumatoid arthritis. 5. Possible sepsis. 6. Acute renal failure continue vent support this indicates minimal brainstem activity DNR; prognosis nil family deciding on terminal extubation, I agree with this dw nrusing Respiratory: CXR Renal: keep IV fluid Disposition: keep in ICU Time Spent (Minutes): 40 Notes Reviewed: other Discussed with: nurses Critical Care - Objective Last 24 Hour Vital Signs Date Time Temp Pulse Resp B/P (MAP) Pulse Ox O2 Delivery O2 Flow Rate FiO2 08/12/18 06:00 120 17 131/80 (97) 100 08/12/18 05:00 120 17 136/93 (107) 100 08/12/18 04:47 120 17 30 30 08/12/18 04:00 121 08/12/18 04:00 Mechanical Ventilator 08/12/18 04:00 30 08/12/18 04:00 98.9 120 15 133/82 (99) 100 08/12/18 03:15 117 16 30 30 08/12/18 03:00 121 17 139/94 (109) 99 08/12/18 02:00 118 17 140/89 (106) 99 08/12/18 01:11 117 17 30 30 08/12/18 01:00 107 15 127/85 (99) 100 08/12/18 00:00 Mechanical Ventilator 08/12/18 00:00 30 08/12/18 00:00 108 08/12/18 00:00 98.5 114 16 132/84 (100) 100 08/11/18 23:19 112 16 30 30 08/11/18 23:00 107 15 137/87 (104) 100 08/11/18 22:00 101 12 146/96 (113) 100 08/11/18 21:25 97 12 30 30 08/11/18 21:00 95 14 142/103 (116) 100 08/11/18 21:00 141/109 08/11/18 20:16 91 15 30 30 08/11/18 20:00 30 08/11/18 20:00 94.5 92 14 155/108 (124) 100 08/11/18 20:00 93 08/11/18 20:00 Mechanical Ventilator 08/11/18 19:00 94 20 154/109 (124) 100 08/11/18 18:00 93 20 154/106 (122) 100 08/11/18 17:45 95 151/113 08/11/18 17:43 95 151/113 08/11/18 17:00 95 20 151/113 (126) 100 08/11/18 16:48 91 12 30 30 08/11/18 16:00 Mechanical Ventilator 08/11/18 16:00 100 08/11/18 16:00 30 08/11/18 16:00 93 20 157/103 (121) 100 08/11/18 15:24 100 12 30 30 08/11/18 15:00 98 20 147/97 (114) 100 08/11/18 14:01 101 20 144/106 (119) 100 08/11/18 13:23 158/104 08/11/18 13:01 100 20 30 30 08/11/18 13:00 98.1 102 20 158/104 (122) 100 08/11/18 12:00 30 08/11/18 12:00 98 08/11/18 12:00 Mechanical Ventilator 08/11/18 12:00 98.1 98 20 164/115 (131) 100 08/11/18 11:18 168/115 08/11/18 11:06 104 20 30 30 08/11/18 11:00 98.1 102 21 168/115 (132) 100 08/11/18 10:00 98.1 100 20 151/94 (113) 100 08/11/18 09:51 100 161/111 08/11/18 09:51 161/111 08/11/18 09:05 101 18 30 30 08/11/18 09:00 98.1 102 20 158/103 (121) 100 08/11/18 08:00 102 08/11/18 08:00 Mechanical Ventilator 08/11/18 08:00 98.1 106 21 159/106 (123) 100 08/11/18 08:00 30 Status: obtunded Condition: grave Heart: HR/BP unstable Abdomen: soft, non-tender Extremities: no C/C/E Critical Care - Subjective ROS Limited/Unobtainable: Yes Condition: grave FI02: 30 Vent Support Breath Rate: 12 Vent Support Mode: AC Vent Tidal Volume: 400 Sputum Amount: None PEEP: 5.0 PIP: 19 Tube Feeding Amount: 30 I&O: Intake and Output 08/11/18 08/12/18 19:00 07:00 Intake Total 2115 ml 1480 ml Output Total 985 ml 1250 ml Balance 1130 ml 230 ml IV Total 1755 ml 1120 ml Tube Feeding 360 ml 360 ml Output Urine Total 985 ml 1250 ml # Bowel Movements 3 4 CXR: 4/5 atelectas vx infiltrate l base ET-Tube: 7.5 ET Position: 23 Labs: Current Medications Medications (Trade) Dose Ordered Sig/Hilaria Route PRN Reason Start Time Stop Time Status Last Admin Dose Admin Acetaminophen (Tylenol) 650 mg Q6H PRN RECTAL Mild Pain/Temp > 100.5 08/06/18 13:38 09/05/18 13:37 Amlodipine Besylate (Norvasc) 5 mg BID NG 08/11/18 18:00 09/10/18 17:59 Artificial Tears (Akwa-Tears) 2 drop BIDPRN PRN BOTH EYES Dry Eyes 08/06/18 13:39 09/05/18 13:38 Chlorhexidine Gluconate (Jeanie-Hex 2%) 1 applic DAILY@2000 TOPIC 08/09/18 20:00 09/08/18 19:59 08/11/18 19:59 Clonidine HCl (Catapres Tab) 0.1 mg Q2H PRN NG bp over 160 syst 100 diastolic 08/11/18 09:45 09/10/18 09:44 08/11/18 13:23 Dexamethasone Sodium Phosphate (Decadron 4mg/ml vial) 10 mg Q8H IVP 08/09/18 08:00 09/08/18 07:59 08/12/18 00:05 Docusate Sodium (Colace) 100 mg THREE TIMES A DAY ORAL 08/06/18 18:00 08/30/18 17:59 08/11/18 17:43 Linezolid 300 ml @ 300 mls/hr Q12HR IVPB 08/10/18 21:00 08/17/18 20:59 08/11/18 20:52 Metoprolol Tartrate (Lopressor) 25 mg BID NG 08/10/18 09:00 09/09/18 08:59 08/11/18 17:43 Nitroglycerin (Ntg) 1 patch Q24H TDERMAL 08/07/18 08:00 09/06/18 07:59 08/11/18 09:51 Norepinephrine Bitartrate 8 mg/ Dextrose 500 ml @ 0 mls/hr Q24H IV 08/06/18 21:00 09/05/18 20:59 08/08/18 21:17 Ondansetron HCl (Zofran) 4 mg Q6H PRN IV Nausea & Vomiting 08/06/18 14:45 08/30/18 14:44 Pantoprazole (Protonix) 40 mg EVERY 12 HOURS IVP 08/06/18 21:00 09/05/18 20:59 08/11/18 20:52 Piperacillin Sod/ Tazobactam Sod 3.375 gm/Dextrose 110 ml @ 220 mls/hr Q12H IVPB 08/07/18 18:30 08/14/18 18:29 08/12/18 06:02 Sodium Bicarbonate 50 ml/ Sodium Chloride 1,050 ml @ 75 mls/hr Q14H IV 08/09/18 15:30 09/08/18 15:29 08/12/18 00:05 Laboratory Tests Test 08/11/18 18:30 08/12/18 04:40 Reticulocyte Count 0.9 % (0.0-2.0) Sickle Cell Screen Pending Prothrombin Time 10.3 SEC (9.30-11.50) Prothromb Time International Ratio 1.0 (0.9-1.1) Fibrinogen 666 mg/dL (200-400) H Iron Level 49 ug/dL (50-175) L Total Iron Binding Capacity 130 ug/dL (250-450) L Percent Iron Saturation 38 % (15-50) Unsaturated Iron Binding 81 ug/dL (112-346) L Ferritin 396 NG/ML (8-388) H Lactate Dehydrogenase 920 U/L (81-234) H Total Protein (PEP) Pending Albumin (PEP) Pending Globulin (PEP) Pending Albumin/Globulin Ratio Pending Ovxaj-6-Kudzupnxl Pending Hxuhw-4-Zwcayqymz Pending Beta Globulins Pending Beta Gamma Globulin Pending PEP Abnormal Protein Bands Pending Protein Electrophoresis Interpret Pending Folate 7.6 NG/ML (8.6-58.9) L HIV (1&2) Antibody Rapid Negative (NEGATIVE) White Blood Count 14.6 K/UL (4.8-10.8) H Red Blood Count 3.74 M/UL (4.20-5.40) L Hemoglobin 8.5 G/DL (12.0-16.0) L Hematocrit 26.7 % (37.0-47.0) L Mean Corpuscular Volume 71 FL (80-99) L Mean Corpuscular Hemoglobin 22.6 PG (27.0-31.0) L Mean Corpuscular Hemoglobin Concent 31.7 G/DL (32.0-36.0) L Red Cell Distribution Width 19.9 % (11.6-14.8) H Platelet Count 144 K/UL (150-450) L Mean Platelet Volume 6.8 FL (6.5-10.1) Neutrophils (%) (Auto) % (45.0-75.0) Lymphocytes (%) (Auto) % (20.0-45.0) Monocytes (%) (Auto) % (1.0-10.0) Eosinophils (%) (Auto) % (0.0-3.0) Basophils (%) (Auto) % (0.0-2.0) Neutrophils % (Manual) Pending Lymphocytes % (Manual) Pending Platelet Estimate Pending Platelet Morphology Pending Sodium Level 147 MMOL/L (136-145) H Potassium Level 3.6 MMOL/L (3.5-5.1) Chloride Level 107 MMOL/L (98-107) Carbon Dioxide Level 26 MMOL/L (21-32) Anion Gap 14 mmol/L (5-15) Blood Urea Nitrogen 81 mg/dL (7-18) H Creatinine 6.7 MG/DL (0.55-1.30) H Estimat Glomerular Filtration Rate 8.2 mL/min (>60) Glucose Level 250 MG/DL (74-106) H Calcium Level 8.9 MG/DL (8.5-10.1) Sol Alexander DO Aug 12, 2018 07:22
--- NOTE | 2018-08-12 07:39 | NUR ---
HAND-OFF: Report given to MARY Miller. Pt is comatose and no response. Tolerated well. with current Vent setting.
--- NOTE | 2018-08-12 07:40 | NUR ---
NURSE NOTES: Report received from Shayy Madrigal RN.Pt nonresponsive,to verbal and painful stimuli,with ETT #7 and lip 23cm,with vent AC12,TV 500, 30% Fio2,Peep5,NGT in placed per auscultation with Nepro feeding at 30 ml/hr,no residual,Bianchi cath draining yellow urine with adequate amount,IV site Heplock to LH and TLC to LT clavicle intact,with IVF 1/2 NS + Na Bicarb at 75 ml/hr,SR up x2, HOB elevated ,bed lock in lowest position ,will continue with plans of care.
[2018-08-12] MEDS: Nitroglycerin Patch 0.4mg TDERMAL SCH (08:36)
[2018-08-12] MEDS: Pantoprazole Inj IVP SCH ×2 (08:36→20:59)
[2018-08-12] MEDS: Metoprolol 25mg tab NG SCH ×2 (08:38→17:26)
[2018-08-12] MEDS: Docusate 100mg cap ORAL SCH ×3 (08:38→17:27)
--- NOTE | 2018-08-12 11:00 | NUR ---
NURSE NOTES: Dr Ramsey at bedside, seen pt.asked re plans of family re extubation,family not around.
--- NOTE | 2018-08-12 13:21 | Neurology Progress Note ---
Interim History Interim History Interim History Ms Del Valle is unresponsive. She cannot be aroused even on deep pain. She however is still triggering the ventilator. There has been no improvement in her mental state. She has demonstrated no improvement in her neurologic function > 5 days post- event. Review of Systems Neuro Review of Systems Unable to obtain. Objective Physical Exam Last Vital Signs Date Time Temp Pulse Resp B/P (MAP) Pulse Ox O2 Delivery O2 Flow Rate FiO2 08/12/18 10:55 108 16 30 08/12/18 10:00 150/99 (116) 100 08/12/18 08:00 Mechanical Ventilator 08/12/18 08:00 97.9 Laboratory Tests Test 08/11/18 18:30 08/12/18 04:40 Reticulocyte Count 0.9 % (0.0-2.0) Sickle Cell Screen Pending Prothrombin Time 10.3 SEC (9.30-11.50) Prothromb Time International Ratio 1.0 (0.9-1.1) Fibrinogen 666 mg/dL (200-400) H Iron Level 49 ug/dL (50-175) L Total Iron Binding Capacity 130 ug/dL (250-450) L Percent Iron Saturation 38 % (15-50) Unsaturated Iron Binding 81 ug/dL (112-346) L Ferritin 396 NG/ML (8-388) H Lactate Dehydrogenase 920 U/L (81-234) H Total Protein (PEP) Pending Albumin (PEP) Pending Globulin (PEP) Pending Albumin/Globulin Ratio Pending Eaczr-6-[id number] Pending Flpxe-5-Hjfvhsiuc Pending Beta Globulins Pending Beta Gamma Globulin Pending PEP Abnormal Protein Bands Pending Protein Electrophoresis Interpret Pending Folate 7.6 NG/ML (8.6-58.9) L HIV (1&2) Antibody Rapid Negative (NEGATIVE) White Blood Count 14.6 K/UL (4.8-10.8) H Red Blood Count 3.74 M/UL (4.20-5.40) L Hemoglobin 8.5 G/DL (12.0-16.0) L Hematocrit 26.7 % (37.0-47.0) L Mean Corpuscular Volume 71 FL (80-99) L Mean Corpuscular Hemoglobin 22.6 PG (27.0-31.0) L Mean Corpuscular Hemoglobin Concent 31.7 G/DL (32.0-36.0) L Red Cell Distribution Width 19.9 % (11.6-14.8) H Platelet Count 144 K/UL (150-450) L Mean Platelet Volume 6.8 FL (6.5-10.1) Neutrophils (%) (Auto) % (45.0-75.0) Lymphocytes (%) (Auto) % (20.0-45.0) Monocytes (%) (Auto) % (1.0-10.0) Eosinophils (%) (Auto) % (0.0-3.0) Basophils (%) (Auto) % (0.0-2.0) Differential Total Cells Counted 100 Neutrophils % (Manual) 94 % (45-75) H Lymphocytes % (Manual) 3 % (20-45) L Monocytes % (Manual) 3 % (1-10) Eosinophils % (Manual) 0 % (0-3) Basophils % (Manual) 0 % (0-2) Band Neutrophils 0 % (0-8) Platelet Estimate Decreased L Platelet Morphology Normal Hypochromasia 1+ Anisocytosis 2+ Microcytosis 1+ Sodium Level 147 MMOL/L (136-145) H Potassium Level 3.6 MMOL/L (3.5-5.1) Chloride Level 107 MMOL/L (98-107) Carbon Dioxide Level 26 MMOL/L (21-32) Anion Gap 14 mmol/L (5-15) Blood Urea Nitrogen 81 mg/dL (7-18) H Creatinine 6.7 MG/DL (0.55-1.30) H Estimat Glomerular Filtration Rate 8.2 mL/min (>60) Glucose Level 250 MG/DL (74-106) H Calcium Level 8.9 MG/DL (8.5-10.1) Neurologic Exam Objective PHYSICAL EXAMINATION: GENERAL: She is a well-developed, well-nourished, black lady, lying in an ICU bed connected to a ventilator via an orotracheal tube. HEAD: Normocephalic and atraumatic. EENT: Examination benign. NECK: No neck rigidity was observed. NEUROLOGIC EXAMINATION: MENTAL STATUS EXAMINATION: She was unresponsive even to deep painful stimuli. Further mental status testing was impossible. SPEECH: Could not be tested. LANGUAGE: Could not be tested. CRANIAL NERVES EXAMINATION: II: She did not blink to threat. III, IV & : The external ocular movements were absent on oculocephalic maneuvers. The pupils were 6 mm in diameter and nonreactive to light. V & VII: The corneal reflexes were absent bilaterally. VIII: She did not respond to sounds and had no nystagmus. IX & X: The gag reflex was absent on manipulating the endotracheal tube. XI: The sternocleidomastoids and trapezii did not function. XII: Could not be tested. MOTOR SYSTEM: The tone was flaccid in all four extremities. Examination of muscle mass revealed no focal wasting. Examination of power was impossible to perform because even on applying deep painful stimuli no movements were seen. SENSORY EXAMINATION: She did not respond to deep pain. REFLEXES: 1+ and bilaterally symmetrical at the biceps, triceps, and brachioradialis, 0 at both knees, and ankles. The plantar responses were mute bilaterally. COORDINATION, STANCE & GAIT: Could not be tested. Impression/Recommendations Diagnostic Impression 1. Ms. Shruti Del Valle is a 43-year-old, black lady, of unknown handedness, who does have a past history of rheumatoid arthritis, who was hospitalized for a one -week history of headache and stiff neck associated with hyponatremia and a urinary tract infection. She was treated with antibiotics and on 08/06/2018, she had a pulseless electrical activity, cardiopulmonary arrest. She was started on CPR immediately and within five minutes a pulse and blood pressure could be obtained. She was then intubated, artificially ventilated, and moved to the ICU. She has been unresponsive ever since. 2. She is unresponsive. She cannot be aroused even on deep pain. She however is still triggering the ventilator. There has been no improvement in her mental state. She has demonstrated no improvement in her neurologic function > 5 days post-event. 3. On neurological examination, at this time, she has significant global cerebral dysfunction with a lack of cortical function and the only brainstem function being triggering of the ventilator. 4. An EEG performed on 08/06/2018 revealed the lack of electrical cerebral activity at gains as high as 2 microvolts per mm. 5. A CT scan of the brain performed on 08/06/2018 revealed nonspecific diffuse cerebral edema with effacement of CSF containing spaces and decreased lomeli- white differentiation. 6. Her laboratory data on my initial evaluation revealed a WBC count elevated at 11,300, an anemia with a hemoglobin of 11.9 G. an arterial blood gas with a pH of 7.58, pCO2 of 22, and pO2 of 176. A chemistry panel with a sodium of 133 , BUN at 30, and creatinine at 2.9. A troponin elevated to 0.083, BNP elevated at 1053, and a low albumin at 2.5. Her last urinalysis performed on 08/04/2018 revealed 2+ leukocyte esterase, too numerous to count red blood cells, and 2-4 white blood cells per high-power field. 8. The repeat EEG performed on 08/10/2018 revealed electrical cerebral inactivity (ECI) at gains as high as 2 microvolts per mm. 9. The patient's history, neurological examination, CT scan findings and EEG are most compatible with cardiopulmonary arrest associated with pulseless electrical activity that lasted for approximately five minutes followed by the patient being in an unresponsive state. These findings are consistent with a significant and severe anoxic/ischemic encephalopathy. 10. She meets criteria for lack of cortical function but still has minimal brainstem function. 11. The prognosis for recovery of neurologic function is dismal, as there has been no improvement in her neurologic function >72 hours following the cardio- pulmonary arrest, she has no cortical brain dysfunction and the CT reveals severe brain injury. Recommendations 1. Continue present management. 2. Family made aware of dismal prognosis. 3. Continue present management as per family's wishes. Ag Velarde M.D., M.S.P.H. Ag Velarde MD Aug 12, 2018 13:21
--- NOTE | 2018-08-12 14:00 | NUR ---
NURSE NOTES: Mother at bedside,asked re their decision for extubation,mother said, pt's children are still undecided.
--- NOTE | 2018-08-12 14:52 | Nephrology Progress Note ---
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 members; father , 2 sons, female partner Based on EEG findings , yet minimal spontaneous brain stem activities it was explained that the prognosis is dismal they agreed with DNR . They also were going to decide regarding discontinuation of life support DC Decadron per Neuro advise will try to discuss with family again regarding terminal extubation Subjective ROS Limited/Unobtainable: Yes Interval Events/Complaints also coverage for Dr Stevesn Objective Objective Last 24 Hour Vital Signs Date Time Temp Pulse Resp B/P (MAP) Pulse Ox O2 Delivery O2 Flow Rate FiO2 08/12/18 14:00 104 18 149/91 (110) 100 08/12/18 13:00 101 17 149/91 (110) 100 08/12/18 12:53 112 18 30 08/12/18 12:00 103 08/12/18 12:00 97.7 102 17 152/101 (118) 100 08/12/18 12:00 Mechanical Ventilator 08/12/18 12:00 30 08/12/18 11:00 103 17 146/100 (115) 100 08/12/18 10:55 108 16 30 08/12/18 10:00 101 17 150/99 (116) 100 08/12/18 08:57 111 16 30 08/12/18 08:38 112 140/90 08/12/18 08:37 112 140/90 08/12/18 08:36 140/90 08/12/18 08:00 109 08/12/18 08:00 Mechanical Ventilator 08/12/18 08:00 97.9 112 17 140/90 (107) 100 08/12/18 08:00 30 08/12/18 07:00 113 17 138/89 (105) 100 08/12/18 06:48 109 18 30 30 08/12/18 06:00 120 17 131/80 (97) 100 08/12/18 05:00 120 17 136/93 (107) 100 08/12/18 04:47 120 17 30 30 08/12/18 04:00 121 08/12/18 04:00 Mechanical Ventilator 08/12/18 04:00 30 08/12/18 04:00 98.9 120 15 133/82 (99) 100 08/12/18 03:15 117 16 30 30 08/12/18 03:00 121 17 139/94 (109) 99 08/12/18 02:00 118 17 140/89 (106) 99 08/12/18 01:11 117 17 30 30 08/12/18 01:00 107 15 127/85 (99) 100 08/12/18 00:00 Mechanical Ventilator 08/12/18 00:00 30 08/12/18 00:00 108 08/12/18 00:00 98.5 114 16 132/84 (100) 100 08/11/18 23:19 112 16 30 30 08/11/18 23:00 107 15 137/87 (104) 100 08/11/18 22:00 101 12 146/96 (113) 100 08/11/18 21:25 97 12 30 30 08/11/18 21:00 95 14 142/103 (116) 100 08/11/18 21:00 141/109 08/11/18 20:16 91 15 30 30 08/11/18 20:00 30 08/11/18 20:00 94.5 92 14 155/108 (124) 100 08/11/18 20:00 93 08/11/18 20:00 Mechanical Ventilator 08/11/18 19:00 94 20 154/109 (124) 100 08/11/18 18:00 93 20 154/106 (122) 100 08/11/18 17:45 95 151/113 08/11/18 17:43 95 151/113 08/11/18 17:00 95 20 151/113 (126) 100 08/11/18 16:48 91 12 30 30 08/11/18 16:00 Mechanical Ventilator 08/11/18 16:00 100 08/11/18 16:00 30 08/11/18 16:00 93 20 157/103 (121) 100 08/11/18 15:24 100 12 30 30 08/11/18 15:00 98 20 147/97 (114) 100 Intake and Output 08/11/18 08/12/18 18:59 06:59 Intake Total 2128 ml 1467 ml Output Total 960 ml 1170 ml Balance 1168 ml 297 ml IV Total 1768 ml 1107 ml Tube Feeding 360 ml 360 ml Output Urine Total 960 ml 1170 ml # Bowel Movements 3 4 Laboratory Tests 08/11/18 18:30: Reticulocyte Count 0.9, Sickle Cell Screen [Pending], Prothrombin Time 10.3, Prothromb Time International Ratio 1.0, Fibrinogen 666H, Iron Level 49L, Total Iron Binding Capacity 130L, Percent Iron Saturation 38, Unsaturated Iron Binding 81L, Ferritin 396H, Lactate Dehydrogenase 920H, Total Protein (PEP) [ Pending], Albumin (PEP) [Pending], Globulin (PEP) [Pending], Albumin/Globulin Ratio [Pending], Avuvi-0-Xmlyglhgr [Pending], Mhhti-0-Mzxhfqsis [Pending], Beta Globulins [Pending], Beta Gamma Globulin [Pending], PEP Abnormal Protein Bands [ Pending], Protein Electrophoresis Interpret [Pending], Folate 7.6L, HIV (1&2) Antibody Rapid Negative 08/12/18 04:40: White Blood Count 14.6H, Red Blood Count 3.74L, Hemoglobin 8.5L, Hematocrit 26.7L, Mean Corpuscular Volume 71L, Mean Corpuscular Hemoglobin 22.6L, Mean Corpuscular Hemoglobin Concent 31.7L, Red Cell Distribution Width 19.9H, Platelet Count 144L, Mean Platelet Volume 6.8, Neutrophils (%) (Auto) , Lymphocytes (%) (Auto) , Monocytes (%) (Auto) , Eosinophils (%) (Auto) , Basophils (%) (Auto) , Differential Total Cells Counted 100, Neutrophils % ( Manual) 94H, Lymphocytes % (Manual) 3L, Monocytes % (Manual) 3, Eosinophils % ( Manual) 0, Basophils % (Manual) 0, Band Neutrophils 0, Platelet Estimate DecreasedL, Platelet Morphology Normal, Hypochromasia 1+, Anisocytosis 2+, Microcytosis 1+, Sodium Level 147H, Potassium Level 3.6, Chloride Level 107, Carbon Dioxide Level 26, Anion Gap 14, Blood Urea Nitrogen 81H, Creatinine 6.7H , Estimat Glomerular Filtration Rate 8.2, Glucose Level 250H, Calcium Level 8.9 Height (Feet): 5 Height (Inches): 5.00 Weight (Pounds): 144 General Appearance: no apparent distress EENT: other - vented Cardiovascular: tachycardia Respiratory/Chest: decreased breath sounds Abdomen: soft Objective no change Lio Ramsey MD Aug 12, 2018 14:52
--- NOTE | 2018-08-12 15:23 | Cardiac Electrophysiology PN ---
Assessment/Plan Assessment/Plan 1. Status post PEA and cardiopulmonary arrest. The patient had episodes of Wenckebach and then 2:1 block prior to the event makes me think that the patient probably had respiratory arrest first prior to her cardiac event. Her troponin is only marginally elevated, likely due to CPR. FU troponins were negative. Echo EF 50% to 55% on August 06, 2018. 2. Atrial fibrillation with rapid ventricular response. This was transient after her CPR. Currently in sinus rhythm. 3. Hypotension. Off Levophed. On broad-spectrum IV antibiotics. Etiology remains unclear. 4. HTN. On Lopressor 25 bid and Norvasc 5 bid and prn Clonidine 4. Altered mental status. Her initial head CT on July 31, 2018 shows hydrocephalus and repeat head CT showed evidence of severe and diffuse cerebral edema. EEG Flat line. Further evaluation by Dr. Velarde. 5. Respiratory failure, on ventilator per Dr. Kelly. 6. Renal failure. Further evaluation by Dr. Ramsey. 7. Likely aspiration pneumonia, on IV antibiotics. EULALIO RN Subjective Subjective In ICU unresponsive on the Vent in SR.No new events Objective Last 24 Hour Vital Signs Date Time Temp Pulse Resp B/P (MAP) Pulse Ox O2 Delivery O2 Flow Rate FiO2 08/12/18 14:49 107 18 30 08/12/18 14:00 104 18 149/91 (110) 100 08/12/18 13:00 101 17 149/91 (110) 100 08/12/18 12:53 112 18 30 08/12/18 12:00 103 08/12/18 12:00 97.7 102 17 152/101 (118) 100 08/12/18 12:00 Mechanical Ventilator 08/12/18 12:00 30 08/12/18 11:00 103 17 146/100 (115) 100 08/12/18 10:55 108 16 30 08/12/18 10:00 101 17 150/99 (116) 100 08/12/18 08:57 111 16 30 08/12/18 08:38 112 140/90 08/12/18 08:37 112 140/90 08/12/18 08:36 140/90 08/12/18 08:00 109 08/12/18 08:00 Mechanical Ventilator 08/12/18 08:00 97.9 112 17 140/90 (107) 100 08/12/18 08:00 30 08/12/18 07:00 113 17 138/89 (105) 100 08/12/18 06:48 109 18 30 30 08/12/18 06:00 120 17 131/80 (97) 100 08/12/18 05:00 120 17 136/93 (107) 100 08/12/18 04:47 120 17 30 30 08/12/18 04:00 121 08/12/18 04:00 Mechanical Ventilator 08/12/18 04:00 30 08/12/18 04:00 98.9 120 15 133/82 (99) 100 08/12/18 03:15 117 16 30 30 08/12/18 03:00 121 17 139/94 (109) 99 08/12/18 02:00 118 17 140/89 (106) 99 08/12/18 01:11 117 17 30 30 08/12/18 01:00 107 15 127/85 (99) 100 08/12/18 00:00 Mechanical Ventilator 08/12/18 00:00 30 08/12/18 00:00 108 08/12/18 00:00 98.5 114 16 132/84 (100) 100 08/11/18 23:19 112 16 30 30 08/11/18 23:00 107 15 137/87 (104) 100 08/11/18 22:00 101 12 146/96 (113) 100 08/11/18 21:25 97 12 30 30 08/11/18 21:00 95 14 142/103 (116) 100 08/11/18 21:00 141/109 08/11/18 20:16 91 15 30 30 08/11/18 20:00 30 08/11/18 20:00 94.5 92 14 155/108 (124) 100 08/11/18 20:00 93 08/11/18 20:00 Mechanical Ventilator 08/11/18 19:00 94 20 154/109 (124) 100 08/11/18 18:00 93 20 154/106 (122) 100 08/11/18 17:45 95 151/113 08/11/18 17:43 95 151/113 08/11/18 17:00 95 20 151/113 (126) 100 08/11/18 16:48 91 12 30 30 08/11/18 16:00 Mechanical Ventilator 4/5/19 16:00 100 08/11/18 16:00 30 08/11/18 16:00 93 20 157/103 (121) 100 08/11/18 15:24 100 12 30 30 Intake and Output 08/11/18 08/12/18 18:59 06:59 Intake Total 2128 ml 1467 ml Output Total 960 ml 1170 ml Balance 1168 ml 297 ml IV Total 1768 ml 1107 ml Tube Feeding 360 ml 360 ml Output Urine Total 960 ml 1170 ml # Bowel Movements 3 4 Laboratory Tests Test 08/11/18 18:30 08/12/18 04:40 Reticulocyte Count 0.9 % (0.0-2.0) Sickle Cell Screen Pending Prothrombin Time 10.3 SEC (9.30-11.50) Prothromb Time International Ratio 1.0 (0.9-1.1) Fibrinogen 666 mg/dL (200-400) H Iron Level 49 ug/dL (50-175) L Total Iron Binding Capacity 130 ug/dL (250-450) L Percent Iron Saturation 38 % (15-50) Unsaturated Iron Binding 81 ug/dL (112-346) L Ferritin 396 NG/ML (8-388) H Lactate Dehydrogenase 920 U/L (81-234) H Total Protein (PEP) Pending Albumin (PEP) Pending Globulin (PEP) Pending Albumin/Globulin Ratio Pending Ryjzn-2-Yqvdcsriy Pending Zbvjw-7-Vlneafbdc Pending Beta Globulins Pending Beta Gamma Globulin Pending PEP Abnormal Protein Bands Pending Protein Electrophoresis Interpret Pending Folate 7.6 NG/ML (8.6-58.9) L HIV (1&2) Antibody Rapid Negative (NEGATIVE) White Blood Count 14.6 K/UL (4.8-10.8) H Red Blood Count 3.74 M/UL (4.20-5.40) L Hemoglobin 8.5 G/DL (12.0-16.0) L Hematocrit 26.7 % (37.0-47.0) L Mean Corpuscular Volume 71 FL (80-99) L Mean Corpuscular Hemoglobin 22.6 PG (27.0-31.0) L Mean Corpuscular Hemoglobin Concent 31.7 G/DL (32.0-36.0) L Red Cell Distribution Width 19.9 % (11.6-14.8) H Platelet Count 144 K/UL (150-450) L Mean Platelet Volume 6.8 FL (6.5-10.1) Neutrophils (%) (Auto) % (45.0-75.0) Lymphocytes (%) (Auto) % (20.0-45.0) Monocytes (%) (Auto) % (1.0-10.0) Eosinophils (%) (Auto) % (0.0-3.0) Basophils (%) (Auto) % (0.0-2.0) Differential Total Cells Counted 100 Neutrophils % (Manual) 94 % (45-75) H Lymphocytes % (Manual) 3 % (20-45) L Monocytes % (Manual) 3 % (1-10) Eosinophils % (Manual) 0 % (0-3) Basophils % (Manual) 0 % (0-2) Band Neutrophils 0 % (0-8) Platelet Estimate Decreased L Platelet Morphology Normal Hypochromasia 1+ Anisocytosis 2+ Microcytosis 1+ Sodium Level 147 MMOL/L (136-145) H Potassium Level 3.6 MMOL/L (3.5-5.1) Chloride Level 107 MMOL/L (98-107) Carbon Dioxide Level 26 MMOL/L (21-32) Anion Gap 14 mmol/L (5-15) Blood Urea Nitrogen 81 mg/dL (7-18) H Creatinine 6.7 MG/DL (0.55-1.30) H Estimat Glomerular Filtration Rate 8.2 mL/min (>60) Glucose Level 250 MG/DL (74-106) H Calcium Level 8.9 MG/DL (8.5-10.1) Objective HEENT: Orally intubated with no JVD. LUNGS: Coarse rhonchi with central line to the left subclavian. ABDOMEN: Soft. EXTREMITIES: No pitting edema. Shaji Bhatti MD Aug 12, 2018 15:23
[2018-08-12 15:32] LABS: ALANINE AMINOTRANSFERASE 143 U/L (12-78); ALBUMIN 2.2 G/DL (3.4-5.0); ALKALINE PHOSPHATASE 189 U/L (46-116); ASPARTATE AMINO TRANSFERASE 300 U/L (15-37); BILIRUBIN,DIRECT 0.1 MG/DL (0.0-0.3); BILIRUBIN,TOTAL 0.3 MG/DL (0.2-1.0); PHOSPHORUS 4.9 MG/DL (2.5-4.9)
--- NOTE | 2018-08-12 15:56 | Infectious Diseases Prog Note ---
Assessment/Plan Problems: (1) fever, tachy cardia Assessment & Plan: resolved , on wide spectrum antibiotics , could be RA flare , repeated blood culture and urine culture is negative so far , repeated CXR showed possible LLL infiltrates, continue zosyn and zyvox empirically. monitor cultures . (2) Rheumatoid arthritis flare Assessment & Plan: possible with fever, and high RF , received steroids , rheumatology is following (3) UTI (urinary tract infection) Assessment & Plan: due to proteus mirabilis , already on zosyn now to cover for sepsis too, repeated urine culture is pending (4) SIADH (syndrome of inappropriate ADH production) Assessment & Plan: continue fluids restriction , renal is following (5) Cardiac arrest Assessment & Plan: due to PEA , was intubated , on mechanical ventilation and pressors . cardiology is following (6) Anoxic encephalopathy Assessment & Plan: with diffuse brain edema and poor activities on EEG , poor prognosis overall , with no cortical activities on repeated EEG, and minimal brain stem activity , neurology is following . D/W family at bedside (7) Acute renal failure Assessment & Plan: suspect ATN due to code and hypotensive, continue hydration and blood pressure support, renal is following (8) Leukocytosis Assessment & Plan: suspect steroids driven , with negative blood culture so far , sputum culture grew MRSA ALREADY covered with zyvox , yeast is most likely contaminants. Subjective ROS Limited/Unobtainable: Yes Allergies: Coded Allergies: No Known Allergies (Unverified , 07/30/18) Subjective she was still intubated on mechanical ventilation , in ICU, with dilated and fixed pupils , unresponsive , S/P CODE BLUE due to PEA. failed another apnea test , has minimal brain stem activities on repeated EEG but no cortical activities at all. no fever or chills, no secretions from ET tube , hypotensive on pressors Objective Vital Signs Last 24 Hour Vital Signs Date Time Temp Pulse Resp B/P (MAP) Pulse Ox O2 Delivery O2 Flow Rate FiO2 08/12/18 14:49 107 18 30 08/12/18 14:00 104 18 149/91 (110) 100 08/12/18 13:00 101 17 149/91 (110) 100 08/12/18 12:53 112 18 30 08/12/18 12:00 103 08/12/18 12:00 97.7 102 17 152/101 (118) 100 08/12/18 12:00 Mechanical Ventilator 08/12/18 12:00 30 08/12/18 11:00 103 17 146/100 (115) 100 08/12/18 10:55 108 16 30 08/12/18 10:00 101 17 150/99 (116) 100 08/12/18 08:57 111 16 30 08/12/18 08:38 112 140/90 08/12/18 08:37 112 140/90 08/12/18 08:36 140/90 08/12/18 08:00 109 08/12/18 08:00 Mechanical Ventilator 08/12/18 08:00 97.9 112 17 140/90 (107) 100 08/12/18 08:00 30 08/12/18 07:00 113 17 138/89 (105) 100 08/12/18 06:48 109 18 30 30 08/12/18 06:00 120 17 131/80 (97) 100 08/12/18 05:00 120 17 136/93 (107) 100 08/12/18 04:47 120 17 30 30 08/12/18 04:00 121 08/12/18 04:00 Mechanical Ventilator 08/12/18 04:00 30 08/12/18 04:00 98.9 120 15 133/82 (99) 100 08/12/18 03:15 117 16 30 30 08/12/18 03:00 121 17 139/94 (109) 99 08/12/18 02:00 118 17 140/89 (106) 99 08/12/18 01:11 117 17 30 30 08/12/18 01:00 107 15 127/85 (99) 100 08/12/18 00:00 Mechanical Ventilator 08/12/18 00:00 30 08/12/18 00:00 108 08/12/18 00:00 98.5 114 16 132/84 (100) 100 08/11/18 23:19 112 16 30 30 08/11/18 23:00 107 15 137/87 (104) 100 08/11/18 22:00 101 12 146/96 (113) 100 08/11/18 21:25 97 12 30 30 08/11/18 21:00 95 14 142/103 (116) 100 08/11/18 21:00 141/109 08/11/18 20:16 91 15 30 30 08/11/18 20:00 30 08/11/18 20:00 94.5 92 14 155/108 (124) 100 08/11/18 20:00 93 08/11/18 20:00 Mechanical Ventilator 08/11/18 19:00 94 20 154/109 (124) 100 08/11/18 18:00 93 20 154/106 (122) 100 08/11/18 17:45 95 151/113 08/11/18 17:43 95 151/113 08/11/18 17:00 95 20 151/113 (126) 100 08/11/18 16:48 91 12 30 30 08/11/18 16:00 Mechanical Ventilator 08/11/18 16:00 100 08/11/18 16:00 30 08/11/18 16:00 93 20 157/103 (121) 100 Height (Feet): 5 Height (Inches): 5.00 Weight (Pounds): 144 General Appearance: WD/WN, no acute distress HEENT: normocephalic, atraumatic, anicteric, mucous membranes moist, PERRL Respiratory/Chest: chest wall non-tender, normal breath sounds, no respiratory distress, no accessory muscle use, decreased breath sounds Cardiovascular: normal peripheral pulses, normal rate, regular rhythm, no gallop/murmur, no JVD Abdomen: no organomegaly, non distended, no mass, no scars, hypoactive bowel sounds Extremities: no cyanosis, no clubbing Skin: no rash, no lesions, no ulcers Neurologic/Psychiatric: unresponsiveness Lymphatic: no neck adenopathy Musculoskeletal: normal muscle bulk, no effusion Laboratory Tests Test 08/11/18 18:30 08/12/18 04:40 Reticulocyte Count 0.9 % (0.0-2.0) Sickle Cell Screen Pending Prothrombin Time 10.3 SEC (9.30-11.50) Prothromb Time International Ratio 1.0 (0.9-1.1) Fibrinogen 666 mg/dL (200-400) H Iron Level 49 ug/dL (50-175) L Total Iron Binding Capacity 130 ug/dL (250-450) L Percent Iron Saturation 38 % (15-50) Unsaturated Iron Binding 81 ug/dL (112-346) L Ferritin 396 NG/ML (8-388) H Lactate Dehydrogenase 920 U/L (81-234) H Total Protein (PEP) Pending Albumin (PEP) Pending Globulin (PEP) Pending Albumin/Globulin Ratio Pending [id number]-[id number] Pending Eiyjj-1-Hjyltzgav Pending Beta Globulins Pending Beta Gamma Globulin Pending PEP Abnormal Protein Bands Pending Protein Electrophoresis Interpret Pending Folate 7.6 NG/ML (8.6-58.9) L HIV (1&2) Antibody Rapid Negative (NEGATIVE) White Blood Count 14.6 K/UL (4.8-10.8) H Red Blood Count 3.74 M/UL (4.20-5.40) L Hemoglobin 8.5 G/DL (12.0-16.0) L Hematocrit 26.7 % (37.0-47.0) L Mean Corpuscular Volume 71 FL (80-99) L Mean Corpuscular Hemoglobin 22.6 PG (27.0-31.0) L Mean Corpuscular Hemoglobin Concent 31.7 G/DL (32.0-36.0) L Red Cell Distribution Width 19.9 % (11.6-14.8) H Platelet Count 144 K/UL (150-450) L Mean Platelet Volume 6.8 FL (6.5-10.1) Neutrophils (%) (Auto) % (45.0-75.0) Lymphocytes (%) (Auto) % (20.0-45.0) Monocytes (%) (Auto) % (1.0-10.0) Eosinophils (%) (Auto) % (0.0-3.0) Basophils (%) (Auto) % (0.0-2.0) Differential Total Cells Counted 100 Neutrophils % (Manual) 94 % (45-75) H Lymphocytes % (Manual) 3 % (20-45) L Monocytes % (Manual) 3 % (1-10) Eosinophils % (Manual) 0 % (0-3) Basophils % (Manual) 0 % (0-2) Band Neutrophils 0 % (0-8) Platelet Estimate Decreased L Platelet Morphology Normal Hypochromasia 1+ Anisocytosis 2+ Microcytosis 1+ Sodium Level 147 MMOL/L (136-145) H Potassium Level 3.6 MMOL/L (3.5-5.1) Chloride Level 107 MMOL/L (98-107) Carbon Dioxide Level 26 MMOL/L (21-32) Anion Gap 14 mmol/L (5-15) Blood Urea Nitrogen 81 mg/dL (7-18) H Creatinine 6.7 MG/DL (0.55-1.30) H Estimat Glomerular Filtration Rate 8.2 mL/min (>60) Glucose Level 250 MG/DL (74-106) H Uric Acid 5.6 MG/DL (2.6-7.2) Calcium Level 8.9 MG/DL (8.5-10.1) Phosphorus Level 4.9 MG/DL (2.5-4.9) Magnesium Level 2.0 MG/DL (1.8-2.4) Total Bilirubin 0.3 MG/DL (0.2-1.0) Direct Bilirubin 0.1 MG/DL (0.0-0.3) Aspartate Amino Transf (AST/SGOT) 300 U/L (15-37) H Alanine Aminotransferase (ALT/SGPT) 143 U/L (12-78) H Alkaline Phosphatase 189 U/L (46-116) H Total Protein 6.0 G/DL (6.4-8.2) L Albumin 2.2 G/DL (3.4-5.0) L Current Medications Medications (Trade) Dose Ordered Sig/Hilaria Route PRN Reason Start Time Stop Time Status Last Admin Dose Admin Acetaminophen (Tylenol) 650 mg Q6H PRN RECTAL Mild Pain/Temp > 100.5 08/06/18 13:38 09/05/18 13:37 Amlodipine Besylate (Norvasc) 5 mg BID NG 08/11/18 18:00 09/10/18 17:59 08/12/18 08:37 Artificial Tears (Akwa-Tears) 2 drop BIDPRN PRN BOTH EYES Dry Eyes 08/06/18 13:39 09/05/18 13:38 Chlorhexidine Gluconate (Jeanie-Hex 2%) 1 applic DAILY@2000 TOPIC 08/09/18 20:00 09/08/18 19:59 08/11/18 19:59 Clonidine HCl (Catapres Tab) 0.1 mg Q2H PRN NG bp over 160 syst 100 diastolic 08/11/18 09:45 09/10/18 09:44 08/11/18 13:23 Dextrose/Sodium Chloride 1,000 ml @ 75 mls/hr [id number] IV 08/12/18 15:00 09/11/18 14:59 Docusate Sodium (Colace) 100 mg THREE TIMES A DAY ORAL 08/06/18 18:00 08/30/18 17:59 08/11/18 17:43 Linezolid 300 ml @ 300 mls/hr Q12HR IVPB 08/10/18 21:00 08/17/18 20:59 08/12/18 08:37 Metoprolol Tartrate (Lopressor) 25 mg BID NG 08/10/18 09:00 09/09/18 08:59 08/12/18 08:38 Nitroglycerin (Ntg) 1 patch Q24H TDERMAL 08/07/18 08:00 09/06/18 07:59 08/12/18 08:36 Norepinephrine Bitartrate 8 mg/ Dextrose 500 ml @ 0 mls/hr Q24H IV 08/06/18 21:00 09/05/18 20:59 08/08/18 21:17 Ondansetron HCl (Zofran) 4 mg Q6H PRN IV Nausea & Vomiting 08/06/18 14:45 08/30/18 14:44 Pantoprazole (Protonix) 40 mg EVERY 12 HOURS IVP 08/06/18 21:00 09/05/18 20:59 08/12/18 08:36 Piperacillin Sod/ Tazobactam Sod 3.375 gm/Dextrose 110 ml @ 220 mls/hr Q12H IVPB 08/07/18 18:30 08/14/18 18:29 08/12/18 06:02 Kiel Aguillon M.D. Aug 12, 2018 15:56
[2018-08-12] MEDS: D5 1/4NS 1000ml 1,000 ML IV SCH (16:02)
--- NOTE | 2018-08-12 17:00 | NUR ---
NURSE NOTES: Pt passing large diarrhea like stools,continue to hold Colace.bed bath given,turned and repositioned.
--- NOTE | 2018-08-12 19:15 | NUR ---
HAND-OFF: Report given to Georgiana Mena RN.
--- NOTE | 2018-08-12 19:16 | NUR ---
NURSE NOTES: Endorsement received from MARY Miller. Patient has no eye opening, no response to pain. Orally intubated with ET 7.5, 23 lipline. AC 12, Vt 500, PEEP 5, 30% FiO2. NGT patent and intact. Rechecked placement per auscultation. No residual noted. Bianchi catheter connected to urimeter. Left subclavian TLC. Left hand saline lock.D5 1/4 NS at 75ml/hr. Head of bed elevated. Call light within reach.
--- NOTE | 2018-08-12 19:26 | NUR ---
RESPIRATORY NOTE: Received pt. on 840 vent. Vent settings are: A/C rate of 12, Vt 500, FI02 30%, PEEP +5. No respiratory distress noted, pt. sP02 @ 100%. Ambu bag @ BS. Vent plugged on red outlet. Will continue to monitor pt.
[2018-08-12] MEDS: Dyna-Hex 2% Top Sol 2oz TOPIC SCH (20:01)
[2018-08-12] MEDS: Norepinephrine Bitartrate 8 MG in D5W 500ml 492 ML IV SCH (21:00)
--- NOTE | 2018-08-12 21:00 | NUR ---
NURSE NOTES: Patient's sisters at bedside, following up regarding the family meeting. Informed them that we will follow up with the social service.
--- NOTE | 2018-08-12 23:00 | NUR ---
NURSE NOTES: Patient tolerating current vent settings. Maintaining temperature of 97.5F
[2018-08-13] VITALS (13 sets, daily range): BP systolic 66–114; BP diastolic 45–81
--- NOTE | 2018-08-13 01:00 | NUR ---
NURSE NOTES: Repositioned. Sinus rhythm on the monitor. Tolerating feeding
--- NOTE | 2018-08-13 03:00 | NUR ---
NURSE NOTES: Condition remains the same. Flaccid bilateral upper and bilateral lower extremities. Sinus rhythm on the monitor
--- NOTE | 2018-08-13 04:30 | Progress Note ---
DATE: 08/12/2018 SUBJECTIVE: The patient eyes were closed. Hemodynamically stable. The eyes revealed pupils are fixed and dilated. PHYSICAL EXAMINATION: VITAL SIGNS: Blood pressure 134/87, his pulse is 95, respirations of 19, and temperature 97.7 degrees. HEENT: Eyes are as above. ENT, mucous membranes are moist. NECK: Supple with no JVD without lymph nodes. Tracheostomy site is clean. LUNGS: Clear without rhonchi, rales, or wheezing. Secretions are small, thin, and lomeli. HEART: Normal sounds with regular heartbeats. There is tachycardia at rest. Sinus tachycardia on monitor. ABDOMEN: Soft and nontender with normal bowel sounds. Gastrostomy site is clean. EXTREMITIES: Warm without cyanosis, clubbing, or edema. LABORATORY AND DIAGNOSTIC DATA: Hemoglobin is 8.5, hematocrit 26.2 with MCV of 71, WBC of 14.6, and platelets are 144,000. WBC of 17.0 on 08/10/2018. Her BUN and creatinine are 81 and 6.7 respectively and 64 and 6.6 on 08/10/2018. The patient's calcium is 5.6 and phosphorus is 4.9, but clinically improved. Liver functions tests are SGOT is 300, SGPT of 143, and alkaline phosphatase is 189. Sputum culture from 08/07/2018 revealed at least three different organisms. Blood culture from the same day showed no growth after days 5. IMPRESSION AND PLAN: The patient did not respond to any stimulation. The patient had cerebral edema. Ventilators and infusion have been stopped. Hemodynamically, the patient remained stable. Repeat laboratory tests will be done in a.m. Rajendra Ayers M.D. DR: HUMBLE JOB#: [id number] CC:
[2018-08-13] MEDS: D5 1/4NS 1000ml 1,000 ML IV SCH (04:48)
--- NOTE | 2018-08-13 05:00 | NUR ---
NURSE NOTES: Patient passed soft brown stool. Bed bath, oral care, change of linens done.
--- NOTE | 2018-08-13 05:15 | NUR ---
NURSE NOTES: Patient noted to have respiration rate of 12 on the monitor.
[2018-08-13 05:57] LABS: HEMATOCRIT 22.9 % (37.0-47.0); HEMOGLOBIN 7.4 G/DL (12.0-16.0); MEAN CORPUSCULAR VOLUME 71 FL (80-99); PLATELET COUNT 133 K/UL (150-450); RED BLOOD COUNT 3.21 M/UL (4.20-5.40); RED CELL DISTRIBUTION WIDTH 19.7 % (11.6-14.8); WHITE BLOOD COUNT 11.2 K/UL (4.8-10.8)
[2018-08-13 06:03] LABS: ANION GAP 11 mmol/L (5-15); BLOOD UREA NITROGEN 101 mg/dL (7-18); CALCIUM 8.6 MG/DL (8.5-10.1); CARBON DIOXIDE 27 MMOL/L (21-32); CHLORIDE 108 MMOL/L (98-107); CREATININE 6.6 MG/DL (0.55-1.30); POTASSIUM 2.8 MMOL/L (3.5-5.1); SODIUM 146 MMOL/L (136-145)
[2018-08-13] MEDS: Piperacillin/Tazobactam 3.375 GM in D5W 110 ML IVPB SCH (06:24)
--- NOTE | 2018-08-13 07:00 | Pulmonolgy Critical Care Note ---
Critical Care - Asmt/Plan Assessment/Plan: 1. Status post cardiac arrest, shock 2. Severe anoxic encephalopathy, unresponsive. 3. Respiratory failure, on ventilator support. 4. Severe rheumatoid arthritis. 5. Possible sepsis. 6. Acute renal failure continue vent support rr in sync with set rate a changeo kelsi night DNR; prognosis nil family deciding on terminal extubation, I agree with this dw nrusing Time Spent (Minutes): 40 Discussed with: nurses Critical Care - Objective Last 24 Hour Vital Signs Date Time Temp Pulse Resp B/P (MAP) Pulse Ox O2 Delivery O2 Flow Rate FiO2 08/13/18 06:00 75 12 105/76 (86) 99 08/13/18 05:33 78 12 30 08/13/18 05:00 78 12 114/81 (92) 99 08/13/18 04:00 83 08/13/18 04:00 30 08/13/18 04:00 97.5 81 12 101/67 (78) 99 08/13/18 04:00 Mechanical Ventilator 08/13/18 03:09 84 12 30 08/13/18 03:00 85 12 101/67 (78) 99 08/13/18 02:00 87 12 105/67 (80) 99 08/13/18 01:18 95 16 30 08/13/18 01:00 92 15 109/74 (86) 100 08/13/18 00:00 97.5 89 17 114/74 (87) 100 08/13/18 00:00 30 08/13/18 00:00 87 08/13/18 00:00 Mechanical Ventilator 08/12/18 23:00 89 18 117/79 (92) 100 08/12/18 22:39 93 19 30 08/12/18 22:00 91 18 123/84 (97) 100 08/12/18 21:31 92 18 30 08/12/18 21:00 123/84 08/12/18 21:00 94 18 127/82 (97) 99 08/12/18 20:00 30 08/12/18 20:00 95 17 123/84 (97) 100 08/12/18 20:00 95 08/12/18 20:00 Mechanical Ventilator 08/12/18 19:25 97 16 30 08/12/18 19:00 97.7 94 17 129/81 (97) 100 08/12/18 18:00 95 19 129/81 (97) 100 08/12/18 17:27 101 134/87 08/12/18 17:26 101 134/87 08/12/18 17:00 101 17 121/79 (93) 100 08/12/18 16:00 101 08/12/18 16:00 Mechanical Ventilator 08/12/18 16:00 97.7 101 18 134/87 (103) 100 08/12/18 16:00 30 08/12/18 15:00 107 17 142/87 (105) 100 08/12/18 14:49 107 18 30 08/12/18 14:00 104 18 149/91 (110) 100 08/12/18 13:00 101 17 149/91 (110) 100 08/12/18 12:53 112 18 30 08/12/18 12:00 103 08/12/18 12:00 97.7 102 17 152/101 (118) 100 08/12/18 12:00 Mechanical Ventilator 08/12/18 12:00 30 08/12/18 11:00 103 17 146/100 (115) 100 08/12/18 10:55 108 16 30 08/12/18 10:00 101 17 150/99 (116) 100 08/12/18 08:57 111 16 30 08/12/18 08:38 112 140/90 08/12/18 08:37 112 140/90 08/12/18 08:36 140/90 08/12/18 08:00 109 08/12/18 08:00 Mechanical Ventilator 08/12/18 08:00 97.9 112 17 140/90 (107) 100 08/12/18 08:00 30 08/12/18 07:00 113 17 138/89 (105) 100 Status: obtunded Condition: grave Lungs: clear Abdomen: soft, non-tender Extremities: no C/C/E Critical Care - Subjective Condition: critical, grave FI02: 30 Vent Support Breath Rate: 12 Vent Support Mode: AC Vent Tidal Volume: 400 Sputum Amount: None PEEP: 5.0 PIP: 21 Tube Feeding Amount: 30 I&O: Intake and Output 08/12/18 08/13/18 19:00 07:00 Intake Total 675 ml 1530 ml Output Total 1275 ml 1475 ml Balance -600 ml 55 ml Free Water 120 ml 150 ml IV Total 75 ml 1050 ml Tube Feeding 360 ml 330 ml Other 120 ml Output Urine Total 1275 ml 1475 ml # Bowel Movements 5 1 Subjective: unresponsive in sync with set rate 12 no bleeding tolerating tf positive uop ET-Tube: 7.5 ET Position: 23 Labs: Laboratory Tests Test 08/13/18 04:30 White Blood Count 11.2 K/UL (4.8-10.8) H Red Blood Count 3.21 M/UL (4.20-5.40) L Hemoglobin 7.4 G/DL (12.0-16.0) L Hematocrit 22.9 % (37.0-47.0) L Mean Corpuscular Volume 71 FL (80-99) L Mean Corpuscular Hemoglobin 22.9 PG (27.0-31.0) L Mean Corpuscular Hemoglobin Concent 32.2 G/DL (32.0-36.0) Red Cell Distribution Width 19.7 % (11.6-14.8) H Platelet Count 133 K/UL (150-450) L Mean Platelet Volume 6.8 FL (6.5-10.1) Neutrophils (%) (Auto) % (45.0-75.0) Lymphocytes (%) (Auto) % (20.0-45.0) Monocytes (%) (Auto) % (1.0-10.0) Eosinophils (%) (Auto) % (0.0-3.0) Basophils (%) (Auto) % (0.0-2.0) Sodium Level 146 MMOL/L (136-145) H Potassium Level 2.8 MMOL/L (3.5-5.1) L Chloride Level 108 MMOL/L (98-107) H Carbon Dioxide Level 27 MMOL/L (21-32) Anion Gap 11 mmol/L (5-15) Blood Urea Nitrogen 101 mg/dL (7-18) H Creatinine 6.6 MG/DL (0.55-1.30) H Estimat Glomerular Filtration Rate 8.2 mL/min (>60) Glucose Level 319 MG/DL (74-106) H Calcium Level 8.6 MG/DL (8.5-10.1) Laboratory Tests Test 08/13/18 04:30 White Blood Count 11.2 K/UL (4.8-10.8) H Red Blood Count 3.21 M/UL (4.20-5.40) L Hemoglobin 7.4 G/DL (12.0-16.0) L Hematocrit 22.9 % (37.0-47.0) L Mean Corpuscular Volume 71 FL (80-99) L Mean Corpuscular Hemoglobin 22.9 PG (27.0-31.0) L Mean Corpuscular Hemoglobin Concent 32.2 G/DL (32.0-36.0) Red Cell Distribution Width 19.7 % (11.6-14.8) H Platelet Count 133 K/UL (150-450) L Mean Platelet Volume 6.8 FL (6.5-10.1) Neutrophils (%) (Auto) % (45.0-75.0) Lymphocytes (%) (Auto) % (20.0-45.0) Monocytes (%) (Auto) % (1.0-10.0) Eosinophils (%) (Auto) % (0.0-3.0) Basophils (%) (Auto) % (0.0-2.0) Sodium Level 146 MMOL/L (136-145) H Potassium Level 2.8 MMOL/L (3.5-5.1) L Chloride Level 108 MMOL/L (98-107) H Carbon Dioxide Level 27 MMOL/L (21-32) Anion Gap 11 mmol/L (5-15) Blood Urea Nitrogen 101 mg/dL (7-18) H Creatinine 6.6 MG/DL (0.55-1.30) H Estimat Glomerular Filtration Rate 8.2 mL/min (>60) Glucose Level 319 MG/DL (74-106) H Calcium Level 8.6 MG/DL (8.5-10.1) Sol Alexander DO Aug 13, 2018 07:00
--- NOTE | 2018-08-13 07:08 | NUR ---
HAND-OFF: Report given to MARY Chance. Addendum: 08/13/18 at 0716 by TRAVIS GANT RN HAND-OFF: Report given to MARY Miller.
--- NOTE | 2018-08-13 07:25 | NUR ---
NURSE NOTES: Report received from Georgiana Mena RN.Pt in bed non responsive to any stimuli,verbal or deep pain stimuli,noted no resp distress on ETT to vent,settings AC 12,TV 500 Fio2 30%,Peep 5, pt's RR on the monitor showing 12/min,Bianchi draining straw colored urine,,IV sites to LH and TLC to RT SC intact with IVF D5 1/4 NS at 75ml/hr,SR up x2 HOB elevated ,will continue to monitor pt.
--- NOTE | 2018-08-13 08:00 | NUR ---
RESPIRATORY NOTE: Received pt on charted vent settings. Comatose. No respiratory distress noted. Vent plugged into red outlet. ETT secured with anchor fast. Alarms set and audible. Will continue to monitor.
--- NOTE | 2018-08-13 09:16 | NUR ---
RD ASSESSMENT & RECOMMENDATIONS SEE CARE ACTIVITY FOR COMPLETE ASSESSMENT DAILY ESTIMATED NEEDS: Needs based on Critical Care, renal failure/ 63kg 22-28 kcals/kg 7545-1267 total kcals 0.6-1.0 g protein/kg 38-63 g total protein 25-30 mL/kg 3902-3311 total fluid mLs NUTRITION DIAGNOSIS: * Swallowing difficulty R/T respiratory status as evidenced by s/p code blue, orally intubated, on NGT feeding. * Altered nutrition related lab values R/T SIADH, clinical condition as evidenced by low Na (148), low osmolality (290), elev BUN (101), elev creat (wnl -> 6.6 trend up), low K (3.3 -> wnl), low phos (2.2-> wnl), elev BGs (250 319). (UPDATED) ENTERAL NUTRITION RECOMMENDATIONS: Nepro @ 30ml/hr x 24 hrs to provide 720ml, 1296kcal, 58g prot, 521ml free water * WITHOUT HEMODYNAMIC STABILITY :rec trophic feeds of Nepro @ 10ml/hr x 24 hrs * WITH HEMODYNAMIC STABILITY :maintain current TF order-> meets 94% est kcal and 100% est prot needs -> increasing TF rate not recommended at this time due to worsening kidney fxn ADDITIONAL RECOMMENDATIONS: * CALIBRATED bedscale wt for accurate CBW * Monitor hemodynamic stabiilty * Consider SSI: elev BGs, on TF (200's, 300's) * Monitor renal labs and lytes: worsening w/ creat 6.6 * Monitor POC/ bioethics pending .
[2018-08-13] MEDS: Pantoprazole Inj IVP SCH (09:47)
[2018-08-13] MEDS: Metoprolol 25mg tab NG SCH (09:48)
[2018-08-13] MEDS: Docusate 100mg cap ORAL SCH (09:49)
[2018-08-13] MEDS: Nitroglycerin Patch 0.4mg TDERMAL SCH (09:51)
[2018-08-13 09:59] LABS: ALANINE AMINOTRANSFERASE 143 U/L (12-78); ALBUMIN 1.8 G/DL (3.4-5.0); ALKALINE PHOSPHATASE 168 U/L (46-116); ASPARTATE AMINO TRANSFERASE 204 U/L (15-37); BILIRUBIN,DIRECT < 0.1 MG/DL (0.0-0.3); BILIRUBIN,TOTAL 0.3 MG/DL (0.2-1.0); PHOSPHORUS 5.7 MG/DL (2.5-4.9)
--- NOTE | 2018-08-13 10:50 | NUR ---
NURSE NOTES: Family members ,mother ,father,significant other met with Dr Smalls,discussed re extubation of pt.
--- NOTE | 2018-08-13 11:03 | NUR ---
NURSE NOTES: Patient observed bedside to be comatose. Patient is unresponsive. Patient has a RR of 12 which is the Vent Rate of AC 12. Patient is 100% dependent of the mechanical ventilator for support.
--- NOTE | 2018-08-13 11:05 | NUR ---
CASE MANAGEMENT: REVIEW SI: S/P CARDIAC ARREST . RESP FAILURE ON VENT SUPPORT . ARF T 97.0 HR 77 HR 12 BP 96/66 SAT 100% MECH VENT FIO2 30 WBC 11.2 H/H 7.4/22.9 NA 146 K 2.8 BUN 101 CR 6.6 IS: ZOSYN IV Q12HR KCl 10mEq IVF @ 100ML/HR ZYVOX IV Q12HR D5 N/4 NS IVF @ 75ML/HR LEVOPHED GTT NGT FEEDING ICU STATUS DCP: PATIENT IS FROM HOME
--- NOTE | 2018-08-13 11:05 | NUR ---
NURSE NOTES: Dr Ramsey and mortgage coordinator met with the family regarding patient's current status. Patient has been deemed cortically brain . Patient failed the apnea test confirming that she does not breathe on her own. Patient did have spontaneous breathes previously however, patient is fully assist control at 12 RR. Family requests at least two more days for patient however son who is the decision maker to terminally extubate.
[2018-08-13] MEDS ORDERED: Morphine Sulfate 4mg/ml Inj (IV USE ONLY) IVP PRN (11:15)
[2018-08-13] MEDS ORDERED: LORazepam Inj 2mg/ml 1ml IV PRN (11:15)
--- NOTE | 2018-08-13 11:19 | NUR ---
NURSE NOTES: Spoke to Dr Ramsey regarding patient's son's wishes. Orders have been entered to terminally extubate. Comfort measures have been ordered.
--- NOTE | 2018-08-13 11:45 | NUR ---
RESPIRATORY NOTE: Patient terminally extubated @ 1145 per MD orders. Nurse and Family at bedside.
--- NOTE | 2018-08-13 11:45 | NUR ---
NURSE NOTES: Pt extubated by Resp Therapist , given Morphine Sulfate 2mg IV by MARY Chance before extubation at 1138. Pt's son and other family members and significant other present at bedside.
--- NOTE | 2018-08-13 12:17 | NUR ---
PRONOUNCEMENT: No Code. Called to pronounce patient. Absence of spontaneous respirations, no cardiac or breath sounds on auscultation. Pupils fixed and dilated. [place] [id number] Stevens notified PER Angela Delarosa RN. Family was notified at 1150.
--- NOTE | 2018-08-13 12:20 | NUR ---
NURSE NOTES: Patient was terminally extubated at the request of the son. 2 mg of Morphine was given to the patient prior to extubation. RT extubated the patient at 1145 and spinning and winding supervisor pronounced the patient at 1149 when patient went asystole on the monitor. Family was at bedside. Dr Ramsey is aware given that he spoke to family prior to extubation. [employer] was contacted at [phone]. [facility] office was contacted and a case # was assigned [id number]. All belongings were taken prior to today's date. Patient has been prepared and will be sent downstairs for [facility] to recover the patient.
--- NOTE | 2018-08-13 12:30 | NUR ---
NURSE NOTES: Called Dr Stevens,spoke with desk operator,notified re pt's terminal extubation and subsequent expiration. at 1149.
--- NOTE | 2018-08-13 12:55 | Nephrology Progress Note ---
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 The Neuro condition explained questions answered family favor terminal extubation. Eldest so , next of kin requested terminal extubation to be done rosalva today. they would like an autopsy for determination of the cause of . I talked to Dr Velarde on 08/10/18 and then we both met with family members around 7 pm . members; father , 2 sons, female partner Based on EEG findings , yet minimal spontaneous brain stem activities it was explained that the prognosis is dismal they agreed with DNR . They also were going to decide regarding discontinuation of life support DC Decadron per Neuro advise will try to discuss with family again regarding terminal extubation Subjective ROS Limited/Unobtainable: Yes Interval Events/Complaints seen at 9.45 am Objective Objective Last 24 Hour Vital Signs Date Time Temp Pulse Resp B/P (MAP) Pulse Ox O2 Delivery O2 Flow Rate FiO2 08/13/18 11:45 73 0 66/45 (52) 08/13/18 11:30 73 12 66/45 (52) 08/13/18 10:52 72 12 30 08/13/18 10:00 77 12 98/67 (77) 100 08/13/18 09:51 102/66 08/13/18 09:49 76 102/66 08/13/18 09:48 76 102/66 08/13/18 09:00 76 12 96/66 (76) 100 08/13/18 08:55 76 12 30 08/13/18 08:00 97.0 76 12 102/66 (78) 100 08/13/18 08:00 79 08/13/18 08:00 30 08/13/18 07:00 79 12 100/71 (81) 100 08/13/18 07:00 Mechanical Ventilator 08/13/18 06:55 76 12 30 08/13/18 06:00 75 12 105/76 (86) 99 08/13/18 05:33 78 12 30 08/13/18 05:00 78 12 114/81 (92) 99 08/13/18 04:00 83 08/13/18 04:00 30 08/13/18 04:00 97.5 81 12 101/67 (78) 99 08/13/18 04:00 Mechanical Ventilator 08/13/18 03:09 84 12 30 08/13/18 03:00 85 12 101/67 (78) 99 08/13/18 02:00 87 12 105/67 (80) 99 08/13/18 01:18 95 16 30 08/13/18 01:00 92 15 109/74 (86) 100 08/13/18 00:00 97.5 89 17 114/74 (87) 100 08/13/18 00:00 30 08/13/18 00:00 87 08/13/18 00:00 Mechanical Ventilator 08/12/18 23:00 89 18 117/79 (92) 100 08/12/18 22:39 93 19 30 08/12/18 22:00 91 18 123/84 (97) 100 08/12/18 21:31 92 18 30 08/12/18 21:00 123/84 08/12/18 21:00 94 18 127/82 (97) 99 08/12/18 20:00 30 08/12/18 20:00 95 17 123/84 (97) 100 08/12/18 20:00 95 08/12/18 20:00 Mechanical Ventilator 08/12/18 19:25 97 16 30 08/12/18 19:00 97.7 94 17 129/81 (97) 100 08/12/18 18:00 95 19 129/81 (97) 100 08/12/18 17:27 101 134/87 08/12/18 17:26 101 134/87 08/12/18 17:00 101 17 121/79 (93) 100 08/12/18 16:00 101 08/12/18 16:00 Mechanical Ventilator 08/12/18 16:00 97.7 101 18 134/87 (103) 100 08/12/18 16:00 30 08/12/18 15:00 107 17 142/87 (105) 100 08/12/18 14:49 107 18 30 08/12/18 14:00 104 18 149/91 (110) 100 08/12/18 13:00 101 17 149/91 (110) 100 08/12/18 12:53 112 18 30 Intake and Output 08/12/18 08/13/18 19:00 07:00 Intake Total 675 ml 1560 ml Output Total 1275 ml 1650 ml Balance -600 ml -90 ml Free Water 120 ml 150 ml IV Total 75 ml 1050 ml Tube Feeding 360 ml 360 ml Other 120 ml Output Urine Total 1275 ml 1650 ml # Bowel Movements 5 2 Laboratory Tests 08/13/18 04:30: White Blood Count 11.2H, Red Blood Count 3.21L, Hemoglobin 7.4L, Hematocrit 22.9L, Mean Corpuscular Volume 71L, Mean Corpuscular Hemoglobin 22.9L, Mean Corpuscular Hemoglobin Concent 32.2, Red Cell Distribution Width 19.7H, Platelet Count 133L, Mean Platelet Volume 6.8, Neutrophils (%) (Auto) , Lymphocytes (%) (Auto) , Monocytes (%) (Auto) , Eosinophils (%) (Auto) , Basophils (%) (Auto) , Sodium Level 146H, Potassium Level 2.8L, Chloride Level 108H, Carbon Dioxide Level 27, Anion Gap 11, Blood Urea Nitrogen 101H, Creatinine 6.6H, Estimat Glomerular Filtration Rate 8.2, Glucose Level 319H, Calcium Level 8.6, Phosphorus Level 5.7H, Magnesium Level 2.1, Total Bilirubin 0.3, Direct Bilirubin < 0.1, Aspartate Amino Transf (AST/SGOT) 204H, Alanine Aminotransferase (ALT/SGPT) 143H, Alkaline Phosphatase 168H, Total Protein 5.4L , Albumin 1.8L Height (Feet): 5 Height (Inches): 5.00 Weight (Pounds): 144 General Appearance: no apparent distress EENT: other - vented fully assisted Cardiovascular: tachycardia Respiratory/Chest: decreased breath sounds, other - not triggering the vent Abdomen: soft Objective no change Lio Ramsey MD Aug 13, 2018 12:55
[2018-08-13] MEDS ORDERED: Tubing IV Secondary IV ONE ×2 (14:59)
[2018-08-13] MEDS ORDERED: NS 275ml ONE (14:59)
[2018-08-13] MEDS ORDERED: Sterile Water Irrig 1000ml IRRIG ONE (14:59)
[2018-08-13] MEDS ORDERED: Zosyn 3.375gm q12h **Extended infusion IVPB SCH ×2 (18:00)
--- NOTE | 2018-08-15 08:37 | Discharge Summary ---
Discharge Summary Discharge Summary _ SUMMARY DATE OF ADMISSION: 07/30/2018 DATE OF EXPIRATION: 08/13/2018 REASON FOR ADMISSION: 43 years old female with past medical history of severe rheumatoid arthritis and generalized weakness, presented to emergency department for intractable bilateral knee pain , debilitating headache and inability to move . Patient was at [facility] last week, and was given analgesic and Imitrex. Per family, patient had a minimal relief with continued headache over the last week. Patient was seen by her primary care provider and was given her note to go to emergency room for questionable fever , headache , and myalgia. Patient presented 3 days after the initial note . Per family, patient was not happy at [facility] and presented to this facility. Patient denied any chest pain or shortness of breath. Patient reported exacerbation of rheumatoid arthritis and continued headache. Patient reported blurry vision at times. Upon evaluation blood pressure was 136/102 , no fevers Laboratory workup revealed WBC 10.9, hemoglobin 13.1, hematocrit 41.1, platelets 293. Chemistry demonstrated potassium 3.1, sodium 133, stable renal parameters. Troponin negative. Next albumin 2.9 9. Urinalysis revealed +3 protein , positive for leukocyte esterase and few bacteria. CT of the head revealed question of mild ventricular dilatation ; consider communicating hydrocephalus. Patient was admitted for further management. CONSULTANTS: remote advisor Dr. Good neurologist Dr. Velarde pulmonary Dr. Kelly ID specialist direct mail marketer Dr. Ramsey hearing screen coordinator/oncologist Dr. Martin surgery Dr. Douglas dean of faculty Dr. Ayers HOSPITAL COURSE: Patient admitted and started on IV hydration. Patient started on steroids. GI prophylaxis provided Pain management was addressed as needed. Supportive care provided. Renal parameters and electrolytes were closely monitored. Electrolytes corrected as needed. Urine studies were done. Hyponatremia was likely due to SIADH, as per direct mail marketer. Patient received 3% sodium chloride and Lasix. Sodium was closely monitored. Chest x-ray revealed no acute cardiopulmonary pathology. CT scan of the neck on 08/04 was negative. Reversible cervical lordosis , probably due to muscle spasm noted. 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 No change from the prior exam. No acute hemorrhage or mass-effect or edema. Patient with intermittent fevers. Infectious disease specialist closely followed. Initial blood cultures were negative. Urine culture revealed Proteus mirabilis. Patient was on antibiotic as per ID specialist recommendation Repeated blood culture on 08/03 were negative. On CODE BLUE was called . Patient was in pulseless electrical activity, Patient was urgently intubated and transferred to ICU for further management. Chest x-ray confirmed correct placement of endotracheal tube. Repeated CT of the head on 08/06 showed evidence of severe and diffuse cerebral edema, possibly impending for actual uncal herniation. Increased extra-axial attenuation at the level of basilar cisterns. Most likely accentuation of the adjacent structures due to the low-attenuation cerebral parenchyma, although the possibility of a small amount of subarachnoid blood was not completely excludable. Ammonia level was stable. Neurologist closely followed. EEG performed on revealed a lack of electrical cerebral activities. CT scan of the brain performed on 08/06 revealed nonspecific diffuse cerebral edema with effacement of cerebrospinal fluid containing spaces and decreased right lomeli-white differentiation. Per Neurologist , patient's history ,neurological examination ,imaging were most compatible with significant and severe anoxic/ischemic encephalopathy due to cardiopulmonary arrest associated with pulseless electrical activity that lasted for approximately 5 minutes , followed by patient being in a severe unresponsive state. Neurologist recommended to repeat EEG in 72 hours and consider lumbar puncture to rule out infectious process. On , while in critical care, patient was hypotensive, tachycardic and required placement of central line, which was done at the bedside by the general surgeon via left subclavian vein. Venetian Blind Machine Operator followed. Patient was started on pressor/ Levophed with close titration to keep mean arterial blood pressure above 65. Hemodynamic status was closely monitored. Echocardiogram revealed preserved ejection fraction of 55% with mild left ventricular hypertrophy. No evidence of wall motion abnormality. Right ventricular systolic pressure of 19. Patient had episode of Wenckebach and then 2 to 1 block prior to event Troponin was only marginally elevated, once, likely due to CPR . The rest of troponin negative. Patient also had an episode of paroxysmal atrial fibrillation with rapid ventricular response , which was transient after CPR. Patient spontaneously converted to sinus rhythm. Patient was able to be weaned from pressors in few days. After blood pressure stabilized, patient slowly started on antihypertensive medications with low-dose of beta-kyle and calcium channel kyle. nt was a able to wean from pressor every few days. Neurologist closely followed. Ventilator support provided. Ventilator settings titrated as needed. Pulmonary toilet provided. Patient was followed -up with ABG. Infectious disease specialist followed. Repeated blood culture on 08/07 were negative. Repeated urine culture revealed no evidence of growth. Sputum culture collected on 08/07 revealed MRSA and yeast(likely contaminant). Chest x-ray revealed atelectasis or consolidation at the left lung base , new since . Patient was continued on IV antibiotics as per ID specialist recommendations. Boatswain'S Mate followed. Patient was on IV hydration. Renal parameters and electrolytes were closely monitored, electrolytes corrected as needed, and nephrotoxins were avoided. Sodium stabilized. However, patient also developed acute renal failure and showed rising creatinine. Nephrotoxins were avoided. Urine toxicology screen was negative. On 08/06 high vancomycin level. Vancomycin was changed to Zyvox. Creatinine continued to rise. Turkish Rubber seen and evaluated patient. Patient was given steroids ( with GI prophylaxis) for rheumatoid arthritis flare. Rheumatoid factor elevated 24.5, DHARMESH screen negative. HIV test was nonreactive. Hemoglobin and hematocrit were closely monitored with goal to keep hemoglobin above 7. Anemia workup was consistent with anemia of chronic disease. Physical Trainer followed. Nutritional support provided via NG tube. Per dietitian recommendation dietitian Per nutritional assessment , patient was at high risk for malnutrition. Tube feeding type and rate provided as per registered dietitian recommendation to provide enough nutritional support. Repeated EEG on 08/10 still was severely abnormal with absence of electrical cerebral activity. Patient demonstrated no improvement in neurological function for 5 days post event . Patient met criteria for lack of cortical function, but still had minimal brainstem function. Per neurologist, the prognosis for recovery of neurological function was dismal , as there had been no improvement in neurological function for over 72 hours, following cardiopulmonary arrest. Patient had no cortical brain function and CT head revealed severe brain injury. Patient with severe encephalopathy with no chances for neuro recovery. Family was informed about the dismal prognosis for neuro recovery. CODE STATUS was changed to DNR status. Family favored terminal extubation. Patient was terminally extubated at 11: 40 on 08/13/18. Family was at the bedside. Supplemental oxygen provided. Patient was and pronounced at 11:49 on 08/13/18. Cause of : cardiopulmonary arrest FINAL DIAGNOSES: Status post cardiopulmonary arrest ( due to pulseless electrical activity) Severe anoxic/ischemic encephalopathy Acute respiratory failure, requiring intubation Acute renal failure Septic shock Likely aspiration pneumonia with MRSA UTI with Proteus mirabilis Paroxysmal atrial fibrillation with rapid ventricular response Rheumatoid arthritis flare Heart block second-degree SIADH Hypokalemia Severe protein calorie malnutrition Anemia I have been assigned to dictate discharge summary for this account. I was not involved in the patient's management. Renea Delgado NP Aug 15, 2018 08:37
== END 2018-08-13 15:00 | disposition still patient (30) | DRG 346 ==
LOC: EMR 15:02 → 4E 18:37 → EDBEDREQ 20:24 → 4E 08-01 13:12 → 2W 08-05 22:23 → ICU 08-06 13:05
PROC: 0BH17EZ Insertion of Endotracheal Airway into Trachea, Via Natural or Artificial Opening (ICD-10-PCS; principal; 2018-08-06)
PROC: 5A1955Z Respiratory Ventilation, Greater than 96 Consecutive Hours (ICD-10-PCS; principal; 2018-08-06)
PROC: 5A12012 Performance of Cardiac Output, Single, Manual (ICD-10-PCS; principal; 2018-08-06)
PROC: 05H633Z Insertion of Infusion Device into Left Subclavian Vein, Percutaneous Approach (ICD-10-PCS; 2018-08-06)
DX: M06.89 Other specified rheumatoid arthritis, multiple sites (principal); J96.90 Respiratory failure, unspecified, unspecified whether with hypoxia or hypercapnia; G93.6 Cerebral edema; J69.0 Pneumonitis due to inhalation of food and vomit; E43 Unspecified severe protein-calorie malnutrition; A41.9 Sepsis, unspecified organism; R65.21 Severe sepsis with septic shock; G93.1 Anoxic brain damage, not elsewhere classified; E22.2 Syndrome of inappropriate secretion of antidiuretic hormone; I46.9 Cardiac arrest, cause unspecified; N39.0 Urinary tract infection, site not specified; R51 Headache; R11.10 Vomiting, unspecified; B96.4 Proteus (mirabilis) (morganii) as the cause of diseases classified elsewhere; E87.6 Hypokalemia; E86.0 Dehydration; R00.1 Bradycardia, unspecified; I44.1 Atrioventricular block, second degree; R09.2 Respiratory arrest; G91.0 Communicating hydrocephalus; D69.6 Thrombocytopenia, unspecified; D64.9 Anemia, unspecified; I10 Essential (primary) hypertension; N17.9 Acute kidney failure, unspecified; Z66 Do not resuscitate; I48.0 Paroxysmal atrial fibrillation; Z68.24 Body mass index [BMI] 24.0-24.9, adult
CPT/HCPCS: 36415; 36600; 70450; 70490; 71045; 80048; 80053; 80061; 80076; 80202; 80301; 80307; 81001; 81003; 82140; 82550; 82553; 82607; 82728; 82746; 82803; 82962; 82977; 83540; 83550; 83605; 83615; 83690; 83735; 83880; 83930; 83935; 84100; 84165; 84300; 84443; 84484; 84550; 84703; 85007; 85025; 85044; 85060; 85384; 85610; 85651; 85660; 86039; 86140; 86431; 86703; 87040; 87070; 87086; 87181; 87205; 92950; 93005; 93306; 93971; 94002; 94003; 95819; 96361; 96374; 96375; 99285; J2405; J8499